=== PATIENT | female | born 1945 | race Caucasian/White ===

== ENCOUNTER → 2016-06-26 | Outpatient (CLI) | payer BC ==
[~2016-06-26] MED LIST: AMLO-114 PO; CLON0.1T12 PO; CYCL10TA6 PO; DIPH1TAB87 PO; FLVHFA110 NAE; FMR25 PO; GABA-113 PO; HYDR-5688 PO; LEVO50TA6 PO; LEVO75TA5 PO; LOVA40TA4 PO; PRLSR20 PO; QUIN20TA30 PO; QUIN40TA PO; SENNTAB23 PO; SERT50TA PO; TRAM-10 PO; TRIATAB3 PO
[2016-06-26 13:01] LABS: ALT/SGPT 19 U/L (12-78); BLOOD UREA NITROGEN 16 mg/dl (7-18); BUN/CREATININE RATIO 20.8 (10-20); CARBON DIOXIDE 31 mmol/L (21-32); CHLORIDE 101 mmol/L (98-107); CHOLESTEROL 194 mg/dl (0-200); CREATININE 0.76 mg/dl (0.60-1.20); GLUCOSE 97 mg/dl (70-99); POTASSIUM 4.1 mmol/L (3.5-5.1); SODIUM 140 mmol/L (136-145); TRIGLYCERIDES 215 mg/dl (0-150); VERY LOW DENSITY LIPOPROT CALC 43 mg/dl
[2016-06-26 13:04] LABS: CALCIUM 10.2 mg/dl (8.5-10.1)
[2016-06-26 13:05] LABS: ALB/GLOB RATIO 1.1 (0.9-2); ALKALINE PHOSPHATASE 75 U/L (45-117); AST/SGOT 13 U/L (15-37); CHOLESTEROL/HDL RATIO 3.1; HDL CHOLESTEROL 62 mg/dl; LDL CHOLESTEROL CALCULATED 89 mg/dl
[2016-06-26 13:07] LABS: ESTIMATED AVERAGE GLUCOSE 140 mg/dl; HA1C FLAG Normal (Normal)
[2016-06-26 13:20] LABS: BASO ABS # 0.07 K/uL (0-0.2); COMPLETE YES; EOS % 3.8 %; HEMATOCRIT 41.3 % (37-47); IG% 0.1 %; LYMPH % 29.6 %; LYMPH ABS # 2.12 K/uL (1.2-3.4); MEAN CELL VOLUME 87.9 fL (80-100); MEAN CORPUSCULAR HEMOGLOBIN 27.9 pg (25-34); MEAN CORPUSCULAR HGB CONC 31.7 g/dl (32-36); MEAN PLATELET VOLUME 11.1 fL (7.4-10.4); MONO % 6.8 %; NEUT % 58.7 %; PLATELET COUNT 377 K/uL (130-400); WHITE BLOOD COUNT 7.16 K/uL (4.8-10.8)
--- NOTE | 2016-07-02 12:23 | CODING QUERY MEDICAL NECESSITY ---
SUPPORTING DIAGNOSIS NEEDED A supporting diagnosis is required for the test/procedure performed on this patient in order for us to be reimbursed by the patient's insurance. Please provide a supporting diagnosis for the following test/procedure listed below next to the test name along with your signature. *If there is no additional diagnosis for this patient that would support the following test/procedure please document that below next to the test/procedure. Test(s)/Procedure(s) that require a supporting diagnosis: DOS 06/26 * Hba1c DIAGNOSIS: Provider Signature: Date: Thank you Linda Foley Health Information Management Once completed, please kindly fax back to [phone] For questions please call [phone]
== END | disposition home or self-care (01) ==
LOC: C.LAB 10:46
PROVIDERS: ATTEND Family Medicine
DX: I10 Essential (primary) hypertension (principal); E78.5 Hyperlipidemia, unspecified; R73.03 Prediabetes

== ENCOUNTER 2016-07-27 07:40 | Observation (INO) | payer BC ==
[2016-06-26 10:54] VITALS: BMI 48.0
--- NOTE | 2016-06-26 11:37 | PAT Medication Instructions ---
Service Date Jun 26, 2016. Current Home Medication List Amlodipine (Norvasc), 10 MG PO HS Clonidine Hcl (Catapres), 1 TAB PO BID Cyclobenzaprine Hcl (Flexeril), 10 MG PO HS Diphenhydramine Hcl (Benadryl Allergy), 1 TAB PO HS Fluticasone Propionate (Flovent Hfa), 2 PUFFS MOSES QAM Gabapentin (Neurontin), 300 MG PO TID Levothyroxine Sodium (Levothyroxine Sodium), 1 TAB PO QAM Lovastatin (Mevacor), 40 MG PO HS Omeprazole (Prilosec), 20 MG PO QAM Quinapril Hcl (Quinapril Hcl), Unknown Dose PO QAM Sennosides-Docusate Sodium (Stool Softener), 1 TAB PO PRN Sertraline (Zoloft), 50 MG PO HS Tramadol (Ultram), 2 TAB PO TID PRN for Pain Triamterene/Hctz (Triamterene/Hctz 37.5-25MG), 1 TAB PO QAM Medication Instructions For Your Scheduled Surgery - Hold the following medications the morning of surgery: Triamterene/Hctz (Triamterene/Hctz 37.5-25MG), 1 TAB PO QAM Sennosides-Docusate Sodium (Stool Softener), 1 TAB PO PRN Quinapril Hcl (Quinapril Hcl), Unknown Dose PO QAM - Take the following medications the morning of surgery with a sip of water: Omeprazole (Prilosec), 20 MG PO QAM Levothyroxine Sodium (Levothyroxine Sodium), 1 TAB PO QAM Gabapentin (Neurontin), 300 MG PO TID Fluticasone Propionate (Flovent Hfa), 2 PUFFS MOSES QAM Clonidine Hcl (Catapres), 1 TAB PO BID Tramadol (Ultram), 2 TAB PO TID PRN for Pain (okay to take up to 4 hours prior to surgery if needed) - Take the following medications as scheduled the night before surgery: Sertraline (Zoloft), 50 MG PO HS Sennosides-Docusate Sodium (Stool Softener), 1 TAB PO PRN Lovastatin (Mevacor), 40 MG PO HS Gabapentin (Neurontin), 300 MG PO TID Diphenhydramine Hcl (Benadryl Allergy), 1 TAB PO HS Cyclobenzaprine Hcl (Flexeril), 10 MG PO HS Clonidine Hcl (Catapres), 1 TAB PO BID Amlodipine (Norvasc), 10 MG PO HS Tramadol (Ultram), 2 TAB PO TID PRN for Pain If you have any questions please call us at [phone] (Kellee Smith PA-C) or [phone] or [phone]
[~2016-07-27] VITALS: Ht 160 cm; Wt 121.3 kg
[2016-07-27] VITALS (8 sets, daily range): BP systolic 121–167; BP diastolic 53–82; PULSE 59–74; TEMP 36.6–37.3; O2SAT 91–99; BMI 48.0; BMI 46.1
[~2016-07-27 07:40] MED LIST changes: -FMR25 PO; -HYDR-5688 PO; +LACTATED RINGER'S 1000ML 1,000 ML IV SCH; -LEVO75TA5 PO; -QUIN40TA PO
--- NOTE | 2016-07-27 10:17 | DIAGNOSTIC IMAGING REPORT ---
LYMPHOSCINTIGRAPHY CLINICAL HISTORY: Left breast cancer. PROCEDURE: Using standard sterile technique, 4 intradermal and one deep injection of 0.49 mCi of Lymphoseek was placed in the left breast. The patient tolerated the procedure well. There were no immediate complications. The patient was subsequently transported to the surgical suite. No imaging was obtained at the referring physician's request. IMPRESSION: Injection of 0.49 mCi of Lymphoseek in the left breast. Electronically signed by: Aryan Perera M.D. 07/27/2016 10:16 AM Dictated Date/Time: 07/27/2016 10:16 AM
[2016-07-27] MEDS ORDERED: MIDAZOLAM HCL 1 MG/ML 2ML VIAL ONE (12:26)
[2016-07-27] MEDS ORDERED: FENTANYL CITRATE INJ 50 MCG/1 ML 2 ML VIAL ONE ×2 (12:26→15:45)
[2016-07-27] MEDS ORDERED: PROPOFOL IV EMULSION 10 MG/ML 20 ML VIAL IV ONE (12:42)
[2016-07-27] MEDS ORDERED: LIDOCAINE HCL 2% 2 ML VIAL (20MG/ML) ONE (12:42)
[2016-07-27] MEDS ORDERED: BUPIVACAINE 0.5 % 5 MG/1 ML MPF 30ML VIAL ONE (13:35)
[2016-07-27] MEDS: CEFAZOLIN 2000 MG/60 ML D5W IV SCH ×2 (13:52→13:59)
[2016-07-27] MEDS ORDERED: GLYCOPYRROLATE INJ 0.2 MG/ML VIAL ONE (15:09)
--- NOTE | 2016-07-27 15:10 | [facility] Post Operative Brief Note ---
Immediate Operative Summary Operative Date July 27, 2016. 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 Post-Operative Diagnosis Ductal carcinamo in situ left breast Procedure(s) Performed Left Breast Partial Mastectomy with Needle Localization, and Left [place] Lymph Node Biopsy Surgeon Dr Javon Lloyd Mortician Supplies Sales Representative Surgeon(s) Abhishek Ceja PA-C Estimated Blood Loss 20ml Findings SLN negative 2 needles placed - Specimens Frozen #1: left sentinel lymph node A: Left breast tissue,skin and needles-anterior, long silk-lateral, short silk-superior, blue-deep B: Additional superior tissue, silk-lateral, blue-new margin C: Additional inferior tissue, Blue-new margin Anesthesia gen/ LMA Complication(s) None Disposition Recovery Room / PACU
[2016-07-27] MEDS ORDERED: LACTATED RINGER'S 1000ML 1,000 ML IV SCH (15:11)
[2016-07-27] MEDS ORDERED: HYDROCODONE/ACETAMOPHEN 5/325MG TAB PO PRN ×2 (15:15)
[2016-07-27] MEDS ORDERED: MoRPHine SULFATE 2 MG/ML CARP IV PRN (15:15)
[2016-07-27] MEDS ORDERED: ONDANSETRON INJ 2 MG/ML 2 ML VIAL IV PRN (15:15)
[2016-07-27] MEDS ORDERED: MoRPHine SULFATE 4 MG/ML 1 ML CARP\\VIAL IV PRN (15:15)
[2016-07-27] MEDS ORDERED: FENTANYL CITRATE INJ 50 MCG/1 ML 2 ML VIAL IV PRN (15:45)
[2016-07-27] MEDS ORDERED: EpHEDrine SULFATE INJ 50 MG/ML AMP IV PRN (15:45)
[2016-07-27] MEDS ORDERED: ATROPINE SULFATE 0.1 MG/ML 5ML SYR IV PRN (15:45)
--- NOTE | 2016-07-27 16:07 | Anesthesiology Progress Note ---
Anesthesia Post Op Note Date & Time July 27, 2016 at 16:01 Vital Signs Pain Intensity: 7 Vital Signs Past 12 Hours Date Time Temp Pulse Resp B/P Pulse Ox O2 Delivery O2 Flow Rate FiO2 07/27/16 15:50 57 16 169/94 97 Nasal Cannula 4 07/27/16 15:40 57 16 160/85 98 Nasal Cannula 4 07/27/16 15:30 63 16 173/91 98 Nasal Cannula 4 07/27/16 15:23 36.3 81 16 167/104 98 Mask 4 07/27/16 09:21 36.9 70 22 142/78 93 Room Air Notes Mental Status: alert / awake / arousable, participated in evaluation Pt Amnestic to Procedure: Yes Nausea / Vomiting: adequately controlled Pain: adequately controlled Airway Patency, RR, SpO2: stable & adequate BP & HR: stable & adequate Hydration State: stable & adequate Anesthetic Complications: no major complications apparent The patient had some atrial dysrhythmias during her anesthetic but not in the PACU. At one point intraoperatively she had what appeared to be a short run of SVT which spontaneously resolvedthen dropped as low as 40 then back up to the 60s to 80s. We did not have to treat her but I spoke to Dr Lisette Mercado who will be following her in the PCU tonight. The patient was otherwise stable.
[2016-07-27] MEDS ORDERED: IV FLUIDS COMPLETED PRN (16:15)
[2016-07-27] MEDS: CEFAZOLIN IV 1,000 MG in DEXTROSE 5% 50ML 50 ML IV SCH (19:59)
[2016-07-27] MEDS: CLONIDINE HCL 0.1 MG TAB PO SCH (20:00)
[2016-07-27] MEDS: GABAPENTIN 300 MG CAP PO SCH (20:00)
--- NOTE | 2016-07-27 20:09 | Medical Consult ---
Consultation Date of Consultation: July 27, 2016. Attending Physician: Javon Lloyd M.D. Reason for Consultation: Post-op bradycardia History of Present Illness 71 y/o F who underwent a breast lumpectomy earlier today with Dr. Lloyd. She had no issues during the procedure, however maya-op developed sinus bradycardia and junctional rhythms, which had not been seen in this pt prior. Pt was still sedated from her anesthesia and cannot tell me if she had any sx at that time, but she feels fine now. No hx of chest pain, SOB, palpitations, lightheadedness , dizziness now or prior to OR. She had dinner and tolerated without issue. Pt denies fever, SOB, chest pain, abd pain, n/v/c/d, LE pain or swelling. ROS as noted above, otherwise neg. Past Medical/Surgical History HTN Hypothyroid Anxiety/depression Asthma Social History Smoking Status: Never Smoker Alcohol Use: none Drug Use: none Allergies Coded Allergies: Fenoprofen (Verified Allergy, Unknown, MUSCLE WEAKNESS, PAIN, HIVES, ) Ibuprofen (Verified Allergy, Unknown, RELATED TO FENOPROFEN, 07/27/16) TOLD NOT TO TAKE IBUPROFEN WHEN HAD ALLERGY TO FENOPROFEN Current Inpatient Medications Current Inpatient Medications Medications (Trade) Dose Ordered Sig/Sharon Route Start Time Stop Time Status Last Admin Dose Admin Amlodipine Besylate (Norvasc Tab) 10 mg HS PO 07/27/16 21:00 08/26/16 20:59 Clonidine HCl (Catapres Tab) 0.1 mg BID PO 07/27/16 21:00 08/26/16 20:59 Fluticasone Propionate (Flovent Hfa 110MCG Inhaler) 2 puffs QAM INH 07/28/16 09:00 08/27/16 08:59 Gabapentin (Neurontin Cap) 300 mg TID PO 07/27/16 21:00 08/26/16 20:59 Levothyroxine Sodium (Synthroid Tab) 50 mcg DAILYBB PO 07/28/16 06:00 08/27/16 06:59 Sertraline HCl (Zoloft Tab) 50 mg HS PO 07/27/16 21:00 08/26/16 20:59 Triamterene/HCTZ 1 tab 1 tab QAM PO 07/28/16 09:00 08/27/16 08:59 Lactated Ringer's 1,000 ml @ 50 mls/hr Q20H IV 07/27/16 15:11 08/26/16 15:10 07/27/16 15:11 50 MLS/HR Cefazolin Sodium/ Dextrose (Ancef Iv/D5 50ml) 55 ml @ 100 mls/hr Q6H IV 07/27/16 20:00 08/06/16 19:59 Acetaminophen/ Hydrocodone Bitart ([place] 5/325 Tab) 1 tab Q4 PRN PO 07/27/16 15:15 08/10/16 15:14 Acetaminophen/ Hydrocodone Bitart ([place] 5/325 Tab) 2 tab Q4 PRN PO 07/27/16 15:15 08/10/16 15:14 07/27/16 17:11 2 TAB Morphine Sulfate (MoRPHine SULFATE INJ) 2 mg Q4H PRN IV 07/27/16 15:15 08/10/16 15:14 Morphine Sulfate (MoRPHine SULFATE INJ) 4 mg Q4H PRN IV 07/27/16 15:15 08/10/16 15:14 Ondansetron HCl (Zofran Inj) 4 mg Q6H PRN IV 07/27/16 15:15 08/26/16 15:14 Fentanyl Citrate (Fentanyl Inj) 25 mcg Q5M PRN IV 07/27/16 15:45 07/27/16 21:00 Ephedrine Sulfate (EpHEDrine SULFATE INJ) 5 mg Q5M PRN IV 07/27/16 15:45 07/27/16 21:00 Atropine Sulfate (Atropine Sulfate 0.1MG/Ml Inj) 0.5 mg Q1M PRN IV 07/27/16 15:45 07/27/16 21:00 Miscellaneous (Iv Fluids Completed) 1 ea PRN PRN N/A 07/27/16 16:15 07/27/17 16:14 Physical Exam Date Time Temp Pulse Resp B/P Pulse Ox O2 Delivery O2 Flow Rate FiO2 07/27/16 17:31 37.1 65 20 167/53 96 Nasal Cannula 2.0 07/27/16 17:30 37.3 67 18 121/81 97 Nasal Cannula 07/27/16 17:15 36.7 64 16 121/81 96 Nasal Cannula 2.0 07/27/16 17:00 36.7 60 16 134/82 99 Nasal Cannula 4.0 07/27/16 16:45 36.6 59 20 158/76 98 Nasal Cannula 2.0 07/27/16 16:10 36.6 61 16 130/97 94 Nasal Cannula 4 07/27/16 16:00 59 16 159/89 95 Nasal Cannula 4 07/27/16 15:50 57 16 169/94 97 Nasal Cannula 4 07/27/16 15:40 57 16 160/85 98 Nasal Cannula 4 07/27/16 15:30 63 16 173/91 98 Nasal Cannula 4 07/27/16 15:23 36.3 81 16 167/104 98 Mask 4 07/27/16 09:21 36.9 70 22 142/78 93 Room Air General Appearance: WD/WN, no apparent distress Head: normocephalic, atraumatic Respiratory/Chest: normal breath sounds, no respiratory distress Cardiovascular: regular rate, rhythm, no edema Abdomen/GI: non tender, soft Extremities/Musculoskelatal: no calf tenderness, no pedal edema Neurologic/Psych: alert, oriented x 3 Skin: normal color, warm/dry Laboratory Results Last 24 Hours Test 07/27/16 09:17 07/27/16 18:16 Bedside Glucose 116 mg/dl Assessment & Plan 71 y/o F who was admitted by Dr. Lloyd after having post-op bradycardia. Bradycardia: resolved now and pt asx, seems likely related to anesthesia Monitor on tele overnight Hold BP meds if HR <50 EKG in AM Hypothyroid: continue home meds HTN: meds as above
--- NOTE | 2016-07-27 20:36 | OPERATIVE REPORT ---
DATE OF OPERATION: 07/27/2016 NAME OF OPERATION: Needle localization x2, left partial mastectomy with sentinel lymph node biopsy. PREOPERATIVE DIAGNOSIS: Ductal carcinoma in situ of the left breast. POSTOPERATIVE DIAGNOSIS: Same. STAFF SURGEON: Javon Lloyd MD DRAFTING DETAILER: Abhishek Ceja PA-C PROCEDURE: The patient was brought in the operating room and placed on the operating table in supine position. After appropriate anesthetic, her left chest and axilla were prepped and draped in usual fashion. She had had 2 needles placed in the 4-5 o'clock position of left breast. Using the Neoprobe, incision was made in the left axilla carrying dissection very deeply down into the axilla almost to the chest wall, identifying the lymph node with significant activity on the Neoprobe. This was sent for frozen section, it was negative. During the frozen section, left partial mastectomy was performed making an elliptical incision around the needles, carrying dissection down deeply around the needles, the needles in skin were anterior, long silk suture lateral, short silk suture superior, and methylene blue deep. This was placed into the Faxitron. Dr. Morocho examined the tissue, the clip was within the tissue. I took extra tissue, additional superior tissue which was marked with silk suture lateral and methylene blue on the new margin. This was also deep tissue. I took additional inferior and deep tissue which was marked with methylene blue on the new margin. Clips were placed within the breast tissue. The deep tissue on both wounds was reapproximated using 2-0 plain catgut suture, then the skin reapproximated in the axilla using 4-0 nylon suture, then the breast using subcuticular 4-0 Monocryl with Steri-Strips. The patient was transferred to recovery room in stable condition. I attest to the content of the Intraoperative Record and any orders documented therein. Any exceptio ns are noted below.
[2016-07-27] MEDS ORDERED: SERTRALINE HCL 50 MG TAB PO SCH (21:00)
[2016-07-27] MEDS ORDERED: AMLODIPINE BESYLATE 5 MG TAB PO SCH (21:00)
[2016-07-28] VITALS: BP 157/64; PULSE 61; TEMP 36.7; O2SAT 93
[2016-07-28] MEDS: CEFAZOLIN IV 1,000 MG in DEXTROSE 5% 50ML 50 ML IV SCH ×2 (02:30→05:34)
[2016-07-28 04:00] VITALS: BP 157/64; PULSE 55; TEMP 36.4; O2SAT 94
[2016-07-28] MEDS ORDERED: HYDR-5688 PO (05:32)
--- NOTE | 2016-07-28 05:35 | Discharge Instructions ---
Discharge Instructions Date of Service July 28, 2016. Admission Reason for Admission: Left Breast Dcis W/Hosp Loc & Lympho Discharge Discharge Diagnosis / Problem: Ductal carcinoma insitu Discharge Goals Goal(s): Decrease discomfort, Improve function, Improve disease control Activity Recommendations Activity Limitations: as noted below Lifting Limitations: no more than 10 pounds Exercise/Sports Limitations: until after follow-up appointment May Resume Sexual Activity: when tolerated Shower/Bathe: tomorrow Driving or Machine Use: resume 3 days after discharge SPECIAL CARE INSTRUCTIONS: * Cover incisions and change daily for comfort/drainage. * Leave steri strips in place * May use ibuprofen for pain as tolerated. * Expect some swelling and bruising. Call your doctor if: * Temperature above 101 degrees * Pain not relieved by pain medicine ordered * There is increased drainage or redness from any incision * You have any unanswered questions or concerns [phone]. FOLLOW UP VISIT: If not already scheduled, please call the office for a follow-up visit. for next week- some suture removal OFFICE PHONE NUMBER: Dr. Lloyd Office . Current Hospital Diet Patient's current hospital diet: Regular Diet Discharge Diet Recommended Diet: Diabetes Type 2 Diet Procedures Procedures Performed: Left Breast Partial Mastectomy with Needle Localization, and Left [place] Lymph Node Biopsy Pending Studies Studies pending at discharge: no Laboratory Results Hemoglobin A1c Test 06/26/16 11:41 Range/Units Estimated Average Glucose 140 mg/dl Hemoglobin A1c 6.5 H 4.5-5.6 % Lipid Panel Test 06/26/16 11:41 Range/Units Triglycerides Level 215 H 0-150 mg/dl Cholesterol Level 194 0-200 mg/dl HDL Cholesterol 62 mg/dl Cholesterol/HDL Ratio 3.1 LDL Cholesterol, Calculated 89 mg/dl Medical Emergencies . Who to Call and When: Medical Emergencies: If at any time you feel your situation is an emergency, please call 911 immediately. . Non-Emergent Contact Non-Emergency issues call your: Primary Care Provider, Surgeon . "Provider Documentation" section prepared by Javon Lloyd. . VTE Core Measure Inpt VTE Proph given/why not?: SCD's
[2016-07-28 05:49] LABS: HEMATOCRIT 39.8 % (37-47); MEAN CELL VOLUME 86.3 fL (80-100); MEAN CORPUSCULAR HEMOGLOBIN 27.3 pg (25-34); MEAN CORPUSCULAR HGB CONC 31.7 g/dl (32-36); MEAN PLATELET VOLUME 10.5 fL (7.4-10.4); PLATELET COUNT 361 K/uL (130-400); RED BLOOD COUNT 4.61 M/uL (4.2-5.4); WHITE BLOOD COUNT 9.04 K/uL (4.8-10.8)
[2016-07-28] MEDS ORDERED: LEVOTHYROXINE 50 MCG TAB PO SCH (06:00)
[2016-07-28 06:16] LABS: BUN/CREATININE RATIO 18.8 (10-20); CALCIUM 8.9 mg/dl (8.5-10.1); CREATININE 0.84 mg/dl (0.60-1.20); MAGNESIUM 2.4 mg/dl (1.8-2.4); PHOSPHORUS 3.2 mg/dl (2.5-4.9); POTASSIUM 3.6 mmol/L (3.5-5.1)
--- NOTE | 2016-07-28 07:15 | DISCHARGE SUMMARY ---
PRINCIPAL DIAGNOSIS: Ductal carcinoma in situ of the left breast. PROCEDURES: The patient underwent needle localization, left partial mastectomy with sentinel lymph node biopsy. HISTORY OF PRESENT ILLNESS: The patient is a 71-year-old female with a history of abnormal mammogram, undergoing core biopsy of the left breast showing high grade ductal carcinoma in situ. HOSPITAL COURSE: The patient was brought into the hospital after going to the breast center. She had 2 needles placed in the left breast and then she had the injection of the radioactive tracer, and then she was brought to operating room where she underwent a sentinel lymph node biopsy which was negative and during the frozen section she underwent left partial mastectomy around the two needles. She tolerated the procedure very well, but did have some changes in her heart rate with no ventricular ectopy. It was felt that she would be observed on telemetry overnight. The patient has done quite well and is ready for discharge home to be followed in the surgical clinic next week.
[2016-07-28] MEDS: GABAPENTIN 300 MG CAP PO SCH (07:34)
[2016-07-28] MEDS: CLONIDINE HCL 0.1 MG TAB PO SCH (07:34)
--- NOTE | 2016-07-28 07:54 | MAMMOGRAPHY REPORT ---
NEEDLE LOCALIZATION LEFT BREAST: 07/27/2016 CLINICAL HISTORY: 71 year-old woman with biopsy-proven left breast cancer. Patient presents for pre operative needle and wire localization. After reviewing diagnostic mammograms dated 05/25/2016, nikole reotactic biopsy images and postprocedure mammograms dated 06/09/2016, the metallic biopsy marker in the 3:00 anterior left breast denoting the biopsy proven cancer, and an additional smaller cluster of punctate microcalcifications in the lateral left breast, 2-3 cm posterior to the biopsy marker wi ll be localized. COMPARISON: Comparison is made to exams dated: 06/09/2016 mammogram, 05/25/2016 mammogram, 05/11/2016 ma mmogram, 05/10/2015 mammogram, 12/12/2013 mammogram, and 07/22/2011 mammogram - [facility]. PATIENT CONSENT: The risks of the procedure were explained to the patient and informed consent was o btained. The patient denied allergy to lidocaine. A time out was performed in the left breast was agreed as the site for preoperative localization. PROCEDURE DESCRIPTION: Outside mammograms were reviewed. Direct angular metallic biopsy marker in t he 3:00 anterior left breast is the first target for localization. There is a second cluster of pun ctate microcalcifications in the upper outer middle one third of the left breast measuring 2.7 mm wh ich will also be targeted for needle localization. A product distribution specialist image in the lateral medial projection w as obtained prior to the procedure. With the patient in the seated position, the left breast was placed in lateralmedial compression. First the metallic biopsy marker clip was localized using an alphanumeric grid. The skin was cleans ed with alcohol. 1% buffered lidocaine without epinephrine was administered as local anesthesia. A 5cm Zavala II needle and wire combination was inserted into the breast. Then the small faint clus ter of punctate microcalcifications approximately 2 cm posterior to the biopsy marker clip was ident ified and localized using the alphanumeric grid. A second 5 cm Zavala II needle and wire combinati on was inserted to the breast after administration of additional local anesthesia. After both needl es were placed in the breast, positioning was changed to CC projection and depth of the needles was assessed. Findings just and remain and the wires were locked in place, leaving both the needles and wires in the breast. The procedure including approach and needle lengths were discussed with the o perating surgeon prior to surgery. The patient tolerated the procedure well and there was no immedi ate complication. She was sent to the hospital in satisfactory condition. The specimen radiograph demonstrates 2 localizing needles with wires, the rectangular metallic biops y marker, a few additional microcalcifications near the biopsy marker, and the second small cluster of punctate microcalcifications adjacent to the second localizing needle, compatible with successful preoperative localization and subsequent surgical excision. Final pathology is pending. IMPRESSION: NEEDLE LOCALIZATION Status post successful preoperative needle and wire localization for biopsy-proven cancer in the lef t lateral breast, and localization of a second smaller indeterminate cluster of punctate microcalcif ications located 2 cm posterior to the biopsy marker clip. The patient will receive notification of final pathology results from her referring physician. Joslyn Morocho M.D. ay/:07/27/2016 15:33:55 Casting Operator: Jany Solano, [facility]
--- NOTE | 2016-07-28 07:54 | MAMMOGRAPHY REPORT ---
SPECIMEN LEFT BREAST: 07/27/2016 CLINICAL HISTORY: Left lumpectomy specimen. Please refer to the report from left breast image guided needle localization performed at the same t alec for full detail. IMPRESSION: SPECIMEN Please refer to the report from left breast image guided needle localization performed at the same t alec for full detail. Joslyn Morocho M.D. ay/:07/27/2016 15:26:07 Application Development Team Lead: Jany Solano, [facility]
[2016-07-28 07:57] VITALS: BP 156/86; PULSE 64; TEMP 36.8; O2SAT 93
--- NOTE | 2016-07-28 08:01 | Anesthesiology Progress Note ---
Anesthesia Post Op Note Date & Time July 28, 2016 at 08:02 Vital Signs Pain Intensity: 2.0 Vital Signs Past 12 Hours Date Time Temp Pulse Resp B/P Pulse Ox O2 Delivery O2 Flow Rate FiO2 07/28/16 07:57 36.8 64 20 156/86 93 Room Air 07/28/16 04:00 Room Air Nasal Cannula 07/28/16 04:00 36.4 55 18 157/64 94 Room Air 07/28/16 00:26 Room Air Nasal Cannula 07/28/16 00:00 36.7 61 16 157/64 93 Room Air 07/27/16 20:38 37.0 74 24 137/67 91 Room Air 07/27/16 20:06 94 Room Air Nasal Cannula Notes Mental Status: alert / awake / arousable, participated in evaluation Pt Amnestic to Procedure: Yes Nausea / Vomiting: adequately controlled Pain: adequately controlled Airway Patency, RR, SpO2: stable & adequate BP & HR: stable & adequate Hydration State: stable & adequate Anesthetic Complications: no major complications apparent
[2016-07-28] MEDS ORDERED: TRIAMTERENE/HCTZ 37.5/25MG TAB PO SCH (09:00)
[2016-07-28] MEDS ORDERED: FLUTICASONE HFA 110MCG INHALER INH SCH (09:00)
[2016-07-28 09:48] VITALS: BP 156/86; PULSE 64; TEMP 36.8; O2SAT 93
[2016-07-28 09:52] VITALS: BP 156/86; PULSE 64; TEMP 36.8; O2SAT 93
[2016-07-29 10:59] VITALS: Ht 160 cm; Wt 121.3 kg
[2016-08-18] MEDS ORDERED: LEVO75TA5 PO (10:00)
[2016-08-18] MEDS ORDERED: QUIN20TA30 PO (10:04)
[2016-11-19] MEDS ORDERED: FMR25 PO (08:31)
[2016-11-19] MEDS ORDERED: QUIN40TA PO (08:31)
== END 2016-07-28 10:45 | disposition home or self-care (01) ==
LOC: ENRESERVTM → ENRESERVDT → C.ACU 07:40 → C.2E 15:19
PROVIDERS: ADMIT Surgery; ATTEND Surgery
DX: D05.12 Intraductal carcinoma in situ of left breast (principal); M19.90 Unspecified osteoarthritis, unspecified site; I10 Essential (primary) hypertension; K21.9 Gastro-esophageal reflux disease without esophagitis; E78.5 Hyperlipidemia, unspecified; E03.9 Hypothyroidism, unspecified; E66.01 Morbid (severe) obesity due to excess calories; M54.5 Low back pain; R73.03 Prediabetes; G25.0 Essential tremor; Z80.41 Family history of malignant neoplasm of ovary; Z80.0 Family history of malignant neoplasm of digestive organs; Z80.3 Family history of malignant neoplasm of breast; Z96.659 Presence of unspecified artificial knee joint; Z86.718 Personal history of other venous thrombosis and embolism; Z96.649 Presence of unspecified artificial hip joint; Z83.3 Family history of diabetes mellitus; Z82.49 Family history of ischemic heart disease and other diseases of the circulatory system; Z80.1 Family history of malignant neoplasm of trachea, bronchus and lung

== ENCOUNTER → 2016-09-03 | Outpatient (CLI) | payer BC ==
[~2016-09-03] MED LIST changes: +DIPH1TAB PO; -DIPH1TAB87 PO; +FMR25 PO; +HYDR-5688 PO; -LACTATED RINGER'S 1000ML 1,000 ML IV SCH; -LEVO50TA6 PO; +LEVO75TA5 PO; +QUIN40TA PO
== END | disposition home or self-care (01) ==
LOC: C.LABMFLN 11:54
PROVIDERS: ATTEND Family Medicine
DX: E03.9 Hypothyroidism, unspecified (principal); R39.15 Urgency of urination

== ENCOUNTER → 2016-10-15 | Outpatient (CLI) | payer BC ==
--- NOTE | 2016-10-30 10:03 | CODING QUERY MEDICAL NECESSITY ---
SUPPORTING DIAGNOSIS NEEDED Dr. Parker, A supporting diagnosis is required for the test/procedure performed on this patient in order for us to be reimbursed by the patient's insurance. Please provide a supporting diagnosis for the following test/procedure listed below next to the test name along with your signature. *If there is no additional diagnosis for this patient that would support the following test/procedure please document that below next to the test/procedure. Test(s)/Procedure(s) that require a supporting diagnosis: * ([id number]) DXA BONE DENSITY, AXIAL DIAGNOSIS: DATE OF SERVICE: 10/15/16 Provider Signature: Date: Thank you Abhishek Edwards [facility] Information Management Once completed, please kindly fax back to [phone] For questions please call [phone]
== END | disposition home or self-care (01) ==
LOC: C.MAMM 13:35
PROVIDERS: ATTEND Internal Medicine Hematology & Oncology
DX: D05.10 Intraductal carcinoma in situ of unspecified breast (principal)

== ENCOUNTER → 2016-11-06 | Outpatient (CLI) | payer BC | END | disposition home or self-care (01) | LOC: C.PAPS 08:00 | PROVIDERS: ATTEND Family Medicine | DX: Z01.419 Encounter for gynecological examination (general) (routine) without abnormal findings (principal); Z85.3 Personal history of malignant neoplasm of breast ==

== ENCOUNTER → 2016-11-18 | Outpatient (CLI) | payer BC ==
[2016-11-18 17:49] LABS: BASO % 0.9 %; BASO ABS # 0.07 K/uL (0-0.2); COMPLETE YES; EOS % 4.1 %; HEMATOCRIT 43.7 % (37-47); IG% 0.4 %; LYMPH % 27.6 %; LYMPH ABS # 2.22 K/uL (1.2-3.4); MEAN CELL VOLUME 86.5 fL (80-100); MEAN CORPUSCULAR HEMOGLOBIN 26.3 pg (25-34); MEAN CORPUSCULAR HGB CONC 30.4 g/dl (32-36); MEAN PLATELET VOLUME 10.9 fL (7.4-10.4); MONO % 6.2 %; NEUT % 60.8 %; PLATELET COUNT 380 K/uL (130-400); RED BLOOD COUNT 5.05 M/uL (4.2-5.4); WHITE BLOOD COUNT 8.03 K/uL (4.8-10.8)
[2016-11-18 18:03] LABS: ALT/SGPT 18 U/L (12-78); BLOOD UREA NITROGEN 18 mg/dl (7-18); BUN/CREATININE RATIO 22.4 (10-20); CALCIUM 9.9 mg/dl (8.5-10.1); CARBON DIOXIDE 32 mmol/L (21-32); CHLORIDE 102 mmol/L (98-107); GLUCOSE 134 mg/dl (70-99); POTASSIUM 3.3 mmol/L (3.5-5.1); SODIUM 140 mmol/L (136-145)
[2016-11-18 18:07] LABS: ALKALINE PHOSPHATASE 73 U/L (45-117); AST/SGOT 16 U/L (15-37)
== END | disposition home or self-care (01) ==
LOC: C.LABMFLN 16:20
PROVIDERS: ATTEND Internal Medicine Hematology & Oncology
DX: D05.12 Intraductal carcinoma in situ of left breast (principal)

== ENCOUNTER → 2016-11-25 | Outpatient (CLI) | payer BC ==
[~2016-11-25] MED LIST changes: -HYDR-5688 PO; +LIDOCAINE HCL 2% 2 ML VIAL (20MG/ML) ONE; +MIDAZOLAM HCL 1 MG/ML 2ML VIAL ONE; +PROPOFOL IV EMULSION 10 MG/ML 20 ML VIAL IV ONE; -QUIN20TA30 PO
[2016-11-25 12:36] VITALS: BP 113/71; PULSE 72; TEMP 37; O2SAT 94
--- NOTE | 2016-11-25 14:44 | Radiation Oncology Follow-Up ---
Radiation Oncology Follow-Up Date of Visit Nov 25, 2016. Reason For Visit One-month follow-up cancer survivorship care plan Radiation Completion Date 10/13/16 Diagnosis (1) Ductal carcinoma in situ (DCIS) of breast Status: Resolved Onset Date: 06/09/2016 Stage: 0 Permanent Comment: Abnormal left breast mammogram Status post stereotactic biopsy 06/09/2016 revealing DCIS grade 3 Estrogen receptor positive and progesterone receptor positive Status post needle localization left partial mastectomy with sentinel lymph node biopsy 07/27/2016 DCIS and LCIS Stage pTis pN0 Status post completion of radiation therapy 10/13/2016. Received 5130 cGy utilizing hypo-fractionation. Last Edited By: Willow Calero on Oct 22, 2016 09:41 History of Present Illness Ms. Munoz is a 71-year-old female who recently presented with an abnormal mammogram on 05/11/2016 which revealed clustered punctate calcifications in the left breast at 3:00. The patient did undergo a unilateral diagnostic mammogram of the left breast on 05/25/2016 which revealed an asymmetry in the middle depth of the outer central left breast. 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 The patient was seen in consultation by Dr. Javon Lloyd from surgery who discussed treatment options including mastectomy and lumpectomy/sentinel lymph node biopsy. The patient elected to undergo a lumpectomy and sentinel lymph node biopsy which was completed on 05/27/2016. 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 The largest specimen involving tumor measured 0.2 cm. The margins were negative and the closest margin was 2 mm. A sentinel lymph node was biopsied and was negative for metastatic carcinoma. We are now seeing the patient in consultation discuss the role of adjuvant radiation therapy. The patient will be seeing Dr. Nito Parker from medical oncology shortly. Overall, the patient is doing relatively well. She states she would prefer to have radiation therapy here as opposed to in [facility]. Due to her income, she would prefer to minimize the number treatments overall. She has healed up well from surgery has no other complaints. She had a CT simulation and was found to be a candidate for hypo-fractionation. Radiation was completed 10/13/2016. She received 5130 cGy. Interim History She has been doing well over this past month. She is noted no masses or tenderness and no change in the axilla. She is had no swelling of her arm. She does have some dryness of the skin. She was started on antiestrogen therapy and has been taking Femara. She is tolerating this well. She does have some hot flashes. She was seen in follow-up today in medical oncology. Allergies Coded Allergies: Fenoprofen (Verified Allergy, Unknown, MUSCLE WEAKNESS, PAIN, HIVES, ) Ibuprofen (Verified Allergy, Unknown, RELATED TO FENOPROFEN, 11/19/16) TOLD NOT TO TAKE IBUPROFEN WHEN HAD ALLERGY TO FENOPROFEN Uncoded Allergies: surgical tape (Allergy, Intermediate, skin reaction , 08/18/16) Home Medications Scheduled Amlodipine (Norvasc), 10 MG PO HS Clonidine Hcl (Catapres), 1 TAB PO BID Cyclobenzaprine Hcl (Flexeril), 10 MG PO HS Fluticasone Propionate (Flovent Hfa), 2 PUFFS MOSES QAM Gabapentin (Neurontin), 300 MG PO TID Letrozole (Femara), 2.5 MG PO QAM Levothyroxine Sodium (Levothyroxine Sodium), 1 TAB PO QAM Lovastatin (Mevacor), 40 MG PO HS Omeprazole (Prilosec), 20 MG PO every other day Quinapril Hcl (Accupril), 1 TAB PO QAM Sennosides-Docusate Sodium (Stool Softener), 1 TAB PO DAILY Sertraline (Zoloft), 50 MG PO HS Triamterene/Hctz (Triamterene/Hctz 37.5-25MG), 1 TAB PO QAM Scheduled PRN Tramadol (Ultram), 2 TAB PO BID PRN for Pain Review of Systems Gastrointestinal: Symptoms: WNL Oral: Symptoms: No Problems Respiratory: Symptoms: WNL Urinary: Symptoms: Incontinence Comments: urge incont. Skin: Symptoms: Dry Desquamation Breast: Right Upper Arm Measurement: 35.0 Right Mid Arm Measurement: 28.5 Right Wrist Measurement: 17.7 Left Upper Arm Measurement: 34.5 Left Mid Arm Measurement: 28.3 Left Wrist Measurement: 18.3 Arm Dominence: Right Patient Cosmetic Evaluation: Good Staff Cosmetic Evalaluation: Good Physical Exam Vital Signs Date Time Temp Pulse Resp B/P (MAP) Pulse Ox O2 Delivery O2 Flow Rate FiO2 11/25/16 12:36 37.0 72 20 113/71 94 Pain: Pain Onset: years Pain Duration: intermet Patient Pain Scale: 0 - 10 Initial Pain Intensity: 5.0 Pain Description: Sharp Fatigue: None General Appearance: no apparent distress Eyes: normal inspection, EOMI ENT: normal ENT inspection, hearing grossly normal Neck: no adenopathy, thyroid normal Respiratory/Chest: lungs clear, no respiratory distress, no accessory muscle use Breast: Breast examination reveals well-healed incisions of the left breast. She does have resolving hyperpigmentation and dry desquamation. There are no masses or tenderness and no axillary adenopathy. She has no skin retractions or nipple changes. Using the [place] score cosmesis she has a fair outcome due to the hyperpigmentation and desquamation. The right breast showed no masses or tenderness and no axillary adenopathy. The right breast showed no masses or tenderness and no axillary adenopathy. Cardiovascular: regular rate, rhythm, no gallop, no murmur Extremities: no pedal edema Neurologic/Psychiatric: no motor/sensory deficits, alert, normal mood/affect Skin: warm/dry Laboratory Studies Test 09/03/16 12:02 11/18/16 16:26 Thyroid Stimulating Hormone (TSH) 1.290 uIu/ml (0.300-4.500) White Blood Count 8.03 K/uL (4.8-10.8) Red Blood Count 5.05 M/uL (4.2-5.4) Hemoglobin 13.3 g/dL (12.0-16.0) Hematocrit 43.7 % (37-47) Mean Corpuscular Volume 86.5 fL (80-100) Mean Corpuscular Hemoglobin 26.3 pg (25-34) Mean Corpuscular Hemoglobin Concent 30.4 g/dl (32-36) Platelet Count 380 K/uL (130-400) Mean Platelet Volume 10.9 fL (7.4-10.4) Neutrophils (%) (Auto) 60.8 % Lymphocytes (%) (Auto) 27.6 % Monocytes (%) (Auto) 6.2 % Eosinophils (%) (Auto) 4.1 % Basophils (%) (Auto) 0.9 % Neutrophils # (Auto) 4.88 K/uL (1.4-6.5) Lymphocytes # (Auto) 2.22 K/uL (1.2-3.4) Monocytes # (Auto) 0.50 K/uL (0.11-0.59) Eosinophils # (Auto) 0.33 K/uL (0-0.5) Basophils # (Auto) 0.07 K/uL (0-0.2) RDW Standard Deviation 45.8 fL (36.4-46.3) RDW Coefficient of Variation 14.6 % (11.5-14.5) Immature Granulocyte % (Auto) 0.4 % Immature Granulocyte # (Auto) 0.03 K/uL (0.00-0.02) Sodium Level 140 mmol/L (136-145) Potassium Level 3.3 mmol/L (3.5-5.1) Chloride Level 102 mmol/L (98-107) Carbon Dioxide Level 32 mmol/L (21-32) Anion Gap 6.0 mmol/L (3-11) Blood Urea Nitrogen 18 mg/dl (7-18) Creatinine 0.80 mg/dl (0.60-1.20) Estimated GFR () 86.6 Estimated GFR (Non- 74.7 BUN/Creatinine Ratio 22.4 (10-20) Random Glucose 134 mg/dl (70-99) Calcium Level 9.9 mg/dl (8.5-10.1) Total Bilirubin 0.2 mg/dl (0.2-1) Aspartate Amino Transferase (AST) 16 U/L (15-37) Alanine Aminotransferase (ALT) 18 U/L (12-78) Alkaline Phosphatase 73 U/L (45-117) Lactate Dehydrogenase 171 U/L (84-246) Total Protein 7.4 gm/dl (6.4-8.2) Albumin 3.6 gm/dl (3.4-5.0) Globulin 3.8 gm/dl (2.5-4.0) Albumin/Globulin Ratio 1.0 (0.9-2) Assessment & Plan Plan: Patient is also seen and examined by Dr. Son. Today we completed a cancer survivorship care plan. A copy of the document was given to the patient. She was scheduled for digital diagnostic mammograms. She'll have the left breast imaged in 2 months and then bilateral mammography and 8. We reviewed that she'll have imaging of the left breast every 6 months for 2 years. She did wish to continue to have mammography at the breast Center. We discussed using vitamin E for hot flashes. She'll continue follow-up with her family physician. We asked her to return to our office in 6 months. She may call if she has any questions or concerns in the interim. Assessment & Plan (Attending) ADDENDUM: I agree with note created by Willow Calero PA-C. I reviewed the patient's chart and information with her. I have examined and evaluated the patient. I reviewed relevant clinical information and answered the patient's and /or family's questions. ORTHOPAEDIC PHYSICIAN ASSISTANT Total Time In Follow-Up I spent 20 minutes speaking to the patient performing examination. I spent 20 minutes reviewing information, preparing the survivorship document, and completing this note AK. Total Time (Attending) In Follow-Up I spent 15 minutes examining and counseling the patient. ORTHOPAEDIC PHYSICIAN ASSISTANT Copy To Javon Lloyd M.D.; Angeline Martinez M.D.; Nito Parker MD Problem Qualifiers (1) Ductal carcinoma in situ (DCIS) of breast: Laterality: left Qualified Codes: D05.12 - Intraductal carcinoma in situ of left breast
== END | disposition home or self-care (01) ==
LOC: C.ONC 12:10
PROVIDERS: ATTEND Physician Assistant Medical
DX: Z08 Encounter for follow-up examination after completed treatment for malignant neoplasm (principal); Z92.3 Personal history of irradiation; Z86.000 Personal history of in-situ neoplasm of breast

== ENCOUNTER → 2016-11-27 | Day surgery (SDC) | payer BC ==
[2016-11-19 08:38] VITALS: Ht 156.8 cm; Wt 115.5 kg
[~2016-11-27] VITALS: Ht 156.8 cm; Wt 115.5 kg
[~2016-11-27] MED LIST changes: -DIPH1TAB PO; -LIDOCAINE HCL 2% 2 ML VIAL (20MG/ML) ONE; -MIDAZOLAM HCL 1 MG/ML 2ML VIAL ONE; -PROPOFOL IV EMULSION 10 MG/ML 20 ML VIAL IV ONE; +SODIUM CHLORIDE 0.9% 500ML 500 ML IV ONE
--- NOTE | 2016-11-27 15:23 | Endo History and Physical ---
History & Physical Date of Service: Nov 27, 2016. Chief Complaint: SCREENING Referring Physician: DR. MCBRIDE History of Present Illness + FH malignant polyp Past Surgical History Hx Cardiac Surgery: No Hx Internal Defibrillator: No Hx Pacemaker: No Hx Abdominal Surgery: Yes (BLT INGUINAL HERNIA REPAIR) Hx of Implantable Prosthesis: No Hx Post-Op Nausea and Vomiting: No Hx Cancer Surgery: Yes (LT BREAST LUMPECTOMY WITH SENTINAL NODE DISSECTION) Hx Thoracic Surgery: No Hx Orthopedic: Yes (LT KNEE SCOPE, LT TKA, RT PADMINI, LT PADMINI ) Hx Urinary Tract Surgery: No Family History Polyp Social History Smoking Status: Never Smoker Hx Substance Use: No Hx Alcohol Use: No Allergies Coded Allergies: Fenoprofen (Verified Allergy, Unknown, MUSCLE WEAKNESS, PAIN, HIVES, ) Ibuprofen (Verified Allergy, Unknown, RELATED TO FENOPROFEN, 11/19/16) TOLD NOT TO TAKE IBUPROFEN WHEN HAD ALLERGY TO FENOPROFEN Uncoded Allergies: surgical tape (Allergy, Intermediate, skin reaction , 08/18/16) Current Medications Reported Home Medications Medications Dose Route/Sig Max Daily Dose Days Date Category Femara (Letrozole) 2.5 Mg Tab 2.5 Mg PO QAM 11/19/16 Reported Accupril (Quinapril Hcl) 40 Mg Tab 1 Tab PO QAM 11/19/16 Reported Levothyroxine Sodium 75 Mcg Tab 1 Tab PO QAM 08/18/16 Reported Stool Softener (Sennosides-Docusate Sodium) 1 Tab Tab 1 Tab PO DAILY 06/26/16 Reported Triamterene/Hctz 37.5-25MG (Triamterene/HCTZ) 1 Tab Tab 1 Tab PO QAM 06/26/16 Reported Ultram (Tramadol HCl) 50 Mg Tab 2 Tab PO BID PRN 06/26/16 Reported Zoloft (Sertraline HCl) 50 Mg Tab 50 Mg PO HS 06/26/16 Reported Prilosec (Omeprazole) 20 Mg Capcr 20 Mg PO EVERY OTHER DAY 06/26/16 Reported Mevacor (Lovastatin) 40 Mg Tab 40 Mg PO HS 06/26/16 Reported Neurontin (Gabapentin) 300 Mg Cap 300 Mg PO TID 06/26/16 Reported Flovent Hfa (Fluticasone Propionate) 120 Puffs/97237 Mcg Aero 2 Puffs MOSES QAM 06/26/16 Reported Flexeril (Cyclobenzaprine Hcl) 10 Mg Tab 10 Mg PO HS 06/26/16 Reported Catapres (Clonidine Hcl) 0.1 Mg Tab 1 Tab PO BID 06/26/16 Reported Norvasc (Amlodipine Besylate) 10 Mg Tab 10 Mg PO HS 06/26/16 Reported Vital Signs Weight (Kilograms): 115.45 Height (Feet): 5 Height (Inches): 1.75 Date Time Temp Pulse Resp B/P (MAP) Pulse Ox O2 Delivery O2 Flow Rate FiO2 11/27/16 13:48 37.1 85 20 154/96 (115) 94 Room Air Physical Exam AAO x3 Nl s1s2 Lungs CTA Abd soft NT/ND + BS - CCE Assessment and Plan 1)colonoscopy today
--- NOTE | 2016-11-27 16:07 | GI REPORT ---
Procedure Date: 11/27/2016 3:26 PM Procedure: Colonoscopy Indications: Family history of advanced adenoma of the colon in a first-degree relative Medicines: Propofol per Anesthesia Complications: No immediate complications. Estimated blood loss: Minimal. Estimated Blood Loss: Estimated blood loss was minimal. Procedure: Pre-Anesthesia Assessment: - Prior to the procedure, a History and Physical was performed, and patient medications and allergies were reviewed. The patient's tolerance of previous anesthesia was also reviewed. The risks and benefits of the procedure and the sedation options and risks were discussed with the patient. All questions were answered, and informed consent was obtained. Prior Anticoagulants: The patient has taken no previous anticoagulant or antiplatelet agents. ASA Grade Assessment: III - A patient with severe systemic disease. After reviewing the risks and benefits, the patient was deemed in satisfactory condition to undergo the procedure. After I obtained informed consent, the scope was passed under direct vision. Throughout the procedure, the patient's blood pressure, pulse, and oxygen saturations were monitored continuously. The scope was introduced through the anus and advanced to the cecum, identified by appendiceal orifice and ileocecal valve. The colonoscopy was unusually difficult due to multiple diverticula in the colon, restricted mobility of the colon, significant looping, a tortuous colon and the patient's body habitus. Successful completion of the procedure was aided by using manual pressure. The patient tolerated the procedure well. The quality of the bowel preparation was fair. Findings: The perianal and digital rectal examinations were normal. Pertinent negatives include normal sphincter tone, no palpable rectal lesions and no anal lesion or abnormality was detected. Two sessile polyps were found in the mid ascending colon. The polyps were 3 to 5 mm in size. These polyps were removed with a cold biopsy forceps. Resection and retrieval were complete. These polyps were removed with a cold snare. Resection and retrieval were complete. Verification of patient identification for the specimen was done by the physician and pharmacy technician per diem using the patient's name and medical record number. Multiple small and large-mouthed diverticula were found in the sigmoid colon and in the descending colon. The exam was otherwise without abnormality. The retroflexed view of the distal rectum and anal verge was normal and showed no anal or rectal abnormalities. Non-bleeding internal hemorrhoids were found during retroflexion. The hemorrhoids were mild. Impression: - Two 3 to 5 mm polyps in the mid ascending colon, removed with a cold biopsy forceps and removed with a cold snare. Resected and retrieved. - Diverticulosis in the sigmoid colon and in the descending colon. - The examination was otherwise normal. - The distal rectum and anal verge are normal on retroflexion view. - Non-bleeding internal hemorrhoids. Recommendation: - Discharge patient to home (ambulatory). - Resume regular diet. - Continue present medications. - Await pathology results. - Repeat colonoscopy for surveillance based on pathology results. - Return to referring physician as previously scheduled. MD Clifton Riggins MD 11/27/2016 4:07:16 PM This report has been signed electronically. Note Initiated On: 11/27/2016 3:26 PM I attest to the content of the Intraoperative Record and orders documented therein, exceptions below
--- NOTE | 2016-11-27 16:14 | Anesthesiology Progress Note ---
Anesthesia Post Op Note Date & Time Nov 27, 2016 at 16:14 Vital Signs Pain Intensity: 0 Vital Signs Past 12 Hours Date Time Temp Pulse Resp B/P (MAP) Pulse Ox O2 Delivery O2 Flow Rate FiO2 11/27/16 13:48 37.1 85 20 154/96 (115) 94 Room Air Notes Mental Status: alert / awake / arousable, participated in evaluation Pt Amnestic to Procedure: Yes Nausea / Vomiting: adequately controlled Pain: adequately controlled Airway Patency, RR, SpO2: stable & adequate BP & HR: stable & adequate Hydration State: stable & adequate Anesthetic Complications: no major complications apparent
--- NOTE | 2016-11-27 16:14 | Discharge Instructions ---
Endoscopy Patient Instructions Date / Procedure(s) Performed Nov 27, 2016. Colonoscopy Allergy Information Coded Allergies: Fenoprofen (Verified Allergy, Unknown, MUSCLE WEAKNESS, PAIN, HIVES, ) Ibuprofen (Verified Allergy, Unknown, RELATED TO FENOPROFEN, 11/19/16) TOLD NOT TO TAKE IBUPROFEN WHEN HAD ALLERGY TO FENOPROFEN Uncoded Allergies: surgical tape (Allergy, Intermediate, skin reaction , 08/18/16) Discharge Date / Findings Nov 27, 2016. polyps/diverticulosis/hemorrhoids Medication Instructions Restart Stopped Medication(s): Reported Home Medications Medications Dose Route/Sig Max Daily Dose Days Date Category Femara (Letrozole) 2.5 Mg Tab 2.5 Mg PO QAM 11/19/16 Reported Accupril (Quinapril Hcl) 40 Mg Tab 1 Tab PO QAM 11/19/16 Reported Levothyroxine Sodium 75 Mcg Tab 1 Tab PO QAM 08/18/16 Reported Stool Softener (Sennosides-Docusate Sodium) 1 Tab Tab 1 Tab PO DAILY 06/26/16 Reported Triamterene/Hctz 37.5-25MG (Triamterene/HCTZ) 1 Tab Tab 1 Tab PO QAM 06/26/16 Reported Ultram (Tramadol HCl) 50 Mg Tab 2 Tab PO BID PRN 06/26/16 Reported Zoloft (Sertraline HCl) 50 Mg Tab 50 Mg PO HS 06/26/16 Reported Prilosec (Omeprazole) 20 Mg Capcr 20 Mg PO EVERY OTHER DAY 06/26/16 Reported Mevacor (Lovastatin) 40 Mg Tab 40 Mg PO HS 06/26/16 Reported Neurontin (Gabapentin) 300 Mg Cap 300 Mg PO TID 06/26/16 Reported Flovent Hfa (Fluticasone Propionate) 120 Puffs/30927 Mcg Aero 2 Puffs MOSES QAM 06/26/16 Reported Flexeril (Cyclobenzaprine Hcl) 10 Mg Tab 10 Mg PO HS 06/26/16 Reported Catapres (Clonidine Hcl) 0.1 Mg Tab 1 Tab PO BID 06/26/16 Reported Norvasc (Amlodipine Besylate) 10 Mg Tab 10 Mg PO HS 06/26/16 Reported Reported Home Medications Medications Dose Route/Sig Max Daily Dose Days Date Category Femara (Letrozole) 2.5 Mg Tab 2.5 Mg PO QAM 11/19/16 Reported Accupril (Quinapril Hcl) 40 Mg Tab 1 Tab PO QAM 11/19/16 Reported Levothyroxine Sodium 75 Mcg Tab 1 Tab PO QAM 08/18/16 Reported Stool Softener (Sennosides-Docusate Sodium) 1 Tab Tab 1 Tab PO DAILY 06/26/16 Reported Triamterene/Hctz 37.5-25MG (Triamterene/HCTZ) 1 Tab Tab 1 Tab PO QAM 06/26/16 Reported Ultram (Tramadol HCl) 50 Mg Tab 2 Tab PO BID PRN 06/26/16 Reported Zoloft (Sertraline HCl) 50 Mg Tab 50 Mg PO HS 06/26/16 Reported Prilosec (Omeprazole) 20 Mg Capcr 20 Mg PO EVERY OTHER DAY 06/26/16 Reported Mevacor (Lovastatin) 40 Mg Tab 40 Mg PO HS 06/26/16 Reported Neurontin (Gabapentin) 300 Mg Cap 300 Mg PO TID 06/26/16 Reported Flovent Hfa (Fluticasone Propionate) 120 Puffs/17674 Mcg Aero 2 Puffs MOSES QAM 06/26/16 Reported Flexeril (Cyclobenzaprine Hcl) 10 Mg Tab 10 Mg PO HS 06/26/16 Reported Catapres (Clonidine Hcl) 0.1 Mg Tab 1 Tab PO BID 06/26/16 Reported Norvasc (Amlodipine Besylate) 10 Mg Tab 10 Mg PO HS 06/26/16 Reported Provider Instructions Activity Restrictions - No exercising or heavy lifting for 24 hours. - Do not drink alcohol the day of the procedure. - Do not drive a car or operate machinery until the day after the procedure. - Do not make any important decisions or sign important papers in 24 hours after the procedure. Following Day: - Return to full activity which may include returning to work/school. Diet Start your diet with liquids and light foods (jello, soup, juice, toast). Then eat your usual diet if not nauseated. Treatment For Common After Affects For mild abdominal pain, bloating, or excessive gas: - Rest - Eat lightly - Lie on right side Follow-Up Information Follow-up with DR. MCBRIDE as scheduled Anesthesia Information What You Should Know You have had a procedure that required some medicine to reduce anxiety and discomfort. This treatment is called moderate sedation. After receiving the treatment, you may be sleepy, but you will be able to breathe on your own. The effects of the treatment may last for several hours. Follow these instructions along with Activity/Diet recommendations noted above: * Do NOT do anything where dizziness or clumsiness would be dangerous. * Rest quietly at home today, then you can be up and about tomorrow. * Have a responsible person stay with you the rest of today. * You may have had an I.V. today. If so, you may take the dressing off later today. Recommendations Call your doctor if: * Trouble breathing * Continuous vomiting for more than 24 hours * Temperature above 101 degrees * Severe abdominal pain or bloating * Pain not relieved by pain medicine ordered * There is increased drainage or redness from any incision * A large amount of rectal bleeding greater than 2-3 tablespoons. (If you had a polyp/s removed or have hemorrhoids, a small amount of blood - from the rectum is to be expected.) * You have any unanswered questions or concerns. IN THE EVENT OF A SERIOUS EMERGENCY, GO TO THE NEAREST EMERGENCY ROOM Your discharge instructions were prepared by provider Clifton Gamble. Patient Instructions Signature Page Edie Munoz Patient (or Guardian) Signature/Date: I have read and understand the instructions given to me by my caregivers. Caregiver/RN/Doctor Signature/Date: The above-named patient and/or guardian has received patient instructions on this date. + Original Patient Signature Page (only) stays with chart. Please make copy for patient.
[2016-11-27 16:37] VITALS: BP 150/80; PULSE 70; O2SAT 97
== END | disposition home or self-care (01) ==
LOC: C.GI 13:03
PROVIDERS: ATTEND Internal Medicine Gastroenterology
DX: Z12.11 Encounter for screening for malignant neoplasm of colon (principal); D12.2 Benign neoplasm of ascending colon; K57.30 Diverticulosis of large intestine without perforation or abscess without bleeding; K64.8 Other hemorrhoids; I10 Essential (primary) hypertension; M79.7 Fibromyalgia; Z86.718 Personal history of other venous thrombosis and embolism; Z96.652 Presence of left artificial knee joint; Z96.641 Presence of right artificial hip joint; Z83.71 Family history of colonic polyps

== ENCOUNTER → 2017-02-03 | Outpatient (CLI) | payer BC ==
[~2017-02-03] MED LIST changes: -SODIUM CHLORIDE 0.9% 500ML 500 ML IV ONE
--- NOTE | 2017-02-04 07:55 | MAMMOGRAPHY REPORT ---
UNILATERAL LEFT DIGITAL DIAGNOSTIC MAMMOGRAM TOMOSYNTHESIS WITH CAD: 02/03/2017 CLINICAL HISTORY: 71-year-old woman with a personal history of left breast DCIS status post lumpectom y and radiation therapy. She presents for first follow-up after treatment to establish new baseline. TECHNIQUE: Left breast tomosynthesis in addition to standard 2D mammography was performed. Spot magn ification left CC and ML views were also obtained. Current study was also evaluated with a Computer Aided Detection (CAD) system. COMPARISON: Comparison is made to exams dated: 07/27/2016 specimen, 07/27/2016 localization - [facility], 06/09/2016 mammogram, 05/25/2016 mammogram, 05/10/2015 mammogram, and 12/12/2013 mamm ogram - [facility]. BREAST COMPOSITION: There are scattered areas of fibroglandular density in the left breast. FINDINGS: There is expected architectural distortion and surgical clips in the upper outer middle one third of the left breast, at the site of prior lumpectomy. There are 2 surgical clips and tram trac geovany vascular calcification near the surgical site. There are scattered benign rim calcifications el sewhere in the left breast which are stable compared to prior mammograms. Stable groupings of puncta te microcalcifications in the medial left breast are unchanged dating back to at least 2008, therefor e likely benign. No residual or new suspicious macrocalcifications are seen near the surgical site o r elsewhere throughout the visualized left breast. No obvious new mass, asymmetry or unexpected arch itectural distortion. IMPRESSION: ACR-BI-RADS CATEGORY 3: PROBABLY BENIGN Expected post treatment changes in the left breast, without definite mammographic evidence of maligna ncy. Close follow-up left diagnostic tomosynthesis mammograms and possible ultrasound are recommende d to ensure stability aftertreatment in 6 more months. Annual right mammography will also be due at that time. These results and recommendations were discussed with the patient at the time of the exam. Approximately 10% of breast cancers are not detected with mammography. A negative mammographic report should not delay biopsy if a clinically suggestive mass is present. Joslyn Morocho M.D. ay/:02/03/2017 13:38:10 Sanding Supervisor: Jany Solano, [facility] letter sent: Follow Up Recommended 3 BI-RADS Code: ACR-BI-RADS Category 3: Probably Benign
== END | disposition home or self-care (01) ==
LOC: C.MAMM 13:08
PROVIDERS: ATTEND Physician Assistant Medical
DX: Z08 Encounter for follow-up examination after completed treatment for malignant neoplasm (principal); Z85.3 Personal history of malignant neoplasm of breast

== ENCOUNTER → 2017-05-05 | Outpatient (CLI) | payer BC | END | disposition home or self-care (01) | LOC: C.LABMFLN 15:23 | PROVIDERS: ATTEND Family Medicine | DX: R39.15 Urgency of urination (principal); R35.0 Frequency of micturition ==

== ENCOUNTER → 2017-06-09 | Outpatient (CLI) | payer BC ==
[2016-11-25 12:36] VITALS: BP 113/71; PULSE 72
[~2017-06-09] MED LIST changes: +CLON0.2T PO
[2017-06-09 14:28] VITALS: BP 172/72; PULSE 91; TEMP 37; O2SAT 94
--- NOTE | 2017-06-09 15:32 | Radiation Oncology Follow-Up ---
Radiation Oncology Follow-Up Date of Visit Jun 09, 2017. Reason For Visit Six-month follow-up Radiation Completion Date 10/13/16 Diagnosis (1) Ductal carcinoma in situ (DCIS) of breast Status: Resolved Onset Date: 06/09/2016 Stage: 0 Permanent Comment: Abnormal left breast mammogram Status post stereotactic biopsy 06/09/2016 revealing DCIS grade 3 Estrogen receptor positive and progesterone receptor positive Status post needle localization left partial mastectomy with sentinel lymph node biopsy 07/27/2016 DCIS and LCIS Stage pTis pN0 Status post completion of radiation therapy 10/13/2016. Received 5130 cGy utilizing hypo-fractionation. Last Edited By: Willow Calero on Oct 22, 2016 09:41 History of Present Illness Ms. Munoz presented with an abnormal mammogram on 05/11/2016 which revealed clustered punctate calcifications in the left breast at 3:00. The patient did undergo a unilateral diagnostic mammogram of the left breast on 05/25/2016 which revealed an asymmetry in the middle depth of the outer central left breast. 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 The patient was seen in consultation by Dr. Javon Lloyd from surgery who discussed treatment options including mastectomy and lumpectomy/sentinel lymph node biopsy. The patient elected to undergo a lumpectomy and sentinel lymph node biopsy which was completed on 05/27/2016. 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 The largest specimen involving tumor measured 0.2 cm. The margins were negative and the closest margin was 2 mm. A sentinel lymph node was biopsied and was negative for metastatic carcinoma. We are now seeing the patient in consultation discuss the role of adjuvant radiation therapy. The patient will be seeing Dr. Nito Parker from medical oncology shortly. Overall, the patient is doing relatively well. She states she would prefer to have radiation therapy here as opposed to in [place]. Due to her income, she would prefer to minimize the number treatments overall. She has healed up well from surgery has no other complaints. She had a CT simulation and was found to be a candidate for hypo-fractionation. Radiation was completed 10/13/2016. She received 5130 cGy. Interim History She has been doing well over the past 6 months. She denies any changes to her breast. She is noted no masses or tenderness and no change of the axilla. She has had no swelling of her arm. She is up-to-date on mammography. She had a recheck mammogram of the left breast February 03, 2017. She is scheduled for recheck mammogram July 28, 2017. Allergies Coded Allergies: Fenoprofen (Verified Allergy, Unknown, MUSCLE WEAKNESS, PAIN, HIVES, ) Ibuprofen (Verified Allergy, Unknown, RELATED TO FENOPROFEN, 11/19/16) TOLD NOT TO TAKE IBUPROFEN WHEN HAD ALLERGY TO FENOPROFEN Uncoded Allergies: surgical tape (Allergy, Intermediate, skin reaction , 08/18/16) Home Medications Scheduled Amlodipine (Norvasc), 10 MG PO HS Clonidine Hcl (Catapres), 1 TAB PO BID Cyclobenzaprine Hcl (Flexeril), 10 MG PO HS Fluticasone Propionate (Flovent Hfa), 2 PUFFS MOSES QAM Gabapentin (Neurontin), 300 MG PO TID Letrozole (Femara), 2.5 MG PO QAM Levothyroxine Sodium (Levothyroxine Sodium), 1 TAB PO QAM Lovastatin (Mevacor), 40 MG PO HS Omeprazole (Prilosec), 20 MG PO every other day Quinapril Hcl (Accupril), 1 TAB PO QAM Sennosides-Docusate Sodium (Stool Softener), 1 TAB PO DAILY Sertraline (Zoloft), 50 MG PO HS Triamterene/Hctz (Triamterene/Hctz 37.5-25MG), 1 TAB PO QAM Scheduled PRN Tramadol (Ultram), 2 TAB PO BID PRN for Pain Review of Systems Gastrointestinal: Symptoms: WNL Oral: Symptoms: No Problems, Scant Saliva/Dry Mouth Respiratory: Symptoms: WNL Urinary: Symptoms: WNL Comments: Thinks may have beginning of UTI Skin: Symptoms: No Problems Breast: Right Upper Arm Measurement: 35.0 Right Mid Arm Measurement: 29.0 Right Wrist Measurement: 18.1 Left Upper Arm Measurement: 37.5 Left Mid Arm Measurement: 28.4 Left Wrist Measurement: 18.5 Arm Dominence: Right Patient Cosmetic Evaluation: Good Staff Cosmetic Evalaluation: Good Physical Exam Vital Signs Date Time Temp Pulse Resp B/P (MAP) Pulse Ox O2 Delivery O2 Flow Rate FiO2 06/09/17 14:28 37.0 91 20 172/72 94 Fatigue: None General Appearance: no apparent distress Eyes: normal inspection, EOMI ENT: normal ENT inspection, hearing grossly normal Neck: no adenopathy, thyroid normal Respiratory/Chest: lungs clear, no respiratory distress, no accessory muscle use Breast: Breast examination reveals well-healed incision of the left breast. There are no masses or tenderness and no axillary adenopathy. She has no skin retractions or nipple changes. There is noted asymmetry with the left side being smaller. There is mild hyperpigmentation. Using the Longs score cosmesis she has a good outcome. Right breast showed no masses or tenderness and no axillary adenopathy. Cardiovascular: regular rate, rhythm, no gallop, no murmur Abdomen: non tender, soft Extremities: no pedal edema Neurologic/Psychiatric: no motor/sensory deficits, alert, normal mood/affect Skin: warm/dry Pain Management Patient Reports Pain: No Pain Location: sciatic pain left leg Patient Preferred Pain Scale: 0 - 10 Initial Pain Intensity: 5.0 Pain Management Plan She denies pain therefore requires no pain management. Laboratory Laboratory Results: not applicable Pathology Pathology Results: were reviewed, and pertinent findings noted in HPI Imaging Imaging Studies: were reviewed, and pertinent findings noted below Imaging Comments Patient: JENNIFER MUNOZ [facility] Rec: [id number] Address1: [address] [place] [address] Address2: [facility] ID: [id number] Date: 1945 Sex: F Ref Phy: Willow Calero PA-C Att Phy: Willow Calero PA-C Amaris Phy: Angeline Martinez M.D. Inter Phy: Joslyn Morocho MD [facility] Zip: [id number] [id number] SC: [id number] Report #: [id number] [employer] Distributor: JORGE Diagnosis: LEFT BREAST CA Service Date: 02/03/17 MNE: [id number] Ordering Dr: Willow Calero PA-C CC: Willow Calero PA-C CONF: DICTATED BY: Joslyn Morocho MD MAMMOGRAPHY REPORT UNILATERAL LEFT DIGITAL DIAGNOSTIC MAMMOGRAM TOMOSYNTHESIS WITH CAD: 02/03/2017 CLINICAL HISTORY: 71-year-old woman with a personal history of left breast DCIS status post lumpectomy and radiation therapy. She presents for first follow-up after treatment to establish new baseline. TECHNIQUE: Left breast tomosynthesis in addition to standard 2D mammography was performed. Spot magnification left CC and ML views were also obtained. Current study was also evaluated with a Computer Aided Detection (CAD) system. COMPARISON: Comparison is made to exams dated: 07/27/2016 specimen, 07/27/2016 localization - [facility], 06/09/2016 mammogram, 05/25/2016 mammogram, 05/10/2015 mammogram, and 12/12/2013 mammogram - [facility]. BREAST COMPOSITION: There are scattered areas of fibroglandular density in the left breast. FINDINGS: There is expected architectural distortion and surgical clips in the upper outer middle one third of the left breast, at the site of prior lumpectomy. There are 2 surgical clips and tram tracking vascular calcification near the surgical site. There are scattered benign rim calcifications elsewhere in the left breast which are stable compared to prior mammograms. Stable groupings of punctate microcalcifications in the medial left breast are unchanged dating back to at least 2008, therefore likely benign. No residual or new suspicious macrocalcifications are seen near the surgical site or elsewhere throughout the visualized left breast. No obvious new mass, asymmetry or unexpected architectural distortion. IMPRESSION: ACR-BI-RADS CATEGORY 3: PROBABLY BENIGN Expected post treatment changes in the left breast, without definite mammographic evidence of malignancy. Close follow-up left diagnostic tomosynthesis mammograms and possible ultrasound are recommended to ensure stability aftertreatment in 6 more months. Annual right mammography will also be due at that time. These results and recommendations were discussed with the patient at the time of the exam. Approximately 10% of breast cancers are not detected with mammography. A negative mammographic report should not delay biopsy if a clinically suggestive mass is present. Joslyn Morocho M.D. ay/:02/03/2017 13:38:10 Hazardous Waste Remover: Jany Solano, [facility] letter sent: Follow Up Recommended 3 BI-RADS Code: ACR-BI-RADS Category 3: Probably Benign Dictated by: Joslyn Morocho MD Signed by: Joslyn Morocho MD Assessment & Plan Plan: Continue with scheduled mammography. She will have a mammogram July 28, 2017. We discussed the breast asymmetry. She does not have any issues with bra fitting. Continue regular follow-up with Dr. Parker and her primary care physician. She continues on Femara. She was seen and examined by Dr. Son. We asked her to return to our office in 1 year. She may call if she has any questions or concerns in the interim. Assessment & Plan (Attending) I agree with note created by Willow Calero PA-C. I reviewed the patient's chart and information with her. I have examined and evaluated the patient. I reviewed relevant clinical information and answered the patient's and/or family' s questions. CDL INSTRUCTOR Total Time In Follow-Up I spent 25 minutes speaking to the patient in performing examination. I spent 15 minutes reviewing information and completing this note. AK Total Time (Attending) In Follow-Up I spent 15 minutes examining and counseling the patient. CDL INSTRUCTOR Copy To Javon Lloyd M.D.; Angeline Martinez M.D.; Nito Parker MD Problem Qualifiers (1) Ductal carcinoma in situ (DCIS) of breast: Laterality: left Qualified Codes: D05.12 - Intraductal carcinoma in situ of left breast
== END | disposition home or self-care (01) ==
LOC: C.ONC 14:25
PROVIDERS: ATTEND Physician Assistant Medical
DX: Z08 Encounter for follow-up examination after completed treatment for malignant neoplasm (principal); Z92.3 Personal history of irradiation; Z86.000 Personal history of in-situ neoplasm of breast

== ENCOUNTER → 2017-07-07 | Outpatient (CLI) | payer BC ==
[~2017-07-07] MED LIST changes: -CLON0.1T12 PO
[2017-07-07 13:11] LABS: BASO % 0.7 %; BASO ABS # 0.05 K/uL (0-0.2); EOS % 5.4 %; EOS ABS # 0.41 K/uL (0-0.5); HEMATOCRIT 40.9 % (37-47); HEMOGLOBIN 13.4 g/dL (12.0-16.0); IG# 0.02 K/uL (0.00-0.02); LYMPH % 31.1 %; LYMPH ABS # 2.35 K/uL (1.2-3.4); MEAN CELL VOLUME 85.2 fL (80-100); MEAN CORPUSCULAR HEMOGLOBIN 27.9 pg (25-34); MEAN CORPUSCULAR HGB CONC 32.8 g/dl (32-36); MEAN PLATELET VOLUME 11.6 fL (7.4-10.4); MONO % 7.9 %; NEUT % 54.6 %; NEUT ABS # 4.12 K/uL (1.4-6.5); PLATELET COUNT 346 K/uL (130-400); RED CELL DISTRIBUTION WIDTH CV 14.8 % (11.5-14.5); RED CELL DISTRIBUTION WIDTH SD 46.4 fL (36.4-46.3); WHITE BLOOD COUNT 7.55 K/uL (4.8-10.8)
[2017-07-07 13:34] LABS: ALBUMIN 3.7 gm/dl (3.4-5.0); ALT/SGPT 19 U/L (12-78); AST/SGOT 16 U/L (15-37); BLOOD UREA NITROGEN 13 mg/dl (7-18); CALCIUM 9.3 mg/dl (8.5-10.1); CARBON DIOXIDE 28 mmol/L (21-32); CHOLESTEROL 171 mg/dl (0-200); CREATININE 0.86 mg/dl (0.60-1.20); GLUCOSE 100 mg/dl (70-99); POTASSIUM 3.8 mmol/L (3.5-5.1); SODIUM 140 mmol/L (136-145)
[2017-07-07 13:43] LABS: ALKALINE PHOSPHATASE 84 U/L (45-117); LDL CHOLESTEROL CALCULATED 73 mg/dl; TOTAL PROTEIN 7.4 gm/dl (6.4-8.2)
[2017-07-07 13:50] LABS: HEMOGLOBIN A1C 6.5 % (4.5-5.6)
== END | disposition home or self-care (01) ==
LOC: C.LABMFLN 10:36
PROVIDERS: ATTEND Family Medicine
DX: I10 Essential (primary) hypertension (principal); R73.03 Prediabetes; E78.5 Hyperlipidemia, unspecified; E03.9 Hypothyroidism, unspecified

== ENCOUNTER → 2017-07-28 | Outpatient (CLI) | payer BC ==
[~2017-07-28] MED LIST changes: +PRIM50TA29 PO
--- NOTE | 2017-07-28 14:23 | MAMMOGRAPHY REPORT ---
BILATERAL DIGITAL DIAGNOSTIC MAMMOGRAM TOMOSYNTHESIS WITH CAD: 07/28/2017 CLINICAL HISTORY: 72-year-old woman with a personal history of left breast DCIS status post lumpectom y and radiation therapy presents at time of annual bilateral screening mammography and also continued close follow-up after treatment in the left breast. TECHNIQUE: Bilateral breast tomosynthesis in addition to standard 2D mammography was performed. Spo t magnification CC and ML views of each breast were obtained. Current study was also evaluated with a Computer Aided Detection (CAD) system. COMPARISON: Comparison is made to exams dated: 02/03/2017 mammogram, 07/27/2016 specimen, 07/27/2016 [facility], 06/09/2016 mammogram, 05/25/2016 mammogram, and 05/11/2016 [facility]. BREAST COMPOSITION: There are scattered areas of fibroglandular density in both breasts. FINDINGS: There is expected architectural distortion, surgical clips and a linear scar marker in the upper outer middle one third of the left breast, at the site of prior lumpectomy. There are benign l ucent center dystrophic calcifications and sutural calcifications near the surgical site. There is c urrently no evidence of a suspicious grouping or cluster of microcalcifications, particularly on the spot magnification views of the left breast. There are mild vascular calcifications as well. No obv ious new masses, asymmetries, unexpected architectural distortion or other calcifications are seen in the left breast. There are possible faint grouped microcalcifications in the upper outer middle to posterior right karoline ast, for which additional spot magnification views were obtained. The spot magnification views demon strate a nodular asymmetry with associated very faint microcalcifications measuring 5 mm in the upper outer middle to posterior breast. However, when evaluating prior mammograms and assessing for diffe rences in positioning, this nodular asymmetry with associated calcification has been present dating b ack to at least 05/31/2009, therefore this finding is considered benign. There are other scattered an d grouped benign calcifications in the right breast. A stable metallic biopsy marker clip in the rig ht upper outer quadrant posteriorly. Overall, no mammographic evidence of malignancy in the right br east. IMPRESSION: ACR-BI-RADS CATEGORY 3: PROBABLY BENIGN 1. Stable mammographic appearance of the right breast including a faint 5 mm nodular asymmetry with associated faint microcalcifications in the upper outer middle to posterior breast. Recommend annual right mammography in 1 year. 2. Stable postsurgical/posttreatment changes in the left breast, without definite mammographic evide nce of malignancy. Recommend another 6 month close follow-up left diagnostic mammogram and possible ultrasound to ensure longer stability after treatment. These results and recommendations were discussed with the patient at the time of the exam. She tenta tively scheduled the follow-up appointment prior to leaving our department. Approximately 10% of breast cancers are not detected with mammography. A negative mammographic report should not delay biopsy if a clinically suggestive mass is present. Joslyn Morocho M.D. ay/:07/28/2017 12:25:58 Automatic Splicing Machine Operator: Jany Solano, [facility] letter sent: Follow Up Recommended 3 BI-RADS Code: ACR-BI-RADS Category 3: Probably Benign
== END | disposition home or self-care (01) ==
LOC: C.MAMM 11:02
PROVIDERS: ATTEND Physician Assistant Medical
DX: N64.89 Other specified disorders of breast (principal); R92.0 Mammographic microcalcification found on diagnostic imaging of breast

== ENCOUNTER 2020-09-18 10:48 | Inpatient (IN) ==
[2020-09-18 11:39] LABS: Basophils # (auto) 0.04 K/uL (0-0.2); Basophils % (auto) 0.4 %; Eosinophils # (auto) 0.12 K/uL (0-0.5); Eosinophils % (auto) 1.2 %; Hematocrit (blood only) 43.2 % (37-47); Hemoglobin 13.9 g/dL (12.0-16.0); Immature Granulocytes # (auto) 0.03 K/uL (0.00-0.02); Immature Granulocytes % (auto) 0.3 %; Lymphocytes % (auto) 18.5 %; Mean Corpuscular Hemoglobin 29.9 pg (25-34); Mean Corpuscular Hgb Conc 32.2 g/dL (32-36); Mean Corpuscular Volume 92.9 fL (80-100); Mean Platelet Volume 11.1 fL (7.4-10.4); Monocytes # (auto) 0.89 K/uL (0.11-0.59); Monocytes % (auto) 8.7 %; Neutrophils # (auto) 7.29 K/uL (1.4-6.5); Neutrophils % (auto) 70.9 %; Platelet Count 317 K/uL (130-400); RDW Coefficient of Variation 14.2 % (11.5-14.5); RDW Standard Deviation 47.9 fL (36.4-46.3); Red Blood Count 4.65 M/uL (4.2-5.4); White Blood Count 10.27 K/uL (4.8-10.8)
[2020-09-18] MEDS ORDERED: OPTIRAY 320 125ml IV ONE (11:55)
[2020-09-18 11:56] LABS: Partial Thromboplastin Ratio 0.9; Partial Thromboplastin Time 23.5 Seconds (21.0-31.0); Prothrombin Time 10.1 Seconds (9.0-12.0)
[2020-09-18 11:57] LABS: iSTAT Creatinine 0.6 mg/dl (0.6-1.3); iSTAT Hemoglobin 13.6 g/dl (12.0-16.0); iSTAT Ionized Calcium 1.1 mmol/l (1.12-1.32); iSTAT Potassium 3.1 mmol/L (3.3-5.0)
[2020-09-18 12:06] LABS: BUN Creatinine Ratio 20.2 (10-20); Calcium 9.9 mg/dl (8.5-10.1); Creatinine Clr Calc Pharmacy 81.6 ml/min; Est GFR (Non-African American) 78.5 ml/min; Magnesium 1.9 mg/dl (1.8-2.4); Potassium 3.4 mmol/L (3.5-5.1)
[2020-09-18 12:10] LABS: Appearance Urine Clear (Clear); Bacteria Urine Automated Negative (Negative); Blood Urine Negative (Negative); Color Urine Dark Yellow; Epithelial Cell Urine Auto >30 /lpf (0-5); Glucose Urine UA Negative (Negative); Ketones Urine Trace (Negative); Leukocyte Esterase Urine Trace (Negative); Nitrite Urine Negative (Negative); Protein Urine Trace (Negative); Specific Gravity Urine 1.029 (1.000-1.030); Urobilinogen Urine Negative (Negative); pH Urine 6.5 (4.5-7.5)
[2020-09-18 12:11] LABS: Troponin I 0.018 ng/ml (0-0.045)
[2020-09-18 12:19] LABS: Bilirubin Urine 1+ (Negative)
--- NOTE | 2020-09-18 12:19 | CT Scan Report ---
CT OF THE ABDOMEN AND PELVIS WITHOUT CONTRAST CLINICAL HISTORY: L CVA tenderness COMPARISON STUDY: CT of the abdomen and pelvis August 14, 2020. TECHNIQUE: Axial images of the abdomen and pelvis were obtained without IV contrast. Images were revi ewed in the axial, sagittal, and coronal planes. Automated exposure control was utilized for the derrek dy. A dose lowering technique was utilized adhering to the principles of ALARA. FINDINGS: Please note that the chest CT will be reported separately. A separate findings within the l eft breast appear unchanged. No pneumatosis, free air or portal venous gas is present. Evaluation of the abdomen and pelvis is suboptimal on this unenhanced exam. No renal or ureteral calculi are identi fied although evaluation of the distal ureters is suboptimal given streak artifact from bilateral hip arthroplasties. There is no biliary or pancreatic ductal dilatation. Liver surface is mildly lobulat ed. Colonic diverticulosis is noted. There is no evidence for acute diverticulitis. Pericolonic infil tration shown on CT of August 14, 2020 has resolved. The appendix is normal. There is no lymphadenopathy . IMPRESSION: 1. No urinary calculi or hydronephrosis although evaluation of the distal ureters is suboptimal given streak artifact from bilateral hip arthroplasties. 2. Extensive colonic diverticulosis without evidence for acute diverticulitis. 3. No bowel obstruction. ACT 112: Negative or not required by law. Electronically signed by: Az Boudreaux M.D. 09/18/2020 12:18 PM
[2020-09-18 12:25] LABS: Mucus Urine Present (None Prsent)
[2020-09-18 12:26] LABS: RBC Urine Automated 0-4 /hpf (0-4)
--- NOTE | 2020-09-18 12:43 | CT Scan Report ---
CHEST CTA for PULMONARY ARTERIES CT DOSE: 3433.56 mGy.cm HISTORY: Left-sided Chest Pain, eval for PE TECHNIQUE: Multiaxial CT images of the chest were performed following the intravenous administration of contrast to evaluate the pulmonary arteries. Maximal intensity projection images were also obtaine d. A dose lowering technique was utilized adhering to the principles of ALARA. COMPARISON STUDY: None. FINDINGS: Normal caliber thoracic aorta with no evidence for dissection. No pleural or pericardial ef fusions. The heart is mildly enlarged. No filling defects within the pulmonary arteries to suggest a pulmonary embolus. Please refer the same day abdomen and pelvis CT for further evaluation of the abdo kee structures. Partially visualized postoperative changes seen within the left breast. Normal esop hagus. No mediastinal or hilar lymphadenopathy. No suspicious lytic or blastic osseous lesions. The c entral airways are patent. No pneumothorax. There is mild respiratory motion artifact. There is a poornima ear scarlike density within the lingula. A 4 mm subpleural nodule along the left major fissure on miranda ge 169. This is likely benign. Mild dependent changes seen at the lung bases. Groundglass density wit hin the right lower lobe medially is also likely chronic. Otherwise, no focal lung consolidations to suggest pneumonia. There is mild elevation of the right hemidiaphragm. IMPRESSION: 1. No evidence for pulmonary embolus. 2. Cardiomegaly. 3. Dependent change/atelectasis seen within the lung bases. Otherwise, no focal lung consolidations t o suggest pneumonia. 4. Mild elevation of the right hemidiaphragm. ACT 112: Negative or not required by law. Electronically signed by: Aryan Perera M.D. 09/18/2020 12:41 PM
[2020-09-18] MEDS ORDERED: POTASSIUM CHLORIDE CRTAB 20 MEQ TABCR PO ONE (13:31)
[2020-09-18] MEDS ORDERED: FUROSEMIDE 40 MG/4 ML VIAL IV STA (14:13)
[2020-09-18] MEDS ORDERED: Heparin IV Adult Wt-Based Low-Dose WITH Bolus Protocol IV SCH (14:15)
[2020-09-18] MEDS ORDERED: HEPARIN SOD (PORCINE) 1000 UNIT/ML IV ONE ×2 (14:22→23:50)
[2020-09-18] MEDS ORDERED: HEPARIN 25000 UNIT/500 ML D5W IV ONE (14:24)
[2020-09-18] MEDS ORDERED: HEPARIN SOD (PORCINE) 1000 UNIT/ML ONE (14:25)
--- NOTE | 2020-09-18 14:30 | History & Physical Report ---
Date of Service September 18, 2020 Assessment & Plan (1) Afib: Plan: New onset afib with unknown onset - rate controlled - Multiple etiologies for cause- chronic HTN, obesity, likely component of obesity hyperventilation syndrome with chronic elevation of HCO3 - Troponin I- 0.018 trend - CHADSVASC with known data- 2 - HASBLED- 2-3 (predisposed risk with falls) - Consult cardiology for rate vs. rhythm discussion - Heparin drip for therapeutic anticoagulation to better risk stratify her needs- We did discuss options but with her falls and weight this will need to be considered. - Start on low dose metoprolol at 12.5mg PO daily and increase based on need - Mag 1.9- 2GM magnesium for replacement - K- 3.4- 40 mEq potassium oral - BNP pending - ECHO evaluate heart function as she does not carry a diagnosis of HF (2) Hypertension: Plan: As above - Metoprolol added low dose - Continue clonidine - Continue quinapril - Continue triamterene/HCTZ- hold for tonight- - Lasix 20 mg IV x1 repeat if needed later (3) Hyperlipidemia: Plan: Continue rosuvastatin 10mg daily (4) Morbid obesity: Plan: Patient unable to lose weight secondary to back pain and inability to perform in exercise; can't get back surgery because of weight - As above, consider ABG for diagnosis of hypoventilation syndrome (5) Hypothyroidism: Plan: Continue Synthroid- TSH 2.0 (6) Controlled diabetes mellitus type II without complication: Plan: HGB A1c in morning - Patient controlled with diet at home (7) Lumbar stenosis with neurogenic claudication: Plan: As above - PT/OT consult - Continue home pain medications (8) Increased frequency of urination: Plan: No acute needs, can use purewick while in house if needed (9) Benign essential tremor: Plan: Continue Zonisamide and primidone (10) Left lumbar radiculopathy: Plan: As above (11) Falls: Plan: Patient with no neurology deficit and feels as she loses her balance and lists to the left - PT/OT evaluation for ambulation aids and support History of Present Illness Primary Care Provider: Angeline Martinez MD 75 YOF with past medical history of: Morbid obesity, HTN, HLD, chronic bladder leakage, chronic UTI, scoliosis, chronic back pain, lumbar stenosis, spondylitises, spondylosis, frequent falls, diverticulosis, DMII controlled on diet, benign essential tremor. Patient comes in today for 2 day history of pain on her left flank, with increase in lower extremity swelling and dyspnea. Patient says the flank pain is sharp in nature and radiates down her left back and side and moving wrong exacerbates it. She has tried Tylenol at home to relieve this without effect. Her dyspnea she has noticed getting worse over the past month and going up and down steps she has to take a break. She denies any cough or chest pain or palpitations with this. Her legs have been increasing in swelling for about the same time. She has chronic right ankle swelling that has gotten worse on the medial side. She denies any change in medications or diet. In the EMD she was noted to be hypoxic and dyspneic requiring oxygen to keep SPo2>88 and noticed that she was in afib on telemetry. She has no history of this. She had a CTA of the chest performed that was negative for PE or intrapulmonary process. CT of abdomen and pelvis completed that did not show acute changes and chronic diverticulosis. Patient will be admitted to monitor her rhythm and rate, unknown onset of afib, anticoagulation with heparin for now, ECHO and evaluation by cardiology. Patient has long history of poor ambulation ability with chronic back pain, she normally walks around with rolling walkers and rolling stools, she does endorse frequent falling at home. She denies any other acute changes in her health. Patient has received her COVID vaccine and COVID negative on admission Allergies Allergy/AdvReac Type Severity Reaction Status Date / Time adhesive Allergy Severe BLISTERING Verified 09/18/20 13:24 fenoprofen Allergy Unknown MUSCLE Verified 09/18/20 13:24 WEAKNESS, PAIN, HIVES ibuprofen Allergy Unknown RELATED TO Verified 09/18/20 13:24 FENOPROFEN Home Medications Medication Instructions Recorded Confirmed Type letrozole 2.5 mg tablet 2.5 mg PO DAILY tab 08/15/18 09/18/20 History quinapril 40 mg tablet 40 mg PO DAILY #90 tab 09/13/19 09/18/20 Rx omeprazole 20 mg capsule,delayed 20 mg PO Q OTHER DAY PRN #45 cap 10/24/19 09/18/20 Rx release cyclobenzaprine 10 mg tablet 10 mg PO HS #90 tab 11/10/19 09/18/20 Rx amlodipine 10 mg tablet 10 mg PO DAILY #90 tab 12/04/19 09/18/20 Rx clonidine HCl 0.2 mg tablet 0.2 mg PO BID #180 tab 02/20/20 09/18/20 Rx triamterene 37.5 1 cap PO DAILY #90 cap 05/29/20 09/18/20 Rx mg-hydrochlorothiazide 25 mg capsule fluticasone propionate 50 2 spray INTNAS DAILY #3 inhaler 06/10/20 09/18/20 Rx mcg/actuation nasal spray,suspension (Allergy Relief (fluticasone)) cholecalciferol (vitamin D3) 25 25 mcg PO DAILY #90 cap 06/12/20 09/18/20 Rx mcg (1,000 unit) capsule gabapentin 300 mg capsule 300 mg PO TID #90 cap 06/21/20 09/18/20 Rx levothyroxine 75 mcg tablet 75 mcg PO DAILY #90 tab 08/06/20 09/18/20 Rx zonisamide 25 mg capsule 50 mg PO DAILY 30 Days #60 cap 08/27/20 09/18/20 Rx primidone 50 mg tablet 100 mg PO TID 90 Days #540 tab 08/28/20 09/18/20 Rx acetaminophen 500 mg tablet 500 mg PO Q6H 09/18/20 09/18/20 History (Tylenol Extra Strength) calcium citrate 315 mg 2 tab PO DAILY 09/18/20 09/18/20 History calcium-vitamin D3 6.25 mcg (250 unit) tablet (Citracal + Vitamin D Maximum) rosuvastatin 10 mg tablet 10 mg PO DAILY 09/18/20 09/18/20 History Past Med/Surg History Medical History (Updated 09/19/20 @ 15:56 by Garret Sales DO) Acid reflux disease Afib Anemia Benign essential tremor Carpal tunnel syndrome Controlled diabetes mellitus type II without complication Diverticulitis Diverticulosis of colon 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 Received 5130 cGy utilizing hypo-fractionation." On 08/18/16 11:16 Willow Calero wrote "Abnormal left breast mammogram Status post stereotactic biopsy 06/09/2016 revealing DCIS grade 3 Estrogen receptor positive and progesterone receptor positive Status post needle localization left partial mastectomy with sentinel lymph node biopsy 07/27/2016 DCIS and LCIS Stage pTis pN0" Generalized osteoarthritis of multiple sites Herniated disc right HPV (human papilloma virus) infection Hyperlipidemia Hypertension Hypothyroidism Left lumbar radiculopathy Lumbar stenosis with neurogenic claudication Morbid obesity Retinal detachment Urge and stress incontinence Surgical History History of cataract surgery right History of colonoscopy History of conization of cervix History of cryosurgery cervical cancer- History of hip replacement bilateral History of inguinal hernia repair History of knee replacement left History of partial mastectomy of left breast Hx of arthroscopic knee surgery Retinal detachment of right eye due to tear of retina Family History Mother Colorectal cancer Diabetes Hypertension Peripheral vascular disease Heart disease Stroke Father Congestive heart failure (CHF) Diabetes Hypertension Myocardial infarction Stroke Aunt Breast cancer Sister Lung cancer 2 sisters Other Nephrolithiasis Pure hypercholesterolemia Social History Smoking Status: Never smoker Second Hand Exposure: Yes; Hx Alcohol Use: No Hx Substance Use: No Preferred Language: [place] Communication Ability: Effective Visual Impairment: Partially Limited Hearing Ability: Normal Director Of Sales Support Required: No Beliefs That Will Affect Care: None marital status: Current Living Situation: Family current occupational status: retired Other Information That Helps Us Care for You: No Feels Safe at Home: Yes Safety Concerns: Feels Safe At This Time Childhood Exposure to Second-Hand Smoke: Yes Diet Comment: avoids seeds/nuts caffeine: Yes (coffee) Dental Care, Regularly: Yes Physical Activity Frequency: Does not Exercise Seatbelt Use: always Sunscreen Use: Yes Do you think of yourself as: straight/heterosexual Assistive Devices: Walker Review of Systems Review of Systems: REVIEW OF SYSTEMS: Constitutional: No fever, sweats or chills Eyes: No diplopia, no worsening or blurred vision ENT: normal hearing, no trouble swallowing Respiratory: (+) dyspnea on exertion, No cough, sputum, dyspnea at rest Cardiovascular: (+) increase in lower extremity edema No chest pain, tightness or palpitations Abdomen: No pain, nausea, vomiting, diarrhea or constipation Musculoskeletal: (+) chronic lower back, sicatic pain, ankle pain and swelling, Neurologic: No weakness, numbness/tingling, or balance problems Psychiatric: No anxiety or depression Skin: No rash or itch Physical Exam Physical Exam: PHYSICAL EXAM: General: awake, alert, no apparent distress Head: Normocephalic, atraumatic ENT: PERRL, EOMI, no pharyngeal exudate, mucous membranes moist Neuro: AAO x 3, speech clear and appropriate, strength intact bilaterally 5/5, sensation intact and equal all extremities and dermatomes, no pronator drift Chest: equal rise and fall of the chest, no accessory muscle use, no heaves or thrills, Clear to auscultation, on room air, Cardiac: irregular rate and rhythm, telemetry reviewed- irregular rate controlled, skin warm dry, cap refill <3 seconds, peripheral pulses +2 no JVD, no murmur,+2 edema lower legs and ankles GI: NABS x 4 quadrants, soft, nontender to palpation, no rebound, guarding or tenderness : Spontaneously voiding, no pain, no CVA tenderness, Extremities: Normal inspection, no erythema, calfs nontender to palpation MSK: Reproducible left flank pain tender with palpation around intercostals to paraspinus muscles Psych: Normal mood and affect Skin: no rash or erythema Results & Data Results & Data ([facility]) Vital Signs (Past 12 Hours) Vital Signs Temp Pulse Pulse Resp BP BP Pulse Ox 09/18/20 12:31 99 H 16 171/111 H 95 09/18/20 12:20 93 H 22 137/95 94 09/18/20 12:15 94 H 30 H 94 09/18/20 12:10 99 H 20 96 09/18/20 11:53 110 H 20 181/108 H 93 09/18/20 11:46 94 H 23 182/157 H 96 09/18/20 11:30 103 H 21 181/108 H 94 09/18/20 11:29 99 H 28 H 172/102 H 92 09/18/20 11:27 111 H 16 172/102 H 92 09/18/20 11:13 90 09/18/20 11:05 98 H 175/137 H 90 09/18/20 10:51 36.5 C 92 H 20 156/81 H 94 Laboratory Results Abnormal lab results 09/18/20 09/18/20 09/18/20 Range/Units 11:31 11:31 11:39 RDW Std Deviation 47.9 H (36.4-46.3) fL MPV 11.1 H (7.4-10.4) fL Neut # (Auto) 7.29 H (1.4-6.5) K/uL [place] # (Auto) 0.89 H (0.11-0.59) K/uL Immature Gran # (Auto) 0.03 H (0.00-0.02) K/uL POC Potassium 3.1 L (3.3-5.0) mmol/L Potassium 3.4 L (3.5-5.1) mmol/L BUN/Creatinine Ratio 20.2 H (10-20) Glucose 113 H (70-99) mg/dl POC Glucose (other) 112 H (70-99) mg/dl POC Ioniz Calcium Amy 1.10 L (1.12-1.32) mmol/l Urine Protein (Negative) Urine Ketones (Negative) Urine Bilirubin (Negative) Ur Leukocyte Esterase (Negative) Urine WBC (Auto) (0-5) /hpf U Hyaline Cast (Auto) (0-5) /lpf U Epithel Cells (Auto) (0-5) /lpf Urine Mucus (None Prsent) 09/18/20 Range/Units 11:44 RDW Std Deviation (36.4-46.3) fL MPV (7.4-10.4) fL Neut # (Auto) (1.4-6.5) K/uL [place] # (Auto) (0.11-0.59) K/uL Immature Gran # (Auto) (0.00-0.02) K/uL POC Potassium (3.3-5.0) mmol/L Potassium (3.5-5.1) mmol/L BUN/Creatinine Ratio (10-20) Glucose (70-99) mg/dl POC Glucose (other) (70-99) mg/dl POC Ioniz Calcium Amy (1.12-1.32) mmol/l Urine Protein Trace H (Negative) Urine Ketones Trace H (Negative) Urine Bilirubin 1+ H (Negative) Ur Leukocyte Esterase Trace H (Negative) Urine WBC (Auto) 5-10 H (0-5) /hpf U Hyaline Cast (Auto) 5-10 H (0-5) /lpf U Epithel Cells (Auto) >30 H (0-5) /lpf Urine Mucus Present A (None Prsent) Diagnostic Findings Abdomen/Pelvis CT 09/18/20 11:13 CT OF THE ABDOMEN AND PELVIS WITHOUT CONTRAST CLINICAL HISTORY: L CVA tenderness COMPARISON STUDY: CT of the abdomen and pelvis August 14, 2020. TECHNIQUE: Axial images of the abdomen and pelvis were obtained without IV contrast. Images were reviewed in the axial, sagittal, and coronal planes. Automated exposure control was utilized for the study. A dose lowering technique was utilized adhering to the principles of ALARA. FINDINGS: Please note that the chest CT will be reported separately. A separate findings within the left breast appear unchanged. No pneumatosis, free air or portal venous gas is present. Evaluation of the abdomen and pelvis is suboptimal on this unenhanced exam. No renal or ureteral calculi are identified although evaluation of the distal ureters is suboptimal given streak artifact from bilateral hip arthroplasties. There is no biliary or pancreatic ductal dilatation. Liver surface is mildly lobulated. Colonic diverticulosis is noted. There is no evidence for acute diverticulitis. Pericolonic infiltration shown on CT of August 14, 2020 has resolved. The appendix is normal. There is no lymphadenopathy. IMPRESSION: 1. No urinary calculi or hydronephrosis although evaluation of the distal ureters is suboptimal given streak artifact from bilateral hip arthroplasties. 2. Extensive colonic diverticulosis without evidence for acute diverticulitis. 3. No bowel obstruction. ACT 112: Negative or not required by law. Electronically signed by: Az Boudreaux M.D. 09/18/2020 12:18 PM Chest CTA 09/18/20 11:13 CHEST CTA for PULMONARY ARTERIES CT DOSE: 3433.56 mGy.cm HISTORY: Left-sided Chest Pain, eval for PE TECHNIQUE: Multiaxial CT images of the chest were performed following the intravenous administration of contrast to evaluate the pulmonary arteries. Maximal intensity projection images were also obtained. A dose lowering technique was utilized adhering to the principles of ALARA. COMPARISON STUDY: None. FINDINGS: Normal caliber thoracic aorta with no evidence for dissection. No pleural or pericardial effusions. The heart is mildly enlarged. No filling defects within the pulmonary arteries to suggest a pulmonary embolus. Please refer the same day abdomen and pelvis CT for further evaluation of the abdominal structures. Partially visualized postoperative changes seen within the left breast. Normal esophagus. No mediastinal or hilar lymphadenopathy. No suspicious lytic or blastic osseous lesions. The central airways are patent. No pneumothorax. There is mild respiratory motion artifact. There is a linear scarlike density within the lingula. A 4 mm subpleural nodule along the left major fissure on image 169. This is likely benign. Mild dependent changes seen at the lung bases. Groundglass density within the right lower lobe medially is also likely chronic. Otherwise, no focal lung consolidations to suggest pneumonia. There is mild elevation of the right hemidiaphragm. IMPRESSION: 1. No evidence for pulmonary embolus. 2. Cardiomegaly. 3. Dependent change/atelectasis seen within the lung bases. Otherwise, no focal lung consolidations to suggest pneumonia. 4. Mild elevation of the right hemidiaphragm. ACT 112: Negative or not required by law. Electronically signed by: Aryan Perera M.D. 09/18/2020 12:41 PM Medications Administered Magnesium Sulfate/Dextrose (Magnesium Sulfate / D5w) 1 gm in 100 mls @ 50 mls/hr IV Q2H SAL Stop: 09/18/20 17:29 Last Admin: 09/18/20 14:33 Dose: 50 mls/hr Documented by: [id number] Heparin Sodium/Dextrose (Heparin Sodium/Dextrose) 25,000 units in 500 mls @ 19 mls/hr IV .Q24H SAL; Protocol Stop: 10/18/20 14:29 Last Admin: 09/18/20 14:33 Dose: 950 units/hr, 19 mls/hr Documented by: [id number] Cosigned by: [id number] Discontinued Medications Furosemide (Furosemide 40 Mg/4 Ml Vial) 20 mg IV NOW STA Stop: 09/18/20 14:14 Last Admin: 09/18/20 14:32 Dose: 20 mg Documented by: [id number] Heparin Sodium (Porcine) (Heparin Sod (Porcine) 1000 Unit/Ml) 4,000 units IV NOW ONE Stop: 09/18/20 14:23 Last Admin: 09/18/20 14:32 Dose: 4,000 units Documented by: [id number] Cosigned by: [id number] Heparin Sodium (Porcine) (Heparin Sod (Porcine) 1000 Unit/Ml) Confirm Administered Dose 1,000 units .ROUTE .STK-MED ONE Stop: 09/18/20 14:26 Last Admin: 09/18/20 14:44 Dose: Not Given Documented by: [id number] Heparin Sodium/Dextrose (Heparin 06433 Unit/500 Ml D5w) Confirm Administered Dose 25,000 units IV .STK-MED ONE Stop: 09/18/20 14:25 Last Admin: 09/18/20 14:44 Dose: Not Given Documented by: [id number] Ioversol (Optiray 320 125ml) 120 ml IV ONCE ONE Stop: 09/18/20 11:56 Last Admin: 09/18/20 11:56 Dose: 120 ml Documented by: [id number] Potassium Chloride (Potassium Chloride Crtab 20 Meq Tabcr) 40 meq PO NOW ONE Stop: 09/18/20 13:32 Last Admin: 09/18/20 14:32 Dose: 40 meq Documented by: [id number] ECG Additional Comments: Atrial fibrillation Moderate voltage criteria for LVH, may be normal variant Possible Lateral infarct (cited on or before 26-JUN-2016) Abnormal ECG Code Status & VTE Plan Code Status CODE: FULL VTE: SCD's, Heparin infusion VTE Prophylaxis Plan VTE Prophylaxis will be ordered: Yes Supervising Physician Co-Signing Physician Notes Attending Attestation - Pt seen/examined, chart reviewed, care plan d/w MYA Myrick. I agree w/ the maldonado components of his documentation. 75yo female with HTN, DM, hyperlipidemia, morbid obesity, chronic lumbar back pain - presented with left flank discomfort. Also with progressive PAYAN in the last several weeks. Worsened by leaning forward. Not worsened by eating. No pleuritic component. Upon ER presentation found to be in a.fib. No prior h/o same. CTA chest and CT a/p without etiology for flank pain. PMH, PSH, allergies, meds, sochx, famhx - reviewed VSS, HRs about 100 gen - NAD, obese, gets easily dyspneic neck - ?JVD heart - borderline tachy, s1, s2, irregular, no obvious murmur lungs - soft rales bases abd - soft NT no CVA tenderness on r or l musculo - very tender to palpation paraspinal areas on left ext - 1+ edema b/l imaging reviewed labs reviewed EKG - a.fib A/P: 1. left paraspinal lumbar back pain - likely muscle strain. Voltaren gel qid, heating pad, etc 2. new onset a.fib - start metoprolol 25mg BID, heparin drip tonight, then check cost of DOAC in am; check echo; repeat labs am; cards consult 3. acute CHF - 2nd to #2? diurese 4. HTN - since we are adding metoprolol will lower clonidine dose to 0.1mg BID and will gradually wean off 5. morbid obesity - BMI>50 Calvin Weinstein MD PG Care Time/CCT Total # of Minutes Spent Total Time Spent with Patient: Total time spent is greater than 50% in coordination of care (as documented) at patient's floor/unit and/or counseling patient: Coding Level of Care Code 71539 Initial Inpt Care Lvl 3 Diagnoses Afib I48.91 Hypertension I10 Hyperlipidemia E78.5 Morbid obesity E66.01 Hypothyroidism E03.9 Lumbar stenosis with neurogenic claudication M48.062 Increased frequency of urination R35.0 Benign essential tremor G25.0 Controlled diabetes mellitus type II without complication E11.9 Left lumbar radiculopathy M54.16 Falls W19.XXXA
[2020-09-18] MEDS: MAGNESIUM SULFATE / D5W 1 GM/100 ML BAG IV SCH ×2 (14:33→15:50)
[2020-09-18] MEDS: HEPARIN SODIUM/DEXTROSE 25,000 UNITS/500 ML BAG IV SCH (14:33)
--- NOTE | 2020-09-18 14:38 | Emergency Department Note ---
History of Present Illness General Chief complaint: Back Injury/Pain Stated complaint: BACK PAIN Time Seen by Provider: 09/18/20 10:59 History of Present Illness Provider complaint: Back pain abdominal pain Onset (ago): day(s) 2 Location: abdomen Radiation: back Severity: moderate Pain Consistency: + constant Maximum Pain Intensity: 9 Current Pain Intensity: 8 Quality: + sharp Relieved By: + none Exacerbated By: + none Associated symptoms: no chest pain, no cough, no fever/chills, no headaches, no nausea/vomiting, no shortness of breath or no weakness 75-year-old female presents emergency department with abdominal pain. Patient states her symptoms began yesterday. Patient reports her pain is in the left upper quadrant and radiates to her left back/flank area. She reports some dysuria and nausea. Patient states she has a history of splenic diverticulitis and the pain feels similar. Patient also states she has history of UTIs and kidney infection. Patient denies any chest pain difficulty breathing. She does report increasing fatigue. No palpitations. Home Medications Medication Instructions Recorded Confirmed Type letrozole 2.5 mg tablet 2.5 mg PO DAILY tab 08/15/18 09/18/20 History quinapril 40 mg tablet 40 mg PO DAILY #90 tab 09/13/19 09/18/20 Rx omeprazole 20 mg capsule,delayed 20 mg PO Q OTHER DAY PRN #45 cap 10/24/19 09/18/20 Rx release cyclobenzaprine 10 mg tablet 10 mg PO HS #90 tab 11/10/19 09/18/20 Rx amlodipine 10 mg tablet 10 mg PO DAILY #90 tab 12/04/19 09/18/20 Rx clonidine HCl 0.2 mg tablet 0.2 mg PO BID #180 tab 02/20/20 09/18/20 Rx triamterene 37.5 1 cap PO DAILY #90 cap 05/29/20 09/18/20 Rx mg-hydrochlorothiazide 25 mg capsule fluticasone propionate 50 2 spray INTNAS DAILY #3 inhaler 06/10/20 09/18/20 Rx mcg/actuation nasal spray,suspension (Allergy Relief (fluticasone)) cholecalciferol (vitamin D3) 25 25 mcg PO DAILY #90 cap 06/12/20 09/18/20 Rx mcg (1,000 unit) capsule gabapentin 300 mg capsule 300 mg PO TID #90 cap 06/21/20 09/18/20 Rx levothyroxine 75 mcg tablet 75 mcg PO DAILY #90 tab 08/06/20 09/18/20 Rx zonisamide 25 mg capsule 50 mg PO DAILY 30 Days #60 cap 08/27/20 09/18/20 Rx primidone 50 mg tablet 100 mg PO TID 90 Days #540 tab 08/28/20 09/18/20 Rx acetaminophen 500 mg tablet 500 mg PO Q6H 09/18/20 09/18/20 History (Tylenol Extra Strength) calcium citrate 315 mg 2 tab PO DAILY 09/18/20 09/18/20 History calcium-vitamin D3 6.25 mcg (250 unit) tablet (Citracal + Vitamin D Maximum) rosuvastatin 10 mg tablet 10 mg PO DAILY 09/18/20 09/18/20 History Allergies Allergy/AdvReac Type Severity Reaction Status Date / Time adhesive Allergy Severe BLISTERING Verified 09/18/20 13:24 fenoprofen Allergy Unknown MUSCLE Verified 09/18/20 13:24 WEAKNESS, PAIN, HIVES ibuprofen Allergy Unknown RELATED TO Verified 09/18/20 13:24 FENOPROFEN Past Med/Surg History Medical History (Updated 09/18/20 @ 14:55 by MYA Zaragoza) Acid reflux disease Afib Anemia Benign essential tremor Carpal tunnel syndrome Controlled diabetes mellitus type II without complication Diverticulitis Diverticulosis of colon 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 Received 5130 cGy utilizing hypo-fractionation." On 08/18/16 11:16 Willow Calero wrote "Abnormal left breast mammogram Status post stereotactic biopsy 06/09/2016 revealing DCIS grade 3 Estrogen receptor positive and progesterone receptor positive Status post needle localization left partial mastectomy with sentinel lymph n ode biopsy 07/27/2016 DCIS and LCIS Stage pTis pN0" Generalized osteoarthritis of multiple sites Herniated disc right HPV (human papilloma virus) infection Hyperlipidemia Hypertension Hypothyroidism Left lumbar radiculopathy Lumbar stenosis with neurogenic claudication Morbid obesity Retinal detachment Urge and stress incontinence Surgical History History of cataract surgery right History of colonoscopy History of conization of cervix History of cryosurgery cervical cancer- History of hip replacement bilateral History of inguinal hernia repair History of knee replacement left History of partial mastectomy of left breast Hx of arthroscopic knee surgery Retinal detachment of right eye due to tear of retina Family History Mother Colorectal cancer Diabetes Hypertension Peripheral vascular disease Heart disease Stroke Father Congestive heart failure (CHF) Diabetes Hypertension Myocardial infarction Stroke Aunt Breast cancer Sister Lung cancer 2 sisters Other Nephrolithiasis Pure hypercholesterolemia Social History Smoking Status: Never smoker Second Hand Exposure: Yes; Hx Alcohol Use: No Hx Substance Use: No Preferred Language: [place] Verdean Communication Ability: Effective Visual Impairment: Partially Limited Hearing Ability: Normal Correctional Substance Abuse Counselor Required: No Beliefs That Will Affect Care: None marital status: Current Living Situation: Family current occupational status: retired Feels Safe at Home: Yes Childhood Exposure to Second-Hand Smoke: Yes Diet Comment: avoids seeds/nuts caffeine: Yes (coffee) Dental Care, Regularly: Yes Physical Activity Frequency: Does not Exercise Seatbelt Use: always Sunscreen Use: Yes Do you think of yourself as: straight/heterosexual Review of Systems A total of 10 systems reviewed and were otherwise negative Physical Exam Vital Signs Vital Signs - 24 hr 09/18/20 10:51 09/18/20 11:05 09/18/20 11:13 Temperature 36.5 C Temperature Source Temporal Artery Scan Pulse Rate 92 H 98 H Pulse Rate [Right] Pulse Rate from SpO2 Sensor 97 H Pulse Rhythm [Right] Pulse Strength [Right] Respiratory Rate 20 Respiratory Effort / Characteristics Non-Labored Respiratory Depth Normal Respiratory Pattern Blood Pressure 156/81 H 175/137 H Blood Pressure [Right Arm] Blood Pressure Mean 106 149 Blood Pressure Mean [Right Arm] Blood Pressure Position Sitting Blood Pressure Position [Right Arm] Pulse Oximetry 94 90 90 Oxygen Delivery Method Room Air Room Air Oxygen Flow Rate Sepsis Recent Fever Within 48 Hours No Sepsis New/Unexplained Change in Mental Status No Sepsis Action Taken by Nursing No Action Required 09/18/20 11:27 09/18/20 11:29 09/18/20 11:30 Temperature Temperature Source Pulse Rate 111 H 103 H Pulse Rate [Right] 99 H Pulse Rate from SpO2 Sensor 77 105 H Pulse Rhythm [Right] Irregular Pulse Strength [Right] Normal Respiratory Rate 16 28 H 21 Respiratory Effort / Characteristics Respiratory Depth Normal Respiratory Pattern Regular Blood Pressure 172/102 H 181/108 H Blood Pressure [Right Arm] 172/102 H Blood Pressure Mean 125 132 Blood Pressure Mean [Right Arm] 125 Blood Pressure Position Blood Pressure Position [Right Arm] Sitting Pulse Oximetry 92 92 94 Oxygen Delivery Method Room Air Oxygen Flow Rate Sepsis Recent Fever Within 48 Hours Sepsis New/Unexplained Change in Mental Status Sepsis Action Taken by Nursing 09/18/20 11:46 09/18/20 11:53 09/18/20 12:10 Temperature Temperature Source Pulse Rate 94 H 99 H Pulse Rate [Right] 110 H Pulse Rate from SpO2 Sensor 89 79 Pulse Rhythm [Right] Irregular Pulse Strength [Right] Normal Respiratory Rate 23 20 20 Respiratory Effort / Characteristics Non-Labored Respiratory Depth Normal Respiratory Pattern Blood Pressure 182/157 H Blood Pressure [Right Arm] 181/108 H Blood Pressure Mean 165 Blood Pressure Mean [Right Arm] 132 Blood Pressure Position Blood Pressure Position [Right Arm] Sitting Pulse Oximetry 96 93 96 Oxygen Delivery Method Nasal Cannula Oxygen Flow Rate 3 Sepsis Recent Fever Within 48 Hours Sepsis New/Unexplained Change in Mental Status Sepsis Action Taken by Nursing 09/18/20 12:15 09/18/20 12:20 09/18/20 12:31 Temperature Temperature Source Pulse Rate 94 H 99 H Pulse Rate [Right] 93 H Pulse Rate from SpO2 Sensor 86 97 H Pulse Rhythm [Right] Irregular Pulse Strength [Right] Respiratory Rate 30 H 22 16 Respiratory Effort / Characteristics Non-Labored Respiratory Depth Normal Respiratory Pattern Blood Pressure 171/111 H Blood Pressure [Right Arm] 137/95 Blood Pressure Mean 131 Blood Pressure Mean [Right Arm] 109 Blood Pressure Position Blood Pressure Position [Right Arm] Sitting Pulse Oximetry 94 94 95 Oxygen Delivery Method Nasal Cannula Oxygen Flow Rate 3 Sepsis Recent Fever Within 48 Hours Sepsis New/Unexplained Change in Mental Status Sepsis Action Taken by Nursing 09/18/20 14:36 Temperature Temperature Source Pulse Rate Pulse Rate [Right] 94 H Pulse Rate from SpO2 Sensor Pulse Rhythm [Right] Regular Pulse Strength [Right] Normal Respiratory Rate 26 H Respiratory Effort / Characteristics Respiratory Depth Normal Respiratory Pattern Blood Pressure Blood Pressure [Right Arm] Blood Pressure Mean Blood Pressure Mean [Right Arm] Blood Pressure Position Blood Pressure Position [Right Arm] Pulse Oximetry 90 Oxygen Delivery Method Room Air Oxygen Flow Rate Sepsis Recent Fever Within 48 Hours Sepsis New/Unexplained Change in Mental Status Sepsis Action Taken by Nursing Physical Exam GENERAL: She is oriented to person, place, and time. She appears well-developed and well-nourished. She does not appear distressed. HENT: Exam performed. -Head: Normocephalic and atraumatic. -Right Ear: External ear normal. No mastoid tenderness. -Left Ear: External ear normal. No mastoid tenderness. -Mouth/Throat: The oropharynx is clear and moist. No trismus in the jaw. No dental abscesses or uvula swelling. No oropharyngeal exudate or tonsillar abscesses. EYES: Conjunctivae and EOM are normal. Pupils are equal, round, and reactive to light. Right eye exhibits no discharge. Left eye exhibits no discharge. No scleral icterus. NECK: Normal range of motion. Neck supple. No JVD present. No spinous process tenderness present. No carotid bruit present. No rigidity. No tracheal deviation and normal range of motion present. No Brudzinski's sign and no Kernig's sign noted. CV: Normal rate, irregular rhythm, normal heart sounds and intact distal pulses. There is no peripheral edema. Palpable radial pulses bue. PULM/CHEST: Effort normal and breath sounds normal. No respiratory distress. No stridor. She has no wheezes. She has no rales. -Chest Wall: She exhibits no tenderness. ABD: The abdomen is soft. Bowel sounds are normal. She has no distension. No mass is present. There is no tenderness. There is no rebound, no guarding, no Lamb's sign and no tenderness at McBurney's point. Rovsig negative. Left- sided CVA tenderness. MUSC/SKEL: Normal range of motion. There is no peripheral edema, tenderness or deformity. LYMPH: No cervical adenopathy. NEURO: She is alert and oriented to person, place, and time. She has normal strength. No cranial nerve deficit or sensory deficit. Coordination and gait normal. GCS eye subscore is 4. GCS verbal subscore is 5. GCS motor subscore is 6. Cerebellar tests wnl. SKIN: Skin is warm and dry. She is not diaphoretic. PSYCH: She has a normal mood and affect. Behavior is normal. Judgment and thought content normal. Course Course 1059: The patient was evaluated in room B2. A complete history and physical exam was performed Cardiac monitoring: An order was placed for continuous cardiac monitoring. The monitor shows a rate of 90-110 with atrial fibrilation rhythm Patient was found to be in atrial fibrillation on the ekg monitor tech. Patient reports no history of atrial fibrillation. Will conduct lab work as well as CT of the chest and CT of the abdomen. 1300: Labs and imaging within normal limits. White blood cell count within norm al limits. Troponin within normal limits. Urinalysis within normal limits. CT of the chest negative for PE. CT of the abdomen negative for kidney stone. On reassessment, the patient was becoming hypoxic with slight exertion. When walking to the bathroom the patient's oxygen saturation dips below 88% on room air. Patient's oxygen saturation improved with oxygen via nasal cannula 2 L. Given the patient's hypoxia with exertion and new onset atrial fibrillation [facility]. Discussed the case with the GYRO MECHANIC who stated to admit to Dr. Villa. Administered Medications Magnesium Sulfate/Dextrose (Magnesium Sulfate / D5w) 1 gm in 100 mls @ 50 mls/hr IV Q2H SAL Stop: 09/18/20 17:29 Last Admin: 09/18/20 14:33 Dose: 50 mls/hr Documented by: [id number] Heparin Sodium/Dextrose (Heparin Sodium/Dextrose) 25,000 units in 500 mls @ 19 mls/hr IV .Q24H SAL; Protocol Stop: 10/18/20 14:29 Last Admin: 09/18/20 14:33 Dose: 950 units/hr, 19 mls/hr Documented by: [id number] Cosigned by: [id number] Discontinued Medications Furosemide (Furosemide 40 Mg/4 Ml Vial) 20 mg IV NOW STA Stop: 09/18/20 14:14 Last Admin: 09/18/20 14:32 Dose: 20 mg Documented by: [id number] Heparin Sodium (Porcine) (Heparin Sod (Porcine) 1000 Unit/Ml) 4,000 units IV NOW ONE Stop: 09/18/20 14:23 Last Admin: 09/18/20 14:32 Dose: 4,000 units Documented by: [id number] Cosigned by: [id number] Heparin Sodium (Porcine) (Heparin Sod (Porcine) 1000 Unit/Ml) Confirm Administered Dose 1,000 units .ROUTE .STK-MED ONE Stop: 09/18/20 14:26 Last Admin: 09/18/20 14:44 Dose: Not Given Documented by: Heparin Sodium/Dextrose (Heparin 42087 Unit/500 Ml D5w) Confirm Administered Dose 25,000 units IV .STK-MED ONE Stop: 09/18/20 14:25 Last Admin: 09/18/20 14:44 Dose: Not Given Documented by: Ioversol (Optiray 320 125ml) 120 ml IV ONCE ONE Stop: 09/18/20 11:56 Last Admin: 09/18/20 11:56 Dose: 120 ml Documented by: [id number] Potassium Chloride (Potassium Chloride Crtab 20 Meq Tabcr) 40 meq PO NOW ONE Stop: 09/18/20 13:32 Last Admin: 09/18/20 14:32 Dose: 40 meq Documented by: [id number] Critical Care Time Critical Care Time: Yes Total Critical Care Time: 52 I have personally spent greater than 52 minutes of critical care time in the direct management of this patient. This includes bedside care, interpretation of diagnostic studies, and testing, discussion with consultants, patient, and family members, and other required patient management activities. This 52 minutes is in excess of all separately billable procedures. Medical Decision Making Laboratory Data Result diagrams: 09/18/20 11:31 09/18/20 11:31 Lab Results 09/18/20 09/18/20 09/18/20 Range/Units 11:31 11:31 11:31 WBC 10.27 (4.8-10.8) K/uL RBC 4.65 (4.2-5.4) M/uL Hgb 13.9 (12.0-16.0) g/dL POC Hgb (12.0-16.0) g/dl Hct 43.2 (37-47) % POC Hct (37-47) % MCV 92.9 (80-100) fL MCH 29.9 (25-34) pg MCHC 32.2 (32-36) g/dL RDW Std Deviation 47.9 H (36.4-46.3) fL RDW Coeff of Jesse 14.2 (11.5-14.5) % Plt Count 317 (130-400) K/uL MPV 11.1 H (7.4-10.4) fL Immature Gran % (Auto) 0.3 % Neut % (Auto) 70.9 % Lymph % (Auto) 18.5 % [place] % (Auto) 8.7 % Eos % (Auto) 1.2 % Baso % (Auto) 0.4 % Neut # (Auto) 7.29 H (1.4-6.5) K/uL Lymph # (Auto) 1.90 (1.2-3.4) K/uL [place] # (Auto) 0.89 H (0.11-0.59) K/uL Eos # (Auto) 0.12 (0-0.5) K/uL Baso # (Auto) 0.04 (0-0.2) K/uL Immature Gran # (Auto) 0.03 H (0.00-0.02) K/uL PT 10.1 (9.0-12.0) Seconds INR 1.0 (0.9-1.1) APTT 23.5 (21.0-31.0) Seconds PTT Ratio 0.9 POC Sodium (135-144) mmol/L Sodium (136-145) mmol/L POC Potassium (3.3-5.0) mmol/L Potassium (3.5-5.1) mmol/L POC Chloride (101-112) mmol/L Chloride (98-107) mmol/L Carbon Dioxide (21-32) mmol/L POC Total CO2 (24-31) mmol/L Anion Gap (3-11) POC Anion Gap (16-25) mmol/L POC BUN (7-18) mg/dl BUN (7-18) mg/dl Creatinine (0.6-1.2) mg/dl POC Creatinine (0.6-1.3) mg/dl Est Cr Clr Drug Dosing ml/min Est GFR ( Amer) ml/min Est GFR (Non-Af Amer) ml/min BUN/Creatinine Ratio (10-20) Glucose (70-99) mg/dl POC Glucose (other) (70-99) mg/dl Calcium (8.5-10.1) mg/dl POC Ioniz Calcium Amy (1.12-1.32) mmol/l Magnesium Cancelled Troponin I (0-0.045) ng/ml Lipase (73-393) U/L TSH (0.300-4.500) uIu/ml Urine Color Urine Appearance (Clear) Urine pH (4.5-7.5) Ur Specific Hudson (1.000-1.030) Urine Protein (Negative) Urine Glucose (UA) (Negative) Urine Ketones (Negative) Urine Blood (Negative) Urine Nitrite (Negative) Urine Bilirubin (Negative) Urine Urobilinogen (Negative) Ur Leukocyte Esterase (Negative) Urine WBC (Auto) (0-5) /hpf Urine RBC (Auto) (0-4) /hpf U Hyaline Cast (Auto) (0-5) /lpf U Epithel Cells (Auto) (0-5) /lpf Urine Bacteria (Auto) (Negative) Urine Mucus (None Prsent) COVID-19 Eval Order SARS-CoV-2 (PCR) (Negative) 09/18/20 09/18/20 09/18/20 Range/Units 11:31 11:31 11:39 WBC (4.8-10.8) K/uL RBC (4.2-5.4) M/uL Hgb (12.0-16.0) g/dL POC Hgb 13.6 (12.0-16.0) g/dl Hct (37-47) % POC Hct 40 (37-47) % MCV (80-100) fL MCH (25-34) pg MCHC (32-36) g/dL RDW Std Deviation (36.4-46.3) fL RDW Coeff of Jesse (11.5-14.5) % Plt Count (130-400) K/uL MPV (7.4-10.4) fL Immature Gran % (Auto) % Neut % (Auto) % Lymph % (Auto) % [place] % (Auto) % Eos % (Auto) % Baso % (Auto) % Neut # (Auto) (1.4-6.5) K/uL Lymph # (Auto) (1.2-3.4) K/uL [place] # (Auto) (0.11-0.59) K/uL Eos # (Auto) (0-0.5) K/uL Baso # (Auto) (0-0.2) K/uL Immature Gran # (Auto) (0.00-0.02) K/uL PT (9.0-12.0) Seconds INR (0.9-1.1) APTT (21.0-31.0) Seconds PTT Ratio POC Sodium 140 (135-144) mmol/L Sodium 139 (136-145) mmol/L POC Potassium 3.1 L (3.3-5.0) mmol/L Potassium 3.4 L (3.5-5.1) mmol/L POC Chloride 101 (101-112) mmol/L Chloride 105 (98-107) mmol/L Carbon Dioxide 30 (21-32) mmol/L POC Total CO2 26 (24-31) mmol/L Anion Gap 4.0 (3-11) POC Anion Gap 18.0 (16-25) mmol/L POC BUN 15 (7-18) mg/dl BUN 15 (7-18) mg/dl Creatinine 0.75 (0.6-1.2) mg/dl POC Creatinine 0.6 (0.6-1.3) mg/dl Est Cr Clr Drug Dosing 81.6 ml/min Est GFR ( Amer) 91.0 ml/min Est GFR (Non-Af Amer) 78.5 ml/min BUN/Creatinine Ratio 20.2 H (10-20) Glucose 113 H (70-99) mg/dl POC Glucose (other) 112 H (70-99) mg/dl Calcium 9.9 (8.5-10.1) mg/dl POC Ioniz Calcium Amy 1.10 L (1.12-1.32) mmol/l Magnesium 1.9 Troponin I 0.018 (0-0.045) ng/ml Lipase 183 (73-393) U/L TSH 2.000 (0.300-4.500) uIu/ml Urine Color Urine Appearance (Clear) Urine pH (4.5-7.5) Ur Specific Hudson (1.000-1.030) Urine Protein (Negative) Urine Glucose (UA) (Negative) Urine Ketones (Negative) Urine Blood (Negative) Urine Nitrite (Negative) Urine Bilirubin (Negative) Urine Urobilinogen (Negative) Ur Leukocyte Esterase (Negative) Urine WBC (Auto) (0-5) /hpf Urine RBC (Auto) (0-4) /hpf U Hyaline Cast (Auto) (0-5) /lpf U Epithel Cells (Auto) (0-5) /lpf Urine Bacteria (Auto) (Negative) Urine Mucus (None Prsent) COVID-19 Eval Order SARS-CoV-2 (PCR) (Negative) 09/18/20 09/18/20 09/18/20 Range/Units 11:42 11:42 11:44 WBC (4.8-10.8) K/uL RBC (4.2-5.4) M/uL Hgb (12.0-16.0) g/dL POC Hgb (12.0-16.0) g/dl Hct (37-47) % POC Hct (37-47) % MCV (80-100) fL MCH (25-34) pg MCHC (32-36) g/dL RDW Std Deviation (36.4-46.3) fL RDW Coeff of Jesse (11.5-14.5) % Plt Count (130-400) K/uL MPV (7.4-10.4) fL Immature Gran % (Auto) % Neut % (Auto) % Lymph % (Auto) % [place] % (Auto) % Eos % (Auto) % Baso % (Auto) % Neut # (Auto) (1.4-6.5) K/uL Lymph # (Auto) (1.2-3.4) K/uL [place] # (Auto) (0.11-0.59) K/uL Eos # (Auto) (0-0.5) K/uL Baso # (Auto) (0-0.2) K/uL Immature Gran # (Auto) (0.00-0.02) K/uL PT (9.0-12.0) Seconds INR (0.9-1.1) APTT (21.0-31.0) Seconds PTT Ratio POC Sodium (135-144) mmol/L Sodium (136-145) mmol/L POC Potassium (3.3-5.0) mmol/L Potassium (3.5-5.1) mmol/L POC Chloride (101-112) mmol/L Chloride (98-107) mmol/L Carbon Dioxide (21-32) mmol/L POC Total CO2 (24-31) mmol/L Anion Gap (3-11) POC Anion Gap (16-25) mmol/L POC BUN (7-18) mg/dl BUN (7-18) mg/dl Creatinine (0.6-1.2) mg/dl POC Creatinine (0.6-1.3) mg/dl Est Cr Clr Drug Dosing ml/min Est GFR ( Amer) ml/min Est GFR (Non-Af Amer) ml/min BUN/Creatinine Ratio (10-20) Glucose (70-99) mg/dl POC Glucose (other) (70-99) mg/dl Calcium (8.5-10.1) mg/dl POC Ioniz Calcium Amy (1.12-1.32) mmol/l Magnesium Troponin I (0-0.045) ng/ml Lipase (73-393) U/L TSH (0.300-4.500) uIu/ml Urine Color Dark Yellow Urine Appearance Clear (Clear) Urine pH 6.5 (4.5-7.5) Ur Specific [place] 1.029 (1.000-1.030) Urine Protein Trace H (Negative) Urine Glucose (UA) Negative (Negative) Urine Ketones Trace H (Negative) Urine Blood Negative (Negative) Urine Nitrite Negative (Negative) Urine Bilirubin 1+ H (Negative) Urine Urobilinogen Negative (Negative) Ur Leukocyte Esterase Trace H (Negative) Urine WBC (Auto) 5-10 H (0-5) /hpf Urine RBC (Auto) 0-4 (0-4) /hpf U Hyaline Cast (Auto) 5-10 H (0-5) /lpf U Epithel Cells (Auto) >30 H (0-5) /lpf Urine Bacteria (Auto) Negative (Negative) Urine Mucus Present A (None Prsent) COVID-19 Eval Order Covid19 at [facility] SARS-CoV-2 (PCR) NEGATIVE (Negative) Imaging Data Radiologist's Impression: Abdomen/Pelvis CT 09/18/20 11:13 CT OF THE ABDOMEN AND PELVIS WITHOUT CONTRAST CLINICAL HISTORY: L CVA tenderness COMPARISON STUDY: CT of the abdomen and pelvis August 14, 2020. TECHNIQUE: Axial images of the abdomen and pelvis were obtained without IV contrast. Images were reviewed in the axial, sagittal, and coronal planes. Automated exposure control was utilized for the study. A dose lowering technique was utilized adhering to the principles of ALARA. FINDINGS: Please note that the chest CT will be reported separately. A separate findings within the left breast appear unchanged. No pneumatosis, free air or portal venous gas is present. Evaluation of the abdomen and pelvis is suboptimal on this unenhanced exam. No renal or ureteral calculi are identified although evaluation of the distal ureters is suboptimal given streak artifact from bilateral hip arthroplasties. There is no biliary or pancreatic ductal dilatation. Liver surface is mildly lobulated. Colonic diverticulosis is noted. There is no evidence for acute diverticulitis. Pericolonic infiltration shown on CT of August 14, 2020 has resolved. The appendix is normal. There is no lymphadenopathy. IMPRESSION: 1. No urinary calculi or hydronephrosis although evaluation of the distal u reters is suboptimal given streak artifact from bilateral hip arthroplasties. 2. Extensive colonic diverticulosis without evidence for acute diverticulitis. 3. No bowel obstruction. ACT 112: Negative or not required by law. Electronically signed by: Az Boudreaux M.D. 09/18/2020 12:18 PM Chest CTA 09/18/20 11:13 CHEST CTA for PULMONARY ARTERIES CT DOSE: 3433.56 mGy.cm HISTORY: Left-sided Chest Pain, eval for PE TECHNIQUE: Multiaxial CT images of the chest were performed following the int ravenous administration of contrast to evaluate the pulmonary arteries. Maximal intensity projection images were also obtained. A dose lowering technique was utilized adhering to the principles of ALARA. COMPARISON STUDY: None. FINDINGS: Normal caliber thoracic aorta with no evidence for dissection. No pleural or pericardial effusions. The heart is mildly enlarged. No filling defects within the pulmonary arteries to suggest a pulmonary embolus. Please refer the same day abdomen and pelvis CT for further evaluation of the abdominal structures. Partially visualized postoperative changes seen within the left breast. Normal esophagus. No mediastinal or hilar lymphadenopathy. No suspicious lytic or blastic osseous lesions. The central airways are patent. No pneumothorax. There is mild respiratory motion artifact. There is a linear scarlike density within the lingula. A 4 mm subpleural nodule along the left major fissure on image 169. This is likely benign. Mild dependent changes seen at the lung bases. Groundglass density within the right lower lobe medially is also likely chronic. Otherwise, no focal lung consolidations to suggest pn eumonia. There is mild elevation of the right hemidiaphragm. IMPRESSION: 1. No evidence for pulmonary embolus. 2. Cardiomegaly. 3. Dependent change/atelectasis seen within the lung bases. Otherwise, no focal lung consolidations to suggest pneumonia. 4. Mild elevation of the right hemidiaphragm. ACT 112: Negative or not required by law. Electronically signed by: Aryan Perera M.D. 09/18/2020 12:41 PM ECG Data Additional Comments: Atrial fibrillation with rate of 98. QRS and QTc intervals within normal limits. No ST elevation or ST depression. [facility] Narrative 1059: The patient was evaluated in room B2. A complete history and physical exam was performed Cardiac monitoring: An order was placed for continuous cardiac monitoring. The monitor shows a rate of 90-110 with atrial fibrilation rhythm Patient was found to be in atrial fibrillation on the ekg monitor tech. Patient reports no history of atrial fibrillation. Will conduct lab work as well as CT of the chest and CT of the abdomen. 1300: Labs and imaging within normal limits. White blood cell count within normal limits. Troponin within normal limits. Urinalysis within normal limits. CT of the chest negative for PE. CT of the abdomen negative for kidney stone. On reassessment, the patient was becoming hypoxic with slight exertion. When walking to the bathroom the patient's oxygen saturation dips below 88% on room air. Patient's oxygen saturation improved with oxygen via nasal cannula 2 L. Given the patient's hypoxia with exertion and new onset atrial fibrillation the patient will be admitted to the [facility] hospitalist team. Discussed the case with the GYRO MECHANIC who stated to admit to Dr. Villa. Impression & Plan Hypoxia, Atrial fibrillation Discharge Plan Visit Data Chief Complaint: Back Injury/Pain Stated Complaint: BACK PAIN ED Provider: Aneesh Andrade Discharge Problem: Hypoxia, Atrial fibrillation Patient Disposition: Admitted As Inpatient Forms Stand Alone Forms: My [facility] Prescriptions Prescriptions: No Action quinapril 40 mg tablet 40 mg PO DAILY Qty: 90 RF: 3 omeprazole 20 mg capsule,delayed release(DR/EC) 20 mg PO Q OTHER DAY PRN (Reason: acid reflux) Qty: 45 RF: 3 cyclobenzaprine 10 mg tablet 10 mg PO HS Qty: 90 RF: 3 amlodipine 10 mg tablet 10 mg PO DAILY Qty: 90 RF: 3 clonidine HCl 0.2 mg tablet 0.2 mg PO BID Qty: 180 RF: 3 triamterene-hydrochlorothiazid 37.5-25 mg capsule 1 cap PO DAILY Qty: 90 RF: 3 cholecalciferol (vitamin D3) 25 mcg (1,000 unit) capsule 25 mcg PO DAILY Qty: 90 RF: 3 gabapentin 300 mg capsule 300 mg PO TID Qty: 90 RF: 5 levothyroxine 75 mcg tablet 75 mcg PO DAILY Qty: 90 RF: 3 zonisamide 25 mg capsule 50 mg PO DAILY 30 Days Qty: 60 RF: 5 primidone 50 mg tablet 100 mg PO TID 90 Days Qty: 540 RF: 1 fluticasone propionate [Allergy Relief (fluticasone)] 50 mcg/actuation spray,suspension 2 spray INTNAS DAILY Qty: 3 RF: 3 letrozole 2.5 mg tablet 2.5 mg PO DAILY RF: 0 acetaminophen [Tylenol Extra Strength] 500 mg Tablet 500 mg PO Q6H RF: 0 rosuvastatin 10 mg tablet 10 mg PO DAILY RF: 0 calcium citrate-vitamin D3 [Citracal + D Maximum] 315 mg-6.25 mcg (250 unit) Tablet 2 tab PO DAILY RF: 0 Referrals Referrals: Angeline Martinez MD [Primary Care Provider] -
--- NOTE | 2020-09-18 17:13 | Electrocardiogram Report ---
Test Reason : Blood Pressure : / mmHG Vent. Rate : 098 BPM Atrial Rate : 174 BPM P-R Int : 000 ms QRS Dur : 092 ms QT Int : 154 ms P-R-T Axes : 000 -20 000 degrees QTc Int : 196 ms Poor data quality, interpretation may be adversely affected Atrial fibrillation Moderate voltage criteria for LVH, may be normal variant Possible Lateral infarct (cited on or before 26-JUN-2016) Abnormal ECG Confirmed by Edward Sneed ([id number]) on 09/18/2020 5:12:47 PM Referred By: REFERRED SELF Confirmed By:Anirudh Sneed
[2020-09-18] MEDS ORDERED: METOPROLOL TARTRATE 25 MG TAB PO SCH (18:09)
[2020-09-18] MEDS ORDERED: ONDANSETRON INJ 2 MG/ML 2 ML VIAL IV PRN (18:09)
[2020-09-18] MEDS ORDERED: PANTOprazole 40 MG TAB PO PRN (18:38)
[2020-09-18] MEDS ORDERED: ACETAMINOPHEN 500 MG TAB PO SCH (18:45)
[2020-09-18] MEDS: METOPROLOL TARTRATE 25 MG TAB PO SCH (20:30)
[2020-09-18] MEDS: PRIMIDONE 50 MG TAB PO SCH (20:31)
[2020-09-18] MEDS: GABAPENTIN 300 MG CAP PO SCH (20:31)
[2020-09-18] MEDS: cloNIDine HCL 0.1 MG TAB PO SCH (20:31)
[2020-09-18] MEDS: CYCLOBENZAPRINE HCL 10 MG TAB PO SCH (20:32)
[2020-09-18] MEDS: LIDOCAINE 5% 1 PATCH TD SCH (20:44)
[2020-09-18] MEDS ORDERED: cloNIDine HCL 0.1 MG TAB PO SCH (21:00)
[2020-09-18] MEDS: ACETAMINOPHEN 500 MG TAB PO SCH (21:11)
[2020-09-18] MEDS: DICLOFENAC SOD 1% GEL 100 GM TUBE EXT SCH (21:11)
[2020-09-18 23:02] LABS: Partial Thromboplastin Ratio 1.1; Partial Thromboplastin Time 30.1 Seconds (21.0-31.0)
[2020-09-19] MEDS: oxyCODONE HCL IR 5 MG TAB (IMMEDIATE RELEASE) PO PRN ×2 (01:06→20:46)
[2020-09-19] MEDS: LEVOTHYROXINE SODIUM 75 MCG TABLET PO SCH (05:44)
[2020-09-19 06:34] LABS: Basophils # (auto) 0.04 K/uL (0-0.2); Basophils % (auto) 0.5 %; Eosinophils # (auto) 0.22 K/uL (0-0.5); Eosinophils % (auto) 2.9 %; Hematocrit (blood only) 41.3 % (37-47); Hemoglobin 13.5 g/dL (12.0-16.0); Immature Granulocytes # (auto) 0.02 K/uL (0.00-0.02); Immature Granulocytes % (auto) 0.3 %; Lymphocytes % (auto) 27.5 %; Mean Corpuscular Hemoglobin 29.6 pg (25-34); Mean Corpuscular Hgb Conc 32.7 g/dL (32-36); Mean Corpuscular Volume 90.6 fL (80-100); Mean Platelet Volume 11.6 fL (7.4-10.4); Monocytes % (auto) 7.9 %; Neutrophils # (auto) 4.65 K/uL (1.4-6.5); Neutrophils % (auto) 60.9 %; Platelet Count 247 K/uL (130-400); RDW Coefficient of Variation 14.2 % (11.5-14.5); RDW Standard Deviation 46.7 fL (36.4-46.3); Red Blood Count 4.56 M/uL (4.2-5.4); White Blood Count 7.63 K/uL (4.8-10.8)
[2020-09-19 06:49] LABS: Partial Thromboplastin Ratio 1.6; Partial Thromboplastin Time 41.9 Seconds (21.0-31.0)
[2020-09-19 07:09] LABS: BUN Creatinine Ratio 23.7 (10-20); Calcium 9.6 mg/dl (8.5-10.1); Creatinine Clr Calc Pharmacy 85.1 ml/min; Est GFR (Non-African American) 81.1 ml/min; Potassium 3.3 mmol/L (3.5-5.1)
[2020-09-19 07:44] LABS: Estimated Average Glucose 146 mg/dl; Hemoglobin A1C 6.7 % (4.5-5.6)
[2020-09-19] MEDS ORDERED: FUROSEMIDE 40 MG in SYRINGE 0 ML IV ONE (08:00)
[2020-09-19] MEDS ORDERED: QUINAPRIL HCL 10 MG TAB PO SCH (09:00)
[2020-09-19] MEDS: DICLOFENAC SOD 1% GEL 100 GM TUBE EXT SCH ×4 (09:09→20:32)
[2020-09-19] MEDS: LIDOCAINE 5% 1 PATCH TD SCH (09:09)
[2020-09-19] MEDS: FLUTICASONE PROPIONATE NA SPR 16 GM BTL SCH (09:10)
[2020-09-19] MEDS: LETROZOLE 2.5 MG TAB PO SCH (09:13)
[2020-09-19] MEDS: PRIMIDONE 50 MG TAB PO SCH ×3 (09:13→20:30)
[2020-09-19] MEDS: ROSUVASTATIN CALCIUM 10 MG TAB PO SCH (09:13)
[2020-09-19] MEDS: METOPROLOL TARTRATE 25 MG TAB PO SCH (09:14)
[2020-09-19] MEDS: cloNIDine HCL 0.1 MG TAB PO SCH (09:15)
[2020-09-19] MEDS: GABAPENTIN 300 MG CAP PO SCH ×3 (09:15→20:29)
[2020-09-19] MEDS: CHOLECALCIFEROL 1,000 UNITS 25 MCG TAB PO SCH (09:15)
[2020-09-19] MEDS: ACETAMINOPHEN 500 MG TAB PO SCH ×3 (09:16→20:33)
[2020-09-19] MEDS: amLODIPine BESYLATE 5 MG TAB PO SCH (09:16)
[2020-09-19] MEDS: CALCIUM CITRATE 950 MG TAB PO SCH (09:16)
[2020-09-19] MEDS: POTASSIUM CHLORIDE CRTAB 20 MEQ TABCR PO SCH ×3 (10:14→20:29)
[2020-09-19] MEDS: HEPARIN SODIUM/DEXTROSE 25,000 UNITS/500 ML BAG IV SCH (12:34)
--- NOTE | 2020-09-19 12:49 | XCELERA ---
[id number]
--- NOTE | 2020-09-19 15:43 | Cardiology Consultation ---
Date of Consultation September 19, 2020 Assessment & Plan (1) Afib: Afib appears to be a new onset incidental finding. Patient remains asymptomatic with no chest pain or palpitations. Due to her family history, risk factors, and JOSE G score, we will prescribe patient Eliquis going forward to minimize stroke risk. Heparin will be discontinued. We will also continue the patient on metoprolol to control her heart rate. Discussed risk of bleeding on Eliquis especially since she ambulates with a walker and has a fall risk. Present on Admission?: Yes (2) Dyspnea: Mild dyspnea lately and hypoxia on admission. Possibly some pulmonary vascular congestion due to mild LV dysfunction. Improved with lasix. Metoprolol succinate would be preferred BB. Low dose daily diuretic may be helpful. Supervising Physician Co-Signing Physician Notes Edward Sneed I saw and examined the patient at the bedside with Dr. Sales and agree with the documentation above. Briefly, the patient presented for a non cardiac complaint and was discovered to have atrial fibrillation. She does not appear to be overtly symptomatic from the arrhythmia and rate control was adequate if not optimal. The etiology of her atrial fibrillation is likely longstanding hypertension and age. She has an elevated stroke risk and was placed on apixaban for stroke prophylaxis. There are several options for rate control. I would agree with the addition of beta-blockade, specifically metoprolol succinate given what may be some mildly reduced LV systolic function. Do not believe there is a role for cardioversion currently. Additionally, the patient may have some mildly reduced LV systolic function. Admittedly the echocardiographic images were very limited given her body habitus interpretation with difficult given her atrial fibrillation. However she did present with hypoxia and some mild dyspnea. I would agree with some element of diuresis and she may benefit from going home on 20 mg of Lasix daily. Does have some chronic edema as well. We can continue her management in the outpatient setting. History of Present Illness Reason for Consultation: Atrial Fibrillation Requesting Physician: Calvin Weinstein Attending Physician: Calvin Weinstein History of Present Illness Patient is a 75 yo female who presented to the ED yesterday for left flank pain. Patient was concerned she was developing diverticulitis due to PMHx of diverticula near her splenic flexure of her colon. Upon admission, she had associated lower extremity edema as her only other complaint. In the ED, the patient presented with a low O2 sat. Subsequent EKG showed atrial fibrillation. Today she states she in no longer in pain and her lower extremity edema has improved. She denies shortness of breath, chest pain, palpitations, and headache. Over the last 6 months, she has noticed getting short of breath when going up her stairs. However, she is able to sleep comfortably at night on a flat bed. Allergies Allergy/AdvReac Type Severity Reaction Status Date / Time adhesive Allergy Severe BLISTERING Verified 09/18/20 13:24 fenoprofen Allergy Unknown MUSCLE Verified 09/18/20 13:24 WEAKNESS, PAIN, HIVES ibuprofen Allergy Unknown RELATED TO Verified 09/18/20 13:24 FENOPROFEN Home Medications Medication Instructions Recorded Confirmed Type letrozole 2.5 mg tablet 2.5 mg PO DAILY tab 08/15/18 09/18/20 History quinapril 40 mg tablet 40 mg PO DAILY #90 tab 09/13/19 09/18/20 Rx omeprazole 20 mg capsule,delayed 20 mg PO Q OTHER DAY PRN #45 cap 10/24/19 09/18/20 Rx release cyclobenzaprine 10 mg tablet 10 mg PO HS #90 tab 11/10/19 09/18/20 Rx amlodipine 10 mg tablet 10 mg PO DAILY #90 tab 12/04/19 09/18/20 Rx clonidine HCl 0.2 mg tablet 0.2 mg PO BID #180 tab 02/20/20 09/18/20 Rx triamterene 37.5 1 cap PO DAILY #90 cap 05/29/20 09/18/20 Rx mg-hydrochlorothiazide 25 mg capsule fluticasone propionate 50 2 spray INTNAS DAILY #3 inhaler 06/10/20 09/18/20 Rx mcg/actuation nasal spray,suspension (Allergy Relief (fluticasone)) cholecalciferol (vitamin D3) 25 25 mcg PO DAILY #90 cap 06/12/20 09/18/20 Rx mcg (1,000 unit) capsule gabapentin 300 mg capsule 300 mg PO TID #90 cap 06/21/20 09/18/20 Rx levothyroxine 75 mcg tablet 75 mcg PO DAILY #90 tab 08/06/20 09/18/20 Rx zonisamide 25 mg capsule 50 mg PO DAILY 30 Days #60 cap 08/27/20 09/18/20 Rx primidone 50 mg tablet 100 mg PO TID 90 Days #540 tab 08/28/20 09/18/20 Rx acetaminophen 500 mg tablet 500 mg PO Q6H 09/18/20 09/18/20 History (Tylenol Extra Strength) calcium citrate 315 mg 2 tab PO DAILY 09/18/20 09/18/20 History calcium-vitamin D3 6.25 mcg (250 unit) tablet (Citracal + Vitamin D Maximum) rosuvastatin 10 mg tablet 10 mg PO DAILY 09/18/20 09/18/20 History Patient History Medical History (Updated 09/19/20 @ 15:56 by Garret Sales DO) Acid reflux disease Afib Anemia Benign essential tremor Carpal tunnel syndrome Controlled diabetes mellitus type II without complication Diverticulitis Diverticulosis of colon 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 Received 5130 cGy utilizing hypo-fractionation." On 08/18/16 11:16 Willow Calero wrote "Abnormal left breast mammogram Status post stereotactic biopsy 06/09/2016 revealing DCIS grade 3 Estrogen receptor positive and progesterone receptor positive Status post needle localization left partial mastectomy with sentinel lymph node biopsy 07/27/2016 DCIS and LCIS Stage pTis pN0" Generalized osteoarthritis of multiple sites Herniated disc right HPV (human papilloma virus) infection Hyperlipidemia Hypertension Hypothyroidism Left lumbar radiculopathy Lumbar stenosis with neurogenic claudication Morbid obesity Retinal detachment Urge and stress incontinence Surgical History History of cataract surgery right History of colonoscopy History of conization of cervix History of cryosurgery cervical cancer-1980s History of hip replacement bilateral History of inguinal hernia repair History of knee replacement left History of partial mastectomy of left breast Hx of arthroscopic knee surgery Retinal detachment of right eye due to tear of retina Family History Mother Colorectal cancer Diabetes Hypertension Peripheral vascular disease Heart disease Stroke Father Congestive heart failure (CHF) Diabetes Hypertension Myocardial infarction Stroke Aunt Breast cancer Sister Lung cancer 2 sisters Other Nephrolithiasis Pure hypercholesterolemia Social History Smoking Status: Never smoker Second Hand Exposure: Yes; Hx Alcohol Use: No Hx Substance Use: No Preferred Language: Tajik Communication Ability: Effective Visual Impairment: Partially Limited Hearing Ability: Normal Cut Out Operator Required: No Beliefs That Will Affect Care: None marital status: Current Living Situation: Family current occupational status: retired Other Information That Helps Us Care for You: No Feels Safe at Home: Yes Safety Concerns: Feels Safe At This Time Childhood Exposure to Second-Hand Smoke: Yes Diet Comment: avoids seeds/nuts caffeine: Yes (coffee) Dental Care, Regularly: Yes Physical Activity Frequency: Does not Exercise Seatbelt Use: always Sunscreen Use: Yes Do you think of yourself as: straight/heterosexual Assistive Devices: Walker Review of Systems Constitutional: as per Subjective / HPI Respiratory: as per Subjective / HPI Cardiovascular: as per Subjective / HPI Physical Exam Constitutional: WD/WN, vitals as above Respiratory: normal respiratory effort, lungs clear to auscultation Cardiovascular: regular rate, irregular rhythm, no murmurs Lymphatic: Moderate LE edema bilaterally, R>L secondary to previous ankle surgery Results & Data ([facility]) Vital Signs (Past 12 Hours) Vital Signs Temp Pulse Resp BP Pulse Ox 09/19/20 14:42 36.6 C 92 H 18 147/77 H 95 09/19/20 11:13 36.9 C 93 H 20 118/78 91 09/19/20 07:00 36.6 C 68 20 136/84 96 09/19/20 04:19 36.4 C L 80 20 123/85 92 Laboratory Results Cardiac Enzymes 09/18/20 09/18/20 Range/Units 18:31 22:38 Troponin I 0.021 0.023 (0-0.045) ng/ml Coagulation 09/18/20 09/19/20 Range/Units 22:38 05:49 APTT 30.1 41.9 H (21.0-31.0) Seconds CBC 09/19/20 Range/Units 05:49 WBC 7.63 (4.8-10.8) K/uL RBC 4.56 (4.2-5.4) M/uL Hgb 13.5 (12.0-16.0) g/dL Hct 41.3 (37-47) % Plt Count 247 (130-400) K/uL Neut # (Auto) 4.65 (1.4-6.5) K/uL Lymph # (Auto) 2.10 (1.2-3.4) K/uL [place] # (Auto) 0.60 H (0.11-0.59) K/uL Eos # (Auto) 0.22 (0-0.5) K/uL Baso # (Auto) 0.04 (0-0.2) K/uL Comprehensive Metabolic Panel 09/19/20 Range/Units 05:49 Sodium 136 (136-145) mmol/L Potassium 3.3 L (3.5-5.1) mmol/L Chloride 101 (98-107) mmol/L Carbon Dioxide 30 (21-32) mmol/L BUN 17 (7-18) mg/dl Creatinine 0.73 (0.6-1.2) mg/dl Glucose 108 H (70-99) mg/dl Calcium 9.6 (8.5-10.1) mg/dl Intake and Output 09/19/20 09/19/20 09/19/20 06:59 14:59 22:59 Intake Total 232.083 / 982.421 5184.867 / 2133.867 Output Total 300 / 300 Balance -67.917 / 542.988 5293.867 / 2133.867 Intake: IV 182.083 / 346.250 308.867 / 308.867 Heparin Sodium/Dextrose 25,000 182.083 / 182.083 308.867 / 308.867 units In 500 ml @ 1,300 UNITS/ HR 26 mls/hr IV .[id number] [facility] Rx #:[id number] Oral 50 / 150 1825 / 1825 Output: Urine 300 / 300 Other: # Unmeasured Voids 200 Weight 127.7 kg Weight Measurement Method Built in [facility] Diagnostic Findings Laboratory Results WBC 7.63 K/uL (4.8-10.8) 09/19/20 05:49 RBC 4.56 M/uL (4.2-5.4) 09/19/20 05:49 Hgb 13.5 g/dL (12.0-16.0) 09/19/20 05:49 POC Hgb 13.6 g/dl (12.0-16.0) 09/18/20 11:39 Hct 41.3 % (37-47) 09/19/20 05:49 POC Hct 40 % (37-47) 09/18/20 11:39 MCV 90.6 fL (80-100) 09/19/20 05:49 MCH 29.6 pg (25-34) 09/19/20 05:49 MCHC 32.7 g/dL (32-36) 09/19/20 05:49 RDW Std Deviation 46.7 fL (36.4-46.3) H 09/19/20 05:49 RDW Coeff of Jesse 14.2 % (11.5-14.5) 09/19/20 05:49 Plt Count 247 K/uL (130-400) 09/19/20 05:49 MPV 11.6 fL (7.4-10.4) H 09/19/20 05:49 Immature Gran % (Auto) 0.3 % 09/19/20 05:49 Neut % (Auto) 60.9 % 09/19/20 05:49 Lymph % (Auto) 27.5 % 09/19/20 05:49 [place] % (Auto) 7.9 % 09/19/20 05:49 Eos % (Auto) 2.9 % 09/19/20 05:49 Baso % (Auto) 0.5 % 09/19/20 05:49 Neut # (Auto) 4.65 K/uL (1.4-6.5) 09/19/20 05:49 Lymph # (Auto) 2.10 K/uL (1.2-3.4) 09/19/20 05:49 [place] # (Auto) 0.60 K/uL (0.11-0.59) H 09/19/20 05:49 Eos # (Auto) 0.22 K/uL (0-0.5) 09/19/20 05:49 Baso # (Auto) 0.04 K/uL (0-0.2) 09/19/20 05:49 Immature Gran # (Auto) 0.02 K/uL (0.00-0.02) 09/19/20 05:49 PT 10.1 Seconds (9.0-12.0) 09/18/20 11:31 INR 1.0 (0.9-1.1) 09/18/20 11:31 APTT 41.9 Seconds (21.0-31.0) H 09/19/20 05:49 PTT Ratio 1.6 09/19/20 05:49 POC Sodium 140 mmol/L (135-144) 09/18/20 11:39 Sodium 136 mmol/L (136-145) 09/19/20 05:49 POC Potassium 3.1 mmol/L (3.3-5.0) L 09/18/20 11:39 Potassium 3.3 mmol/L (3.5-5.1) L 09/19/20 05:49 POC Chloride 101 mmol/L (101-112) 09/18/20 11:39 Chloride 101 mmol/L (98-107) 09/19/20 05:49 Carbon Dioxide 30 mmol/L (21-32) 09/19/20 05:49 POC Total CO2 26 mmol/L (24-31) 09/18/20 11:39 Anion Gap 5.0 (3-11) 09/19/20 05:49 POC Anion Gap 18.0 mmol/L (16-25) 09/18/20 11:39 POC BUN 15 mg/dl (7-18) 09/18/20 11:39 BUN 17 mg/dl (7-18) 09/19/20 05:49 Creatinine 0.73 mg/dl (0.6-1.2) 09/19/20 05:49 POC Creatinine 0.6 mg/dl (0.6-1.3) 09/18/20 11:39 Est Cr Clr Drug Dosing 85.1 ml/min 09/19/20 05:49 Est GFR ( Amer) 94.0 ml/min 09/19/20 05:49 Est GFR (Non-Af Amer) 81.1 ml/min 09/19/20 05:49 BUN/Creatinine Ratio 23.7 (10-20) H 09/19/20 05:49 Glucose 108 mg/dl (70-99) H 09/19/20 05:49 POC Glucose (other) 112 mg/dl (70-99) H 09/18/20 11:39 Estimat Average Glucose 146 mg/dl 09/19/20 05:49 Hemoglobin A1c 6.7 % (4.5-5.6) H 09/19/20 05:49 Calcium 9.6 mg/dl (8.5-10.1) 09/19/20 05:49 POC Ioniz Calcium Amy 1.10 mmol/l (1.12-1.32) L 09/18/20 11:39 Magnesium 1.9 mg/dl (1.8-2.4) 09/18/20 11:31 Magnesium Cancelled 09/18/20 11:31 Troponin I 0.023 ng/ml (0-0.045) 09/18/20 22:38 NT-Pro-B Natriuret Pep 2149 pg/ml (0-900) H 09/18/20 11:31 Lipase 183 U/L (73-393) 09/18/20 11:31 TSH 2.000 uIu/ml (0.300-4.500) 09/18/20 11:31 Urine Color Dark Yellow 09/18/20 11:44 Urine Appearance Clear (Clear) 09/18/20 11:44 Urine pH 6.5 (4.5-7.5) 09/18/20 11:44 Ur Specific [place] 1.029 (1.000-1.030) 09/18/20 11:44 Urine Protein Trace (Negative) H 09/18/20 11:44 Urine Glucose (UA) Negative (Negative) 09/18/20 11:44 Urine Ketones Trace (Negative) H 09/18/20 11:44 Urine Blood Negative (Negative) 09/18/20 11:44 Urine Nitrite Negative (Negative) 09/18/20 11:44 Urine Bilirubin 1+ (Negative) H 09/18/20 11:44 Urine Urobilinogen Negative (Negative) 09/18/20 11:44 Ur Leukocyte Esterase Trace (Negative) H 09/18/20 11:44 Urine WBC (Auto) 5-10 /hpf (0-5) H 09/18/20 11:44 Urine RBC (Auto) 0-4 /hpf (0-4) 09/18/20 11:44 U Hyaline Cast (Auto) 5-10 /lpf (0-5) H 09/18/20 11:44 U Epithel Cells (Auto) >30 /lpf (0-5) H 09/18/20 11:44 Urine Bacteria (Auto) Negative (Negative) 09/18/20 11:44 Urine Mucus Present (None Prsent) A 09/18/20 11:44 COVID-19 Eval Order Covid19 at [facility] 09/18/20 11:42 SARS-CoV-2 (PCR) NEGATIVE (Negative) 09/18/20 11:42 Impressions Abdomen/Pelvis CT 09/18/20 11:13 CT OF THE ABDOMEN AND PELVIS WITHOUT CONTRAST CLINICAL HISTORY: L CVA tenderness COMPARISON STUDY: CT of the abdomen and pelvis August 14, 2020. TECHNIQUE: Axial images of the abdomen and pelvis were obtained without IV contrast. Images were reviewed in the axial, sagittal, and coronal planes. Automated exposure control was utilized for the study. A dose lowering technique was utilized adhering to the principles of ALARA. FINDINGS: Please note that the chest CT will be reported separately. A separate findings within the left breast appear unchanged. No pneumatosis, free air or portal venous gas is present. Evaluation of the abdomen and pelvis is suboptimal on this unenhanced exam. No renal or ureteral calculi are identified although evaluation of the distal ureters is suboptimal given streak artifact from bilateral hip arthroplasties. There is no biliary or pancreatic ductal dilatation. Liver surface is mildly lobulated. Colonic diverticulosis is noted. There is no evidence for acute diverticulitis. Pericolonic infiltration shown on CT of August 14, 2020 has resolved. The appendix is normal. There is no lymphadenopathy. IMPRESSION: 1. No urinary calculi or hydronephrosis although evaluation of the distal ureters is suboptimal given streak artifact from bilateral hip arthroplasties. 2. Extensive colonic diverticulosis without evidence for acute diverticulitis. 3. No bowel obstruction. ACT 112: Negative or not required by law. Electronically signed by: Az Boudreaux M.D. 09/18/2020 12:18 PM Chest CTA 09/18/20 11:13 CHEST CTA for PULMONARY ARTERIES CT DOSE: 3433.56 mGy.cm HISTORY: Left-sided Chest Pain, eval for PE TECHNIQUE: Multiaxial CT images of the chest were performed following the intravenous administration of contrast to evaluate the pulmonary arteries. Maximal intensity projection images were also obtained. A dose lowering technique was utilized adhering to the principles of ALARA. COMPARISON STUDY: None. FINDINGS: Normal caliber thoracic aorta with no evidence for dissection. No pleural or pericardial effusions. The heart is mildly enlarged. No filling defects within the pulmonary arteries to suggest a pulmonary embolus. Please refer the same day abdomen and pelvis CT for further evaluation of the abdominal structures. Partially visualized postoperative changes seen within the left breast. Normal esophagus. No mediastinal or hilar lymphadenopathy. No suspicious lytic or blastic osseous lesions. The central airways are patent. No pneumotho rax. There is mild respiratory motion artifact. There is a linear scarlike density within the lingula. A 4 mm subpleural nodule along the left major fissure on image 169. This is likely benign. Mild dependent changes seen at the lung bases. Groundglass density within the right lower lobe medially is also likely chronic. Otherwise, no focal lung consolidations to suggest pneumonia. There is mild elevation of the right hemidiaphragm. IMPRESSION: 1. No evidence for pulmonary embolus. 2. Cardiomegaly. 3. Dependent change/atelectasis seen within the lung bases. Otherwise, no focal lung consolidations to suggest pneumonia. 4. Mild elevation of the right hemidiaphragm. ACT 112: Negative or not required by law. Electronically signed by: Aryan Perera M.D. 09/18/2020 12:41 PM ECG Rhythm: atrial fibrillation PG Care Time/CCT Total # of Minutes Spent Total Time Spent with Patient: Total time spent is greater than 50% in coordination of care (as documented) at patient's floor/unit and/or counseling patient: Coding Level of Care Code New Pt INT OBSERVATION CARE 70M LVL 3 Patient Type New Medical Decision Making Moderate Complexity Diagnoses Afib I48.91 Dyspnea R06.00 Time Spent (min) 45
[2020-09-19] MEDS: APIXABAN 2.5 MG TAB PO SCH ×2 (15:46→20:28)
[2020-09-19] MEDS ORDERED: FUROSEMIDE 20 MG in SYRINGE 0 ML IV ONE (18:00)
[2020-09-19] MEDS: CYCLOBENZAPRINE HCL 10 MG TAB PO SCH (20:32)
--- NOTE | 2020-09-19 20:59 | Hospitalist Progress Note ---
Date of Service September 19, 2020 Assessment & Plan (1) Atrial fibrillation with RVR: Plan: improving rates (2) Acute systolic CHF (congestive heart failure): Plan: improving volume status EF 45-50% on echo tachyarrhythmia induced from a.fib? other? (3) Controlled diabetes mellitus type II without complication: Plan: adequate control a1c <7% (4) Hypertension: Plan: labile but most BPs acceptable (5) Hypothyroidism: Plan: TSH wnl this admission (6) Morbid obesity: Plan: BMI 50-55 (7) Left paraspinal back pain: Plan: improved I believe this is a muscle strain prodrome to shingles possible doubt GI no renal stones Plan: 1. give lasix 40mg IV x 1 this am, then additional 20mg IV x 1 at 1700 2. increase metoprolol to 50mg BID 3. wean clonidine to 0.05mg BID then ultimately off 4. d/c heparin IV 5. start eliquis 5mg BID 6. labs in am 7. cont scheduled tylenol for left paraspinal back pain 8. replace low K Admission and Anticipated Discharge Date Admission Date: September 18, 2020 Subjective patient's left flank/left paraspinal pain is improved this am. dyspnea improved although some still remains. voiding copiously w/ lasix. we had lengthy discussion about her echo (EF 45-50%), a.fib, and cost of eliquis (40/month - states she can afford this). tele overnight - rates 90s to low 100s. Review of Systems Constitutional: no fatigue and no anorexia Respiratory: + dyspnea (None at rest) and + dyspnea on exertion; no cough Cardiovascular: + orthopnea and + edema; no chest pain Gastrointestinal: no abdominal pain, no nausea and no vomiting Physical Exam Constitutional: well developed, well nourished and + morbidly obese; no acute distress and no altered mental status ENMT: external ear and nose normal, oropharynx normal Respiratory: Auscultation: + diminished lung sounds (Bases) and + rales; no wheezes Cardiovascular: Rate/Rhythm: regular rate and + irregularly irregular Heart Sounds: normal S1 and normal S2; no murmur Vessels: posterior tibial pulses present and dorsalis pedis pulses present; no JVD Extremities: + edema (<1+ b/l) Gastrointestinal (Abdomen): normal bowel sounds, soft, nontender, no hepatosplenomegaly Musculoskeletal: tenderness left paraspinal region improved w/ palpation today Results & Data Results & Data ([facility]) Vital Signs (Past 12 Hours) Vital Signs Temp Pulse Resp BP Pulse Ox 09/19/20 19:37 36.5 C 112 H 19 168/82 H 91 09/19/20 14:42 36.6 C 92 H 18 147/77 H 95 09/19/20 11:13 36.9 C 93 H 20 118/78 91 Laboratory Results Laboratory Results - last 24 hr 09/19/20 09/19/20 09/19/20 05:49 05:49 05:49 WBC 7.63 RBC 4.56 Hgb 13.5 Hct 41.3 MCV 90.6 MCH 29.6 MCHC 32.7 RDW Std Deviation 46.7 H RDW Coeff of Jesse 14.2 Plt Count 247 MPV 11.6 H Immature Gran % (Auto) 0.3 Neut % (Auto) 60.9 Lymph % (Auto) 27.5 Edwards % (Auto) 7.9 Eos % (Auto) 2.9 Baso % (Auto) 0.5 Neut # (Auto) 4.65 Lymph # (Auto) 2.10 Edwards # (Auto) 0.60 H Eos # (Auto) 0.22 Baso # (Auto) 0.04 Immature Gran # (Auto) 0.02 APTT PTT Ratio Sodium 136 Potassium 3.3 L Chloride 101 Carbon Dioxide 30 Anion Gap 5.0 BUN 17 Creatinine 0.73 Est Cr Clr Drug Dosing 85.1 Est GFR ( Amer) 94.0 Est GFR (Non-Af Amer) 81.1 BUN/Creatinine Ratio 23.7 H Glucose 108 H Estimat Average Glucose 146 Hemoglobin A1c 6.7 H Calcium 9.6 09/19/20 05:49 WBC RBC Hgb Hct MCV MCH MCHC RDW Std Deviation RDW Coeff of Jesse Plt Count MPV Immature Gran % (Auto) Neut % (Auto) Lymph % (Auto) Edwards % (Auto) Eos % (Auto) Baso % (Auto) Neut # (Auto) Lymph # (Auto) Edwards # (Auto) Eos # (Auto) Baso # (Auto) Immature Gran # (Auto) APTT 41.9 H PTT Ratio 1.6 Sodium Potassium Chloride Carbon Dioxide Anion Gap BUN Creatinine Est Cr Clr Drug Dosing Est GFR ( Amer) Est GFR (Non-Af Amer) BUN/Creatinine Ratio Glucose Estimat Average Glucose Hemoglobin A1c Calcium Diagnostic Findings echo - limited study, probable EF 45-50% PG Care Time/CCT Total # of Minutes Spent Total Time Spent with Patient: Total time spent is greater than 50% in coordination of care (as documented) at patient's floor/unit and/or counseling patient: Coding Level of Care Code 70592 Subseq Hosp Care Lvl 3 Diagnoses Atrial fibrillation with RVR I48.91 Acute systolic CHF (congestive heart failure) I50.21 Controlled diabetes mellitus type II without complication E11.9 Hypertension I10 Hypothyroidism E03.9 Morbid obesity E66.01 Left paraspinal back pain M54.89
[2020-09-19] MEDS ORDERED: cloNIDine HCL 0.1 MG TAB PO SCH (21:00)
[2020-09-19] MEDS ORDERED: METOPROLOL TARTRATE 50 MG TAB PO SCH (21:00)
[2020-09-19] MEDS ORDERED: NYSTATIN POWDER 15GM BTL EXT PRN (21:47)
[2020-09-20] MEDS ORDERED: DICLOFENAC SOD 1% GEL 100 GM TUBE EXT ONE (03:53)
[2020-09-20] MEDS: LEVOTHYROXINE SODIUM 75 MCG TABLET PO SCH (06:16)
[2020-09-20 07:51] LABS: BUN Creatinine Ratio 32.3 (10-20); Calcium 9.3 mg/dl (8.5-10.1); Creatinine Clr Calc Pharmacy 80.1 ml/min; Est GFR (African American) 88.2 ml/min; Est GFR (Non-African American) 76.1 ml/min; Magnesium 2.1 mg/dl (1.8-2.4); Potassium 4.5 mmol/L (3.5-5.1)
[2020-09-20] MEDS ORDERED: METOPROLOL TARTRATE 25 MG TAB PO SCH (09:00)
[2020-09-20] MEDS: ACETAMINOPHEN 500 MG TAB PO SCH ×2 (10:02→14:26)
[2020-09-20] MEDS: amLODIPine BESYLATE 5 MG TAB PO SCH (10:03)
[2020-09-20] MEDS: FLUTICASONE PROPIONATE NA SPR 16 GM BTL SCH (10:03)
[2020-09-20] MEDS: DICLOFENAC SOD 1% GEL 100 GM TUBE EXT SCH ×2 (10:03→14:24)
[2020-09-20] MEDS: CHOLECALCIFEROL 1,000 UNITS 25 MCG TAB PO SCH (10:03)
[2020-09-20] MEDS: CALCIUM CITRATE 950 MG TAB PO SCH (10:03)
[2020-09-20] MEDS: GABAPENTIN 300 MG CAP PO SCH ×2 (10:03→14:26)
[2020-09-20] MEDS: APIXABAN 2.5 MG TAB PO SCH (10:03)
[2020-09-20] MEDS: LIDOCAINE 5% 1 PATCH TD SCH (10:04)
[2020-09-20] MEDS: LETROZOLE 2.5 MG TAB PO SCH (10:04)
[2020-09-20] MEDS: PRIMIDONE 50 MG TAB PO SCH (10:04)
[2020-09-20] MEDS: ROSUVASTATIN CALCIUM 10 MG TAB PO SCH (10:04)
[2020-09-20 10:12] VITALS: O2SAT 95
[2020-09-20 11:23] VITALS: BP 146/74; PULSE 70; TEMP 97.7
[2020-09-20] MEDS: oxyCODONE HCL IR 5 MG TAB (IMMEDIATE RELEASE) PO PRN (11:59)
[2020-09-20] MEDS ORDERED: AMOXICILLIN/CLAVULANATE 875 MG TAB PO ONE (12:11)
--- NOTE | 2020-09-20 12:39 | Discharge Summary ---
Date of Service date of admission - September 18, 2020 date of discharge - September 20, 2020 Admission HPI Per Admitting Provider 75 YOF with past medical history of: Morbid obesity, HTN, HLD, chronic bladder leakage, chronic UTI, scoliosis, chronic back pain, lumbar stenosis, spondylitises, spondylosis, frequent falls, diverticulosis, DMII controlled on diet, benign essential tremor. Patient comes in today for 2 day history of pain on her left flank, with increase in lower extremity swelling and dyspnea. Patient says the flank pain is sharp in nature and radiates down her left back and side and moving wrong exacerbates it. She has tried Tylenol at home to relieve this without effect. Her dyspnea she has noticed getting worse over the past month and going up and down steps she has to take a break. She denies any cough or chest pain or palpitations with this. Her legs have been increasing in swelling for about the same time. She has chronic right ankle swelling that has gotten worse on the medial side. She denies any change in medications or diet. In the EMD she was noted to be hypoxic and dyspneic requiring oxygen to keep SPo2>88 and noticed that she was in afib on telemetry. She has no history of this. She had a CTA of the chest performed that was negative for PE or intrapulmonary process. CT of abdomen and pelvis completed that did not show acute changes and chronic diverticulosis. Patient will be admitted to monitor her rhythm and rate, unknown onset of afib, anticoagulation with heparin for now, ECHO and evaluation by cardiology. Patient has long history of poor ambulation ability with chronic back pain, she normally walks around with rolling walkers and rolling stools, she does endorse frequent falling at home. She denies any other acute changes in her health. Patient has received her COVID vaccine and COVID negative on admission Principal Diagnosis 1. a.fib with RVR 2. acute systolic CHF Discharge Exam Constitutional well developed, well nourished and + morbidly obese; no acute distress and no altered mental status ENMT external ear and nose normal, oropharynx normal Respiratory Auscultation: + diminished lung sounds (Bases); no rales and no wheezes Cardiovascular Rate/Rhythm: regular rate and + irregularly irregular Heart Sounds: normal S1 and normal S2; no murmur Vessels: posterior tibial pulses present and dorsalis pedis pulses present; no JVD Extremities: + edema (<1+ b/l) Gastrointestinal (Abdomen) normal bowel sounds, soft, nontender, no hepatosplenomegaly Musculoskeletal improved left paraspinal lumbar back pain/flank pain to palpation Psychiatric A+Ox3, euthymic affect Discharge Data Allergies Allergy/AdvReac Type Severity Reaction Status Date / Time adhesive Allergy Severe BLISTERING Verified 09/18/20 13:24 fenoprofen Allergy Unknown MUSCLE Verified 09/18/20 13:24 WEAKNESS, PAIN, HIVES ibuprofen Allergy Unknown RELATED TO Verified 09/18/20 13:24 FENOPROFEN Consultations [facility] Procedures Performed Echocardiogram: * overall poor study due to poor windows * EF 45-50% * grossly normal RV function * grossly normal valvular function * mild pulmonary HTN Ordered Studies Abdomen/Pelvis CT 09/18/20 11:13 CT OF THE ABDOMEN AND PELVIS WITHOUT CONTRAST CLINICAL HISTORY: L CVA tenderness COMPARISON STUDY: CT of the abdomen and pelvis August 14, 2020. TECHNIQUE: Axial images of the abdomen and pelvis were obtained without IV contrast. Images were reviewed in the axial, sagittal, and coronal planes. Automated exposure control was utilized for the study. A dose lowering technique was utilized adhering to the principles of ALARA. FINDINGS: Please note that the chest CT will be reported separately. A separate findings within the left breast appear unchanged. No pneumatosis, free air or portal venous gas is present. Evaluation of the abdomen and pelvis is suboptimal on this unenhanced exam. No renal or ureteral calculi are identified although evaluation of the distal ureters is suboptimal given streak artifact from bilateral hip arthroplasties. There is no biliary or pancreatic ductal dilatation. Liver surface is mildly lobulated. Colonic diverticulosis is noted. There is no evidence for acute diverticulitis. Pericolonic infiltration shown on CT of August 14, 2020 has resolved. The appendix is normal. There is no lymphadenopathy. IMPRESSION: 1. No urinary calculi or hydronephrosis although evaluation of the distal ureters is suboptimal given streak artifact from bilateral hip arthroplasties. 2. Extensive colonic diverticulosis without evidence for acute diverticulitis. 3. No bowel obstruction. ACT 112: Negative or not required by law. Electronically signed by: Az Boudreaux M.D. 09/18/2020 12:18 PM Chest CTA 09/18/20 11:13 CHEST CTA for PULMONARY ARTERIES CT DOSE: 3433.56 mGy.cm HISTORY: Left-sided Chest Pain, eval for PE TECHNIQUE: Multiaxial CT images of the chest were performed following the intravenous administration of contrast to evaluate the pulmonary arteries. Maximal intensity projection images were also obtained. A dose lowering technique was utilized adhering to the principles of ALARA. COMPARISON STUDY: None. FINDINGS: Normal caliber thoracic aorta with no evidence for dissection. No pleural or pericardial effusions. The heart is mildly enlarged. No filling defects within the pulmonary arteries to suggest a pulmonary embolus. Please refer the same day abdomen and pelvis CT for further evaluation of the abdominal structures. Partially visualized postoperative changes seen within the left breast. Normal esophagus. No mediastinal or hilar lymphadenopathy. No suspicious lytic or blastic osseous lesions. The central airways are patent. No pneumothorax. There is mild respiratory motion artifact. There is a linear scarlike density within the lingula. A 4 mm subpleural nodule along the left major fissure on image 169. This is likely benign. Mild dependent changes seen at the lung bases. Groundglass density within the right lower lobe medially is also likely chronic. Otherwise, no focal lung consolidations to suggest pneumonia. There is mild elevation of the right hemidiaphragm. IMPRESSION: 1. No evidence for pulmonary embolus. 2. Cardiomegaly. 3. Dependent change/atelectasis seen within the lung bases. Otherwise, no focal lung consolidations to suggest pneumonia. 4. Mild elevation of the right hemidiaphragm. ACT 112: Negative or not required by law. Electronically signed by: Aryan Perera M.D. 09/18/2020 12:41 PM Hospital Course (1) Atrial fibrillation with RVR: At time of admission the patient was in a.fib with RVR. Metoprolol was added, and ultimately the dose was increased to 50mg BID, then finally 100mg BID at time of discharge for optimal rate control. Due to elevated CHADS-VASc anticoagulation was recommended. At discharge she will take Eliquis 5mg BID. Of note - the patient's a.fib was persistent during the entire 48+ hour stay. (2) Acute systolic CHF (congestive heart failure): EF 45-50% on echo. Systolic CHF -- due to tachyarrhythmia induced from a.fib? other etiology? The patient had evidence of decompensated CHF while hospitalized and received IV diuresis. She will continue beta tayla and lasix 20mg po daily at home. She will continue quinapril. CHF instructions were given. Salt & fluid restriction were discussed. Daily weights were advised. She was asked to follow-up with [facility], Dr Edward Sneed, as he had consulted on her during this stay. (3) Controlled diabetes mellitus type II without complication: adequate control a1c <7% (4) Hypertension: Patient had labile BPs during her stay. To make room for escalating doses of beta tayla for #1 and #2 above her clonidine was weaned off over 2 days. In addition, her triamterene/HCT was discontinued. She will continue on amlodipine as previous. (5) Hypothyroidism: TSH wnl this admission Continue levothyroxine 75mcg daily (6) Morbid obesity: BMI 50-55 during the stay (7) Left paraspinal back pain: Improved during the stay with supportive care. I believe this was a muscle strain. Her pain was worsened by twisting and movements. In addition, her CT abd/pelvis did not show acute pathology. Alternatively the pain could have been from UTI and/or mild pyelonephritis but this was felt much less likely. Either way her pain improved during the visit. (8) UTI (urinary tract infection): The patient's urine culture was not fully resulted by time of discharge. However, upon release from [facility], we initially advised a course of augmentin. The day after discharge the final urine culture showed citrobacter and enterococcus. The patient was called on 09/21, and the following were advised - * stop augmentin * start amoxicillin for the enterococcus * start omnicef for the citrobacter She will need follow-up with her PCP to ensure resolution of the UTI. Total Time Total Time Spent Total Time Spent (In Minutes): 50 Discharge Plan Discharge Items Patient Disposition: Home - Self-Care Reason For Visit: NEW ONSET ATRIAL FIBRILLATION Discharge Diagnosis: 1. newly-diagnosed atrial fibrillation (irregular heart rhythm) 2. mild congestive heart failure likely due to #1 3. shortness of breath likely due to #1 and #2 4. left sided back/flank pain - probably combination of musculoskeletal pain +/- urinary tract infection 5. high blood pressure Activity: Resume your previous activity Non-emergency contact: Primary Care Provider and Baster Hand Call non-emergency contact if: you have any medication questions, your symptoms worsen, your pain is not controlled and your pain is worsening Follow-up/Referrals: Angeline Martinez MD [Primary Care Provider] - 09/23/20 1:30 pm () Leonard Sneed MD [Physician] - 10/11/20 9:30 am (DR SNEED'S OFFICE WILL BE CONTACTING YOU TO SCHEDULE A SOONER APPOINTMENT WHEN AVAILABLE. ) Diet: Carb Consistent or DM2 and Heart Healthy Fluids: 1800ml (7 cups) Addtl Attending Provider Instructions: Mrs Munoz, You were treated for the problems listed above in "discharge diagnoses." During your stay you received medications for the newly found atrial fibrillation and mild congestive heart failure (CHF). The CHF led to fluid retention in your lungs and your legs. Because atrial fibrillation is a risk factor for stroke you were started on anticoagulation (blood thinner) medication. Your blood thinner is called "Eliquis." This will prevent development of tiny blood clots in your heart. Your left back/flank pain may be a combination of musculoskeletal pain and possibly a urinary tract infection. Recommendations - 1. atrial fibrillation - * metoprolol 100mg twice daily, first dose tonight 09/20 * Eliquis 5mg twice daily, first dose tonight 09/20 2. fluid retention / congestive heart failure - * STOP your triamterene/HCT * START furosemide (lasix) 20mg once daily; take every morning; start 09/21; THIS IS YOUR FLUID PILL * WEIGH YOURSELF EVERY MORNING NOTED IN THE CHF INSTRUCTIONS 3. urinary tract infection - * take amoxicillin-clavulanate antibiotic 1 tablet twice daily for 7 days, first dose tonight 09/20 * take an [id number] probiotic supplement for 1 week; ask your pharmacy to show you where it is at the pharmacy 4. high blood pressure - * STOP your clonidine * STOP your triamterene/HCT 5. back pain - * continue your tylenol; can take up to 3000mg in 24 hours * may use the voltaren gel - apply 4 grams to the left back up to 4 times a day * may use [id number] "salonpas" patches per the package instructions 6. Blood thinner instructions - Call your Primary Care doctor or senior cyber intelligence analyst if you experience any of the following: * Cough with blood or bloody sputum * Severe Bruises * Heavy or uncontrolled bleeding * Blood in your urine, stool or vomit * Black or tarry stools * Heavy nose bleeding Follow-up - see separate section Please stay well and it was a pleasure caring for you! -Dr Js Calderon [employer] Director Provider Instructions: Congestive Heart Failure Instructions - Call 911 and go to the Emergency Room if: * You have tightness or pain in your chest that does not go away with rest * You are very short of breath even with rest Call your doctor if any of the following symptoms or problems start or get worse: * Shortness of breath or difficulty breathing * Wake up at night short of breath * Chest pain * Cough * Swelling of your hands, fee, or legs * More fatigued or tired with your normal activity * Palpitations - sudden fast heart beats WEIGHT * Weigh yourself every morning after using the bathroom. * Use the same scale. * Wear the same amount of clothing. * Write your weight down on your chart. * Call your doctor if you gain more than 2-3 pounds in 1-2 days. This is usually the first sign of water retention / fluid retention from heart problems.* MEDICATIONS * Use this discharge instruction sheet for instructions. * Take your medications at the time your doctor ordered. * Do not skip a dose of your medicines. * If you miss a dose of medicine, take as soon as possible, but DO NOT DOUBLE A DOSE. * Read your medicine information when you get home. * Know all of the side effects of your medicine. * Call your doctor's office if you have any side effects. * Be sure all of your doctors know what medicine and herbs you take (including cold, flu, and herbal medicine). * Pain Medicine: If you do not get relief from your pain, please call your doctor for help. Take the following with you to your follow-up doctor appointments: * Weight Chart * Medication List * List of questions Do not drink excessive alcohol, beer or wine. Pending Studies at Discharge: Yes Studies:: final urine culture results Stand-Alone Forms: My [employer], Smoking Cessation Medications and DC Order Prescriptions: New Eliquis 5 mg Tablet 5 mg PO BID Qty: 60 RF: 5 diclofenac sodium [Voltaren Arthritis Pain] 1 % Gel 4 g EXT QID PRN (Reason: joint or back pain) Qty: 1 RF: 0 metoprolol tartrate 100 mg tablet 100 mg PO BID Qty: 60 RF: 2 furosemide [Lasix] 20 mg tablet 20 mg PO QAM Qty: 30 RF: 2 Continued quinapril 40 mg tablet 40 mg PO DAILY Qty: 90 RF: 3 omeprazole 20 mg capsule,delayed release(DR/EC) 20 mg PO Q OTHER DAY PRN (Reason: acid reflux) Qty: 45 RF: 3 cyclobenzaprine 10 mg tablet 10 mg PO HS Qty: 90 RF: 3 amlodipine 10 mg tablet 10 mg PO DAILY Qty: 90 RF: 3 cholecalciferol (vitamin D3) 25 mcg (1,000 unit) capsule 25 mcg PO DAILY Qty: 90 RF: 3 gabapentin 300 mg capsule 300 mg PO TID Qty: 90 RF: 5 levothyroxine 75 mcg tablet 75 mcg PO DAILY Qty: 90 RF: 3 zonisamide 25 mg capsule 50 mg PO DAILY 30 Days Qty: 60 RF: 5 primidone 50 mg tablet 100 mg PO TID 90 Days Qty: 540 RF: 1 fluticasone propionate [Allergy Relief (fluticasone)] 50 mcg/actuation spray,suspension 2 spray INTNAS DAILY Qty: 3 RF: 3 letrozole 2.5 mg tablet 2.5 mg PO DAILY RF: 0 acetaminophen [Tylenol Extra Strength] 500 mg Tablet 500 mg PO Q6H RF: 0 rosuvastatin 10 mg tablet 10 mg PO DAILY RF: 0 calcium citrate-vitamin D3 [Citracal + D Maximum] 315 mg-6.25 mcg (250 unit) Tablet 2 tab PO DAILY RF: 0 Discontinued clonidine HCl 0.2 mg tablet 0.2 mg PO BID Qty: 180 RF: 3 triamterene-hydrochlorothiazid 37.5-25 mg capsule 1 cap PO DAILY Qty: 90 RF: 3 Discharge Orders: Discharge Order (Routine); Ordered 09/20/20 Ordered By: Calvin England/Other Patient Handouts: A1C, What Is Heart Failure, High Blood Sugar (Hyperglycemia), Managing Type 2 Diabetes, 5 Steps for Eating Healthier, Diabetes: Meal Planning, Understanding Atrial Fibrillation Admission Data Admit Date/Time: 09/18/20 14:19 Attending Provider: Calvin Weinstein Admit Provider: Everardo Myrick Primary Care Provider: Angeline Martinez Other Providers: Calvin Weinstein ; Leonard Sneed Other Interventions: Discharge Summary Assessment (RN) Last Done: 09/20/20 13:59 Coding Level of Care Code D/C DAY MANAGEMENT >30 MINS Diagnoses Atrial fibrillation with RVR I48.91 Acute systolic CHF (congestive heart failure) I50.21 Controlled diabetes mellitus type II without complication E11.9 Hypertension I10 Hypothyroidism E03.9 Morbid obesity E66.01 Left paraspinal back pain M54.89 UTI (urinary tract infection) N39.0
[2020-09-20] MEDS ORDERED: ENALAPRIL MALEATE 10 MG TAB PO ONE (13:30)
[2020-09-21] MEDS ORDERED: ENALAPRIL MALEATE 10 MG TAB PO SCH (09:00)
[2020-09-21] MEDS ORDERED: APIXABAN 5 MG TABLET PO SCH (21:00)
== END 2020-09-20 15:11 | disposition home or self-care (01) | DRG 308 ==
LOC: ED 10:48 → 2N 14:19
DX: E03.9 Hypothyroidism, unspecified; E66.01 Morbid (severe) obesity due to excess calories; Z68.43 Body mass index [BMI] 50.0-59.9, adult; X58.XXXA Exposure to other specified factors, initial encounter; E11.9 Type 2 diabetes mellitus without complications; Z83.3 Family history of diabetes mellitus; I48.91 Unspecified atrial fibrillation; R09.02 Hypoxemia; Z88.6 Allergy status to analgesic agent; K21.9 Gastro-esophageal reflux disease without esophagitis; M48.062 Spinal stenosis, lumbar region with neurogenic claudication; G25.0 Essential tremor; Z85.3 Personal history of malignant neoplasm of breast; I50.21 Acute systolic (congestive) heart failure; I11.0 Hypertensive heart disease with heart failure; M41.9 Scoliosis, unspecified; N39.0 Urinary tract infection, site not specified; S39.012A Strain of muscle, fascia and tendon of lower back, initial encounter; E78.5 Hyperlipidemia, unspecified; Y92.9 Unspecified place or not applicable; Z96.643 Presence of artificial hip joint, bilateral

== ENCOUNTER 2021-05-17 23:14 | Observation (INO) ==
--- NOTE | 2021-05-17 23:40 | Emergency Department Note ---
History of Present Illness General Chief complaint: Chest Pain Stated complaint: CHEST PRESSURE, HAS TO STAY SITTING UP, WEAK, CHF Time Seen by Provider: 05/17/21 23:25 History of Present Illness Maximum Pain Intensity: 4 76-year-old female presents emergency department with a 2 to 3-week history of increasing dyspnea on exertion and chest pressure. Patient is currently on Eliquis for atrial fibrillation and 80 mg daily of Lasix for which she has been taking. Patient presents this evening because of dyspnea on exertion, chest pressure that is increased that is nonradiating over the past 2 to 3 days. There are no other complaints such as cough nausea vomiting abdominal pain or i ncreased weight gain. There are no other mitigating or alleviating factors Home Medications Medication Instructions Recorded Confirmed Type letrozole 2.5 mg tablet 2.5 mg PO QAM tab 08/15/18 05/18/21 History acetaminophen 500 mg tablet 1,000 mg PO TID 09/18/20 05/18/21 History (Tylenol Extra Strength) calcium citrate 315 mg 2 tab PO QAM 09/18/20 05/18/21 History calcium-vitamin D3 6.25 mcg (250 unit) tablet (Citracal + Vitamin D Maximum) apixaban 5 mg tablet (Eliquis) 5 mg PO BID #60 tab 09/20/20 05/18/21 Rx cyclobenzaprine 10 mg tablet 10 mg PO HS #90 tab 10/06/20 05/18/21 Rx calcium carb-mag hydrox-simeth 280 1 tab PO DAILY PRN 10/31/20 05/18/21 History mg-128 mg-20 mg chewable tablet docusate sodium 100 mg tablet 200 mg PO BID 10/31/20 05/18/21 History (Stool Softener) fluticasone propionate 50 2 spray INTNAS QAM 10/31/20 05/18/21 History mcg/actuation nasal spray,suspension (Allergy Relief (fluticasone)) levothyroxine 75 mcg tablet 75 mcg PO QAM 10/31/20 05/18/21 History quinapril 40 mg tablet 40 mg PO QAM #90 tab 12/01/20 05/18/21 Rx amlodipine 10 mg tablet 10 mg PO HS #90 tab 12/23/20 05/18/21 Rx metformin 500 mg tablet,extended 500 mg PO BID #60 tab 12/30/20 05/18/21 Rx release 24hr gabapentin 300 mg capsule 300 mg PO TID #90 cap 01/15/21 05/18/21 Rx tramadol 50 mg tablet 50 mg PO TID PRN #90 tab 02/07/21 05/18/21 Rx cholecalciferol (vitamin D3) 25 25 mcg PO QAM #90 cap 02/17/21 05/18/21 Rx mcg (1,000 unit) capsule furosemide 40 mg tablet 40 mg PO BID #180 tab 03/14/21 05/18/21 Rx potassium chloride 10 mEq 20 meq PO QID #240 cap 03/14/21 05/18/21 Rx capsule,extended release metoprolol succinate 200 mg 200 mg PO DAILY #30 tab 03/28/21 05/18/21 Rx tablet,extended release 24 hr primidone 50 mg tablet 100 mg PO TID 90 Days #540 tab 04/04/21 05/18/21 Rx zonisamide 50 mg capsule 50 mg PO QAM #90 cap 04/14/21 05/18/21 Rx rosuvastatin 10 mg tablet 10 mg PO QAM #90 tab 05/13/21 05/18/21 Rx Allergies Allergy/AdvReac Type Severity Reaction Status Date / Time adhesive Allergy Intermediate BLISTERING Verified 05/18/21 00:27 cephalexin Allergy Intermediate diarrhea,vomiting, Verified 05/18/21 00:27 nausea fenoprofen Allergy Intermediate MUSCLE Verified 05/18/21 00:27 WEAKNESS, PAIN, HIVES ibuprofen Allergy Intermediate RELATED TO Verified 05/18/21 00:27 FENOPROFEN Past Med/Surg History Medical History Acid reflux disease Atrial fibrillation newly diagnosed 09/2020--on eliquis Benign essential tremor Carpal tunnel syndrome Chronic low back pain Congestive heart failure Controlled diabetes mellitus type II without complication Diverticulitis Diverticulosis of colon 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 Received 5130 cGy utilizing hypo-fractionation." On 08/18/16 11:16 Willow Calero wrote "Abnormal left breast mammogram Status post stereotactic biopsy 06/09/2016 revealing DCIS grade 3 Estrogen receptor positive and progesterone receptor positive Status post needle localization left partial mastectomy with sentinel lymph node biopsy 07/27/2016 DCIS and LCIS Stage pTis pN0" Epistaxis Fall on stairs Generalized osteoarthritis of multiple sites Hyperlipidemia Hypertension Hypokalemia Hypothyroidism Irritable bowel syndrome with constipation Morbid obesity with BMI of 50.0-59.9, adult VICKIE (obstructive sleep apnea) Retinal detachment Spondylisthesis Urge and stress incontinence Surgical History History of cataract surgery right History of colonoscopy History of conization of cervix History of cryosurgery cervical cancer- History of inguinal hernia repair bilt History of knee replacement left History of left breast biopsy malignant History of left hip replacement History of partial mastectomy of left breast left partial mastectomy with sentinel lymph node biopsy History of right breast biopsy benign History of right cataract surgery History of right hip replacement History of tooth extraction History of wisdom tooth extraction Hx of arthroscopic knee surgery left Retinal detachment of right eye due to tear of retina Status post correction of deviated nasal septum Family History Mother Diabetes Heart disease Peripheral vascular disease Colorectal cancer Hypertension Stroke Cancer Father Diabetes Congestive heart failure (CHF) Myocardial infarction Hypertension Stroke Heart disease Aunt Breast cancer Sister Lung cancer 2 sisters Other Nephrolithiasis No family history of adverse response to anesthesia Pure hypercholesterolemia Denies family history of Asthma Social History Smoking Status: Never smoker Second Hand Exposure: Yes (ex smoked for 30+yrs); Hx Alcohol Use: No Hx Substance Use: No Preferred Language: Bermudian Communication Ability: Effective Visual Impairment: Partially Limited Hearing Ability: Normal Director Human Services Required: No Beliefs That Will Affect Care: None marital status: / Current Living Situation: Family Current Living Situation Comment: Lives with son current occupational status: retired How many Children do You have: 2 Feels Safe at Home: Yes Childhood Exposure to Second-Hand Smoke: Yes Diet Comment: avoids seeds/nuts caffeine: Yes (coffee) Dental Care, Regularly: Yes Physical Activity Frequency: Does not Exercise Seatbelt Use: always Sunscreen Use: Yes Do you think of yourself as: straight/heterosexual Assistive Devices: Glasses Review of Systems A total of 10 systems reviewed and were otherwise negative Respiratory: + dyspnea on exertion Cardiovascular: + chest pain and + dyspnea at rest Neurologic: no localized weakness Physical Exam Vital Signs Vital Signs - 24 hr 05/17/21 23:19 05/17/21 23:45 05/18/21 00:49 Temperature 36.8 C Temperature Source Temporal Artery Scan Pulse Rate 74 55 L Pulse Rate [Left Radial] 80 Respiratory Rate 20 20 24 Respiratory Effort / Characteristics Non-Labored Respiratory Depth Blood Pressure 163/85 H Blood Pressure Mean 111 Blood Pressure Position Sitting Pulse Oximetry 96 96 97 Oxygen Delivery Method Room Air Room Air Room Air Sepsis Recent Fever Within 48 Hours No Sepsis New/Unexplained Change in Mental Status N/A Sepsis Action Taken by Nursing No Action Required 05/18/21 01:27 Temperature Temperature Source Pulse Rate Pulse Rate [Left Radial] 70 Respiratory Rate 22 Respiratory Effort / Characteristics Non-Labored Respiratory Depth Normal Blood Pressure Blood Pressure Mean Blood Pressure Position Pulse Oximetry 94 Oxygen Delivery Method Room Air Sepsis Recent Fever Within 48 Hours Sepsis New/Unexplained Change in Mental Status Sepsis Action Taken by Nursing VITAL SIGNS - Vital signs and nursing notes were reviewed. GENERAL -76-year-old female appearing her stated age who is in no acute distress. Communicates well with provider and answers questions appropriately. SKIN - Without rashes. HEAD - NC/AT. EYES - PERRL with EOMI bilaterally. Sclera anicteric. Palpebral conjunctiva pink and moist with no injection noted. EARS - No deformities of external structures noted on gross examination bilaterally. NOSE - Midline and without cyanosis. No epistaxis or purulent drainage noted. S eptum midline without deviation or septal hematoma noted. MOUTH/OROPHARYNX - Without perioral cyanosis. Buccal mucosa pink and moist NECK - Neck with FROM. Supple to palpation. LUNGS - Chest wall symmetric without accessory muscle use, intercostals retractions, or central cyanosis. Normal vesicular breath sounds CTA B/L. No wheezes, rales, or rhonchi appreciated. CARDIAC - RRR with S1/S2. No murmur, rubs, or gallops appreciated. ABDOMEN - Abdominal contour soft without pulsations or visible masses. BS normoactive all four quadrants. No tenderness, palpable masses, hepatosplenomegaly, or ascites noted.Morbidly obese EXTREMITIES - No clubbing or peripheral cyanosis. Nonpitting edema present. +5/5 strength noted in UE/LE bilaterally. NEUROLOGIC - Cranial nerves II through XII grossly intact. PSYCH - A&Ox3 and cooperates fully with examiner. Pt is very pleasant and interacts well with examiner. Course Reevaluation(s) Reevaluation #1: 101am Resting in no distress no current chest pain, has taken Eliquis prior to arrival, has also taken daily Lasix. Patient's case will be discussed with the hospitalist for admission for chest pain, A. fib and dyspnea on exertion Medical Decision Making Medical Records Attestation: I reviewed the patient's medical records. Laboratory Data Attestation: I reviewed the patient's lab results. Result diagrams: 05/18/21 00:17 05/18/21 00:17 Lab Results 05/18/21 05/18/21 05/18/21 Range/Units 00:06 00:17 00:17 WBC 7.40 (4.8-10.8) K/uL RBC 4.41 (4.2-5.4) M/uL Hgb 12.6 (12.0-16.0) g/dL Hct 40.3 (37-47) % MCV 91.4 (80-100) fL MCH 28.6 (25-34) pg MCHC 31.3 L (32-36) g/dL RDW Std Deviation 51.0 H (36.4-46.3) fL RDW Coeff of Jesse 15.3 H (11.5-14.5) % Plt Count 263 (130-400) K/uL MPV 11.2 H (7.4-10.4) fL Immature Gran % (Auto) 0.3 % Neut % (Auto) 55.9 % Lymph % (Auto) 31.8 % [place] % (Auto) 7.2 % Eos % (Auto) 4.1 % Baso % (Auto) 0.7 % Neut # (Auto) 4.15 (1.4-6.5) K/uL Lymph # (Auto) 2.35 (1.2-3.4) K/uL [place] # (Auto) 0.53 (0.11-0.59) K/uL Eos # (Auto) 0.30 (0-0.5) K/uL Baso # (Auto) 0.05 (0-0.2) K/uL Immature Gran # (Auto) 0.02 (0.00-0.02) K/uL Sodium 138 (136-145) mmol/L Potassium 4.6 (3.5-5.1) mmol/L Chloride 104 (98-107) mmol/L Carbon Dioxide 26 (21-32) mmol/L Anion Gap 8 (3-11) BUN 39 H (6-23) mg/dl Creatinine 0.77 (0.6-1.2) mg/dl Est Cr Clr Drug Dosing Not Reportable Est GFR ( Amer) 87.5 ml/min Est GFR (Non-Af Amer) 75.5 ml/min BUN/Creatinine Ratio 50.6 H (10-20) Glucose 121 H (70-99(Fasting)) mg/dl Calcium 9.0 (8.5-10.1) mg/dl Total Bilirubin 0.3 (0.2-1.0) mg/dl AST 22 (13-39) U/L ALT 19 (7-52) U/L Alkaline Phosphatase 136 H (34-104) U/L Troponin I 0.03 (0-0.04) ng/ml B-Natriuretic Peptide (0-100) pg/ml Total Protein 6.9 (6.0-8.3) gm/dl Albumin 4.0 (3.4-5.0) gm/dl Globulin 2.9 (2.5-4.0) gm/dl Albumin/Globulin Ratio 1.4 (0.9-2) Urine Color Yellow Urine Appearance Cloudy A (Clear) Urine pH 6.5 (4.5-7.5) Ur Specific [place] 1.016 (1.000-1.030) Urine Protein Negative (Negative) Urine Glucose (UA) Negative (Negative) Urine Ketones Negative (Negative) Urine Blood 1+ H (Negative) Urine Nitrite Negative (Negative) Urine Bilirubin Negative (Negative) Urine Urobilinogen Negative (Negative) Ur Leukocyte Esterase 1+ H (Negative) Urine WBC (Auto) >30 H (0-5) /hpf Urine RBC (Auto) 0-4 (0-4) /hpf U Hyaline Cast (Auto) 1-5 (0-5) /lpf U Epithel Cells (Auto) 10-20 H (0-5) /lpf Urine Bacteria (Auto) 1+ H (Negative) Urine Yeast Not Reportable 05/18/21 Range/Units 00:55 WBC (4.8-10.8) K/uL RBC (4.2-5.4) M/uL Hgb (12.0-16.0) g/dL Hct (37-47) % MCV (80-100) fL MCH (25-34) pg MCHC (32-36) g/dL RDW Std Deviation (36.4-46.3) fL RDW Coeff of Jesse (11.5-14.5) % Plt Count (130-400) K/uL MPV (7.4-10.4) fL Immature Gran % (Auto) % Neut % (Auto) % Lymph % (Auto) % [place] % (Auto) % Eos % (Auto) % Baso % (Auto) % Neut # (Auto) (1.4-6.5) K/uL Lymph # (Auto) (1.2-3.4) K/uL [place] # (Auto) (0.11-0.59) K/uL Eos # (Auto) (0-0.5) K/uL Baso # (Auto) (0-0.2) K/uL Immature Gran # (Auto) (0.00-0.02) K/uL Sodium (136-145) mmol/L Potassium (3.5-5.1) mmol/L Chloride (98-107) mmol/L Carbon Dioxide (21-32) mmol/L Anion Gap (3-11) BUN (6-23) mg/dl Creatinine (0.6-1.2) mg/dl Est Cr Clr Drug Dosing Est GFR ( Amer) ml/min Est GFR (Non-Af Amer) ml/min BUN/Creatinine Ratio (10-20) Glucose (70-99(Fasting)) mg/dl Calcium (8.5-10.1) mg/dl Total Bilirubin (0.2-1.0) mg/dl AST (13-39) U/L ALT (7-52) U/L Alkaline Phosphatase (34-104) U/L Troponin I (0-0.04) ng/ml B-Natriuretic Peptide 346 H (0-100) pg/ml Total Protein (6.0-8.3) gm/dl Albumin (3.4-5.0) gm/dl Globulin (2.5-4.0) gm/dl Albumin/Globulin Ratio (0.9-2) Urine Color Urine Appearance (Clear) Urine pH (4.5-7.5) Ur Specific [place] (1.000-1.030) Urine Protein (Negative) Urine Glucose (UA) (Negative) Urine Ketones (Negative) Urine Blood (Negative) Urine Nitrite (Negative) Urine Bilirubin (Negative) Urine Urobilinogen (Negative) Ur Leukocyte Esterase (Negative) Urine WBC (Auto) (0-5) /hpf Urine RBC (Auto) (0-4) /hpf U Hyaline Cast (Auto) (0-5) /lpf U Epithel Cells (Auto) (0-5) /lpf Urine Bacteria (Auto) (Negative) Urine Yeast Imaging Data Attestation: I personally reviewed and interpreted this imaging study as follows: My Impression: Chest x-ray interpreted by me slight increased markings in the left lower lobe poor inspiratory effort no obvious pleural effusions or pneumothorax ECG Data Attestation: I personally reviewed and interpreted this ECG as follows: Additional Comments: EKG interpreted by me atrial fibrillation rate of [address] segment elevation or depression normal axis MDM Narrative Medical decision making differential diagnosis angina unstable angina acute coronary syndrome acute CHF cardiac dysrhythmia metabolic derangement. Plan is to check a cardiac evaluation, observe Impression & Plan Chest pain, Atrial fibrillation, PAYAN (dyspnea on exertion), UTI (urinary tract infection) Discharge Plan Visit Data Chief Complaint: Chest Pain Stated Complaint: CHEST PRESSURE, HAS TO STAY SITTING UP, WEAK, CHF ED Provider: Abdirizak Pastor Discharge Problem: Chest pain, Atrial fibrillation, PAYAN (dyspnea on exertion), UTI (urinary tract infection) Patient Disposition: Being Evaluated by Hospitalist Forms Stand Alone Forms: My [facility] [place] Prescriptions Prescriptions: No Action cyclobenzaprine 10 mg tablet 10 mg PO HS Qty: 90 RF: 3 levothyroxine 75 mcg tablet 75 mcg PO QAM RF: 0 fluticasone propionate [Allergy Relief (fluticasone)] 50 mcg/actuation spray,suspension 2 spray INTNAS QAM RF: 0 Di-Gel 280-128-20 mg Tablet,Chewable 1 tab PO DAILY PRN (Reason: Indigestion) RF: 0 docusate sodium [Stool Softener] 100 mg Tablet 200 mg PO BID RF: 0 quinapril 40 mg tablet 40 mg PO QAM Qty: 90 RF: 3 amlodipine 10 mg tablet 10 mg PO HS Qty: 90 RF: 3 metformin 500 mg tablet extended release 24hr 500 mg PO BID Qty: 60 RF: 3 gabapentin 300 mg capsule 300 mg PO TID Qty: 90 RF: 5 cholecalciferol (vitamin D3) 25 mcg (1,000 unit) capsule 25 mcg PO QAM Qty: 90 RF: 3 furosemide 40 mg tablet 40 mg PO BID Qty: 180 RF: 1 potassium chloride 10 mEq capsule, extended release 20 meq PO QID Qty: 240 RF: 1 primidone 50 mg tablet 100 mg PO TID 90 Days Qty: 540 RF: 0 zonisamide 50 mg capsule 50 mg PO QAM Qty: 90 RF: 1 rosuvastatin 10 mg tablet 10 mg PO QAM Qty: 90 RF: 1 metoprolol succinate 200 mg tablet extended release 24 hr 200 mg PO DAILY Qty: 30 RF: 3 tramadol 50 mg tablet 50 mg PO TID PRN (Reason: pain) Qty: 90 RF: 0 letrozole 2.5 mg tablet 2.5 mg PO QAM RF: 0 acetaminophen [Tylenol Extra Strength] 500 mg Tablet 1,000 mg PO TID RF: 0 calcium citrate-vitamin D3 [Citracal + D Maximum] 315 mg-6.25 mcg (250 unit) Tablet 2 tab PO QAM RF: 0 Eliquis 5 mg Tablet 5 mg PO BID Qty: 60 RF: 5 Referrals Referrals: Angeline aMrtinez MD [Primary Care Provider] -
[2021-05-18 00:25] LABS: Basophils # (auto) 0.05 K/uL (0-0.2); Basophils % (auto) 0.7 %; Eosinophils % (auto) 4.1 %; Hematocrit (blood only) 40.3 % (37-47); Hemoglobin 12.6 g/dL (12.0-16.0); Immature Granulocytes # (auto) 0.02 K/uL (0.00-0.02); Immature Granulocytes % (auto) 0.3 %; Lymphocytes # (auto) 2.35 K/uL (1.2-3.4); Lymphocytes % (auto) 31.8 %; Mean Corpuscular Hemoglobin 28.6 pg (25-34); Mean Corpuscular Hgb Conc 31.3 g/dL (32-36); Mean Corpuscular Volume 91.4 fL (80-100); Mean Platelet Volume 11.2 fL (7.4-10.4); Monocytes # (auto) 0.53 K/uL (0.11-0.59); Monocytes % (auto) 7.2 %; Neutrophils # (auto) 4.15 K/uL (1.4-6.5); Neutrophils % (auto) 55.9 %; Platelet Count 263 K/uL (130-400); RDW Coefficient of Variation 15.3 % (11.5-14.5); Red Blood Count 4.41 M/uL (4.2-5.4)
[2021-05-18 00:49] LABS: Troponin I 0.03 ng/ml (0-0.04)
[2021-05-18 00:54] LABS: Alanine Aminotransferase 19 U/L (7-52); Albumin Globulin Ratio 1.4 (0.9-2); Alkaline Phosphatase 136 U/L (34-104); Anion Gap 8 (3-11); BUN Creatinine Ratio 50.6 (10-20); Bilirubin,Total 0.3 mg/dl (0.2-1.0); Blood Urea Nitrogen 39 mg/dl (6-23); Carbon Dioxide 26 mmol/L (21-32); Chloride 104 mmol/L (98-107); Est GFR (African American) 87.5 ml/min; Est GFR (Non-African American) 75.5 ml/min; Globulin 2.9 gm/dl (2.5-4.0); Glucose 121 mg/dl (70-99(Fasting)); Sodium 138 mmol/L (136-145); Total Protein 6.9 gm/dl (6.0-8.3)
[2021-05-18 00:57] LABS: Appearance Urine Cloudy (Clear); Bilirubin Urine Negative (Negative); Blood Urine 1+ (Negative); Color Urine Yellow; Glucose Urine UA Negative (Negative); Ketones Urine Negative (Negative); Leukocyte Esterase Urine 1+ (Negative); Nitrite Urine Negative (Negative); Protein Urine Negative (Negative); Specific Gravity Urine 1.016 (1.000-1.030); Urobilinogen Urine Negative (Negative); WBC Urine Automated >30 /hpf (0-5); pH Urine 6.5 (4.5-7.5)
[2021-05-18 01:19] LABS: Aspartate Aminotransferase 22 U/L (13-39); Potassium 4.6 mmol/L (3.5-5.1)
[2021-05-18 01:23] LABS: Bacteria Urine Automated 1+ (Negative); RBC Urine Automated 0-4 /hpf (0-4)
--- NOTE | 2021-05-18 03:46 | History & Physical Report ---
Date of Service May 18, 2021 Assessment & Plan (1) Acute exacerbation of CHF (congestive heart failure): Plan: Acute on chronic systolic heart failure. EF not entirely clear on echo in 09/2020 or perfusion scan in 03/2021; however, both indicate mildly reduced EF. Symptoms worsening over the last few weeks. BNP is only 345, but lower cutpoints are needed in obesity to preserve sensitivity. - Lasix 40 mg IV daily - Monitor weights and I&Os, renal function - Continue home beta-tayla - Hold ACEi for now as prior cardiology note indicates possible switch to Entresto - Limited echo to see if we can ascertain EF - Cardiology consulted (2) Chest pain: Plan: "Heaviness" present during exertion. Accompanied by shortness of breath. Ongoing for days/weeks. Troponin was negative in the ED. No acute EKG changes noted. - Likely from CHF - Defer to cardiology, but given recent stress test, I see no need for further work-up (3) Atrial fibrillation: Plan: Permanent afib. - Rate-controlled on her home beta-tayla - Continue anticoagulation (4) Controlled diabetes mellitus type II without complication: Plan: A1c was 6.9% in 03/2021. - Hold home metformin - Sliding scale insulin - Continue gabapentin for diabetic neuropathy (5) Hypertension: Plan: BP in the ER was 120/90. - Continue home amlodipine & beta-tayla - Hold ACEi as above (6) Hyperlipidemia: Plan: - Continue statin (7) Hypothyroidism: Plan: TSH was 2.0 in 09/2020. No signs/symptoms of hypo-/hyperthyroidism. - Continue home Synthroid 75 mcg - Recheck TSH (8) Ductal carcinoma in situ (DCIS) of breast: Plan: - Continue letrozole (9) DVT prophylaxis: Plan: On apixaban for afib History of Present Illness Primary Care Provider: Angeline Martinez MD 76yo F w/ hx of HFrEF of uncertain origin who presents with increasing signs/symptoms of CHF exacerbation. Per report, has been ongoing for several weeks. For her heart failure, she had initially been prescribed Lasix 80 mg PO daily; however, she got bladder cramps with this dosage (with so much urine being produced), that she broke the dosage up into four 20 mg PO dosages which she finds more manageable and less painful. However, over the last few weeks, she has noted increased LE swelling, more dyspnea on exertion, and has also need to sleep in a recliner. She notes increased chest pressure or "heaviness" in the left, substernal area with exertion or lying flat. She denies any radiation of the pain. Rest improves the pain. She does note some nausea with pills. She has been having constipation, but then also notes that she sometimes has diarrhea when using her stool softeners. Allergies Allergy/AdvReac Type Severity Reaction Status Date / Time adhesive Allergy Intermediate BLISTERING Verified 05/18/21 00:27 cephalexin Allergy Intermediate diarrhea,vomiting, Verified 05/18/21 00:27 nausea fenoprofen Allergy Intermediate MUSCLE Verified 05/18/21 00:27 WEAKNESS, PAIN, HIVES ibuprofen Allergy Intermediate RELATED TO Verified 05/18/21 00:27 FENOPROFEN Home Medications Medication Instructions Recorded Confirmed Type letrozole 2.5 mg tablet 2.5 mg PO QAM tab 08/15/18 05/18/21 History acetaminophen 500 mg tablet 1,000 mg PO TID 09/18/20 05/18/21 History (Tylenol Extra Strength) calcium citrate 315 mg 2 tab PO QAM 09/18/20 05/18/21 History calcium-vitamin D3 6.25 mcg (250 unit) tablet (Citracal + Vitamin D Maximum) apixaban 5 mg tablet (Eliquis) 5 mg PO BID #60 tab 09/20/20 05/18/21 Rx cyclobenzaprine 10 mg tablet 10 mg PO HS #90 tab 10/06/20 05/18/21 Rx calcium carb-mag hydrox-simeth 280 1 tab PO DAILY PRN 10/31/20 05/18/21 History mg-128 mg-20 mg chewable tablet docusate sodium 100 mg tablet 200 mg PO BID 10/31/20 05/18/21 History (Stool Softener) fluticasone propionate 50 2 spray INTNAS QAM 10/31/20 05/18/21 History mcg/actuation nasal spray,suspension (Allergy Relief (fluticasone)) levothyroxine 75 mcg tablet 75 mcg PO QAM 10/31/20 05/18/21 History quinapril 40 mg tablet 40 mg PO QAM #90 tab 12/01/20 05/18/21 Rx amlodipine 10 mg tablet 10 mg PO HS #90 tab 12/23/20 05/18/21 Rx metformin 500 mg tablet,extended 500 mg PO BID #60 tab 12/30/20 05/18/21 Rx release 24hr gabapentin 300 mg capsule 300 mg PO TID #90 cap 01/15/21 05/18/21 Rx tramadol 50 mg tablet 50 mg PO TID PRN #90 tab 02/07/21 05/18/21 Rx cholecalciferol (vitamin D3) 25 25 mcg PO QAM #90 cap 02/17/21 05/18/21 Rx mcg (1,000 unit) capsule furosemide 40 mg tablet 40 mg PO BID #180 tab 03/14/21 05/18/21 Rx potassium chloride 10 mEq 20 meq PO QID #240 cap 03/14/21 05/18/21 Rx capsule,extended release metoprolol succinate 200 mg 200 mg PO DAILY #30 tab 03/28/21 05/18/21 Rx tablet,extended release 24 hr primidone 50 mg tablet 100 mg PO TID 90 Days #540 tab 04/04/21 05/18/21 Rx zonisamide 50 mg capsule 50 mg PO QAM #90 cap 04/14/21 05/18/21 Rx rosuvastatin 10 mg tablet 10 mg PO QAM #90 tab 05/13/21 05/18/21 Rx Past Med/Surg History Medical History Acid reflux disease Atrial fibrillation newly diagnosed 09/2020--on eliquis Benign essential tremor Carpal tunnel syndrome Chronic low back pain Congestive heart failure Controlled diabetes mellitus type II without complication Diverticulitis Diverticulosis of colon 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 Received 5130 cGy utilizing hypo-fractionation." On 08/18/16 11:16 Willow Calero wrote "Abnormal left breast mammogram Status post stereotactic biopsy 06/09/2016 revealing DCIS grade 3 Estrogen receptor positive and progesterone receptor positive Status post needle localization left partial mastectomy with sentinel lymph node biopsy 07/27/2016 DCIS and LCIS Stage pTis pN0" Epistaxis Fall on stairs Generalized osteoarthritis of multiple sites Hyperlipidemia Hypertension Hypokalemia Hypothyroidism Irritable bowel syndrome with constipation Morbid obesity with BMI of 50.0-59.9, adult VICKIE (obstructive sleep apnea) Retinal detachment Spondylisthesis Urge and stress incontinence Surgical History History of cataract surgery right History of colonoscopy History of conization of cervix History of cryosurgery cervical cancer- History of inguinal hernia repair bilt History of knee replacement left History of left breast biopsy malignant History of left hip replacement History of partial mastectomy of left breast left partial mastectomy with sentinel lymph node biopsy History of right breast biopsy benign History of right cataract surgery History of right hip replacement History of tooth extraction History of wisdom tooth extraction Hx of arthroscopic knee surgery left Retinal detachment of right eye due to tear of retina Status post correction of deviated nasal septum Family History Mother Diabetes Heart disease Peripheral vascular disease Colorectal cancer Hypertension Stroke Cancer Father Diabetes Congestive heart failure (CHF) Myocardial infarction Hypertension Stroke Heart disease Aunt Breast cancer Sister Lung cancer 2 sisters Other Nephrolithiasis No family history of adverse response to anesthesia Pure hypercholesterolemia Denies family history of Asthma Social History Smoking Status: Never smoker Second Hand Exposure: Yes (ex smoked for 30+yrs); Hx Alcohol Use: No Hx Substance Use: No Preferred Language: Polish Communication Ability: Effective Visual Impairment: Partially Limited Hearing Ability: Normal Corporate Travel Agent Required: No Beliefs That Will Affect Care: None marital status: / Current Living Situation: Family Current Living Situation Comment: Lives with son current occupational status: retired How many Children do You have: 2 Feels Safe at Home: Yes Childhood Exposure to Second-Hand Smoke: Yes Diet Comment: avoids seeds/nuts caffeine: Yes (coffee) Dental Care, Regularly: Yes Physical Activity Frequency: Does not Exercise Seatbelt Use: always Sunscreen Use: Yes Do you think of yourself as: straight/heterosexual Assistive Devices: Glasses Review of Systems Review of Systems: All systems reviewed & are unremarkable except as noted in HPI & below Physical Exam Constitutional: WD/WN, vitals as above Eyes: EOM intact bilaterally; no conjunctival abnormality ENMT: external ear and nose normal, oropharynx normal Neck: trachea midline, no thyromegaly normal visual inspection Respiratory: normal respiratory effort, lungs clear to auscultation no respiratory distress Cardiovascular: Rate/Rhythm: regular rate and + irregularly irregular Extremities: + edema Gastrointestinal (Abdomen): Inspection/Auscultation: abdomen normal to inspection; abdomen not distended Musculoskeletal: no cyanosis or clubbing, extremities motor strength 5/5 Skin: no rashes, warm and dry Neurologic: moves all extremities and awake Psychiatric: Orientation: alert, oriented to person and cooperative Results & Data Results & Data ([facility]) Vital Signs (Past 12 Hours) Vital Signs Temp Pulse Pulse Resp BP BP Pulse Ox 05/18/21 03:30 76 18 123/91 94 05/18/21 01:27 70 22 94 05/18/21 00:49 80 24 97 05/17/21 23:45 55 L 20 96 05/17/21 23:19 36.8 C 74 20 163/85 H 96 PG Care Time/CCT Total # of Minutes Spent Total Time Spent with Patient: Total time spent is greater than 50% in coordination of care (as documented) at patient's floor/unit and/or counseling patient: Coding Level of Care Code INT OBSERVATION CARE 71M LVL 3 Diagnoses Acute exacerbation of CHF (congestive heart failure) I50.9 Controlled diabetes mellitus type II without complication E11.9 Hypertension I10 Hyperlipidemia E78.5 Hypothyroidism E03.9 Atrial fibrillation I48.91 Atrial fibrillation type: unspecified DVT prophylaxis Z29.9 Chest pain R07.9 Chest pain type: unspecified Ductal carcinoma in situ (DCIS) of breast D05.12 Laterality: left (1) Atrial fibrillation Atrial fibrillation type: unspecified Qualified Code(s): I48.91 - Unspecified atrial fibrillation (2) Ductal carcinoma in situ (DCIS) of breast Laterality: left Qualified Code(s): D05.12 - Intraductal carcinoma in situ of left breast (3) Chest pain Chest pain type: unspecified Qualified Code(s): R07.9 - Chest pain, unspecified
[2021-05-18] MEDS ORDERED: DEXTROSE 50% 50 ML SYRINGE IV PRN (05:35)
[2021-05-18] MEDS ORDERED: GLUCAGON FOR INJ 1 MG VIAL SQ PRN (05:35)
[2021-05-18] MEDS ORDERED: GLUCOSE 40% GEL 15 GM TUBE PO PRN (05:35)
[2021-05-18] MEDS ORDERED: ACETAMINOPHEN 325 MG TAB PO PRN (05:35)
[2021-05-18] MEDS ORDERED: GLUCOSE 10 TABS/TUBE PO PRN (05:35)
[2021-05-18] MEDS ORDERED: CARBOHYDRATES FOR HYPOGLYCEMIA PO PRN (05:35)
[2021-05-18] MEDS ORDERED: ONDANSETRON INJ 2 MG/ML 2 ML VIAL IV PRN (05:35)
[2021-05-18] MEDS ORDERED: FUROSEMIDE 40 MG/4 ML VIAL IV ONE ×2 (06:00→08:37)
[2021-05-18] MEDS: LEVOTHYROXINE SODIUM 75 MCG TABLET PO SCH (06:57)
--- NOTE | 2021-05-18 07:01 | Hospitalist Progress Note ---
Date of Service May 18, 2021 Assessment & Plan (1) Acute on chronic HFrEF (heart failure with reduced ejection fraction): Plan: Patient is a 76F with PMHx HFrEF, Permanent Afib, Cardiomyopathy, DM2, who presented on 05/18/21 for progressively worsening PAYAN, leg swelling, orthopnea, chest heaviness, and chest pain. Acute on Chronic HFrEF -With history of reduced EF 45-50%, repeat echo on 05/18/21 showing EF 35-40% -BNP mildly elevated at 345 and significant LE edema on exam -Lasix 40mg IV QD ordered -Monitor I/O's -Home Quinapril 40mg QD held in anticipation of need for Entresto -Cardiology Consulted -Low suspicion for ischemia as cause of pain -Suspect subacute CHF based on home diuretic dosing -May benefit from sliding scale dosing of diuretic outpatient -Would benefit from follow up with CHF Clinic -Discussed starting Entresto -- Will start Entresto 49/51 BID tonight (last dose of Quinapril will be >36 hours ago at initiation) -Reduce Metoprolol Succinate to 100mg qAM and 50mg qHS for total 150mg QD Chest pain -Negative troponin and without EKG changes -Recent Lexiscan Stress test on 03/21/21 -Suspect pain more secondary to CHF than ACS -Continue to monitor Permanent Atrial Fibrillation -Patient with ~10 seconds of bradycardia this AM in the 30's -Reduce Metoprolol Succinate to 150mg QD, 100mg qAM and 50mg qHS -Continue Eliquis Hypertension -Metoprolol Succinate 150mg QD -Continue Amlodipine -Add Entresto -DC Quinapril Hyperlipidemia -Continue Rosuvastatin DM2 -SSI -Hold home metformin -Continue gabapentin for diabetic neuropathy Intention Tremor -Continue Primidone and Zonisamide Hypothyroidism -Continue home Synthroid 75mcg QD Hx Ductal Carcinoma in Situ of Breast -Continue Letrozole Dispo: Med/Surg Telemetry FEN: HH and DM2 diet DVT: Eliquis Code: Full (2) Chest pain: Admission and Anticipated Discharge Date Admission Date: May 18, 2021 Supervising Physician Co-Signing Physician Notes Resident Physician Supervision Note: I independently interviewed and examined the patient and verified the maldonado history and physical, reviewed labs and image studies and agree with resident Dr. Burton findings and care plan. Subjective Patient evaluated at the bedside this morning. Notes several weeks of chest discomfort, worse when she is SOB or exerting herself. States that seems to have been more of an issue since 1 year ago since her heart failure diagnosis. She notes that she is to take 80mg of Lasix daily, however, splits it into 20mg doses throughout the day as she experienced bladder discomfort and cramping with the filling of her bladder. She notes a recent stress test in March. Otherwise at this time feeling somewhat better. She did not receive any diuretics while in the ED. She denies any fever, chills current SOB, chest pressure, abdominal pain. She does note some LE swelling which she feels is more than usual. She does not follow with a heart failure clinic. She is unsure of her dry weight, but states that she was 268lbs prior to coming into the hospital that morning. Review of Systems Review of Systems: All systems reviewed & are unremarkable except as noted in Subjective Physical Exam Constitutional: well developed and well nourished; no acute distress Eyes: normal visual charles by confrontation ENMT: external ear and nose normal, oropharynx normal Neck: trachea midline, no thyromegaly Respiratory: normal respiratory effort, lungs clear to auscultation Cardiovascular: Rate/Rhythm: + irregularly irregular Extremities: + edema (2+ to the mid mike ) Gastrointestinal (Abdomen): normal bowel sounds, soft, nontender, no hepatosplenomegaly Results & Data Results & Data ([facility]) Vital Signs (Past 12 Hours) Vital Signs Temp Pulse Pulse Resp BP BP Pulse Ox 05/18/21 06:32 36.9 C 63 20 123/83 96 05/18/21 06:12 36.9 C 63 18 123/83 96 05/18/21 03:30 76 18 123/91 94 05/18/21 01:27 70 22 94 05/18/21 00:49 80 24 97 05/17/21 23:45 55 L 20 96 05/17/21 23:19 36.8 C 74 20 163/85 H 96 Resident Activity Tracking Resident Involvement: Resident Care Provided Care Provided: Adult Hospital Medicine (1) Chest pain Chest pain type: unspecified Qualified Code(s): R07.9 - Chest pain, unspecified
[2021-05-18] MEDS: LETROZOLE 2.5 MG TAB PO SCH (08:31)
[2021-05-18] MEDS: DOCUSATE SODIUM 100 MG CAP PO SCH ×2 (08:32→21:12)
[2021-05-18] MEDS: ROSUVASTATIN CALCIUM 10 MG TAB PO SCH (08:32)
[2021-05-18] MEDS: FLUTICASONE PROPIONATE NA SPR 16 GM BTL NAE SCH (08:32)
[2021-05-18] MEDS: PRIMIDONE 50 MG TAB PO SCH ×3 (08:32→21:14)
[2021-05-18] MEDS: GABAPENTIN 300 MG CAP PO SCH ×3 (08:32→21:11)
[2021-05-18] MEDS: POTASSIUM CHLORIDE CRTAB 20 MEQ TABCR PO SCH ×4 (08:32→21:10)
[2021-05-18] MEDS: APIXABAN 5 MG TABLET PO SCH ×2 (08:32→21:11)
[2021-05-18] MEDS: INSULIN ASPART PER UNIT SC SCH ×4 (08:38→21:13)
[2021-05-18] MEDS ORDERED: METOPROLOL SUCC 50MG EXT REL TAB PO SCH (09:00)
--- NOTE | 2021-05-18 09:13 | Cardiology Consultation ---
Date of Consultation May 18, 2021 Assessment & Plan (1) Acute on chronic HFrEF (heart failure with reduced ejection fraction): (2) Cardiomyopathy: (3) Permanent atrial fibrillation: (4) Hypertension: (5) Controlled diabetes mellitus type II without complication: 76-year-old woman with cardiomyopathy of uncertain etiology who presented with mildly decompensated congestive heart failure but who is now markedly improved with a brisk diuresis after a dose of IV furosemide. No evidence of significant ongoing myocardial ischemia by ECG or enzymes. Very likely, alteration of her diuretic dose from a dose producing intense diuresis to a dose below her diuretic threshold resulted in subacute CHF. Discussed with the patient in detail the importance of a strict low-salt/sodium diet as well as the concept of sliding scale dosing for her diuretic as an outpatient, this could be arranged by placing a heart failure consult to Michelle Hernandez PA-C tomorrow. The patient does have a scale at home and would be amenable to sliding scale diuretic dose (perhaps starting at 60 mg daily with increase to 80 mg for weight gain and reduction to 40 mg for weight loss). Since she has not been tachycardic but did have a period of mild bradycardia overnight, therefore would also recommend reducing her metoprolol succinate dose modestly (could take 100 mg in the morning/50 mg in the evening for a total dose of 150 mg daily). She is appropriately anticoagulated on apixaban, she has been having nosebleeds but is seen Dr. Beckett to address this through local measures. Patient should follow-up with Michelle Hernandez PA-C tomorrow and with Dr. Emmett Sneed as an outpatient. History of Present Illness Reason for Consultation: CHF with reduced EF Requesting Physician: Nayeli Vail MD Attending Physician: Nayeli Vail MD History of Present Illness 76-year-old woman with cardiomyopathy (EF mildly reduced but poorly quantified), permanent atrial fibrillation (metoprolol/apixaban), and chronic HFrEF was admitted 05/18/2021 with progressive dyspnea on exertion, leg swelling, orthopnea, and chest heaviness. She notes that she had been on 80 mg furosemide daily, but felt that she was "going to the bathroom too much", so she reduce the dose to 20 mg fractions taken 4 times a day. Subsequently, she developed the above symptoms. Her chest heaviness was mild and only occurred in the context of dyspnea, initial ECG and troponin do not suggest ischemia. She does not add salt but is not strict about sodium intake. She feels remarkably better after brisk diuresis throughout the day. She denies any dyspnea, chest discomfort, palpitations, or lightheadedness. She was comfortable with no somatic complaints at the time of my evaluation. Telemetry showed atrial fibrillation with controlled ventricular response, heart rate generally in the 70-80 bpm range, but she did have a brief period in the 30-40 bpm range overnight. Allergies Allergy/AdvReac Type Severity Reaction Status Date / Time adhesive Allergy Intermediate BLISTERING Verified 05/18/21 00:27 cephalexin Allergy Intermediate diarrhea,vomiting, Verified 05/18/21 00:27 nausea fenoprofen Allergy Intermediate MUSCLE Verified 05/18/21 00:27 WEAKNESS, PAIN, HIVES ibuprofen Allergy Intermediate RELATED TO Verified 05/18/21 00:27 FENOPROFEN Home Medications Medication Instructions Recorded Confirmed Type letrozole 2.5 mg tablet 2.5 mg PO QAM tab 08/15/18 05/18/21 History acetaminophen 500 mg tablet 1,000 mg PO TID 09/18/20 05/18/21 History (Tylenol Extra Strength) calcium citrate 315 mg 2 tab PO QAM 09/18/20 05/18/21 History calcium-vitamin D3 6.25 mcg (250 unit) tablet (Citracal + Vitamin D Maximum) apixaban 5 mg tablet (Eliquis) 5 mg PO BID #60 tab 09/20/20 05/18/21 Rx cyclobenzaprine 10 mg tablet 10 mg PO HS #90 tab 10/06/20 05/18/21 Rx calcium carb-mag hydrox-simeth 280 1 tab PO DAILY PRN 10/31/20 05/18/21 History mg-128 mg-20 mg chewable tablet docusate sodium 100 mg tablet 200 mg PO BID 10/31/20 05/18/21 History (Stool Softener) fluticasone propionate 50 2 spray INTNAS QAM 10/31/20 05/18/21 History mcg/actuation nasal spray,suspension (Allergy Relief (fluticasone)) levothyroxine 75 mcg tablet 75 mcg PO QAM 10/31/20 05/18/21 History quinapril 40 mg tablet 40 mg PO QAM #90 tab 12/01/20 05/18/21 Rx amlodipine 10 mg tablet 10 mg PO HS #90 tab 12/23/20 05/18/21 Rx metformin 500 mg tablet,extended 500 mg PO BID #60 tab 12/30/20 05/18/21 Rx release 24hr gabapentin 300 mg capsule 300 mg PO TID #90 cap 01/15/21 05/18/21 Rx tramadol 50 mg tablet 50 mg PO TID PRN #90 tab 02/07/21 05/18/21 Rx cholecalciferol (vitamin D3) 25 25 mcg PO QAM #90 cap 02/17/21 05/18/21 Rx mcg (1,000 unit) capsule furosemide 40 mg tablet 40 mg PO BID #180 tab 03/14/21 05/18/21 Rx potassium chloride 10 mEq 20 meq PO QID #240 cap 03/14/21 05/18/21 Rx capsule,extended release metoprolol succinate 200 mg 200 mg PO DAILY #30 tab 03/28/21 05/18/21 Rx tablet,extended release 24 hr primidone 50 mg tablet 100 mg PO TID 90 Days #540 tab 04/04/21 05/18/21 Rx zonisamide 50 mg capsule 50 mg PO QAM #90 cap 04/14/21 05/18/21 Rx rosuvastatin 10 mg tablet 10 mg PO QAM #90 tab 05/13/21 05/18/21 Rx Patient History Medical History (Updated 05/18/21 @ 10:57 by Guerrero Garay MD) Acid reflux disease Benign essential tremor Carpal tunnel syndrome Chronic low back pain Controlled diabetes mellitus type II without complication Diverticulitis Diverticulosis of colon 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 Received 5130 cGy utilizing hypo-fractionation." On 08/18/16 11:16 Willow Calero wrote "Abnormal left breast mammogram Status post stereotactic biopsy 06/09/2016 revealing DCIS grade 3 Estrogen receptor positive and progesterone receptor positive Status post needle localization left partial mastectomy with sentinel lymph node biopsy 07/27/2016 DCIS and LCIS Stage pTis pN0" Epistaxis Fall on stairs Generalized osteoarthritis of multiple sites Hyperlipidemia Hypertension Hypokalemia Hypokalemia Hypothyroidism Irritable bowel syndrome with constipation Morbid obesity with BMI of 50.0-59.9, adult VICKIE (obstructive sleep apnea) Retinal detachment Spondylisthesis Urge and stress incontinence Surgical History History of cataract surgery right History of colonoscopy History of conization of cervix History of cryosurgery cervical cancer- History of inguinal hernia repair bilt History of knee replacement left History of left breast biopsy malignant History of left hip replacement History of partial mastectomy of left breast left partial mastectomy with sentinel lymph node biopsy History of right breast biopsy benign History of right cataract surgery History of right hip replacement History of tooth extraction History of wisdom tooth extraction Hx of arthroscopic knee surgery left Retinal detachment of right eye due to tear of retina Status post correction of deviated nasal septum Family History Mother Diabetes Heart disease Peripheral vascular disease Colorectal cancer Hypertension Stroke Cancer Father Diabetes Congestive heart failure (CHF) Myocardial infarction Hypertension Stroke Heart disease Aunt Breast cancer Sister Lung cancer 2 sisters Other Nephrolithiasis No family history of adverse response to anesthesia Pure hypercholesterolemia Denies family history of Asthma Social History Smoking Status: Never smoker Second Hand Exposure: Yes (Exposure for 30 years); Do You Dip or Chew Tobacco: No; Tobacco Cessation Education Requested by Patient: No Hx Alcohol Use: No Hx Substance Use: No Preferred Language: Lithuanian Communication Ability: Effective Visual Impairment: Partially Limited Hearing Ability: Normal Career Developer Required: No Beliefs That Will Affect Care: None marital status: / Current Living Situation: Family Current Living Situation Comment: Lives with her son Edward current occupational status: retired How many Children do You have: 2 Other Information That Helps Us Care for You: No Feels Safe at Home: Yes Safety Concerns: Feels Safe At This Time Childhood Exposure to Second-Hand Smoke: Yes Diet Comment: avoids seeds/nuts caffeine: Yes (coffee) Dental Care, Regularly: Yes Physical Activity Frequency: Does not Exercise Seatbelt Use: always Sunscreen Use: Yes Do you think of yourself as: straight/heterosexual Assistive Devices: Glasses and Walker Assistive Devices Comment: Glasses here Physical Exam Physical Exam: Morbidly obese (BMI 50) elderly white female who appears comfortable currently. Afebrile. BP mildly hypertensive. Pulse 75 bpm and irregular. Skin: no ecchymoses or generalized lesions. HEENT: unremarkable. Neck: Jugular venous pulse nursing home to the angle of the jaw at 90 degrees, no carotid bruits. Lungs: Few basilar crackles but generally clear. No wheezing or accessory muscle use. Cardiac: irregular rhythm, normal S1 and S2, no obvious no murmur or gallop. Abdomen: benign. Extremities: 1+ pretibial edema, pulses intact. Neurologic: normal affect and conversation, nonfocal. Results & Data ([facility]) Laboratory Results Initial troponin 0.03. Normal electrolytes, BUN 39, creatinine 0.77. BNP 346 (no prior comparison values) Hemoglobin 12.6. Diagnostic Findings ECG on admission showed atrial fibrillation with controlled ventricular spots of 74 bpm, poor R wave progression. Compared with ECG from September 2020, no significant change. Chest x-ray showed mildly increased interstitial markings but no overt pulmonary edema or effusions. Myocardial perfusion study from March 2021 showed a large anteroapical defect was felt most likely breast attenuation, however component of nontransmural anteroapical infarct could not be excluded. Ejection fraction was calculated at 34%. Echocardiogram from September 2020 was technically limited but suggests at least mildly reduced LV systolic function with mild pulmonary hypertension. PG Care Time/CCT Total # of Minutes Spent Total Time Spent with Patient: Total time spent is greater than 50% in coordination of care (as documented) at patient's floor/unit and/or counseling patient: Coding Level of Care Code 58296 Initial Inpt Care Lvl 3 Diagnoses Acute on chronic HFrEF (heart failure with reduced ejection fraction) I50.23 Cardiomyopathy I42.9 Permanent atrial fibrillation I48.21 Hypertension I10 Controlled diabetes mellitus type II without complication E11.9
--- NOTE | 2021-05-18 09:30 | XRay Report ---
XR chest 1V portable HISTORY: Atypical Chest Pain COMPARISON: Chest 09/26/2020. FINDINGS: No pneumothorax. No pleural effusions. There are low lung volumes with bibasilar linear den sities. This favors subsegmental atelectasis. The upper lung zones remain clear. The heart remains en larged. No evidence for pulmonary edema. Degenerative changes within the shoulders. IMPRESSION: 1. Low lung volumes with bibasilar linear densities suggesting subsegmental atelectasis. 2. Stable cardiomegaly. ACT 112: Negative or not required by law. Electronically signed by: Aryan Perera M.D. 05/18/2021 9:29 AM
--- NOTE | 2021-05-18 09:34 | Electrocardiogram Report ---
Test Reason : Blood Pressure : / mmHG Vent. Rate : 074 BPM Atrial Rate : 091 BPM P-R Int : 000 ms QRS Dur : 104 ms QT Int : 412 ms P-R-T Axes : 000 -16 011 degrees QTc Int : 457 ms Atrial fibrillation Minimal voltage criteria for LVH, may be normal variant Old Anterolateral infarct (cited on or before 26-JUN-2016) Nonspecific T wave abnormality Abnormal ECG When compared with ECG of 26-SEP-2020 10:37, No significant change Confirmed by Guerrero Garay ([id number]) on 05/18/2021 9:33:43 AM Referred By: REFERRED SELF Confirmed By:Guerrero Garay
--- NOTE | 2021-05-18 11:25 | XCELERA ---
[id number]
[2021-05-18] MEDS: traMADol HCL 50 MG TABLET PO PRN (14:29)
[2021-05-18] MEDS ORDERED: CYCLOBENZAPRINE HCL 10 MG TAB PO SCH (21:00)
[2021-05-18] MEDS ORDERED: amLODIPine BESYLATE 5 MG TAB PO SCH (21:00)
[2021-05-18] MEDS: VALSARTAN/SACUBITRIL 51/49 MG TAB PO SCH (21:15)
[2021-05-19] MEDS: traMADol HCL 50 MG TABLET PO PRN (02:30)
--- NOTE | 2021-05-19 05:19 | Hospitalist Progress Note ---
Date of Service May 19, 2021 Assessment & Plan (1) Acute on chronic HFrEF (heart failure with reduced ejection fraction): Plan: Patient is a 76F with PMHx HFrEF, Permanent Afib, Cardiomyopathy, DM2, who presented on 05/18/21 for progressively worsening PAYAN, leg swelling, orthopnea, chest heaviness, and chest pain. Acute on Chronic HFrEF -Prior TTE in 09/2020 w/ LVEF 45-50% --> repeat echo on 05/18/21 showing EF 35- 40% -Presented with significant LE edema, SOB, and BNP 345 that improved following diuresis -- c/w exacerbation of HFrEF -Cardiology Consulted -Low suspicion for ischemia as cause of pain -Suspect subacute CHF based on home diuretic dosing, dietary indiscretion -Recommend sliding scale: 60mg base dose, can consider going up to 80mg/40mg based on weight gain/loss -Establish with CHF clinic -- contacted/consulted while here -Initiated Entresto 49/51 BID -Reduced metoprolol succinate to 100mg qAM and 50mg qHS for total 150mg daily -Transition to Lasix 60mg PO daily -Education on salt, fluid intake while here -Discontinue quinapril Asymptomatic Bacteruria -Urine sample growing GNBs from 05/18 -- asymptomatic otherwise -Opted not to treat in absence of symptoms -Recommend close PCP f/u: if symptomatic, should treat Intermittent Chest Pain -- over last year -Since arrival: negative troponin, no EKG changes -Recent Lexiscan Stress test on 03/21/21 -- negative for ischemia -Suspect pain more secondary to CHF than ACS given improvement w/ diuresis Permanent Atrial Fibrillation -During admission, did have a 10-second period of bradycardia into the 30s (early AM) -Reduce home metoprolol succinate to 150mg QD -- split between 100mg qAM and 50mg qHS -Continue Eliquis Hypertension -Metoprolol Succinate 150mg QD -Continue Amlodipine -Initiated on Entresto, as above -DC Quinapril given initiation of Entresto Hyperlipidemia -Continue Rosuvastatin DM2 -- A1c 6.9% detected on 05/19/21 -SSI used while here, home metformin held -Resumed at discharge -Continue gabapentin for diabetic neuropathy Intention Tremor -Continue Primidone and Zonisamide Hypothyroidism -Continue home Synthroid 75mcg QD Hx Ductal Carcinoma in Situ of Breast -Continue Letrozole Code: Full (2) Chest pain: Admission and Anticipated Discharge Date Admission Date: May 18, 2021 Subjective Overall feeling great this morning. Denies any chest pain or shortness of breath; says this is her first time without chest discomfort in a while, attributes it to Lasix dosing. She says that her legs continue to be swollen, but better compared to before. She denies any lightheadedness or dizziness. Endorses a really strong appetite, which is improved for her. No other complaints Review of Systems Review of Systems: as per HPI Physical Exam Physical Exam: General: Well-appearing 76-year-old female no acute distress HEENT: NCAT. Cannot reliably assess for JVD in the sitting position. Cardiac: Normal rate and irregular rhythm; S1 and S2 present with no murmurs, rubs, or gallops. Pulmonary: Good respiratory effort with symmetric expansion of the chest. No use of accessory muscles. Lungs were clear to auscultation bilaterally with no crackles or wheezes. Abdominal: Normoactive bowel sounds. Abdomen was soft, nondistended, and non- tender to palpation. Extremities: Upper and lower extremities are warm and well perfused. Plus pitting edema in the lower extremities bilaterally. Psych: Well-developed, well-nourished, appropriately dressed for occasion. Behavior is cooperative and appropriate. Affect is WNL. Insight is appropriate. Results & Data Results & Data ([facility]) Vital Signs (Past 12 Hours) Vital Signs Temp Pulse Pulse Resp BP Pulse Ox 05/19/21 03:53 36.5 C 81 20 134/91 97 05/19/21 00:46 89 05/19/21 00:02 36.4 C L 67 131/88 96 05/18/21 21:03 36.7 C 76 20 106/68 96 Resident Activity Tracking Resident Involvement: Resident Care Provided Care Provided: Adult Hospital Medicine (1) Chest pain Chest pain type: unspecified Qualified Code(s): R07.9 - Chest pain, unspecified
[2021-05-19] MEDS: LEVOTHYROXINE SODIUM 75 MCG TABLET PO SCH (06:37)
[2021-05-19 06:44] LABS: Hematocrit (blood only) 40.7 % (37-47); Hemoglobin 12.9 g/dL (12.0-16.0); Mean Corpuscular Hemoglobin 28.7 pg (25-34); Mean Corpuscular Hgb Conc 31.7 g/dL (32-36); Mean Corpuscular Volume 90.6 fL (80-100); Mean Platelet Volume 10.9 fL (7.4-10.4); Platelet Count 270 K/uL (130-400); RDW Coefficient of Variation 15.2 % (11.5-14.5); RDW Standard Deviation 51.1 fL (36.4-46.3); Red Blood Count 4.49 M/uL (4.2-5.4); White Blood Count 8.61 K/uL (4.8-10.8)
[2021-05-19 07:13] LABS: Calcium 9.9 mg/dl (8.5-10.1); Creatinine Clr Calc Pharmacy 102.6 ml/min; Est GFR (African American) 103.3 ml/min; Est GFR (Non-African American) 89.2 ml/min; Magnesium 2.1 mg/dl (1.7-2.4); Potassium 4.2 mmol/L (3.5-5.1)
[2021-05-19 07:24] LABS: Thyroid Stimulating Hormone 4.987 uIu/ml (0.300-4.500)
[2021-05-19 08:05] LABS: T4 Free Thyroxine 0.62 ng/dl (0.61-1.60)
[2021-05-19] MEDS: INSULIN ASPART PER UNIT SC SCH ×3 (08:47→12:02)
[2021-05-19] MEDS ORDERED: FUROSEMIDE 40 MG/4 ML VIAL IV SCH (09:00)
[2021-05-19] MEDS ORDERED: METOPROLOL SUCC 50MG EXT REL TAB PO SCH ×2 (09:00→21:00)
[2021-05-19] MEDS: ROSUVASTATIN CALCIUM 10 MG TAB PO SCH (09:04)
[2021-05-19] MEDS: LETROZOLE 2.5 MG TAB PO SCH (09:05)
[2021-05-19] MEDS: PRIMIDONE 50 MG TAB PO SCH (09:05)
[2021-05-19] MEDS: GABAPENTIN 300 MG CAP PO SCH (09:06)
[2021-05-19] MEDS: POTASSIUM CHLORIDE CRTAB 20 MEQ TABCR PO SCH ×2 (09:06→12:03)
[2021-05-19] MEDS: APIXABAN 5 MG TABLET PO SCH (09:07)
[2021-05-19] MEDS: DOCUSATE SODIUM 100 MG CAP PO SCH (09:07)
[2021-05-19] MEDS: VALSARTAN/SACUBITRIL 51/49 MG TAB PO SCH (09:08)
[2021-05-19] MEDS: FLUTICASONE PROPIONATE NA SPR 16 GM BTL NAE SCH (09:08)
--- NOTE | 2021-05-19 09:08 | Cardiology Progress Note ---
Date of Service May 19, 2021 Assessment & Plan (1) Acute on chronic HFrEF (heart failure with reduced ejection fraction): (2) Cardiomyopathy: (3) Permanent atrial fibrillation: (4) Hypertension: (5) Controlled diabetes mellitus type II without complication: Plan: 1. Congestive heart failure: Improved. Likely related to some dietary indiscretion and medication noncompliance. However, her lung examination is clear today and her symptoms have improved. I think she certainly could be discharged. As noted in the original consult perhaps 60 milligrams of Lasix once daily would be a good starting point. The patient adjusted her diuretic regimen due to "bladder cramps". She also appears to have an element of urge incontinence at times. this may need to be addressed again in order to facilitate adequate therapy for her cardiomyopathy. 2. Cardiomyopathy: She does appear to have an element of reduced LV systolic function. Not quite in the range for discussion of a prophylactic ICD. Her lisinopril has been switched to Entresto which she appears to be tolerating well ( One dose last night). she will continue the diuretic as noted above and her metoprolol succinate. No evidence of ischemia on recent perfusion imaging. 3. Right ventricular dysfunction: Likely related to a combination of her LV failure and primary pulmonary process, possibly Pickwickian, obstructive sleep apnea or chronic hypoventilation. 4. Atrial fibrillation: Permanent. No symptoms. Adequate rate control. On apixaban for systemic anticoagulation ( At the maximum recommended wait for apixaban). I think she can be safely discharged today given her clinical improvement. She artery has scheduled follow-up in [place]. She will be introduced to the CHF Clinic. Admission and Anticipated Discharge Date Admission Date: May 18, 2021 Subjective This morning the patient claims to be feeling better. She has had some ambulati on around her room with improvement in her breathing. She had difficulty sleeping last evening as the bed was uncomfortable. She did not report orthopnea. Review of Systems Review of Systems: Per HPI. Physical Exam Physical Exam: She is alert and oriented x3. Mood affect appear normal. She answered all questions appropriately. HEENT: Sclerae are anicteric. Pupils are equal and reactive to light and accom modation. Extraocular movements were intact. Neuro: Cranial nerves intact Lungs: Lungs are clear to auscultation bilaterally. There are no rales wheezes or rhonchi. She has normal respiratory effort without use of accessory muscles. There is normal pulmonary excursion. Cardiac: The rhythm was irregular. The rate was normal. S1 and S2 were normal. There are no murmurs on examination. The PMI was not markedly displaced on palpation. Abdomen: Obese Extremities: Patient has bilateral radial pulses that are equal in intensity. There is no evidence cyanosis or clubbing. Skin: There are no rashes noted on examination today. Results & Data ([facility]) Vital Signs (Past 12 Hours) Vital Signs Temp Pulse Pulse Resp BP Pulse Ox 05/19/21 07:33 36.5 C 73 18 127/83 95 05/19/21 03:53 36.5 C 81 20 134/91 97 05/19/21 00:46 89 05/19/21 00:02 36.4 C L 67 131/88 96 05/18/21 21:03 36.7 C 76 20 106/68 96 Laboratory Results Abnormal Lab Results 05/18/21 05/18/21 05/18/21 11:11 16:08 21:01 WBC RBC Hgb Hct MCV MCH MCHC RDW Std Deviation RDW Coeff of Jesse Plt Count MPV Sodium Potassium Chloride Carbon Dioxide Anion Gap BUN Creatinine Est Cr Clr Drug Dosing Est GFR ( Amer) Est GFR (Non-Af Amer) BUN/Creatinine Ratio Glucose POC Glucose 93 111 H 80 Calcium Magnesium TSH Free T4 05/19/21 05/19/21 05/19/21 06:26 06:26 06:26 WBC 8.61 RBC 4.49 Hgb 12.9 Hct 40.7 MCV 90.6 MCH 28.7 MCHC 31.7 L RDW Std Deviation 51.1 H RDW Coeff of Jesse 15.2 H Plt Count 270 MPV 10.9 H Sodium 140 Potassium 4.2 Chloride 106 Carbon Dioxide 27 Anion Gap 7 BUN 33 H Creatinine 0.60 Est Cr Clr Drug Dosing 102.6 Est GFR ( Amer) 103.3 Est GFR (Non-Af Amer) 89.2 BUN/Creatinine Ratio 55.0 H Glucose 104 H POC Glucose Calcium 9.9 Magnesium 2.1 TSH 4.987 H Free T4 0.62 05/19/21 07:13 WBC RBC Hgb Hct MCV MCH MCHC RDW Std Deviation RDW Coeff of Jesse Plt Count MPV Sodium Potassium Chloride Carbon Dioxide Anion Gap BUN Creatinine Est Cr Clr Drug Dosing Est GFR ( Amer) Est GFR (Non-Af Amer) BUN/Creatinine Ratio Glucose POC Glucose 96 Calcium Magnesium TSH Free T4 Diagnostic Findings echocardiogram performed yesterday suggested ejection fraction of 35-40 percent. Mild right ventricular dilation. Moderately reduced RV systolic function. Coding Level of Care Code 45267 Subseq Obs Care Lvl 2 Diagnoses Acute on chronic HFrEF (heart failure with reduced ejection fraction) I50.23 Cardiomyopathy I42.9 Permanent atrial fibrillation I48.21 Hypertension I10 Controlled diabetes mellitus type II without complication E11.9
[2021-05-19 09:16] LABS: Estimated Average Glucose 151 mg/dl; Hemoglobin A1C 6.9 % (4.5-5.6)
[2021-05-19 11:19] VITALS: BP 100/59; PULSE 70; TEMP 98.1; O2SAT 94
--- NOTE | 2021-05-19 11:27 | Discharge Summary ---
Date of Service May 19, 2021 Admission HPI Per Admitting Provider 76yo F w/ hx of HFrEF of uncertain origin who presents with increasing signs/symptoms of CHF exacerbation. Per report, has been ongoing for several weeks. For her heart failure, she had initially been prescribed Lasix 80 mg PO daily; however, she got bladder cramps with this dosage (with so much urine being produced), that she broke the dosage up into four 20 mg PO dosages which she finds more manageable and less painful. However, over the last few weeks, she has noted increased LE swelling, more dyspnea on exertion, and has also need to sleep in a recliner. She notes increased chest pressure or "heaviness" in the left, substernal area with exertion or lying flat. She denies any radiation of the pain. Rest improves the pain. She does note some nausea with pills. She has been having constipation, but then also notes that she sometimes has diarrhea when using her stool softeners. Admission Exam Per Admitting Provider Constitutional: WD/WN, vitals as above Eyes: EOM intact bilaterally; no conjunctival abnormality ENMT: external ear and nose normal, oropharynx normal Neck: trachea midline, no thyromegaly normal visual inspection Respiratory: normal respiratory effort, lungs clear to auscultation no respiratory distress Cardiovascular: Rate/Rhythm: regular rate and + irregularly irregular Extremities: + edema Gastrointestinal (Abdomen): Inspection/Auscultation: abdomen normal to inspection; abdomen not distended Musculoskeletal: no cyanosis or clubbing, extremities motor strength 5/5 Skin: no rashes, warm and dry Neurologic: moves all extremities and awake Psychiatric: Orientation: alert, oriented to person and cooperative Principal Diagnosis [id number] HFrEF Discharge Exam General: Well-appearing 76-year-old female no acute distress HEENT: NCAT. Cannot reliably assess for JVD in the sitting position. Cardiac: Normal rate and irregular rhythm; S1 and S2 present with no murmurs, rubs, or gallops. Pulmonary: Good respiratory effort with symmetric expansion of the chest. No use of accessory muscles. Lungs were clear to auscultation bilaterally with no crackles or wheezes. Abdominal: Normoactive bowel sounds. Abdomen was soft, nondistended, and non- tender to palpation. Extremities: Upper and lower extremities are warm and well perfused. Plus pitting edema in the lower extremities bilaterally. Psych: Well-developed, well-nourished, appropriately dressed for occasion. Behavior is cooperative and appropriate. Affect is WNL. Insight is appropriate. Discharge Data Allergies Allergy/AdvReac Type Severity Reaction Status Date / Time adhesive Allergy Intermediate BLISTERING Verified 05/18/21 00:27 cephalexin Allergy Intermediate diarrhea,vomiting, Verified 05/18/21 00:27 nausea fenoprofen Allergy Intermediate MUSCLE Verified 05/18/21 00:27 WEAKNESS, PAIN, HIVES ibuprofen Allergy Intermediate RELATED TO Verified 05/18/21 00:27 FENOPROFEN Consultations 05/18/21 01:10 ED Decision to Admit Stat 05/18/21 05:35 Consult Cardiology Routine 05/19/21 08:26 [facility] [facility] Referral Routine Hospital Course (1) Acute on chronic HFrEF (heart failure with reduced ejection fraction): Patient is a 76F with PMHx HFrEF, Permanent Afib, Cardiomyopathy, DM2, who presented on 05/18/21 for progressively worsening PAYAN, leg swelling, orthopnea, chest heaviness, and chest pain, consistent with [id number] HFrEF (with no signs of cardiac ischemia while here). Acute on Chronic HFrEF -Prior TTE in 09/2020 w/ LVEF 45-50% --> repeat echo on 05/18/21 showing EF 35- 40% -Presented with significant LE edema, SOB, and BNP 345 that improved following diuresis -- c/w exacerbation of HFrEF -Cardiology Consulted -Low suspicion for ischemia as cause of pain -Suspect subacute CHF based on home diuretic dosing, dietary indiscretion -Establish with CHF clinic -- contacted/consulted while here -Initiated Entresto 49/51 BID -Reduced metoprolol succinate to 100mg qAM and 50mg qHS for total 150mg daily -Transition to Lasix 60mg PO daily -- recommend sliding scale after discharge: 60mg base dose, can consider going up to 80mg/40mg based on weight gain/loss -Education on salt, fluid intake while here -Discontinue quinapril -Consider follow-up BMP within 1 week following d/c Asymptomatic Bacteruria -Urine sample growing GNBs from 05/18 -- asymptomatic otherwise -Opted not to treat in absence of symptoms -Recommend close PCP f/u: if symptomatic, should treat Intermittent Chest Pain -- over last year -Since arrival: negative troponin, no EKG changes -Recent Lexiscan Stress test on 03/21/21 -- negative for ischemia -Suspect pain more secondary to CHF than ACS given improvement w/ diuresis Permanent Atrial Fibrillation -During admission, did have a 10-second period of bradycardia into the 30s (early AM) -Reduce home metoprolol succinate to 150mg QD -- split between 100mg qAM and 50mg qHS -Continue Eliquis Hypertension -Metoprolol Succinate 150mg QD -Continue Amlodipine -Initiated on Entresto, as above -DC Quinapril given initiation of Entresto Hyperlipidemia -Continue Rosuvastatin DM2 -- A1c 6.9% detected on 05/19/21 -SSI used while here, home metformin held -Resumed at discharge -Continue gabapentin for diabetic neuropathy Intention Tremor -Continue Primidone and Zonisamide Hypothyroidism -Continue home Synthroid 75mcg QD Hx Ductal Carcinoma in Situ of Breast -Continue Letrozole Code: Full (2) Chest pain: Total Time Total Time Spent Total Time Spent (In Minutes): 30 Discharge Plan Discharge Items Patient Disposition: Home - Self-Care Reason For Visit: CHF EXACERBATION Discharge Diagnosis: heart failure Activity: Per Instructions section Non-emergency contact: Primary Care Provider Call non-emergency contact if: you have any medication questions, your symptoms worsen and your temperature is above 101 Follow-up/Referrals: Angeline Martinez MD [Primary Care Provider] - Sylwia Hernandez PA-C [Physician Track Broom Operator] - 05/30/21 1:00 pm (Congestive Heart Failure Program Appointment Information Early follow up is essential to managing your heart failure. An appointment has been scheduled for you with the [facility] Heart [facility] Program within 7 days of discharge. Anticipate this visit to be 30-60 minutes long. Please expect a auditor internal phone call from one of our nurses approximately 48 hours from discharge. They will also be placing an order for lab work to be completed 1-2 days prior to your heart failure follow up appointment. Please be sure to have this done so we can go over the results when you come in. Office Location The cardiology office building is located in front of the hospital at [address] Bring the following with you to your follow-up doctor appointments: Please bring your daily weight log any discharge paperwork all of your medication bottles with you to this visit. ) Diet: Carb Consistent or DM2, Heart Healthy and Low Sodium (2gm) Addtl Attending Provider Instructions: You were seen at [facility] for an exacerbation of heart failure. During your stay here, we worked with our cardiology team to optimize your medications and heart function. Thankfully, you responded very well to these changes and many of your symptoms resolved. It will be important to follow-up with the heart failure clinic after discharge to ensure continued success/minimization of symptoms. Please also remember to closely monitor your diet, and attempt to have less than 2 grams of sodium total a day. Upon discharge, please note the following medication changes: - STOP metoprolol 200mg daily --> BEGIN metoprolol succinate 100mg each morning and 50mg each night - STOP quinapril - Begin Entresto - Continue Lasix at 60mg a day (please work with your PCP and the heart failure clinic to develop a "sliding scale" based on weight gain/loss due to fluid) Please follow-up with your PCP within 1 week to review this visit. In the interim, if you experience any worsening shortness of breath, lightheadedness/dizziness, chest pain, palpitations, feelings like you're going to pass out, or other worrisome symptoms, please report to the ER immediately for evaluation. It was a pleasure caring for you while here, and we wish you all the best in your recovery. Addtl Greens Picker Provider Instructions: Call 911 and go to the Emergency Room if: * You have tightness or pain in your chest that does not go away with rest or Nitroglycerin * You are very short of breath even with rest Call your doctor if any of the following symptoms or problems start or get worse: * Shortness of breath or difficulty breathing * Wake up at night short of breath * Chest pain * Cough * Swelling of your hands, fee, or legs * More fatigued or tired with your normal activity * Palpitations - sudden fast heart beats WEIGHT * Weigh yourself every morning after using the bathroom. * Use the same scale. * Wear the same amount of clothing. * Write your weight down on your chart. * Call your doctor if you gain more than 2-3 pounds in 1-2 days. MEDICATIONS * Use this discharge instruction sheet for instructions. * Take your medications at the time your doctor ordered. * Do not skip a dose of your medicines. * If you miss a dose of medicine, take as soon as possible, but DO NOT DOUBLE A DOSE. * Read your medicine information when you get home. * Know all of the side effects of your medicine. * Call your doctor's office if you have any side effects. * Be sure all of your doctors know what medicine and herbs you take (including cold, flu, and herbal medicine). * Pain Medicine: If you do not get relief from your pain, please call your doctor for help. Take the following with you to your follow-up doctor appointments: * Weight Chart * Medication List * List of questions Do not drink excessive alcohol, beer or wine. Pending Studies at Discharge: No Stand-Alone Forms: My [facility], Smoking Cessation Medications and DC Order Prescriptions: New metoprolol succinate 50 mg Tablet Extended Release 24 Hr 100 mg PO QAM 30 Days Qty: 60 RF: 0 metoprolol succinate 50 mg Tablet Extended Release 24 Hr 50 mg PO HS Qty: 30 RF: 0 Entresto 49-51 mg Tablet 1 tab PO BID Qty: 30 RF: 0 Continued cyclobenzaprine 10 mg tablet 10 mg PO HS Qty: 90 RF: 3 levothyroxine 75 mcg tablet 75 mcg PO QAM RF: 0 fluticasone propionate [Allergy Relief (fluticasone)] 50 mcg/actuation spray,suspension 2 spray INTNAS QAM RF: 0 calcium carb-mag hydrox-simeth 280-128-20 mg Tablet,Chewable 1 tab PO DAILY PRN (Reason: Indigestion) RF: 0 docusate sodium [Stool Softener] 100 mg Tablet 200 mg PO BID RF: 0 amlodipine 10 mg tablet 10 mg PO HS Qty: 90 RF: 3 metformin 500 mg tablet extended release 24hr 500 mg PO BID Qty: 60 RF: 3 gabapentin 300 mg capsule 300 mg PO TID Qty: 90 RF: 5 cholecalciferol (vitamin D3) 25 mcg (1,000 unit) capsule 25 mcg PO QAM Qty: 90 RF: 3 furosemide 40 mg tablet 40 mg PO BID Qty: 180 RF: 1 potassium chloride 10 mEq capsule, extended release 20 meq PO QID Qty: 240 RF: 1 primidone 50 mg tablet 100 mg PO TID 90 Days Qty: 540 RF: 0 zonisamide 50 mg capsule 50 mg PO QAM Qty: 90 RF: 1 rosuvastatin 10 mg tablet 10 mg PO QAM Qty: 90 RF: 1 tramadol 50 mg tablet 50 mg PO TID PRN (Reason: pain) Qty: 90 RF: 0 letrozole 2.5 mg tablet 2.5 mg PO QAM RF: 0 acetaminophen [Tylenol Extra Strength] 500 mg Tablet 1,000 mg PO TID RF: 0 calcium citrate-vitamin D3 [Citracal + D Maximum] 315 mg-6.25 mcg (250 unit) Tablet 2 tab PO QAM RF: 0 Eliquis 5 mg Tablet 5 mg PO BID Qty: 60 RF: 5 Discontinued quinapril 40 mg tablet 40 mg PO QAM Qty: 90 RF: 3 metoprolol succinate 200 mg tablet extended release 24 hr 200 mg PO DAILY Qty: 30 RF: 3 Discharge Orders: Discharge Order (Routine); Ordered 05/19/21 Ordered By: Abelardo England/Other Patient Handouts: Heart Failure Meds, What Is Heart Failure, Heart Failure Flare Up Signs, Heart Failure: Tracking Your Weight, Coping with Heart Failure, Heart Failure Diet Changes Admission Data Admit Date/Time: 05/18/21 03:43 Attending Provider: Abelardo Lynch Admit Provider: Barrera Russ Primary Care Provider: Angeline Martinez Other Providers: Barrera Russ ; Guerrero Garay ; Sylwia Hernandez Other Interventions: Discharge Summary Assessment (RN) Last Done: 05/19/21 12:58 Supervising Physician Co-Signing Physician Notes I personally examined the patient and verified all maldonado points of history and exam, discussed case, and agree with decision making with Dr Aviles feeling better wants to go home. discussed med adjustments and diet - she notes that she probably has been taking in more sodium than she realizes - notes in particular a restaurant meal the day prior to admission vitals noted nad heent nc at mmm breathing unlabored no accessory muscles good effort skin no rashes no pallor or icterus neuro no focal deficits acute on chronic systolic chf exac (acute hfref) - doing better stable for home meds adjusted educated on sodium restriction otherwise as above Resident Activity Tracking Resident Involvement: Resident Care Provided Care Provided: Adult Hospital Medicine
--- NOTE | 2021-05-19 13:14 | Billing Data ---
Date of Service May 19, 2021 Coding Level of Care Code D/C DAY MANAGEMENT <30 MINS
--- NOTE | 2021-05-19 13:14 | Billing Data ---
Date of Service May 19, 2021 Coding Level of Care Code 83159 OBS Care - Discharge Comment disregard <30mins discharge - entered in error, is OBS dc. thanks
[2021-05-20] MEDS ORDERED: FUROSEMIDE 20 MG TAB PO SCH (09:00)
== END 2021-05-19 13:58 | disposition home or self-care (01) ==
LOC: ED 23:14 → 2S 23:14 → SUATTDRO 05-18 03:43 → 2S 05-18 04:53

== ENCOUNTER 2022-03-23 10:50 | Inpatient (IN) ==
--- NOTE | 2022-03-23 11:15 | Emergency Department Note ---
Impression & Plan Chest pain, Abnormal EKG, PAYAN (dyspnea on exertion) ED Provider Note NAME: JENNIFER ZHENGTINE AGE: 77 SEX: F : 1945 ARRIVES VIA: Walk-In INFORMANT: Patient, the patient's son ED PROVIDER(S): Nasir Zarco DO CHIEF COMPLAINT: Difficulty breathing HPI: The patient is a 77-year-old female who presented to the emergency department for an evaluation of difficulty breathing. The patient describes shortness of breath especially with any exertion or laying flat. She also notices swelling in her legs. She has a history of CHF. She states that she thought this could be from CHF so she took 2 extra doses of Lasix this morning. She states that the symptoms are not resolved. She also notices chest pain. The patient describes anterior chest pain that goes to her back. She states that sharp. She was seen recently in a different facility for right leg pain. She states that she did not have a Doppler at that time but the pain is resolved. She still notices swelling in the right leg. She also noticed dark stool. The patient was not seen by her family doctor for the symptoms. She states symptoms are mildly improved with rest. ROS: See above HPI for pertinent positives & negatives. A total of 10 systems reviewed and were otherwise negative. PAST MEDICAL HISTORY: See Below PAST SURGICAL HISTORY: See Below FAMILY HISTORY: See Below SOCIAL HISTORY: See Below HOME MEDICATIONS: See Below ALLERGIES: See Below VITALS: See Below PHYSICAL EXAMINATION: GENERAL: The patient is awake and alert. She is somewhat anxious appearing. EYES: The conjunctivae are clear. The pupils are round and reactive. EARS, NOSE, MOUTH AND THROAT: The nose is without any evidence of any deformity. Mucous membranes are moist. NECK: The neck is nontender and supple. RESPIRATORY: Normal breath sounds are noted throughout. There were no rales rhonchi or wheezing. There was tachypnea as well as conversational dyspnea noted. CARDIOVASCULAR: Tachycardic and irregular heart sounds were noted to auscultation. There is no definite murmur. GASTROINTESTINAL: The abdomen is soft. Abdomen is nontender. MUSCULOSKELETAL/EXTREMITIES: There is no evidence of gross deformity full range of motion is noted in the hips and shoulders. SKIN: Skin is warm and dry. Pedal edema was noted bilaterally right greater than left. NEUROLOGIC: Patient is awake alert and oriented x3 MEDICAL DECISION MAKING: The patient is a 77-year-old female who presented to the emergency department for an evaluation of chest pain. The patient does have a history of ischemic cardiomyopathy. She also has a history of CHF. When she developed shortness of breath she thought this was consistent with her volume overload. For this reason she took an extra 2 doses of Lasix. She was using the bathroom frequently. The patient was found to have abnormalities on her EKG that could be consistent with ischemia. I did review the patient's previous medical records including her stress test from March 2021. The patient did not have a cardiac catheterization after this. She also complained of leg swelling. Her dimer was negative and she does take Eliquis. I do feel the patient would be a better candidate for inpatient management given her age and comorbidities. For this reason I will consult the [facility] hospitalist. The patient was treated with aspirin in the emergency department. Triage Nursing notes reviewed. Prior medical records reviewed Vital Signs: reviewed and remarkable for hypertension Differential diagnosis: Reactive airway disease, pneumonia, pneumothorax, COPD, CHF, infections, cardiac ischemia, pulmonary embolism, musculoskeletal, gastrointestinal, as well as other pathologies. ER treatment provided: See below Diagnostics interpreted by me: ECG: EKG was obtained in the emergency department. My interpretation is atrial fibrillation at 90 bpm. Low voltage was noted throughout. High lateral ST depressions with T wave inversions were noted. Inferior Q waves are noted. There is also motion artifact noted in V3. This was compared to a tracing from May 17, 2021. The high lateral ischemic changes are new. Cardiac Monitoring: An order was placed for continuous cardiac monitoring. The monitor shows a rate of 82 bpm with atrial fibrillation. Laboratory studies: As stated above and show below. Imaging studies: See below. Radiographic imaging was reviewed by myself Consultation(s): I discussed this case with Dr. Headley who is on-call for the [facility] talist group. 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 Received 5130 cGy utilizing hypo-fractionation." On 08/18/16 11:16 Willow M Galilea wrote "Abnormal left breast mammogram Status post stereotactic biopsy 06/09/2016 revealing DCIS grade 3 Estrogen receptor positive and progesterone receptor positive Status post needle localization left partial mastectomy with sentinel lymph node biopsy 07/27/2016 DCIS and LCIS Stage pTis pN0" Generalized osteoarthritis of multiple sites Hyperlipidemia Hypertension Hypokalemia Hypothyroidism Irritable bowel syndrome with constipation Morbid obesity with BMI of 50.0-59.9, adult VICKIE (obstructive sleep apnea) Recurrent UTI Retinal detachment Spondylisthesis Urge and stress incontinence Surgical History History of cataract surgery right History of colonoscopy 11/27/2016 History of conization of cervix History of cryosurgery cervical cancer- History of inguinal hernia repair bilt History of knee replacement left History of left breast biopsy malignant History of left hip replacement History of partial mastectomy of left breast left partial mastectomy with sentinel lymph node biopsy History of right breast biopsy benign History of right cataract surgery History of right hip replacement History of tooth extraction History of wisdom tooth extraction Hx of arthroscopic knee surgery left Retinal detachment of right eye due to tear of retina Status post correction of deviated nasal septum Family History Mother Diabetes Heart disease Peripheral vascular disease Colorectal cancer Hypertension Stroke Cancer Father Diabetes Congestive heart failure (CHF) Myocardial infarction Hypertension Stroke Heart disease Aunt Breast cancer Sister Lung cancer 2 sisters Other Nephrolithiasis No family history of adverse response to anesthesia Pure hypercholesterolemia Denies family history of Asthma Social History Smoking Status: Never smoker Second Hand Exposure: Yes (Exposure for 30 years); Hx Alcohol Use: No Hx Substance Use: No Preferred Language: Sinhala Communication Ability: Effective Visual Impairment: Partially Limited Hearing Ability: Normal Wool Shearer Required: No Beliefs That Will Affect Care: None marital status: / Current Living Situation: Family Current Living Situation Comment: Lives with her son Edward current occupational status: retired How many Children do You have: 2 Feels Safe at Home: Yes Childhood Exposure to Second-Hand Smoke: Yes Diet Comment: avoids seeds/nuts caffeine: Yes (coffee) Dental Care, Regularly: Yes Physical Activity Frequency: Does not Exercise Seatbelt Use: always Sunscreen Use: Yes Do you think of yourself as: straight/heterosexual Assistive Devices: Walker Allergies Allergies Allergy/AdvReac Type Severity Reaction Status Date / Time adhesive Allergy Intermediate BLISTERING Verified 03/06/22 12:34 cephalexin Allergy Intermediate diarrhea,vomiting, Verified 03/06/22 12:34 nausea fenoprofen Allergy Intermediate MUSCLE Verified 03/06/22 12:34 WEAKNESS, PAIN, HIVES ibuprofen Allergy Intermediate RELATED TO Verified 03/06/22 12:34 FENOPROFEN metformin AdvReac Severe diarrhea Verified 03/06/22 12:34 Home Meds Home Medications Medication Instructions Recorded Confirmed letrozole 2.5 mg tablet 2.5 mg PO QAM 08/15/18 03/06/22 acetaminophen 500 mg tablet 1,000 mg PO TID 09/18/20 03/06/22 (Tylenol Extra Strength) calcium citrate 315 mg 2 tab PO QAM 09/18/20 03/06/22 calcium-vitamin D3 6.25 mcg (250 unit) tablet (Citracal + Vitamin D Maximum) calcium carb-mag hydrox-simeth 280 1 tab PO DAILY PRN Indigestion 10/31/20 12/19/21 mg-128 mg-20 mg chewable tablet fluticasone propionate 50 2 spray intranasal QAM 10/31/20 03/06/22 mcg/actuation nasal spray,suspension (Allergy Relief (fluticasone)) Previous Rx's Medication Instructions Recorded cholecalciferol (vitamin D3) 25 25 mcg PO QAM #90 caps 02/17/21 mcg (1,000 unit) capsule apixaban 5 mg tablet (Eliquis) 5 mg PO BID #180 tabs 06/02/21 metoprolol succinate 50 mg See Rx Instructions PO DAILY #270 06/16/21 tablet,extended release 24 hr tabs primidone 50 mg tablet 100 mg PO BID 90 days #360 tabs 07/14/21 rosuvastatin 20 mg tablet 20 mg PO DAILY #90 tabs 09/02/21 sacubitril 97 mg-valsartan 103 mg 1 tab PO BID #180 tabs 11/03/21 tablet (Entresto) zonisamide 50 mg capsule 50 mg PO QAM #90 caps 11/11/21 levothyroxine 75 mcg tablet 75 mcg PO QAM #90 tabs 11/16/21 tramadol 50 mg tablet 50 mg PO TID PRN pain #90 tabs 12/19/21 spironolactone 25 mg tablet 25 mg PO DAILY #90 tabs 12/27/21 Wheelchair (Manual) (Manual #1 ea 01/01/22 Wheelchair) furosemide 20 mg tablet 60 mg PO BID #540 tabs 02/08/22 omeprazole 20 mg capsule,delayed 20 mg PO DAILY PRN acid reflux #90 02/08/22 release caps potassium chloride 10 mEq 20 meq PO QID #240 caps 02/08/22 capsule,extended release amlodipine 10 mg tablet 10 mg PO HS #90 tabs 02/25/22 gabapentin 300 mg capsule 300 mg PO TID #90 caps 03/10/22 tizanidine 4 mg tablet 4 mg PO Q8H PRN muscle spasticity 03/12/22 #30 tabs fosfomycin tromethamine 3 gram 1 packet PO ONCE #1 ea 03/23/22 oral packet Results & Data (ED) Vital Signs Vital Signs - 24 hr 03/23/22 10:52 03/23/22 10:50 03/23/22 10:50 Temperature 36.4 C L Temperature Source Temporal Artery Scan Pulse Rate 82 Pulse Rhythm Regular Respiratory Rate 16 Respiratory Effort / Characteristics Non-Labored Spontaneous Labored SOB on Exertion Respiratory Depth Normal Normal Respiratory Pattern Rapid/Deep Blood Pressure 162/115 H Blood Pressure Mean 130 Pulse Oximetry 94 Oxygen Delivery Method Room Air Room Air Room Air Sepsis Recent Fever Within 48 Hours No Sepsis New/Unexplained Change in Mental Status No Sepsis Action Taken by Nursing No Action Required 03/23/22 10:58 Temperature Temperature Source Pulse Rate Pulse Rhythm Respiratory Rate Respiratory Effort / Characteristics Respiratory Depth Respiratory Pattern Blood Pressure Blood Pressure Mean Pulse Oximetry Oxygen Delivery Method Room Air Sepsis Recent Fever Within 48 Hours Sepsis New/Unexplained Change in Mental Status Sepsis Action Taken by Half-Way Medications Current Medication List: was personally reviewed by me Laboratory Data Attestation: I reviewed the patient's lab results. 03/23/22 11:14 03/23/22 11:14 Lab Results 03/23/22 03/23/22 03/23/22 Range/Units 11:14 11:14 11:14 WBC 7.81 (4.8-10.8) K/ul RBC 4.73 (3.93-5.22) M/uL Hgb 14.2 (12.0-16.0) g/dl Hct 44.0 (34.1-44.9) % MCV 93.0 (80.0-100.0) fL MCH 30.0 (25.0-34.0) pg MCHC 32.3 (32.0-36.0) g/dL RDW Std Deviation 46.0 (36.4-46.3) fL RDW Coeff of Jesse 13.4 (11.5-14.5) % Plt Count 311 (130-400) K/uL MPV 10.8 (9.4-12.3) fL Immature Gran % (Auto) 0.4 % Neut % (Auto) 57.3 % Lymph % (Auto) 27.8 % Cannon % (Auto) 9.3 % Eos % (Auto) 4.0 % Baso % (Auto) 1.2 % Neut # (Auto) 4.48 (1.4-6.5) K/uL Lymph # (Auto) 2.17 (1.2-3.4) K/uL Cannon # (Auto) 0.73 (0.24-0.82) K/uL Eos # (Auto) 0.31 (0-0.50) K/uL Baso # (Auto) 0.09 (0-0.2) K/uL Immature Gran # (Auto) 0.03 H (0.00-0.02) K/uL PT 10.5 (9.0-12.0) Seconds INR 1.0 (0.9-1.1) APTT 24.8 (21.0-31.0) Seconds PTT Ratio 0.9 D-Dimer 460 (0-500) ug/L FEU VBG pH (7.36-7.41) VBG pCO2 (38-50) mmHg VBG pO2 mmHg VBG HCO3 mmol/L VBG O2 Saturation % VBG Base Excess mEq/L Sodium 142 (136-145) mmol/L Potassium 3.6 (3.5-5.1) mmol/L Chloride 100 (98-107) mmol/L Carbon Dioxide 32 (21-32) mmol/L Anion Gap 10 (3-11) BUN 17 (6-23) mg/dl Creatinine 0.84 (0.6-1.2) mg/dl Est Cr Clr Drug Dosing 73.9 ml/min Est GFR ( Amer) 78.2 ml/min Est GFR (Non-Af Amer) 67.5 ml/min BUN/Creatinine Ratio 20.2 H (10-20) Glucose 119 H (70-99(Fasting)) mg/dl Calcium 10.0 (8.5-10.1) mg/dl Magnesium 2.0 (1.7-2.4) mg/dl Total Bilirubin 0.4 (0.2-1.0) mg/dl AST 13 (13-39) U/L ALT 9 (7-52) U/L Alkaline Phosphatase 90 (34-104) U/L Troponin I High Sens 10.1 (0-14) pg/ml B-Natriuretic Peptide (0-100) pg/ml Total Protein 7.4 (6.0-8.3) gm/dl Albumin 4.3 (3.4-5.0) gm/dl Globulin 3.1 (2.5-4.0) gm/dl Albumin/Globulin Ratio 1.4 (0.9-2) Urine Color Urine Appearance (Clear) Urine pH (4.5-7.5) Ur Specific [place] (1.000-1.030) Urine Protein (Negative) Urine Glucose (UA) (Negative) Urine Ketones (Negative) Urine Blood (Negative) Urine Nitrite (Negative) Urine Bilirubin (Negative) Urine Urobilinogen (Negative) Ur Leukocyte Esterase (Negative) Urine WBC (Auto) (0-5) /hpf Urine RBC (Auto) (0-4) /hpf U Hyaline Cast (Auto) (0-5) /lpf U Epithel Cells (Auto) (0-5) /lpf Urine Bacteria (Auto) (Negative) 03/23/22 03/23/22 03/23/22 Range/Units 11:14 11:14 11:21 WBC (4.8-10.8) K/ul RBC (3.93-5.22) M/uL Hgb (12.0-16.0) g/dl Hct (34.1-44.9) % MCV (80.0-100.0) fL MCH (25.0-34.0) pg MCHC (32.0-36.0) g/dL RDW Std Deviation (36.4-46.3) fL RDW Coeff of Jesse (11.5-14.5) % Plt Count (130-400) K/uL MPV (9.4-12.3) fL Immature Gran % (Auto) % Neut % (Auto) % Lymph % (Auto) % Cannon % (Auto) % Eos % (Auto) % Baso % (Auto) % Neut # (Auto) (1.4-6.5) K/uL Lymph # (Auto) (1.2-3.4) K/uL Cannon # (Auto) (0.24-0.82) K/uL Eos # (Auto) (0-0.50) K/uL Baso # (Auto) (0-0.2) K/uL Immature Gran # (Auto) (0.00-0.02) K/uL PT (9.0-12.0) Seconds INR (0.9-1.1) APTT (21.0-31.0) Seconds PTT Ratio D-Dimer (0-500) ug/L FEU VBG pH 7.40 (7.36-7.41) VBG pCO2 51 H (38-50) mmHg VBG pO2 33 mmHg VBG HCO3 32 mmol/L VBG O2 Saturation < 60.0 % VBG Base Excess 5.5 mEq/L Sodium (136-145) mmol/L Potassium (3.5-5.1) mmol/L Chloride (98-107) mmol/L Carbon Dioxide (21-32) mmol/L Anion Gap (3-11) BUN (6-23) mg/dl Creatinine (0.6-1.2) mg/dl Est Cr Clr Drug Dosing ml/min Est GFR ( Amer) ml/min Est GFR (Non-Af Amer) ml/min BUN/Creatinine Ratio (10-20) Glucose (70-99(Fasting)) mg/dl Calcium (8.5-10.1) mg/dl Magnesium (1.7-2.4) mg/dl Total Bilirubin (0.2-1.0) mg/dl AST (13-39) U/L ALT (7-52) U/L Alkaline Phosphatase (34-104) U/L Troponin I High Sens (0-14) pg/ml B-Natriuretic Peptide 123 H (0-100) pg/ml Total Protein (6.0-8.3) gm/dl Albumin (3.4-5.0) gm/dl Globulin (2.5-4.0) gm/dl Albumin/Globulin Ratio (0.9-2) Urine Color Dark Yellow Urine Appearance Clear (Clear) Urine pH 7.5 (4.5-7.5) Ur Specific [place] 1.010 (1.000-1.030) Urine Protein Negative (Negative) Urine Glucose (UA) Negative (Negative) Urine Ketones Negative (Negative) Urine Blood Negative (Negative) Urine Nitrite Positive A (Negative) Urine Bilirubin Negative (Negative) Urine Urobilinogen Negative (Negative) Ur Leukocyte Esterase Negative (Negative) Urine WBC (Auto) 1-5 (0-5) /hpf Urine RBC (Auto) 0-4 (0-4) /hpf U Hyaline Cast (Auto) 1-5 (0-5) /lpf U Epithel Cells (Auto) 20-30 H (0-5) /lpf Urine Bacteria (Auto) Negative (Negative) Administered Medications Discontinued Medications Aspirin (Aspirin Chew 324 Mg) 324 mg PO NOW STA Stop: 03/23/22 11:53 Last Admin: 03/23/22 12:02 Dose: 324 mg Documented By: OL Imaging Data Radiologist's Impression: Chest X-Ray 03/23/22 10:58 XR chest 1V portable HISTORY: 77 years-old Female Dyspnea acute shortness of breath COMPARISON: Chest radiograph 05/17/2021 TECHNIQUE: AP view of the chest FINDINGS: Cardiac silhouette is enlarged. Mild right hemidiaphragmatic elevation. No pneumothorax, large pleural effusion or overt pulmonary edema. Mild subsegmental bibasilar opacities redemonstrated. Unchanged likely benign sclerotic focus of the left proximal humerus. Degenerative changes of the shoulders and spine. IMPRESSION: Mild bibasilar opacities are similar to prior suggestive of atelectasis. ACT 112: Negative or not required by law. The above report was generated using voice recognition software. It may contain grammatical, syntax or spelling errors. Electronically signed by: Elieser Cleaning M.D. 03/23/2022 11:34 AM Discharge Plan Visit Data Chief Complaint: Shortness of Breath/Dyspnea Stated Complaint: SOB, CHEST PAIN ED Provider: Nasir Zarco Discharge Problem: Chest pain, Abnormal EKG, PAYAN (dyspnea on exertion) Patient Disposition: Being Evaluated by Hospitalist Forms Stand Alone Forms: My [facility] Prescriptions Prescriptions: No Action fluticasone propionate [Allergy Relief (fluticasone)] 50 mcg/actuation spray,suspension 2 spray INTNAS QAM calcium carb-mag hydrox-simeth 280-128-20 mg Tablet,Chewable 1 tab PO DAILY PRN (Reason: Indigestion) cholecalciferol (vitamin D3) 25 mcg (1,000 unit) capsule 25 mcg PO QAM Qty: 90 3RF Eliquis 5 mg tablet 5 mg PO BID Qty: 180 3RF rosuvastatin 20 mg tablet 20 mg PO DAILY Qty: 90 3RF Entresto 97-103 mg tablet 1 tab PO BID Qty: 180 3RF zonisamide 50 mg capsule 50 mg PO QAM Qty: 90 1RF levothyroxine 75 mcg tablet 75 mcg PO QAM Qty: 90 3RF spironolactone 25 mg tablet 25 mg PO DAILY Qty: 90 2RF (DME) Manual Wheelchair Device See Rx Instructions .Route Qty: 1 0RF Rx Instructions: standard WC with cushion and foot plates potassium chloride 10 mEq capsule, extended release 20 meq PO QID Qty: 240 1RF furosemide 20 mg tablet 60 mg PO BID Qty: 540 2RF omeprazole 20 mg capsule,delayed release(DR/EC) 20 mg PO DAILY PRN (Reason: acid reflux) Qty: 90 1RF amlodipine 10 mg tablet 10 mg PO HS Qty: 90 3RF gabapentin 300 mg capsule 300 mg PO TID Qty: 90 5RF tizanidine 4 mg tablet 4 mg PO Q8H PRN (Reason: muscle spasticity) Qty: 30 0RF fosfomycin tromethamine 3 gram packet 1 packet PO ONCE Qty: 1 0RF tramadol 50 mg tablet 50 mg PO TID PRN (Reason: pain) Qty: 90 0RF Rx Instructions: approved 07/11/20---10/09/21 letrozole 2.5 mg tablet 2.5 mg PO QAM primidone 50 mg tablet 100 mg PO BID 90 Days Qty: 360 1RF metoprolol succinate 50 mg tablet extended release 24 hr See Rx Instructions PO DAILY Qty: 270 3RF Rx Instructions: take 2 tablets in the morning and 1 tablet at bedtime PO daily; acetaminophen [Tylenol Extra Strength] 500 mg Tablet 1,000 mg PO TID calcium citrate-vitamin D3 [Citracal + D Maximum] 315 mg-6.25 mcg (250 unit) Tablet 2 tab PO QAM Referrals Referrals: Angeline Martinez MD [Primary Care Provider] - : Chest pain Qualifiers: Chest pain type: unspecified Qualified Code(s): R07.9 - Chest pain, unspecified
[2022-03-23 11:32] LABS: Basophils # (auto) 0.09 K/uL (0-0.2); Basophils % (auto) 1.2 %; Eosinophils # (auto) 0.31 K/uL (0-0.50); Hemoglobin 14.2 g/dl (12.0-16.0); Immature Granulocytes # (auto) 0.03 K/uL (0.00-0.02); Immature Granulocytes % (auto) 0.4 %; Lymphocytes # (auto) 2.17 K/uL (1.2-3.4); Lymphocytes % (auto) 27.8 %; Mean Corpuscular Hgb Conc 32.3 g/dL (32.0-36.0); Mean Platelet Volume 10.8 fL (9.4-12.3); Monocytes # (auto) 0.73 K/uL (0.24-0.82); Monocytes % (auto) 9.3 %; Neutrophils # (auto) 4.48 K/uL (1.4-6.5); Neutrophils % (auto) 57.3 %; Platelet Count 311 K/uL (130-400); RDW Coefficient of Variation 13.4 % (11.5-14.5); Red Blood Count 4.73 M/uL (3.93-5.22); White Blood Count 7.81 K/ul (4.8-10.8)
--- NOTE | 2022-03-23 11:35 | XRay Report ---
XR chest 1V portable HISTORY: 77 years-old Female Dyspnea acute shortness of breath COMPARISON: Chest radiograph 05/17/2021 TECHNIQUE: AP view of the chest FINDINGS: Cardiac silhouette is enlarged. Mild right hemidiaphragmatic elevation. No pneumothorax, large pleura l effusion or overt pulmonary edema. Mild subsegmental bibasilar opacities redemonstrated. Unchanged likely benign sclerotic focus of the left proximal humerus. Degenerative changes of the shoulders and spine. IMPRESSION: Mild bibasilar opacities are similar to prior suggestive of atelectasis. ACT 112: Negative or not required by law. The above report was generated using voice recognition software. It may contain grammatical, syntax o r spelling errors. Electronically signed by: Elieser Cleaning M.D. 03/23/2022 11:34 AM
[2022-03-23 11:45] LABS: D Dimer 460 ug/L FEU (0-500); Partial Thromboplastin Ratio 0.9; Partial Thromboplastin Time 24.8 Seconds (21.0-31.0); Prothrombin Time 10.5 Seconds (9.0-12.0)
[2022-03-23 11:49] LABS: Base Excess VBG 5.5 mEq/L; HCO3 VBG 32 mmol/L; Oxygen Saturation VBG < 60.0 %; PCO2 VBG 51 mmHg (38-50); PO2 VBG 33 mmHg
[2022-03-23] MEDS ORDERED: ASPIRIN CHEW 324 MG PO STA (11:52)
[2022-03-23 11:53] LABS: Appearance Urine Clear (Clear); Bacteria Urine Automated Negative (Negative); Bilirubin Urine Negative (Negative); Blood Urine Negative (Negative); Color Urine Dark Yellow; Epithelial Cell Urine Auto 20-30 /lpf (0-5); Glucose Urine UA Negative (Negative); Ketones Urine Negative (Negative); Leukocyte Esterase Urine Negative (Negative); Nitrite Urine Positive (Negative); Protein Urine Negative (Negative); RBC Urine Automated 0-4 /hpf (0-4); Urobilinogen Urine Negative (Negative); pH Urine 7.5 (4.5-7.5)
[2022-03-23 11:56] LABS: Albumin Globulin Ratio 1.4 (0.9-2); Albumin Level 4.3 gm/dl (3.4-5.0); BUN Creatinine Ratio 20.2 (10-20); Bilirubin,Total 0.4 mg/dl (0.2-1.0); Creatinine Clr Calc Pharmacy 73.9 ml/min; Est GFR (African American) 78.2 ml/min; Est GFR (Non-African American) 67.5 ml/min; Globulin 3.1 gm/dl (2.5-4.0); Potassium 3.6 mmol/L (3.5-5.1); Total Protein 7.4 gm/dl (6.0-8.3)
[2022-03-23 12:00] LABS: Troponin I High Sensitivity 10.1 pg/ml (0-14)
--- NOTE | 2022-03-23 12:38 | History & Physical Report ---
Date of Service March 23, 2022 Assessment & Plan (1) Chest pain: Plan: Most likely musculoskeletal given reproducibility on palpation however I also do not have a good explanation for her shortness of breath given she is relatively euvolemic Chest pain r/o KS Serial troponins TTE Consult cardiology (2) Left flank pain: Plan: Suspect this is a muscle strain She had a similar pain during her September 2020 admission with an unremarkable CT abdomen pelvis. 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 Increase her usual lasix to 80mg PO BID Continue metoprolol succinate and Entresto for nonischemic cardiomyopathy although most recently left ventricular function has improved to 50 to 55% in October 2021 Consult Michelle Hernandez from [facility] clinic (4) Permanent atrial fibrillation: Plan: Continue apixaban 5 mg p.o. twice daily given low likelihood of needing cardiac catheterization Continue rate control with metoprolol succinate (5) Hypertension: Plan: Continue usual home doses of amlodipine, metoprolol succinate, Entresto and spironolactone. Lasix dosing as above (6) Hypothyroidism: Plan: TSH within normal limits in February Continue levothyroxine 75 mcg p.o. daily (7) Controlled diabetes mellitus type II without complication: Plan: Previously diagnosed but no longer on metformin. Repeat HbA1c with a.m. labs. (8) Benign essential tremor: Plan: Continue primidone and zonisamide (9) Hyperlipidemia: Plan: Continue rosuvastatin Plan VTE prophylaxis - Eliquis Diet - regular Disposition - observation status to med/tele Admission and Anticipated Discharge Date Admission Date: March 23, 2022 History of Present Illness Chief Complaint: Shortness of breath Primary Care Provider: Angeline Martinez MD Edie Munoz is a 77-year-old female with permanent atrial fibrillation, nonischemic cardiomyopathy and chronic heart failure with reduced ejection fraction who presents to the emergency room with shortness of breath. Shortness of breath started yesterday night. Worse with lying down. Associated bilateral leg swelling right greater than left. She took an increased dose (extra 40mg) of her Lasix at 4 AM this morning in addition to her regular dose of 60 mg later in the morning. She feels she had an increased amount of salt in her diet yesterday which exacerbated her current shortness of breath. After the increased dose of Lasix she reports feeling progressively less short of breath as the day went on. No fever, chills, nasal congestion, sinus pain, cough. After she took the Lasix she reports getting left back and left anterior chest pain around 5 AM. She reports the chest pain is new and she has not had this before. She reports a constant heavy sensation on the left-hand side of the chest, worse on lying down, no worse on palpation or exertion, no radiation, severity 4-5 out of 10 currently, at worst 7 out of 10. Regarding the left flank/back pain. She does have a history of frequent UTIs for which she is undergoing cystoscopy in April. She takes Pyridium every day due to burning sensation all the time. She previously had a CT abdomen pelvis for left CVA tenderness in September 2020 which showed no intra- abdominal/pelvic cause of the pain at that time. She reports left back pain is a similar pain she has had previously and gets chronic back pain from spondylolisthesis. Allergies Allergy/AdvReac Type Severity Reaction Status Date / Time adhesive Allergy Intermediate BLISTERING Verified 03/06/22 12:34 cephalexin Allergy Intermediate diarrhea,vomiting, Verified 03/06/22 12:34 nausea fenoprofen Allergy Intermediate MUSCLE Verified 03/06/22 12:34 WEAKNESS, PAIN, HIVES ibuprofen Allergy Intermediate RELATED TO Verified 03/06/22 12:34 FENOPROFEN metformin AdvReac Severe diarrhea Verified 03/06/22 12:34 Home Medications Medication Instructions Recorded Confirmed Type letrozole 2.5 mg tablet 2.5 mg PO QAM 08/15/18 03/23/22 History acetaminophen 500 mg tablet 1,000 mg PO TID 09/18/20 03/23/22 History (Tylenol Extra Strength) calcium citrate 315 mg 2 tab PO QAM 09/18/20 03/23/22 History calcium-vitamin D3 6.25 mcg (250 unit) tablet (Citracal + Vitamin D Maximum) calcium carb-mag hydrox-simeth 280 1 tab PO DAILY PRN Indigestion 10/31/20 03/23/22 History mg-128 mg-20 mg chewable tablet fluticasone propionate 50 2 spray intranasal QAM 10/31/20 03/23/22 History mcg/actuation nasal spray,suspension (Allergy Relief (fluticasone)) cholecalciferol (vitamin D3) 25 25 mcg PO QAM #90 caps 02/17/21 03/23/22 Rx mcg (1,000 unit) capsule apixaban 5 mg tablet (Eliquis) 5 mg PO BID #180 tabs 06/02/21 03/23/22 Rx metoprolol succinate 50 mg See Rx Instructions PO DAILY #270 06/16/21 03/23/22 Rx tablet,extended release 24 hr tabs primidone 50 mg tablet 100 mg PO BID 90 days #360 tabs 07/14/21 03/23/22 Rx rosuvastatin 20 mg tablet 20 mg PO DAILY #90 tabs 09/02/21 03/23/22 Rx sacubitril 97 mg-valsartan 103 mg 1 tab PO BID #180 tabs 11/03/21 03/23/22 Rx tablet (Entresto) zonisamide 50 mg capsule 50 mg PO QAM #90 caps 11/11/21 03/23/22 Rx levothyroxine 75 mcg tablet 75 mcg PO QAM #90 tabs 11/16/21 03/23/22 Rx tramadol 50 mg tablet 50 mg PO TID PRN pain #90 tabs 12/19/21 03/23/22 Rx spironolactone 25 mg tablet 25 mg PO DAILY #90 tabs 12/27/21 03/23/22 Rx Wheelchair (Manual) (Manual #1 ea 01/01/22 Rx Wheelchair) furosemide 20 mg tablet 60 mg PO BID #540 tabs 02/08/22 03/23/22 Rx potassium chloride 10 mEq 20 meq PO QID #240 caps 02/08/22 03/23/22 Rx capsule,extended release amlodipine 10 mg tablet 10 mg PO HS #90 tabs 02/25/22 03/23/22 Rx gabapentin 300 mg capsule 300 mg PO TID #90 caps 03/10/22 03/23/22 Rx omeprazole 20 mg capsule,delayed 20 mg PO DAILY 03/23/22 03/23/22 History release Past Med/Surg History Medical History Acid reflux disease Adenomatous colon polyp Benign essential tremor Carpal tunnel syndrome Chronic low back pain Controlled diabetes mellitus type II without complication Diverticulitis Diverticulosis of colon 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 Received 5130 cGy utilizing hypo-fractionation." On 08/18/16 11:16 Willow Calero wrote "Abnormal left breast mammogram Status post stereotactic biopsy 06/09/2016 revealing DCIS grade 3 Estrogen receptor positive and progesterone receptor positive Status post needle localization left partial mastectomy with sentinel lymph node biopsy 07/27/2016 DCIS and LCIS Stage pTis pN0" Generalized osteoarthritis of multiple sites Hyperlipidemia Hypertension Hypokalemia Hypothyroidism Irritable bowel syndrome with constipation Morbid obesity with BMI of 50.0-59.9, adult VICKIE (obstructive sleep apnea) Recurrent UTI Retinal detachment Spondylisthesis Urge and stress incontinence Surgical History History of cataract surgery right History of colonoscopy 11/27/2016 History of conization of cervix History of cryosurgery cervical cancer-1980s History of inguinal hernia repair bilt History of knee replacement left History of left breast biopsy malignant History of left hip replacement History of partial mastectomy of left breast left partial mastectomy with sentinel lymph node biopsy History of right breast biopsy benign History of right cataract surgery History of right hip replacement History of tooth extraction History of wisdom tooth extraction Hx of arthroscopic knee surgery left Retinal detachment of right eye due to tear of retina Status post correction of deviated nasal septum Family History Mother Diabetes Heart disease Peripheral vascular disease Colorectal cancer Hypertension Stroke Cancer Father Diabetes Congestive heart failure (CHF) Myocardial infarction Hypertension Stroke Heart disease Aunt Breast cancer Sister Lung cancer 2 sisters Other Nephrolithiasis No family history of adverse response to anesthesia Pure hypercholesterolemia Denies family history of Asthma Social History Smoking Status: Never smoker Second Hand Exposure: Yes (Exposure for 30 years); Hx Alcohol Use: No Hx Substance Use: No Preferred Language: Romansh Communication Ability: Effective Visual Impairment: Partially Limited Hearing Ability: Normal [employer] Worker Required: No Beliefs That Will Affect Care: None marital status: / Current Living Situation: Family Current Living Situation Comment: Lives with her son Edward current occupational status: retired How many Children do You have: 2 Feels Safe at Home: Yes Childhood Exposure to Second-Hand Smoke: Yes Diet Comment: avoids seeds/nuts caffeine: Yes (coffee) Dental Care, Regularly: Yes Physical Activity Frequency: Does not Exercise Seatbelt Use: always Sunscreen Use: Yes Do you think of yourself as: straight/heterosexual Assistive Devices: Cane, Glasses and Walker Review of Systems Review of Systems: All systems reviewed & are unremarkable except as noted in HPI & below Physical Exam Constitutional: well developed; + not well nourished and no acute distress Eyes: + anicteric sclerae; normal pupil size Respiratory: normal respiratory effort and able to speak in complete sente nces; no respiratory distress, no labored breathing and does not use accessory muscles Auscultation: + diminished lung sounds (Bibasal); no crackles and no wheezes Cardiovascular: Rate/Rhythm: regular rate and regular rhythm Heart Sounds: no murmur Vessels: no JVD Extremities: normal capillary refill and + pedal edema (1+ pitting b/l equal); no calf tenderness Chest (Breasts): Additional Comments: Left chest pain worse on palpation Gastrointestinal (Abdomen): normal bowel sounds, soft, nontender, no hepatosplenomegaly Musculoskeletal: no cyanosis or clubbing, extremities motor strength 5/5 Skin: no rashes, warm and dry Neurologic: moves all extremities and awake; no focal motor deficits and not confused Psychiatric: A+Ox3, euthymic affect Genitourinary: + CVA tenderness (Left) Results & Data Results & Data ([facility]) Vital Signs (Past 12 Hours) Vital Signs Temp Pulse Resp BP Pulse Ox O2 Del Method 03/23/22 10:58 Room Air 03/23/22 10:50 Room Air 03/23/22 10:50 Room Air 03/23/22 10:52 36.4 C L 82 16 162/115 H 94 Room Air Laboratory Results Abnormal lab results 03/23/22 03/23/22 03/23/22 Range/Units 11:14 11:14 11:14 Immature Gran # (Auto) 0.03 H (0.00-0.02) K/uL VBG pCO2 (38-50) mmHg BUN/Creatinine Ratio 20.2 H (10-20) Glucose 119 H (70-99(Fasting)) mg/dl B-Natriuretic Peptide 123 H (0-100) pg/ml Urine Nitrite (Negative) U Epithel Cells (Auto) (0-5) /lpf 03/23/22 03/23/22 Range/Units 11:14 11:21 Immature Gran # (Auto) (0.00-0.02) K/uL VBG pCO2 51 H (38-50) mmHg BUN/Creatinine Ratio (10-20) Glucose (70-99(Fasting)) mg/dl B-Natriuretic Peptide (0-100) pg/ml Urine Nitrite Positive A (Negative) U Epithel Cells (Auto) 20-30 H (0-5) /lpf Diagnostic Findings XR chest 1V portable HISTORY: 77 years-old Female Dyspnea acute shortness of breath COMPARISON: Chest radiograph 05/17/2021 TECHNIQUE: AP view of the chest FINDINGS: Cardiac silhouette is enlarged. Mild right hemidiaphragmatic elevation. No pneumothorax, large pleural effusion or overt pulmonary edema. Mild subsegmental bibasilar opacities redemonstrated. Unchanged likely benign sclerotic focus of the left proximal humerus. Degenerative changes of the shoulders and spine. IMPRESSION: Mild bibasilar opacities are similar to prior suggestive of atelectasis. Medications Administered ER medications given: Aspirin 324 mg p.o. ECG Indication: chest pain and SOB/dyspnea Rate (beats per minute): 90 Rhythm: atrial fibrillation Findings: + T-wave inversion (Anterior lateral leads) Comparison ECG Date: from (May 17, 2021) Change: the following changes noted (T wave inversions have replaced nonspecific T wave abnormality in anterior lateral leads) Code Status & VTE Plan Code Status DNR, all other treatment outside of a cardiac arrest VTE Prophylaxis Plan VTE Prophylaxis will be ordered: Yes PG Care Time/CCT Total # of Minutes Spent Total Time Spent with Patient: Total time spent is greater than 50% in coordination of care (as documented) at patient's floor/unit and/or counseling patient: Coding Level of Care Code 72313 INT INP/OBS CARE MIN Diagnoses Chest pain R07.9 Chest pain type: unspecified Left flank pain R10.9 Acute on chronic heart failure with normal ejection fraction I50.33 Permanent atrial fibrillation I48.21 Hypertension I10 Hypothyroidism E03.9 Controlled diabetes mellitus type II without complication E11.9 Benign essential tremor G25.0 Hyperlipidemia E78.5 (1) Chest pain Chest pain type: unspecified Qualified Code(s): R07.9 - Chest pain, unspecified
[2022-03-23 14:15] LABS: Influenza A virus by PCR Negative (Neg); Influenza B virus by PCR Negative (Neg); RSV by PCR Negative (Neg); SARS CoV2 RNA(COVID-19) Ceph NEGATIVE (Negative)
[2022-03-23] MEDS ORDERED: CALCIUM CARBONATE 500 MG CHEWABLE TAB PO PRN (15:08)
[2022-03-23] MEDS: POTASSIUM CHLORIDE CRTAB 20 MEQ TABCR PO SCH ×2 (17:01→21:45)
[2022-03-23] MEDS: GABAPENTIN 300 MG CAP PO SCH ×2 (17:02→21:44)
[2022-03-23] MEDS: ACETAMINOPHEN 500 MG TAB PO SCH ×2 (17:03→21:45)
[2022-03-23] MEDS: traMADol HCL 50 MG TABLET PO PRN (21:42)
[2022-03-23] MEDS: FUROSEMIDE 80 MG TAB PO SCH (21:42)
[2022-03-23] MEDS: VALSARTAN/SACUBITRIL 103/97MG TAB PO SCH (21:43)
[2022-03-23] MEDS: amLODIPine BESYLATE 5 MG TAB PO SCH (21:43)
[2022-03-23] MEDS: APIXABAN 5 MG TABLET PO SCH (21:43)
[2022-03-23] MEDS: METOPROLOL SUCC 50MG EXT REL TAB PO SCH (21:44)
[2022-03-23] MEDS: PRIMIDONE 50 MG TAB PO SCH (21:45)
--- NOTE | 2022-03-24 06:05 | Electrocardiogram Report ---
Test Reason : Blood Pressure : / mmHG Vent. Rate : 090 BPM Atrial Rate : 326 BPM P-R Int : 000 ms QRS Dur : 096 ms QT Int : 366 ms P-R-T Axes : 000 -21 162 degrees QTc Int : 447 ms Poor data quality, interpretation may be adversely affected Atrial fibrillation Minimal voltage criteria for LVH, may be normal variant Possible Inferior infarct (cited on or before 27-JUL-2016) Anterolateral infarct (cited on or before 26-JUN-2016) Abnormal ECG When compared with ECG of 17-MAY-2021 23:36, Questionable change in initial forces of Lateral leads T wave inversion now evident in Lateral leads Confirmed by Janusz Faria ([id number]) on 03/24/2022 6:05:08 AM Referred By: Confirmed By:Janusz Faria
[2022-03-24 06:57] LABS: Basophils # (auto) 0.08 K/uL (0-0.2); Basophils % (auto) 1.4 %; Eosinophils # (auto) 0.32 K/uL (0-0.50); Eosinophils % (auto) 5.7 %; Hematocrit (blood only) 42.4 % (34.1-44.9); Hemoglobin 13.7 g/dl (12.0-16.0); Immature Granulocytes # (auto) 0.02 K/uL (0.00-0.02); Immature Granulocytes % (auto) 0.4 %; Lymphocytes # (auto) 1.91 K/uL (1.2-3.4); Lymphocytes % (auto) 33.7 %; Mean Corpuscular Hgb Conc 32.3 g/dL (32.0-36.0); Mean Corpuscular Volume 92.8 fL (80.0-100.0); Monocytes # (auto) 0.52 K/uL (0.24-0.82); Monocytes % (auto) 9.2 %; Neutrophils # (auto) 2.81 K/uL (1.4-6.5); Neutrophils % (auto) 49.6 %; Platelet Count 298 K/uL (130-400); RDW Coefficient of Variation 13.6 % (11.5-14.5); RDW Standard Deviation 46.6 fL (36.4-46.3); Red Blood Count 4.57 M/uL (3.93-5.22); White Blood Count 5.66 K/ul (4.8-10.8)
[2022-03-24 07:37] LABS: BUN Creatinine Ratio 24.7 (10-20); Calcium 9.5 mg/dl (8.5-10.1); Creatinine Clr Calc Pharmacy 75.4 ml/min; Est GFR (African American) 81.8 ml/min; Est GFR (Non-African American) 70.5 ml/min; Potassium 3.8 mmol/L (3.5-5.1)
[2022-03-24] MEDS: ACETAMINOPHEN 500 MG TAB PO SCH ×3 (07:57→21:47)
[2022-03-24] MEDS: PRIMIDONE 50 MG TAB PO SCH ×2 (07:59→21:50)
[2022-03-24] MEDS: POTASSIUM CHLORIDE CRTAB 20 MEQ TABCR PO SCH ×4 (07:59→21:52)
[2022-03-24] MEDS: LEVOTHYROXINE SODIUM 75 MCG TABLET PO SCH (08:00)
[2022-03-24] MEDS: FUROSEMIDE 80 MG TAB PO SCH ×2 (08:00→21:49)
[2022-03-24] MEDS: GABAPENTIN 300 MG CAP PO SCH ×3 (08:00→21:49)
[2022-03-24] MEDS: VALSARTAN/SACUBITRIL 103/97MG TAB PO SCH ×2 (08:00→21:51)
[2022-03-24] MEDS: APIXABAN 5 MG TABLET PO SCH ×2 (08:00→21:49)
[2022-03-24] MEDS: SPIRONOLACTONE 25 MG TAB PO SCH (08:01)
[2022-03-24] MEDS: CALCIUM CITRATE 950 MG TAB PO SCH (08:01)
[2022-03-24] MEDS: METOPROLOL SUCC 50MG EXT REL TAB PO SCH ×2 (08:01→21:50)
[2022-03-24] MEDS: CHOLECALCIFEROL 1,000 UNITS 25 MCG TAB PO SCH (08:01)
[2022-03-24] MEDS: FLUTICASONE PROPIONATE NA SPR 16 GM BTL NAE SCH (08:01)
[2022-03-24] MEDS: LETROZOLE 2.5 MG TAB PO SCH (08:01)
[2022-03-24] MEDS: ROSUVASTATIN CALCIUM 20 MG TAB PO SCH (08:01)
[2022-03-24] MEDS: PANTOprazole 40 MG TAB PO SCH (08:01)
[2022-03-24] MEDS ORDERED: METOPROLOL SUCC 50MG EXT REL TAB PO SCH (09:00)
[2022-03-24] MEDS: traMADol HCL 50 MG TABLET PO PRN ×2 (09:56→21:53)
--- NOTE | 2022-03-24 10:02 | Cardiology Consultation ---
Date of Consultation March 24, 2022 Assessment & Plan (1) NYHA class 2 heart failure with preserved ejection fraction, with improvement of ejection fraction from prior measurement: (2) Permanent atrial fibrillation: (3) Cardiomyopathy: (4) Hypertension: (5) Morbid obesity: Plan 1. Cardiomyopathy: Diagnosed 2020, EF 35-40%. Most recent echo 10/2021 with improved EF 50-55%. Nonischemic. Secondary workup negative. PRINCESS level mildly elevated. Iron studies normal. SPEP consistent with hypogammaglobulinemia. Immunofixation and light chains recommended. Light chain ratio only mildly elevated. UPEP insignificant. She was on target doses of Metoprolol succinate but was recently reduced to 150 mg daily during previous hospitalization due to bradycardia. Continue Entresto 97/103 mg BID. She is tolerating this well without adverse effects. She is having high out of pocket expenses. Likely not a candidate for SGLT2 given financial concerns but may consider if she can get her medication cost down. May reconsider if she gets approved for PACE. Otherwise she is now at max tolerated therapy. Does not meet criteria for ICD. 2. HFimpEF: Currently NYHA Class II-III. She appears near euvolemic on exam today, however has a difficult exam. Her lower extremity edema is somewhat chronic. Her pulmonary symptoms have improved. She considers herself at baseline. Weight is up 30-40 lb from her previous baseline. She admits to a more sedentary lifestyle over the past year. Likely combination of volume overload and body mass. She is responding well to Lasix 80 mg PO BID. She had several unmeasured voids therefore I&Os inaccurate. Educated patient on importance of documentation. Kidney function and electrolytes stable. Continue 80 mg BID on discharge. Suspect she will continue to diurese as outpatient given her current response. Continue Spironolactone. Continue triple GDMT as above.Repeat BMP/mag 7-10 days from discharge for monitoring. Patient familiar with a low sodium diet, however admits they get take out food regularly. She or or son do not cook very often. She admits to dietary indiscretion prior to admission. Strongly encourage her to resume daily standing weights at home. Previous dry weight 265 lb. Notify HF program if 2+ lb weight gain overnight or 5+ lb in 1 week. Discussed other red flag symptoms. We discussed the nature of heart failure and the goals of the program. She is agreeable to ongoing participation. 3. Atrial fibrillation: Permanent. Adequate rate control. No symptoms. She appears to be on the appropriate dose of apixaban. She is at the weight limit for use of this medication. Will monitor her response to more aggressive di uresis and consider alternatives if necessary. 4. Hypokalemia: Patient requires a lot of potassium supplementation. Values remain low-normal despite Entresto, Spironolactone, and supplements. Continue to monitor. 5. Back/ankle pain: Exacerbated by her recent fall. Going to be worked up by primary service. Disposition: Will continue to follow during hospitalization. Anticipate discharge tomorrow. Continue close follow up with the HF program- 4 weeks. Follow up with Dr. Sneed next week. Today's plan was discussed with Dr. Faria and Ramírez Castillo. *Patient needs Wednesday afternoon appointment due to transportation issues.. Supervising Physician Co-Signing Physician Notes Patient was seen and examined today. Please see Sylwia in legs note for full details. She admits that she had consumed food high in sodium content on 2 occasions prior to presentation. With additional Lasix, her breathing is back to bas obinna. She denies shortness of breath or chest pain. Her biggest issue is lumbar back pain. She has pain shooting down her right leg, which is being evaluated by hospitalist service. Exam was notable for: General: No acute distress Neck: No JVD Cardiac: Irregularly irregular with normal heart rate. No murmur. Lungs: Clear to auscultation bilaterally Extremities: 1+ bilateral lower extremity edema. ASSESSMENT/PLAN: 1. Heart failure with improved EF: Continue Lasix 80 mg p.o. b.i.d. with a goal of net negative fluid balance daily. Based on her description today, this afternoon, likely NYHA Class 2. Continue her usual heart failure medical regimen as outlined by Sylwia Hernandez. 2. Disposition: Continue follow-up with heart failure program and her primary telegraph printer mechanic, Dr. Sneed. History of Present Illness Attending Physician: Brandon Yen History of Present Illness 76-year-old woman with cardiomyopathy (35-40%---> 50-55%), permanent atrial fibrillation (metoprolol/apixaban), and chronic HFimpEF. Dr. Sneed is her primary telegraph printer mechanic. She is well known to the heart failure program as well. Recent cardiac studies: 1. 05/18/21 Echo: LV systolic function moderately reduced, 35-40%. Moderate global hypokinesis. Moderate to severe septal hypokinesis. RV mildly dilated. RV systolic function moderately reduced. RVSP elevated 30-40 mmHg. 2. 03/21/21 Lexiscan: Negative for ischemia. No chest pain. No ECG changes. 3. 10/31/21 Echo: No valvular abnormalities. LV systolic function low normal, 50- 55%. Mild concentric LVH. She was previously hospitalized from 05/18/21 through 05/19/21 for acute on chronic HFrEF. Patient presented mildly decompensated with dyspnea, edema, orthopnea, and chest heaviness. She responded very well to IV diuretics. Etiology likely medication nonadherence- she self decreased her diuretic due to "frequent urination". She had a mild episode of bradycardia therefore Metoprolol was reduced. Lisinopril was transitioned to Entresto. She was discharged on Lasix 60 mg daily. She was most recently evaluated on 11/07/21 with the heart failure program. She was near euvolemic on exam and well compensated. Weight was up slightly yo 275 lb. She continued Lasix 60 mg BID + Spironolactone. Dry weight 265 lb. On 03/23/22 she presented to the ED with increasing dyspnea, orthopnea, and edema. She admits to dietary indiscretion (potato chips, popcorn). She did increase her Lasix to 80 mg as directed without much improvement. She woke up at 4am yesterday with worsening orthopnea and chest tightness and woke her son to bring her to the ED. She also has chronic lower extremity edema which has been worse lately. Patient [place] [facility] a few days prior which has exacerbated her chronic ankle pain. She attributes the increased edema to this. She does not typically weigh herself at home. She has been having increased issues with ambulation over the past year. She admits to being much more sedentary and assumes she gained some body weight. Her previous outpatient dry weight was 265 lb. She was 275 lb at her last office visit. Patient was evaluated this morning in her room. She reports she's feeling significantly improved. Her breathing is at baseline. She is 95% on room air. She did not sleep well due to back pain but did not have any significant orthopnea overnight. She does have her head slightly elevated. She denies any further chest pain since admission. She denies cough, wheezing, palpitations. She is taking Lasix 80 mg PO BID with good output. She self reports frequent urination and notes several unmeasured voids. She was 302 lb on the standing scale this am. SocHx: Patient lives at home with her son. She does drive and do her own medications. She is retired medical and health services manager. Allergies Allergy/AdvReac Type Severity Reaction Status Date / Time adhesive Allergy Intermediate BLISTERING Verified 03/06/22 12:34 cephalexin Allergy Intermediate diarrhea,vomiting, Verified 03/06/22 12:34 nausea fenoprofen Allergy Intermediate MUSCLE Verified 03/06/22 12:34 WEAKNESS, PAIN, HIVES ibuprofen Allergy Intermediate RELATED TO Verified 03/06/22 12:34 FENOPROFEN metformin AdvReac Severe diarrhea Verified 03/06/22 12:34 Home Medications Medication Instructions Recorded Confirmed Type letrozole 2.5 mg tablet 2.5 mg PO QAM 08/15/18 03/23/22 History acetaminophen 500 mg tablet 1,000 mg PO TID 09/18/20 03/23/22 History (Tylenol Extra Strength) calcium citrate 315 mg 2 tab PO QAM 09/18/20 03/23/22 History calcium-vitamin D3 6.25 mcg (250 unit) tablet (Citracal + Vitamin D Maximum) calcium carb-mag hydrox-simeth 280 1 tab PO DAILY PRN Indigestion 10/31/20 03/23/22 History mg-128 mg-20 mg chewable tablet fluticasone propionate 50 2 spray intranasal QAM 10/31/20 03/23/22 History mcg/actuation nasal spray,suspension (Allergy Relief (fluticasone)) cholecalciferol (vitamin D3) 25 25 mcg PO QAM #90 caps 02/17/21 03/23/22 Rx mcg (1,000 unit) capsule apixaban 5 mg tablet (Eliquis) 5 mg PO BID #180 tabs 06/02/21 03/23/22 Rx metoprolol succinate 50 mg See Rx Instructions PO DAILY #270 06/16/21 03/23/22 Rx tablet,extended release 24 hr tabs primidone 50 mg tablet 100 mg PO BID 90 days #360 tabs 07/14/21 03/23/22 Rx rosuvastatin 20 mg tablet 20 mg PO DAILY #90 tabs 09/02/21 03/23/22 Rx sacubitril 97 mg-valsartan 103 mg 1 tab PO BID #180 tabs 11/03/21 03/23/22 Rx tablet (Entresto) zonisamide 50 mg capsule 50 mg PO QAM #90 caps 11/11/21 03/23/22 Rx levothyroxine 75 mcg tablet 75 mcg PO QAM #90 tabs 11/16/21 03/23/22 Rx tramadol 50 mg tablet 50 mg PO TID PRN pain #90 tabs 12/19/21 03/23/22 Rx spironolactone 25 mg tablet 25 mg PO DAILY #90 tabs 12/27/21 03/23/22 Rx Wheelchair (Manual) (Manual #1 ea 01/01/22 Rx Wheelchair) furosemide 20 mg tablet 60 mg PO BID #540 tabs 02/08/22 03/23/22 Rx potassium chloride 10 mEq 20 meq PO QID #240 caps 02/08/22 03/23/22 Rx capsule,extended release amlodipine 10 mg tablet 10 mg PO HS #90 tabs 02/25/22 03/23/22 Rx gabapentin 300 mg capsule 300 mg PO TID #90 caps 03/10/22 03/23/22 Rx omeprazole 20 mg capsule,delayed 20 mg PO DAILY 03/23/22 03/23/22 History release Patient History Medical History Acid reflux disease Adenomatous colon polyp Benign essential tremor Carpal tunnel syndrome Chronic low back pain Controlled diabetes mellitus type II without complication Diverticulitis Diverticulosis of colon 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 Received 5130 cGy utilizing hypo-fractionation." On 08/18/16 11:16 Willow Calero wrote "Abnormal left breast mammogram Status post stereotactic biopsy 06/09/2016 revealing DCIS grade 3 Estrogen receptor positive and progesterone receptor positive Status post needle localization left partial mastectomy with sentinel lymph node biopsy 07/27/2016 DCIS and LCIS Stage pTis pN0" Generalized osteoarthritis of multiple sites Hyperlipidemia Hypertension Hypokalemia Hypothyroidism Irritable bowel syndrome with constipation Morbid obesity with BMI of 50.0-59.9, adult VICKIE (obstructive sleep apnea) Recurrent UTI Retinal detachment Spondylisthesis Urge and stress incontinence Surgical History History of cataract surgery right History of colonoscopy 11/27/2016 History of conization of cervix History of cryosurgery cervical cancer- History of inguinal hernia repair bilt History of knee replacement left History of left breast biopsy malignant History of left hip replacement History of partial mastectomy of left breast left partial mastectomy with sentinel lymph node biopsy History of right breast biopsy benign History of right cataract surgery History of right hip replacement History of tooth extraction History of wisdom tooth extraction Hx of arthroscopic knee surgery left Retinal detachment of right eye due to tear of retina Status post correction of deviated nasal septum Family History Mother Diabetes Heart disease Peripheral vascular disease Colorectal cancer Hypertension Stroke Cancer Father Diabetes Congestive heart failure (CHF) Myocardial infarction Hypertension Stroke Heart disease Aunt Breast cancer Sister Lung cancer 2 sisters Other Nephrolithiasis No family history of adverse response to anesthesia Pure hypercholesterolemia Denies family history of Asthma Social History Smoking Status: Never smoker Second Hand Exposure: Yes (Exposure for 30 years); Hx Alcohol Use: No Hx Substance Use: No Preferred Language: Fijian Communication Ability: Effective Visual Impairment: Partially Limited Hearing Ability: Normal Packaging Tech Required: No Beliefs That Will Affect Care: None marital status: / Current Living Situation: Family Current Living Situation Comment: Lives with her son Edward current occupational status: retired How many Children do You have: 2 Feels Safe at Home: Yes Childhood Exposure to Second-Hand Smoke: Yes Diet Comment: avoids seeds/nuts caffeine: Yes (coffee) Dental Care, Regularly: Yes Physical Activity Frequency: Does not Exercise Seatbelt Use: always Sunscreen Use: Yes Do you think of yourself as: straight/heterosexual Assistive Devices: Bedside Commode, Walker and Wheelchair Physical Exam Physical Exam: She is alert and oriented x3. Mood affect appear normal. She answered all questions appropriately. HEENT: Sclerae are anicteric. Pupils are equal and reactive to light and accommodation. Extraocular movements were intact. No JVD but difficult exam. - HJR Neuro: Cranial nerves intact Lungs: Lungs are clear to auscultation bilaterally. There are no rales wheezes or rhonchi. She has normal respiratory effort without use of accessory muscles. Cardiac: The rhythm was irregular. The rate was well controlled. There are no murmurs on examination. The PMI was not markedly displaced on palpation. Abdomen: Obese Extremities: Patient has bilateral radial pulses that are equal in intensity. There is no evidence cyanosis or clubbing. Chronic 1-2 + edema at the ankles. Skin: There are no rashes noted on examination today. Results & Data ([facility]) Vital Signs (Past 12 Hours) Vital Signs Temp Pulse Pulse Resp BP Pulse Ox O2 Del Method 03/24/22 07:30 97.3 F L 74 20 119/79 95 Room Air 03/24/22 07:06 90 03/24/22 04:00 97.5 F L 78 18 138/99 95 Room Air 03/23/22 22:01 83 PG Care Time/CCT Total # of Minutes Spent Total Time Spent with Patient: Total time spent is greater than 50% in coordination of care (as documented) at patient's floor/unit and/or counseling patient: Coding Level of Care Code 19110 INT INP/OBS CARE 3/75MIN Diagnoses NYHA class 2 heart failure with preserved ejection fraction, with improvement of ejection fraction from prior measurement I50.30 Permanent atrial fibrillation I48.21 Cardiomyopathy I42.9 Hypertension I10 Morbid obesity E66.01
--- NOTE | 2022-03-24 10:16 | Progress Note ---
Date of Service March 24, 2022 Assessment & Plan (1) Chest pain: Plan: * Reports resolve of symptoms of chest pain. * She does have reproducibility on exam which she equates to a prior history of surgical intervention. * Troponin not elevated. Chest pain type: unspecified Qualified Code(s): R07.9 - Chest pain, unspecified (2) Acute on chronic heart failure with normal ejection fraction: Plan: * Patient is up approximately 40 pounds from her dry weight. * She has been diuresing well, but I&O's have not been tracked very closely. * Will continue w/ 80 mg po BID. * Her SOB has improved. * She will f/u w/ the CHF clinic with a previously scheduled appointment. * Continue metoprolol succinate and Entresto for nonischemic cardiomyopathy although most recently left ventricular function has improved to 50 to 55% in October 2021 (3) Lumbar pain: Plan: * Recent fall without follow-up imaging studies. * Reproducible tenderness palpation over the lumbar spinous processes and paraspinal muscle distribution. * Will obtain CT of the lumbar spine to evaluate for possible sources of discomfort. * Patient admits that she uses a stool to scoot around her house and her mobility has been limited which she reports contributes to her weight gain and shortness of breath. * Will also consult PT OT for any advice with mobility to help her achieve some greater independence at home. (4) Left flank pain: Plan: Suspect this is a muscle strain She had a similar pain during her September 2020 admission with an unremarkable CT abdomen pelvis. Urinalysis is negative for red blood cells making kidney stone much less likely and this is less consistent with her history Urine will be sent for culture however low likelihood of UTI/pyelonephritis given no white blood count/neutrophilia, fever or WBC/bacteria in urine (5) Permanent atrial fibrillation: Plan: Continue apixaban 5 mg p.o. twice daily given low likelihood of needing cardiac catheterization Continue rate control with metoprolol succinate (6) Hypertension: Plan: Continue usual home doses of amlodipine, metoprolol succinate, Entresto and spironolactone. Lasix dosing as above (7) Hypothyroidism: Plan: TSH within normal limits in February Continue levothyroxine 75 mcg p.o. daily (8) Controlled diabetes mellitus type II without complication: Plan: Previously diagnosed but no longer on metformin. Repeat HbA1c with a.m. labs. (9) Benign essential tremor: Plan: Continue primidone and zonisamide (10) Hyperlipidemia: Plan: Continue rosuvastatin Plan VTE prophylaxis - Eliquis Diet - regular Disposition - observation status to med/tele Admission and Anticipated Discharge Date Admission Date: March 23, 2022 Subjective Patient was seen and evaluated at bedside today. She reports that her shortness of breath has near completely resolved. Patient is sitting upright in a chair and attempting to take a nap. We had a lengthy discussion and she informed her that this is how she tends to sleep secondary to her ongoing chronic back pain. Additionally, she reports that she had sustained a fall shortly after the new year and has had increasing low back pain since that time. She has had extensive evaluation in the past including pain management, but has had no imaging studies of her spine since the fall. Patient is diuresing well today and hoping to be discharged to home soon. She is agreeable to stay for nightly dose of Lasix and evaluation of low back pain with a CT imaging studies. Otherwise, she reports feeling much better with her breathing and denies any complaints of chest discomfort Review of Systems Review of Systems: A complete 10 point review of systems was reviewed with the patient with pertinent positives and negatives as per history of present illness. All else were negative. Physical Exam Physical Exam: VITAL SIGNS - Vital signs and nursing notes were reviewed. GENERAL - 77-year-old female appearing her stated age and in noticeable discomfort throughout the exam. NECK - FROM of the cervical spine. ABDOMEN - Abdominal contour obese without pulsations or visible masses. BS normoactive all four quadrants. No tenderness, palpable masses, hepatosplenomegaly, or ascites noted. MUSCULOSKELETAL - ROM of the lumbar spine region was limited with forward flexion at the waist. Pt was seated on the chair in the upright position. Pt made guarded movements when asked to change position. No step-off deformities were palpated down the thoracolumbar spines. Moderate Tenderness to Palpation experienced at the level of the lumbar spine and paraspinal muscle distribution. Moderate reproducible tenderness to palpation across the RIGHT sided iliac spine. NEUROLOGIC - REFLEXES: Limited assessment secondary to seated position and compliance. SENSORY: Spinothalamic tract was found to be intact with ability to discriminate sharp versus dull sensation at the level of hip joint down do the great toe. No sensory defects of the dorsal column were appreciated utilizing light touch for evaluation. CEREBELLAR: Pt able to perform rapid alternating movements of the feet. EXTREMITIES - Range of Motion - FROM of the lower extremities. No clonus noted with PROM of the lower extremities bilaterally. Pt had +5/5 strength appreciated bilaterally in the lower extremities against examiner's resistance. Moderate bilateral peripheral edema noted on exam. VASCULAR - Capillary refill of the great toe was brisk. No mottling or blanching of the extremities present. +3/5 dorsalis pedis pulses palpated bilaterally. Results & Data ([facility]) Vital Signs (Past 12 Hours) Vital Signs Temp Pulse Pulse Resp BP Pulse Ox O2 Del Method 03/24/22 07:30 36.3 C L 74 20 119/79 95 Room Air 03/24/22 07:06 90 03/24/22 04:00 36.4 C L 78 18 138/99 95 Room Air PG Care Time/CCT Total # of Minutes Spent Total Time Spent with Patient: Total time spent is greater than 50% in coordination of care (as documented) at patient's floor/unit and/or counseling patient: Coding Level of Care Code 24486 SUB INP/OBS CARE 3/50MIN Diagnoses Chest pain R07.9 Chest pain type: unspecified Acute on chronic heart failure with normal ejection fraction I50.33 Lumbar pain M54.50 Left flank pain R10.9 Permanent atrial fibrillation I48.21 Hypertension I10 Hypothyroidism E03.9 Controlled diabetes mellitus type II without complication E11.9 Benign essential tremor G25.0 Hyperlipidemia E78.5 Time Spent (min) 55
[2022-03-24] MEDS ORDERED: PHENAZOPYRIDINE HCL 200 MG TAB PO PRN (13:01)
[2022-03-24] MEDS ORDERED: traMADol HCL 50 MG TABLET PO STA (15:36)
--- NOTE | 2022-03-24 15:54 | CT Scan Report ---
LUMBAR SPINE CT CT DOSE: 1022.28 mGy.cm HISTORY: Low back pain/injury s/p fall TECHNIQUE: Multiaxial CT images of the lumbar spine were performed and reformatted in the sagittal an d coronal plane without the use of contrast. A dose lowering technique was utilized adhering to the principles of ALARA. COMPARISON: None. FINDINGS: Mild levoscoliosis of the lumbar spine. There is 7 mm of anterolisthesis of L4 and L5. This results in moderate to severe central canal narrowing at this level. There is also moderate central canal narrowing at L3-L4 and mild central canal narrowing at L2-L3 due to the broad-based posterior d isc bulges and ligamentum flavum and facet hypertrophy. No acute fractures within the lumbar spine. S evere disc space narrowing at L4-L5. Mild disc space narrowing at L5-S1. The visualized sacrum is int act. Severe facet degenerative changes within the mid to lower lumbar spine. IMPRESSION: 1. No fractures within the lumbar spine. 2. Degenerative changes as described above. ACT 112: Negative or not required by law. Electronically signed by: Aryan Perera M.D. 03/24/2022 3:52 PM
[2022-03-24] MEDS: LIDOCAINE 5% 1 PATCH TD SCH (17:11)
[2022-03-24] MEDS: amLODIPine BESYLATE 5 MG TAB PO SCH (21:48)
--- NOTE | 2022-03-24 23:03 | XCELERA ---
[id number] \\[id number]{1}___[id number]
[2022-03-25] MEDS ORDERED: DICLOFENAC SOD 1% GEL 100 GM TUBE EXT PRN (02:34)
[2022-03-25 03:00] VITALS: O2SAT 93
[2022-03-25] MEDS: ACETAMINOPHEN 500 MG TAB PO SCH ×2 (08:01→13:58)
[2022-03-25] MEDS: CALCIUM CITRATE 950 MG TAB PO SCH (08:02)
[2022-03-25] MEDS: APIXABAN 5 MG TABLET PO SCH (08:02)
[2022-03-25] MEDS: FUROSEMIDE 80 MG TAB PO SCH (08:03)
[2022-03-25] MEDS: CHOLECALCIFEROL 1,000 UNITS 25 MCG TAB PO SCH (08:03)
[2022-03-25] MEDS: GABAPENTIN 300 MG CAP PO SCH ×2 (08:03→13:59)
[2022-03-25] MEDS: FLUTICASONE PROPIONATE NA SPR 16 GM BTL NAE SCH (08:03)
[2022-03-25] MEDS: LETROZOLE 2.5 MG TAB PO SCH (08:03)
[2022-03-25] MEDS: LIDOCAINE 5% 1 PATCH TD SCH (08:04)
[2022-03-25] MEDS: LEVOTHYROXINE SODIUM 75 MCG TABLET PO SCH (08:04)
[2022-03-25] MEDS: PANTOprazole 40 MG TAB PO SCH (08:05)
[2022-03-25] MEDS: POTASSIUM CHLORIDE CRTAB 20 MEQ TABCR PO SCH ×3 (08:05→17:07)
[2022-03-25] MEDS: SPIRONOLACTONE 25 MG TAB PO SCH (08:05)
[2022-03-25] MEDS: ROSUVASTATIN CALCIUM 20 MG TAB PO SCH (08:05)
[2022-03-25] MEDS: METOPROLOL SUCC 50MG EXT REL TAB PO SCH (08:05)
[2022-03-25] MEDS: PRIMIDONE 50 MG TAB PO SCH (08:05)
[2022-03-25] MEDS: VALSARTAN/SACUBITRIL 103/97MG TAB PO SCH (08:06)
[2022-03-25] MEDS: traMADol HCL 50 MG TABLET PO PRN (08:10)
--- NOTE | 2022-03-25 08:11 | Progress Note ---
Date of Service March 25, 2022 Assessment & Plan (1) Chest pain: Plan: * Reports resolve of symptoms of chest pain. * She does have reproducibility on exam which she equates to a prior history of surgical intervention. * Troponin not elevated. Chest pain type: unspecified Qualified Code(s): R07.9 - Chest pain, unspecified (2) Acute on chronic heart failure with normal ejection fraction: Plan: * Patient is up approximately 40 pounds from her dry weight. * She has been diuresing well, but I&O's have not been tracked very closely. * Will continue w/ 80 mg po BID. Will discharge on this dose. * Her SOB has improved. Offers no further complaints of SOB. * She will f/u w/ the CHF clinic with a previously scheduled appointment. * Continue metoprolol succinate and Entresto for nonischemic cardiomyopathy although most recently left ventricular function has improved to 50 to 55% in October 2021 (3) Lumbar pain: Plan: * Recent fall without follow-up imaging studies. * CT L spine images and results reviewed. * Discussed case informally w/ Pain bret PA. * Case management will work on getting prior records sent over to [facility] pain mgmt for a f/u. Patient agreeable. * Patient admits that she uses a stool to scoot around her house and her mobility has been limited which she reports contributes to her weight gain and shortness of breath. * PT/OT evals happening today. Appreciate their input. * CM to work on outpatient services if available. * Navigator to establish f/u w/ PCP s/p d/c for continued mgmt of chronic pain. (4) Left flank pain: Plan: Suspect this is a muscle strain She had a similar pain during her September 2020 admission with an un[address]able CT abdomen pelvis. Urinalysis is negative for red blood cells making kidney stone much less likely and this is less consistent with her history Urine will be sent for culture however low likelihood of UTI/pyelonephritis given no white blood count/neutrophilia, fever or WBC/bacteria in urine (5) Permanent atrial fibrillation: Plan: Continue apixaban 5 mg p.o. twice daily given low likelihood of needing cardiac catheterization Continue rate control with metoprolol succinate (6) Hypertension: Plan: Continue usual home doses of amlodipine, metoprolol succinate, Entresto and spironolactone. Lasix dosing as above (7) Hypothyroidism: Plan: TSH within normal limits in February Continue levothyroxine 75 mcg p.o. daily (8) Controlled diabetes mellitus type II without complication: Plan: Previously diagnosed but no longer on metformin. Repeat HbA1c with a.m. labs. (9) Benign essential tremor: Plan: Continue primidone and zonisamide (10) Hyperlipidemia: Plan: Continue rosuvastatin Plan VTE prophylaxis - Eliquis Diet - regular Disposition - plan for d/c this afternoon Admission and Anticipated Discharge Date Admission Date: March 24, 2022 Subjective Patient was seen and evaluated bedside today. She reports ongoing low back pain which is slightly worse than her chronic home pain that she deals with on a daily basis. She did not sleep well last night secondary to her discomfort. The patient is hopeful to be discharged today. She is agreeable to PT OT evaluation as well as recommendation for outpatient follow-up with pain management. She is anxious to be discharged soon. Thankfully, she is without complaints of chest pain, palpitations, shortness of breath, hemoptysis, nausea, vomiting, or abdominal discomfort. Review of Systems Review of Systems: A complete 6 point review of systems was reviewed with the patient with pertinent positives and negatives as per history of present illness. All else were negative. Physical Exam Physical Exam: VITAL SIGNS - Vital signs and nursing notes were reviewed. GENERAL - 77-year-old female appearing her stated age and in noticeable discomfort throughout the exam. LUNGS - CTA bilaterally. HEART - RRR. No murmurs, rubs, or gallops appreciated. ABDOMEN - Abdominal contour obese without pulsations or visible masses. BS normoactive all four quadrants. No tenderness, palpable masses, hep atosplenomegaly, or ascites noted. MUSCULOSKELETAL - ROM remains limited. She is seated in a chair. Strength equal in the bilateral lower extremities. VASCULAR - Moderate bilateral pretibial edema noted. No mottling or blanching of the extremities present. +3/5 dorsalis pedis pulses palpated bilaterally. Results & Data ([facility]) Vital Signs (Past 12 Hours) Vital Signs Temp Pulse Pulse Resp BP Pulse Ox O2 Del Method 03/25/22 07:38 82 03/25/22 02:59 36.9 C 80 103/71 93 Room Air 03/24/22 23:11 36.8 C 65 20 123/64 92 Room Air PG Care Time/CCT Total # of Minutes Spent Total Time Spent with Patient: Total time spent is greater than 50% in coordination of care (as documented) at patient's floor/unit and/or counseling patient: Coding Level of Care Code 82322 SUB INP/OBS CARE 3/50MIN Diagnoses Chest pain R07.9 Chest pain type: unspecified Acute on chronic heart failure with normal ejection fraction I50.33 Lumbar pain M54.50 Left flank pain R10.9 Permanent atrial fibrillation I48.21 Hypertension I10 Hypothyroidism E03.9 Controlled diabetes mellitus type II without complication E11.9 Benign essential tremor G25.0 Hyperlipidemia E78.5 Time Spent (min) 45
[2022-03-25 08:18] VITALS: TEMP 97.9
[2022-03-25 08:19] LABS: Basophils # (auto) 0.06 K/uL (0-0.2); Eosinophils # (auto) 0.24 K/uL (0-0.50); Eosinophils % (auto) 3.9 %; Hematocrit (blood only) 41.7 % (34.1-44.9); Hemoglobin 13.5 g/dl (12.0-16.0); Immature Granulocytes # (auto) 0.02 K/uL (0.00-0.02); Immature Granulocytes % (auto) 0.3 %; Lymphocytes # (auto) 1.98 K/uL (1.2-3.4); Lymphocytes % (auto) 32.1 %; Mean Corpuscular Hemoglobin 29.8 pg (25.0-34.0); Mean Corpuscular Hgb Conc 32.4 g/dL (32.0-36.0); Mean Corpuscular Volume 92.1 fL (80.0-100.0); Mean Platelet Volume 10.5 fL (9.4-12.3); Monocytes % (auto) 8.1 %; Neutrophils # (auto) 3.36 K/uL (1.4-6.5); Neutrophils % (auto) 54.6 %; Platelet Count 315 K/uL (130-400); RDW Coefficient of Variation 13.4 % (11.5-14.5); RDW Standard Deviation 45.4 fL (36.4-46.3); Red Blood Count 4.53 M/uL (3.93-5.22); White Blood Count 6.16 K/ul (4.8-10.8)
[2022-03-25 11:06] LABS: BUN Creatinine Ratio 32.2 (10-20); Calcium 9.6 mg/dl (8.5-10.1); Creatinine Clr Calc Pharmacy 70.5 ml/min; Est GFR (Non-African American) 64.7 ml/min; Magnesium 2.1 mg/dl (1.7-2.4); Potassium 4.3 mmol/L (3.5-5.1)
--- NOTE | 2022-03-25 13:44 | Discharge Summary ---
Date of Service March 25, 2022 Admission HPI Per Admitting Provider Edie Munoz is a 77-year-old female with permanent atrial fibrillation, nonischemic cardiomyopathy and chronic heart failure with reduced ejection fraction who presents to the emergency room with shortness of breath. Shortness of breath started yesterday night. Worse with lying down. Associated bilateral leg swelling right greater than left. She took an increased dose (extra 40mg) of her Lasix at 4 AM this morning in addition to her regular dose of 60 mg later in the morning. She feels she had an increased amount of salt in her diet yesterday which exacerbated her current shortness of breath. After the increased dose of Lasix she reports feeling progressively less short of breath as the day went on. No fever, chills, nasal congestion, sinus pain, cough. After she took the Lasix she reports getting left back and left anterior chest pain around 5 AM. She reports the chest pain is new and she has not had this before. She reports a constant heavy sensation on the left-hand side of the chest, worse on lying down, no worse on palpation or exertion, no radiation, severity 4-5 out of 10 currently, at worst 7 out of 10. Regarding the left flank/back pain. She does have a history of frequent UTIs for which she is undergoing cystoscopy in April. She takes Pyridium every day due to burning sensation all the time. She previously had a CT abdomen pelvis for left CVA tenderness in September 2020 which showed no intra- abdominal/pelvic cause of the pain at that time. She reports left back pain is a similar pain she has had previously and gets chronic back pain from spondylolisthesis. Admission Exam (Per Admitting) Constitutional well developed; + not well nourished and no acute distress Eyes + anicteric sclerae; normal pupil size Respiratory normal respiratory effort and able to speak in complete sentences; no respiratory distress, no labored breathing and does not use accessory muscles Auscultation: + diminished lung sounds (Bibasal); no crackles and no wheezes Cardiovascular Rate/Rhythm: regular rate and regular rhythm Heart Sounds: no murmur Vessels: no JVD Extremities: normal capillary refill and + pedal edema (1+ pitting b/l equal); no calf tenderness Gastrointestinal (Abdomen) normal bowel sounds, soft, nontender, no hepatosplenomegaly Musculoskeletal no cyanosis or clubbing, extremities motor strength 5/5 Skin no rashes, warm and dry Neurologic moves all extremities and awake; no focal motor deficits and not confused Psychiatric A+Ox3, euthymic affect Genitourinary + CVA tenderness (Left) Discharge Data Consultations 03/23/22 12:32 ED Decision to Admit Stat 03/24/22 00:46 [facility] CHF Program Referral Routine 03/24/22 01:04 Consult Cardiology Routine Hospital Course (1) Chest pain: * Reports resolve of symptoms of chest pain. * She does have reproducibility on exam which she equates to a prior history of surgical intervention. * Troponin not elevated. (2) Acute on chronic heart failure with normal ejection fraction: * Patient is up approximately 40 pounds from her dry weight. * She has been diuresing well, but I&O's have not been tracked very closely. * Will continue w/ 80 mg po BID. Will discharge on this dose. * Her SOB has improved. Offers no further complaints of SOB. * She will f/u w/ the CHF clinic with a previously scheduled appointment. * Continue metoprolol succinate and Entresto for nonischemic cardiomyopathy although most recently left ventricular function has improved to 50 to 55% in October 2021 (3) Lumbar pain: * Recent fall without follow-up imaging studies. * CT L spine images and results reviewed. * Discussed case informally w/ Pain bret PA. * Case management will work on getting prior records sent over to [facility] pain mgmt for a f/u. Patient agreeable. * Patient admits that she uses a stool to scoot around her house and her mobility has been limited which she reports contributes to her weight gain and shortness of breath. * PT/OT evals happening today. Appreciate their input. * CM to work on outpatient services if available. * Navigator to establish f/u w/ PCP s/p d/c for continued mgmt of chronic pain. (4) Left flank pain: Suspect this is a muscle strain She had a similar pain during her September 2020 admission with an unremarkable CT abdomen pelvis. Urinalysis is negative for red blood cells making kidney stone much less likely and this is less consistent with her history Urine will be sent for culture however low likelihood of UTI/pyelonephritis given no white blood count/neutrophilia, fever or WBC/bacteria in urine (5) Permanent atrial fibrillation: Continue apixaban 5 mg p.o. twice daily given low likelihood of needing cardiac catheterization Continue rate control with metoprolol succinate (6) Hypertension: Continue usual home doses of amlodipine, metoprolol succinate, Entresto and spironolactone. Lasix dosing as above (7) Hypothyroidism: TSH within normal limits in February Continue levothyroxine 75 mcg p.o. daily (8) Controlled diabetes mellitus type II without complication: Previously diagnosed but no longer on metformin. Repeat HbA1c with a.m. labs. (9) Benign essential tremor: Continue primidone and zonisamide (10) Hyperlipidemia: Continue rosuvastatin Plan VTE prophylaxis - Eliquis Diet - regular Disposition - plan for d/c this afternoon Supervising Physician Co-Signing Physician Notes Patient seen and examined at bedside. I obtained a history of hospital stay and physical examination with the patient during my face to face encounter. I reviewed above note and agree with it. I discussed plan of care with Anna SILVESTRE and patient. Patient discharged after being treated with fluid overload. This likley contributed to her SOB. She improved with diuresis. Coding Level of Care Code HOSP INP/OBS DISCH >30 MIN Diagnoses Chest pain R07.9 Chest pain type: unspecified Acute on chronic heart failure with normal ejection fraction I50.33 Lumbar pain M54.50 Left flank pain R10.9 Permanent atrial fibrillation I48.21 Hypertension I10 Hypothyroidism E03.9 Controlled diabetes mellitus type II without complication E11.9 Benign essential tremor G25.0 Hyperlipidemia E78.5 Time Spent (min) 45
[2022-03-25 17:28] VITALS: BP 133/84; PULSE 82
--- NOTE | 2022-04-02 10:09 | Coding Query ---
CONGESTIVE HEART FAILURE To Promote full compliance with coding requirements relating to patient care, physician participation is requested in all cases of forest pathology associate professor uncertainty. Please assist us with the following questions. A diagnosis of Congestive Heart Failure is documented in the patient's medical record. To accurately code this diagnosis and to compare patient severity, we ask that you specify the type of heart failure by placing an X within the parenthesis (x). SYSTOLIC HEART FAILURE ( ) Acute ( ) Chronic ( ) Acute on Chronic ( ) Rheumatic ( ) Unknown DIASTOLIC HEART FAILURE ( ) Acute ( ) Chronic ( x) Acute on Chronic ( ) Rheumatic ( ) Unknown COMBINED SYSTOLIC AND DIASTOLIC HEART FAILURE ( ) Acute ( ) Chronic ( ) Acute on Chronic ( ) Rheumatic ( ) Unknown Was the CHF Present On Admission? Please check the appropriate box: (x ) Present on Admission ( ) Not Present On Admission ( ) Clinically undetermined Thank you N[facility]STOR Dasilva [facility]
== END 2022-03-25 17:48 | disposition home health service (06) | DRG 291 ==
LOC: EDINP 10:50 → ED 10:50 → SUATTDRO 12:34 → 2W 14:34

== ENCOUNTER 2022-03-30 13:15 | Observation (INO) ==
[2022-03-30] MEDS ORDERED: ONDANSETRON INJ 2 MG/ML 2 ML VIAL IV STA (15:59)
[2022-03-30] MEDS ORDERED: MoRPHine SULFATE 4 MG/ML 1 ML CARP\\VIAL IV PRN ×2 (15:59→23:35)
--- NOTE | 2022-03-30 15:59 | Emergency Department Note ---
Impression & Plan Acute lower GI bleeding, Left sided abdominal pain ED Provider Note NAME: JENNIFER ZHENGTINE AGE: 77 SEX: F : 1945 ARRIVES VIA: Walk-In INFORMANT: Patient, ED PROVIDER(S): Nasir Zarco DO CHIEF COMPLAINT: GI bleeding HPI: The patient is a 77-year-old female who presented to the emergency department for an evaluation of left-sided abdominal pain. The patient describes left-sided abdominal pain and rectal bleeding. She initially started with dark stool. She then noticed bright red blood per rectum. She notices no vomiting or fever. She denies having any dysuria or frequency. The patient was seen in our facility recently and admitted for CHF. She states that she was discharged. She was feeling much better. She did not see her family doctor for the symptoms today. ROS: See above HPI for pertinent positives & negatives. A total of 10 systems reviewed and were otherwise negative. PAST MEDICAL HISTORY: See Below PAST SURGICAL HISTORY: See Below FAMILY HISTORY: See Below SOCIAL HISTORY: See Below HOME MEDICATIONS: See Below ALLERGIES: See Below VITALS: See Below PHYSICAL EXAMINATION: GENERAL: Patient is awake alert in no acute distress patient is resting comfortably and showing no signs of anxiety EYES: The conjunctivae are clear. The pupils are round and reactive. EARS, NOSE, MOUTH AND THROAT: The nose is without any evidence of any deformity. Mucous membranes are moist. Tongue is midline. NECK: The neck is nontender and supple. RESPIRATORY: Normal respiratory effort is noted there is no evidence of wheezing rhonchi or rales CARDIOVASCULAR: Regular rate and rhythm noted there no murmurs rubs or gallops normal S1 normal S2. GASTROINTESTINAL: The abdomen is soft and nondistended. There is left upper quadrant tenderness to palpation which is moderate. Rectal exam revealed brown stool which was strongly heme positive. MUSCULOSKELETAL/EXTREMITIES: There is no evidence of gross deformity full range of motion is noted in the hips and shoulders. SKIN: Skin is warm and dry. Trace pedal edema was noted bilaterally. NEUROLOGIC: Patient is awake alert and oriented x3. MEDICAL DECISION MAKING: The patient is a 77-year-old female who presented to the emergency department for an evaluation of abdominal pain. She noticed lower GI bleeding. She is on blood thinners. Patient was found to have heme positive stool on evaluation. She also had significant left-sided abdominal pain. I discussed the patient's laboratory and radiographic studies with her. She was very difficult to obtain an IV access and. It took a long time to get blood work as well as a CT. Given her findings she could be somebody who might be a candidate for outpatient management especially given her normal vital signs. She was not tachycardic or hypotensive. I discussed her condition with the on-call [facility] hospitalist. Given the difficulty in obtaining laboratory and radiographic studies with this patient I do feel she may be a better candidate for inpatient management at this time. She may require inpatient colonoscopy. Triage Nursing notes reviewed. Prior medical records reviewed Vital Signs: reviewed and remarkable for elevated blood pressure. Differential diagnosis: Etiologies such as appendicitis, diverticulitis, obstruction, inflammatory bowel disease, renal colic, PUD, biliary pathology, pancreatitis, mesenteric ischemia, aortic pathology, infections, genitourinary, UTI, perforated viscus, as well as others were entertained. ER treatment provided: See below Diagnostics interpreted by me: ECG: Atrial fibrillation at 80 bpm. There was no PVCs noted. Nonspecific ST segment abnormalities with inferior Q waves are noted. This was compared to a tracing from March 23, 2022. No changes were noted. Cardiac Monitoring: An order was placed for continuous cardiac monitoring. The monitor shows a rate of 67 bpm with atrial fibrillation. Laboratory studies: As stated above and show below. Imaging studies: See below. Radiographic imaging was reviewed by myself Consultation(s): I discussed this case with Dr. Gong who is on-call for the [facility] hospitalist group. 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 Received 5130 cGy utilizing hypo-fractionation." On 08/18/16 11:16 Willow Calero wrote "Abnormal left breast mammogram Status post stereotactic biopsy 06/09/2016 revealing DCIS grade 3 Estrogen receptor positive and progesterone receptor positive Status post needle localization left partial mastectomy with sentinel lymph node biopsy 07/27/2016 DCIS and LCIS Stage pTis pN0" Gait disturbance Generalized osteoarthritis of multiple sites Glaucoma Hyperlipidemia Hypertension Hypokalemia Hypothyroidism Irritable bowel syndrome with constipation Morbid obesity Morbid obesity with BMI of 50.0-59.9, adult NYHA class 2 heart failure with preserved ejection fraction, with improvement of ejection fraction from prior measurement VICKIE (obstructive sleep apnea) Permanent atrial fibrillation (09/2020) Recurrent UTI Retinal detachment Spondylisthesis Urge and stress incontinence Surgical History History of cataract surgery right History of colonoscopy 11/27/2016 History of conization of cervix History of cryosurgery cervical cancer- History of inguinal hernia repair bilt History of knee replacement left History of left breast biopsy malignant History of left hip replacement History of partial mastectomy of left breast left partial mastectomy with sentinel lymph node biopsy History of right breast biopsy benign History of right cataract surgery History of right hip replacement History of tooth extraction History of wisdom tooth extraction Hx of arthroscopic knee surgery left Retinal detachment of right eye due to tear of retina Status post correction of deviated nasal septum Family History Mother Diabetes Heart disease Peripheral vascular disease Colorectal cancer Hypertension Stroke Cancer Father Diabetes Congestive heart failure (CHF) Myocardial infarction Hypertension Stroke Heart disease Aunt Breast cancer Sister Lung cancer 2 sisters Other Nephrolithiasis No family history of adverse response to anesthesia Pure hypercholesterolemia Denies family history of Asthma Social History Smoking Status: Never smoker Second Hand Exposure: Yes; Hx Alcohol Use: No Hx Substance Use: No Preferred Language: Icelandic Communication Ability: Effective Visual Impairment: Partially Limited Hearing Ability: Normal Gas Meter Prover Required: No Beliefs That Will Affect Care: None marital status: / Current Living Situation: Family Current Living Situation Comment: Lives with her son Edward current occupational status: retired How many Children do You have: 2 Feels Safe at Home: Yes Childhood Exposure to Second-Hand Smoke: Yes Diet Comment: avoids seeds/nuts caffeine: Yes (coffee) Dental Care, Regularly: Yes Physical Activity Frequency: Does not Exercise Seatbelt Use: always Sunscreen Use: Yes Do you think of yourself as: straight/heterosexual Assistive Devices: Glasses Allergies Allergies Allergy/AdvReac Type Severity Reaction Status Date / Time adhesive Allergy Intermediate BLISTERING Verified 03/27/22 08:15 cephalexin Allergy Intermediate diarrhea,vomiting, Verified 03/27/22 08:15 nausea fenoprofen Allergy Intermediate MUSCLE Verified 03/27/22 08:15 WEAKNESS, PAIN, HIVES ibuprofen Allergy Intermediate RELATED TO Verified 03/27/22 08:15 FENOPROFEN metformin AdvReac Severe diarrhea Verified 03/27/22 08:15 Home Meds Home Medications Medication Instructions Recorded Confirmed letrozole 2.5 mg tablet 2.5 mg PO QAM 08/15/18 03/27/22 acetaminophen 500 mg tablet 1,000 mg PO TID 09/18/20 03/27/22 (Tylenol Extra Strength) calcium citrate 315 mg 2 tab PO QAM 09/18/20 03/27/22 calcium-vitamin D3 6.25 mcg (250 unit) tablet (Citracal + Vitamin D Maximum) calcium carb-mag hydrox-simeth 280 1 tab PO DAILY PRN Indigestion 10/31/20 03/27/22 mg-128 mg-20 mg chewable tablet fluticasone propionate 50 2 spray intranasal QAM 10/31/20 03/27/22 mcg/actuation nasal spray,suspension (Allergy Relief (fluticasone)) omeprazole 20 mg capsule,delayed 20 mg PO QAM 03/23/22 03/27/22 release diclofenac sodium 1 % topical gel 2 g topical QID 03/26/22 03/27/22 (Voltaren Arthritis Pain) rosuvastatin 20 mg tablet 20 mg PO HS 03/27/22 03/27/22 spironolactone 25 mg tablet 25 mg PO QPM 03/27/22 03/27/22 Previous Rx's Medication Instructions Recorded cholecalciferol (vitamin D3) 25 25 mcg PO QAM #90 caps 02/17/21 mcg (1,000 unit) capsule apixaban 5 mg tablet (Eliquis) 5 mg PO BID #180 tabs 06/02/21 metoprolol succinate 50 mg See Rx Instructions PO DAILY #270 06/16/21 tablet,extended release 24 hr tabs primidone 50 mg tablet 100 mg PO BID 90 days #360 tabs 07/14/21 sacubitril 97 mg-valsartan 103 mg 1 tab PO BID #180 tabs 11/03/21 tablet (Entresto) zonisamide 50 mg capsule 50 mg PO QAM #90 caps 11/11/21 levothyroxine 75 mcg tablet 75 mcg PO QAM #90 tabs 11/16/21 Wheelchair (Manual) (Manual #1 ea 01/01/22 Wheelchair) potassium chloride 10 mEq 20 meq PO QID #240 caps 02/08/22 capsule,extended release amlodipine 10 mg tablet 10 mg PO HS #90 tabs 02/25/22 gabapentin 300 mg capsule 300 mg PO TID #90 caps 03/10/22 furosemide 80 mg tablet 80 mg PO BID #14 tabs 03/25/22 lidocaine 5 % topical patch 1 patch transdermal QAM 30 days 03/25/22 #30 ea peg 3350-electrolytes 236 240 ml PO Q10M #4,000 mL 03/26/22 gram-22.74 gram-6.74 gram-5.86 gram solution (GaviLyte-G) tramadol 50 mg tablet 50 mg PO TID PRN pain #90 tabs 03/27/22 fosfomycin tromethamine 3 gram 1 packet PO ONCE #1 ea 03/30/22 oral packet Results & Data (ED) Vital Signs Vital Signs - 24 hr 03/30/22 13:27 03/30/22 18:37 03/30/22 19:30 Temperature 36.5 C Temperature Source Temporal Artery Scan Pulse Rate 106 H Pulse Rate [Finger] 87 67 Respiratory Rate 18 20 20 Respiratory Effort / Characteristics Non-Labored Spontaneous Respiratory Depth Normal Blood Pressure 149/62 H Blood Pressure [Right Arm] 172/108 H 166/85 H Blood Pressure Mean 91 Blood Pressure Mean [Right Arm] 129 112 Pulse Oximetry 97 97 95 Oxygen Delivery Method Room Air Room Air Sepsis Recent Fever Within 48 Hours No Sepsis New/Unexplained Change in Mental Status No Sepsis Action Taken by Nursing No Action Required Home Medications Current Medication List: was personally reviewed by me Laboratory Data Attestation: I reviewed the patient's lab results. 03/30/22 17:41 03/30/22 17:41 Lab Results 03/30/22 03/30/22 03/30/22 Range/Units 16:59 17:08 17:41 WBC (4.8-10.8) K/ul RBC (3.93-5.22) M/uL Hgb (12.0-16.0) g/dl POC Hgb 15.0 (12.0-16.0) g/dl Hct (34.1-44.9) % POC Hct 44 (37-47) % MCV (80.0-100.0) fL MCH (25.0-34.0) pg MCHC (32.0-36.0) g/dL RDW Std Deviation (36.4-46.3) fL RDW Coeff of Jesse (11.5-14.5) % Plt Count (130-400) K/uL MPV (9.4-12.3) fL PT (9.0-12.0) Seconds INR (0.9-1.1) APTT (21.0-31.0) Seconds PTT Ratio POC Sodium 138 (135-144) mmol/L Sodium (136-145) mmol/L POC Potassium 5.9 H (3.3-5.0) mmol/L Potassium (3.5-5.1) mmol/L POC Chloride 104 (101-112) mmol/L Chloride (98-107) mmol/L Carbon Dioxide (21-32) mmol/L POC Total CO2 29 (24-31) mmol/L Anion Gap (3-11) POC Anion Gap 11.0 L (16-25) mmol/L POC BUN 30 H (7-18) mg/dl BUN (6-23) mg/dl Creatinine (0.6-1.2) mg/dl POC Creatinine 0.9 (0.6-1.3) mg/dl Est Cr Clr Drug Dosing ml/min Est GFR ( Amer) ml/min Est GFR (Non-Af Amer) ml/min BUN/Creatinine Ratio (10-20) Glucose (70-99(Fasting)) mg/dl POC Glucose (other) 102 H (70-99) mg/dl Calcium (8.5-10.1) mg/dl POC Ioniz Calcium Amy 1.17 (1.12-1.32) mmol/l Total Bilirubin (0.2-1.0) mg/dl AST (13-39) U/L ALT (7-52) U/L Alkaline Phosphatase (34-104) U/L Troponin I High Sens (0-14) pg/ml Total Protein (6.0-8.3) gm/dl Albumin (3.4-5.0) gm/dl Globulin (2.5-4.0) gm/dl Albumin/Globulin Ratio (0.9-2) POC Stool Occult Blood Cancelled Blood Type A Positive Antibody Screen NEGATIVE 03/30/22 03/30/22 03/30/22 Range/Units 17:41 17:41 17:41 WBC 7.96 (4.8-10.8) K/ul RBC 4.50 (3.93-5.22) M/uL Hgb 13.5 (12.0-16.0) g/dl POC Hgb (12.0-16.0) g/dl Hct 41.7 (34.1-44.9) % POC Hct (37-47) % MCV 92.7 (80.0-100.0) fL MCH 30.0 (25.0-34.0) pg MCHC 32.4 (32.0-36.0) g/dL RDW Std Deviation 46.6 H (36.4-46.3) fL RDW Coeff of Jesse 13.8 (11.5-14.5) % Plt Count 295 (130-400) K/uL MPV 11.0 (9.4-12.3) fL PT 10.6 (9.0-12.0) Seconds INR 1.0 (0.9-1.1) APTT 23.9 (21.0-31.0) Seconds PTT Ratio 0.9 POC Sodium (135-144) mmol/L Sodium 142 (136-145) mmol/L POC Potassium (3.3-5.0) mmol/L Potassium 3.9 (3.5-5.1) mmol/L POC Chloride (101-112) mmol/L Chloride 103 (98-107) mmol/L Carbon Dioxide 28 (21-32) mmol/L POC Total CO2 (24-31) mmol/L Anion Gap 11 (3-11) POC Anion Gap (16-25) mmol/L POC BUN (7-18) mg/dl BUN 21 (6-23) mg/dl Creatinine 1.00 (0.6-1.2) mg/dl POC Creatinine (0.6-1.3) mg/dl Est Cr Clr Drug Dosing 64.3 ml/min Est GFR ( Amer) 63.4 ml/min Est GFR (Non-Af Amer) 54.7 ml/min BUN/Creatinine Ratio 21.0 H (10-20) Glucose 104 H (70-99(Fasting)) mg/dl POC Glucose (other) (70-99) mg/dl Calcium 10.1 (8.5-10.1) mg/dl POC Ioniz Calcium Amy (1.12-1.32) mmol/l Total Bilirubin 0.4 (0.2-1.0) mg/dl AST 15 (13-39) U/L ALT 11 (7-52) U/L Alkaline Phosphatase 88 (34-104) U/L Troponin I High Sens 9.3 (0-14) pg/ml Total Protein 7.0 (6.0-8.3) gm/dl Albumin 4.3 (3.4-5.0) gm/dl Globulin 2.7 (2.5-4.0) gm/dl Albumin/Globulin Ratio 1.6 (0.9-2) POC Stool Occult Blood Blood Type Antibody Screen Administered Medications Morphine Sulfate (Morphine Sulfate 4 Mg/Ml 1 Ml Carp\\Vial) 4 mg IV Q30M PRN PRN Reason: Pain Stop: 04/13/22 15:58 Last Admin: 03/30/22 17:43 Dose: 4 mg Documented By: FRANCESCO Discontinued Medications Ioversol (Optiray 320 500ml) 110 ml IV ONCE ONE Stop: 03/30/22 18:02 Last Admin: 03/30/22 18:01 Dose: 110 ml Documented By: [facility] Ondansetron HCl (Ondansetron Inj 2 Mg/Ml 2 Ml Vial) 4 mg IV NOW STA Stop: 03/30/22 16:00 Last Admin: 03/30/22 17:43 Dose: 4 mg Documented By: FRANCESCO Imaging Data Radiologist's Impression: Abdomen/Pelvis CT 03/30/22 15:55 CT OF THE ABDOMEN AND PELVIS WITH CONTRAST CLINICAL HISTORY: Left upper quadrant abdominal pain. COMPARISON STUDY: CT of the abdomen pelvis September 18, 2020. TECHNIQUE: Following IV administration of 110 mL of Optiray, axial images of the abdomen and pelvis were obtained from the lung bases to the proximal femurs. Images were reviewed in the axial, sagittal, and coronal planes. IV contrast was administered without complication. Automated exposure control was utilized for the study. A dose lowering technique was utilized adhering to the principles of ALARA. CT DOSE: 1721.81 mGy.cm FINDINGS: Post therapy changes within the left breast are unchanged. No pneumatosis, free air or portal venous gas is present. Liver surface is lobulated. This is unchanged. There are no hepatic lesions. There is no biliary or pancreatic ductal dilatation. No peripancreatic or pericholecystic stranding is present. Spleen, adrenal glands and pancreas are unremarkable. There is moderate bilateral renal cortical thinning. A few right renal lesions are too small to characterize. There is no hydronephrosis. There is no evidence for a bowel obstruction. Images of the pelvis are degraded by streak artifact from bilateral hip arthroplasties. There is extensive colonic diverticulosis without evidence for acute diverticulitis. There is no evidence for a bowel obstruction. No bowel wall thickening is identified. No ascites is present. There is no lymphadenopathy. No acute fractures within the visualized skeletal structures are present. IMPRESSION: 1. No acute process within the abdomen or pelvis. 2. Extensive colonic diverticulosis. No evidence for acute diverticulitis. Suboptimal evaluation of the sigmoid colon due to streak artifact from bilateral hip arthroplasties. 3. No bowel obstruction. No bowel wall thickening. ACT 112: Negative or not required by law. Electronically signed by: Az Boudreaux M.D. 03/30/2022 6:13 PM Discharge Plan Visit Data Chief Complaint: Diarrhea Stated Complaint: L UPPER QUAD PAIN, BLOODY DIARRHEA ED Provider: Nasir Zarco Discharge Problem: Acute lower GI bleeding, Left sided abdominal pain Patient Disposition: Being Evaluated by Hospitalist Forms Stand Alone Forms: My Workable Prescriptions Prescriptions: No Action fluticasone propionate [Allergy Relief (fluticasone)] 50 mcg/actuation spray,suspension 2 spray INTNAS QAM calcium carb-mag hydrox-simeth 280-128-20 mg Tablet,Chewable 1 tab PO DAILY PRN (Reason: Indigestion) cholecalciferol (vitamin D3) 25 mcg (1,000 unit) capsule 25 mcg PO QAM Qty: 90 3RF Eliquis 5 mg tablet 5 mg PO BID Qty: 180 3RF Entresto 97-103 mg tablet 1 tab PO BID Qty: 180 3RF zonisamide 50 mg capsule 50 mg PO QAM Qty: 90 1RF levothyroxine 75 mcg tablet 75 mcg PO QAM Qty: 90 3RF (DME) Manual Wheelchair Device See Rx Instructions .Route Qty: 1 0RF Rx Instructions: standard WC with cushion and foot plates potassium chloride 10 mEq capsule, extended release 20 meq PO QID Qty: 240 1RF amlodipine 10 mg tablet 10 mg PO HS Qty: 90 3RF gabapentin 300 mg capsule 300 mg PO TID Qty: 90 5RF diclofenac sodium [Voltaren Arthritis Pain] 1 % gel 2 g topical QID Rx Instructions: apply to single elbow, wrist or hand; for hand includes palm/fingers/back of hand peg 3350-electrolytes [GaviLyte-G] 236-22.74-6.74 -5.86 gram recon soln 240 ml PO Q10M Qty: 4000 0RF Rx Instructions: until fecal effluent is clear tramadol 50 mg tablet 50 mg PO TID PRN (Reason: pain) Qty: 90 0RF Rx Instructions: approved 07/11/20---10/09/21 fosfomycin tromethamine 3 gram packet 1 packet PO ONCE Qty: 1 0RF letrozole 2.5 mg tablet 2.5 mg PO QAM primidone 50 mg tablet 100 mg PO BID 90 Days Qty: 360 1RF metoprolol succinate 50 mg tablet extended release 24 hr See Rx Instructions PO DAILY Qty: 270 3RF Rx Instructions: take 2 tablets in the morning and 1 tablet at bedtime PO daily; acetaminophen [Tylenol Extra Strength] 500 mg Tablet 1,000 mg PO TID calcium citrate-vitamin D3 [Citracal + D Maximum] 315 mg-6.25 mcg (250 unit) Tablet 2 tab PO QAM spironolactone 25 mg tablet 25 mg PO QPM rosuvastatin 20 mg tablet 20 mg PO HS omeprazole 20 mg capsule,delayed release(DR/EC) 20 mg PO QAM furosemide 80 mg Tablet 80 mg PO BID Qty: 14 0RF lidocaine 5 % Adhesive Patch,Medicated 1 patch transdermal QAM 30 Days Qty: 30 0RF Referrals Referrals: Angeline Martinez MD [Primary Care Provider] -
[2022-03-30 17:11] LABS: iSTAT Creatinine 0.9 mg/dl (0.6-1.3); iSTAT Ionized Calcium 1.17 mmol/l (1.12-1.32); iSTAT Potassium 5.9 mmol/L (3.3-5.0)
[2022-03-30 17:54] LABS: Hematocrit (blood only) 41.7 % (34.1-44.9); Hemoglobin 13.5 g/dl (12.0-16.0); Mean Corpuscular Hgb Conc 32.4 g/dL (32.0-36.0); Mean Corpuscular Volume 92.7 fL (80.0-100.0); Platelet Count 295 K/uL (130-400); RDW Coefficient of Variation 13.8 % (11.5-14.5); RDW Standard Deviation 46.6 fL (36.4-46.3); White Blood Count 7.96 K/ul (4.8-10.8)
[2022-03-30] MEDS ORDERED: OPTIRAY 320 500ml IV ONE (18:01)
[2022-03-30 18:05] LABS: Partial Thromboplastin Ratio 0.9; Partial Thromboplastin Time 23.9 Seconds (21.0-31.0); Prothrombin Time 10.6 Seconds (9.0-12.0)
[2022-03-30 18:12] LABS: Albumin Level 4.3 gm/dl (3.4-5.0); Bilirubin,Total 0.4 mg/dl (0.2-1.0); Calcium 10.1 mg/dl (8.5-10.1); Potassium 3.9 mmol/L (3.5-5.1)
--- NOTE | 2022-03-30 18:16 | CT Scan Report ---
CT OF THE ABDOMEN AND PELVIS WITH CONTRAST CLINICAL HISTORY: Left upper quadrant abdominal pain. COMPARISON STUDY: CT of the abdomen pelvis September 18, 2020. TECHNIQUE: Following IV administration of 110 mL of Optiray, axial images of the abdomen and pelvis w ere obtained from the lung bases to the proximal femurs. Images were reviewed in the axial, sagittal, and coronal planes. IV contrast was administered without complication. Automated exposure control w as utilized for the study. A dose lowering technique was utilized adhering to the principles of ADEEL Carranza. CT DOSE: 1721.81 mGy.cm FINDINGS: Post therapy changes within the left breast are unchanged. No pneumatosis, free air or port al venous gas is present. Liver surface is lobulated. This is unchanged. There are no hepatic lesions . There is no biliary or pancreatic ductal dilatation. No peripancreatic or pericholecystic stranding is present. Spleen, adrenal glands and pancreas are unremarkable. There is moderate bilateral renal cortical thinning. A few right renal lesions are too small to characterize. There is no hydronephrosi s. There is no evidence for a bowel obstruction. Images of the pelvis are degraded by streak artifact from bilateral hip arthroplasties. There is extensive colonic diverticulosis without evidence for ac kake diverticulitis. There is no evidence for a bowel obstruction. No bowel wall thickening is identif ied. No ascites is present. There is no lymphadenopathy. No acute fractures within the visualized ske letal structures are present. IMPRESSION: 1. No acute process within the abdomen or pelvis. 2. Extensive colonic diverticulosis. No evidence for acute diverticulitis. Suboptimal evaluation of t he sigmoid colon due to streak artifact from bilateral hip arthroplasties. 3. No bowel obstruction. No bowel wall thickening. ACT 112: Negative or not required by law. Electronically signed by: Az Boudreaux M.D. 03/30/2022 6:13 PM
--- NOTE | 2022-03-30 18:30 | Electrocardiogram Report ---
Test Reason : Blood Pressure : / mmHG Vent. Rate : 088 BPM Atrial Rate : 340 BPM P-R Int : 000 ms QRS Dur : 092 ms QT Int : 306 ms P-R-T Axes : 000 -24 168 degrees QTc Int : 370 ms Poor data quality, interpretation may be adversely affected Atrial fibrillation with premature ventricular or aberrantly conducted complexes Inferior infarct (cited on or before 27-JUL-2016) Anterolateral infarct (cited on or before 26-JUN-2016) Abnormal ECG When compared with ECG of 23-MAR-2022 11:07, Non-specific change in ST segment in Anterior leads QT has shortened Confirmed by Edward Sneed ([id number]) on 03/30/2022 6:30:02 PM Referred By: REFERRED SELF Confirmed By:Anirudh Sneed
[2022-03-30 20:03] LABS: Albumin Globulin Ratio 1.6 (0.9-2); Creatinine Clr Calc Pharmacy 64.3 ml/min; Est GFR (African American) 63.4 ml/min; Est GFR (Non-African American) 54.7 ml/min; Globulin 2.7 gm/dl (2.5-4.0); Troponin I High Sensitivity 9.3 pg/ml (0-14)
[2022-03-30] MEDS ORDERED: MoRPHine SULFATE 2 MG/ML CARP IV PRN (23:35)
[2022-03-30] MEDS ORDERED: LACTATED RINGER'S 1,000 ML IV SCH (23:35)
--- NOTE | 2022-03-31 00:02 | History & Physical Report ---
Date of Service March 30, 2022 Assessment & Plan (1) Acute lower GI bleeding: Plan: 77yo female with diverticulosis, colon polyps and GERD presenting with LUQ pain, diarrhea with bright red blood. She is HD stable. Hgb/Hct near baseline. Suspect diverticular bleed. -Admit to medical with telemetry -Maintain 2 large PIVs -Monitor CBC -GI consultation appreciated - patient is scheduled to see Dr. Senior this week for colonoscopy - ?inpatient study? (2) Left sided abdominal pain: Plan: Possibly secondary to diverticulosis? CT remarks diverticulosis without acute diverticulitis. -Morphine PRN (3) Permanent atrial fibrillation: Plan: Rate controlled. On anticoagulation with Eliquis. -Hold Eliquis in setting of presumed active bleed. HD stable, no further bleeding appreciated -Hold Metoprolol for now (4) Benign essential tremor: Plan: Blood pressure presently 107/52 -Hold Amlodipine, Spironolactone, Entresto, Lasix (5) Hypothyroidism: Plan: Chronic -Continue Synthroid 75mcg po daily (6) Hyperlipidemia: Plan: Chronic. On Rosuvastatin -Continue Rosuvastatin 20mg po qHS (7) Controlled diabetes mellitus type II without complication: Plan: Diet controlled diabetes. Last HgbA1C on 08/29/21 = 6.9 -ISS as needed (8) Acid reflux disease: Plan: Chronic -Continue Pepcid (9) NYHA class 2 heart failure with preserved ejection fraction, with improvement of ejection fraction from prior measurement: Plan: Compensated. Patient recently admitted for chest pain and CHF exacerbation. -Hold Spironolactone, Entresto, Metoprolol for now -Gentle IVF in setting of diarrhea - LR x 1L -Careful monitoring of volume status Admission and Anticipated Discharge Date Admission Date: March 30, 2022 History of Present Illness Chief Complaint: diarrhea, bleeding Primary Care Provider: Angeline Martinez MD Edie Munoz is a pleasant 77yo female with history of GERD, DM, HTN, HLP, Hypothyroidism, AF on Apixaban anticoagulation, known diverticular disease and prior colon polyps presenting with bloody diarrhea. Patient ate a burger from [employer] then a piece of morris cheesecake for dessert. Shortly after she developed LUQ abdominal pain at the area of the splenic flexure followed by bloody diarrhea. She reports bright red blood filled the toilet bowl. She reports having diarrhea for approximately 2 hours. Last episode was 03/30/22 at 01:00. She took Immodium with resolution. She has been passing gas without difficulty. She reports having blood streaked stool in the past but no overt GI bleeding that filled the toilet bowl. Her last colonoscopy on record from 2016 with two 3-5 mm polyps int he mid-ascending colon, diverticulosis and non-bleeding internal hemorrhoids. She denies fever, chills, chest pain, cough, SOB. She had some nausea. Patient recently admitted to [facility] 03/23/22 - 03/25/22 for chest pain and CHF exacerbation. She was diuresed and discharged on an increased dose of Lasix 80mg po BID Allergies Allergy/AdvReac Type Severity Reaction Status Date / Time adhesive Allergy Intermediate BLISTERING Verified 03/30/22 22:35 cephalexin Allergy Intermediate diarrhea,vomiting, Verified 03/30/22 22:35 nausea fenoprofen Allergy Intermediate MUSCLE Verified 03/30/22 22:35 WEAKNESS, PAIN, HIVES ibuprofen Allergy Intermediate RELATED TO Verified 03/30/22 22:35 FENOPROFEN metformin AdvReac Severe diarrhea Verified 03/30/22 22:35 Home Medications Medication Instructions Recorded Confirmed Type letrozole 2.5 mg tablet 2.5 mg PO QAM 08/15/18 03/30/22 History acetaminophen 500 mg tablet 1,500 mg PO BID 09/18/20 03/30/22 History (Tylenol Extra Strength) calcium citrate 315 mg 2 tab PO QAM 09/18/20 03/30/22 History calcium-vitamin D3 6.25 mcg (250 unit) tablet (Citracal + Vitamin D Maximum) calcium carb-mag hydrox-simeth 280 1 tab PO DAILY PRN Indigestion 10/31/20 03/30/22 History mg-128 mg-20 mg chewable tablet fluticasone propionate 50 2 spray intranasal QAM 10/31/20 03/30/22 History mcg/actuation nasal spray,suspension (Allergy Relief (fluticasone)) cholecalciferol (vitamin D3) 25 25 mcg PO QAM #90 caps 02/17/21 03/30/22 Rx mcg (1,000 unit) capsule apixaban 5 mg tablet (Eliquis) 5 mg PO BID #180 tabs 06/02/21 03/30/22 Rx metoprolol succinate 50 mg See Rx Instructions PO DAILY #270 06/16/21 03/30/22 Rx tablet,extended release 24 hr tabs sacubitril 97 mg-valsartan 103 mg 1 tab PO BID #180 tabs 11/03/21 03/30/22 Rx tablet (Entresto) zonisamide 50 mg capsule 50 mg PO QAM #90 caps 11/11/21 03/30/22 Rx levothyroxine 75 mcg tablet 75 mcg PO QAM #90 tabs 11/16/21 03/30/22 Rx potassium chloride 10 mEq 20 meq PO QID #240 caps 02/08/22 03/30/22 Rx capsule,extended release amlodipine 10 mg tablet 10 mg PO HS #90 tabs 02/25/22 03/30/22 Rx gabapentin 300 mg capsule 300 mg PO TID #90 caps 03/10/22 03/30/22 Rx omeprazole 20 mg capsule,delayed 20 mg PO QAM 03/23/22 03/30/22 History release furosemide 80 mg tablet 80 mg PO BID #14 tabs 03/25/22 03/30/22 Rx lidocaine 5 % topical patch 1 patch transdermal QAM 30 days 03/25/22 03/30/22 Rx #30 ea diclofenac sodium 1 % topical gel 2 g topical QID PRN Pain 03/26/22 03/30/22 History (Voltaren Arthritis Pain) peg 3350-electrolytes 236 240 ml PO Q10M #4,000 mL 03/26/22 03/30/22 Rx gram-22.74 gram-6.74 gram-5.86 gram solution (GaviLyte-G) rosuvastatin 20 mg tablet 20 mg PO HS 03/27/22 03/30/22 History spironolactone 25 mg tablet 25 mg PO QPM 03/27/22 03/30/22 History tramadol 50 mg tablet 50 mg PO TID PRN pain #90 tabs 03/27/22 03/30/22 Rx fosfomycin tromethamine 3 gram 1 packet PO ONCE #1 ea 03/30/22 03/30/22 Rx oral packet latanoprost 0.005 % eye drops 1 drp OPB HS 03/30/22 03/30/22 History primidone 50 mg tablet 150 mg PO BID 03/30/22 03/30/22 History Past Med/Surg History Medical History Acid reflux disease Adenomatous colon polyp Benign essential tremor Carpal tunnel syndrome Chronic low back pain Controlled diabetes mellitus type II without complication Diarrhea ongoing for 1 yr per pt Diverticulitis Diverticulosis of colon PAYAN (dyspnea on exertion) only related to recent CHF visit, denies PAYAN currently 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 Received 5130 cGy utilizing hypo-fractionation." On 08/18/16 11:16 Willow Calero wrote "Abnormal left breast mammogram Status post stereotactic biopsy 06/09/2016 revealing DCIS grade 3 Estrogen receptor positive and progesterone receptor positive Status post needle localization left partial mastectomy with sentinel lymph node biopsy 07/27/2016 DCIS and LCIS Stage pTis pN0" Gait disturbance Generalized osteoarthritis of multiple sites Glaucoma Hyperlipidemia Hypertension Hypokalemia Hypothyroidism Irritable bowel syndrome with constipation Morbid obesity Morbid obesity with BMI of 50.0-59.9, adult NYHA class 2 heart failure with preserved ejection fraction, with improvement of ejection fraction from prior measurement VICKIE (obstructive sleep apnea) Permanent atrial fibrillation (09/2020) Recurrent UTI Retinal detachment Spondylisthesis Urge and stress incontinence Surgical History History of cataract surgery right History of colonoscopy 11/27/2016 History of conization of cervix History of cryosurgery cervical cancer- History of inguinal hernia repair bilt History of knee replacement left History of left breast biopsy malignant History of left hip replacement History of partial mastectomy of left breast left partial mastectomy with sentinel lymph node biopsy History of right breast biopsy benign History of right cataract surgery History of right hip replacement History of tooth extraction History of wisdom tooth extraction Hx of arthroscopic knee surgery left Retinal detachment of right eye due to tear of retina Status post correction of deviated nasal septum Family History Mother Diabetes Heart disease Peripheral vascular disease Colorectal cancer Hypertension Stroke Cancer Father Diabetes Congestive heart failure (CHF) Myocardial infarction Hypertension Stroke Heart disease Aunt Breast cancer Sister Lung cancer 2 sisters Other Nephrolithiasis No family history of adverse response to anesthesia Pure hypercholesterolemia Denies family history of Asthma Social History Smoking Status: Never smoker Second Hand Exposure: Yes; Hx Alcohol Use: No Hx Substance Use: No Preferred Language: Guatemalan Communication Ability: Effective Visual Impairment: Partially Limited Hearing Ability: Normal Retail Manager Required: No Beliefs That Will Affect Care: None marital status: / Current Living Situation: Family Current Living Situation Comment: Lives with her son Edward current occupational status: retired How many Children do You have: 2 Feels Safe at Home: Yes Childhood Exposure to Second-Hand Smoke: Yes Diet Comment: avoids seeds/nuts caffeine: Yes (coffee) Dental Care, Regularly: Yes Physical Activity Frequency: Does not Exercise Seatbelt Use: always Sunscreen Use: Yes Do you think of yourself as: straight/heterosexual Assistive Devices: Glasses Review of Systems Review of Systems: All systems reviewed & are unremarkable except as noted in HPI & below Physical Exam Physical Exam: General: patient resting comfortably, NAD, non-toxic in appearance, AA&O x 4 Skin: warm, dry, intact, no rashes or lesions HEENT: NC/AT, PERRL, EOMI, anicteric sclera, conjunctiva without injection, external ear normal to inspection and nontender, nares patent, moist mucus membranes, dentition intact, no oropharyngeal lesions, neck supple, trachea midline, no LAD, no thyromegaly, no JVD Heart: +S1/S2, irregularly irregular, no m/r/g Lungs: equal air entry bilaterally, no rales/rhonchi/wheezes Abd: +BS, soft, ND, LUQ tenderness without rebound/guarding/peritonitis, no masses/organomegaly/ascites Ext: warm, 2+ pulses in UE/LE bilaterally, no clubbing/cyanosis or edema Neuro: nonfocal, patient AA&O x 4, speech intact, no facial droop, moving all extremities on command with equal strength 5/5, +essential tremor Results & Data Results & Data ([facility]) Vital Signs (Past 12 Hours) Vital Signs Temp Pulse Pulse Resp BP BP Pulse Ox 03/30/22 22:48 80 20 127/83 95 03/30/22 19:30 67 20 166/85 H 95 03/30/22 18:37 87 20 172/108 H 97 03/30/22 13:27 36.5 C 106 H 18 149/62 H 97 O2 Del Method 03/30/22 22:48 Room Air 03/30/22 19:30 03/30/22 18:37 Room Air 03/30/22 13:27 Room Air Laboratory Results Laboratory Results WBC 7.96 K/ul (4.8-10.8) 03/30/22 17:41 RBC 4.50 M/uL (3.93-5.22) 03/30/22 17:41 Hgb 13.5 g/dl (12.0-16.0) 03/30/22 17:41 POC Hgb 15.0 g/dl (12.0-16.0) 03/30/22 16:59 Hct 41.7 % (34.1-44.9) 03/30/22 17:41 POC Hct 44 % (37-47) 03/30/22 16:59 MCV 92.7 fL (80.0-100.0) 03/30/22 17:41 MCH 30.0 pg (25.0-34.0) 03/30/22 17:41 MCHC 32.4 g/dL (32.0-36.0) 03/30/22 17:41 RDW Std Deviation 46.6 fL (36.4-46.3) H 03/30/22 17:41 RDW Coeff of Jesse 13.8 % (11.5-14.5) 03/30/22 17:41 Plt Count 295 K/uL (130-400) 03/30/22 17:41 MPV 11.0 fL (9.4-12.3) 03/30/22 17:41 PT 10.6 Seconds (9.0-12.0) 03/30/22 17:41 INR 1.0 (0.9-1.1) 03/30/22 17:41 APTT 23.9 Seconds (21.0-31.0) 03/30/22 17:41 PTT Ratio 0.9 03/30/22 17:41 POC Sodium 138 mmol/L (135-144) 03/30/22 16:59 Sodium 142 mmol/L (136-145) 03/30/22 17:41 POC Potassium 5.9 mmol/L (3.3-5.0) H 03/30/22 16:59 Potassium 3.9 mmol/L (3.5-5.1) 03/30/22 17:41 POC Chloride 104 mmol/L (101-112) 03/30/22 16:59 Chloride 103 mmol/L (98-107) 03/30/22 17:41 Carbon Dioxide 28 mmol/L (21-32) 03/30/22 17:41 POC Total CO2 29 mmol/L (24-31) 03/30/22 16:59 Anion Gap 11 (3-11) 03/30/22 17:41 POC Anion Gap 11.0 mmol/L (16-25) L 03/30/22 16:59 POC BUN 30 mg/dl (7-18) H 03/30/22 16:59 BUN 21 mg/dl (6-23) 03/30/22 17:41 Creatinine 1.00 mg/dl (0.6-1.2) 03/30/22 17:41 POC Creatinine 0.9 mg/dl (0.6-1.3) 03/30/22 16:59 Est Cr Clr Drug Dosing 64.3 ml/min 03/30/22 17:41 Est GFR ( Amer) 63.4 ml/min 03/30/22 17:41 Est GFR (Non-Af Amer) 54.7 ml/min 03/30/22 17:41 BUN/Creatinine Ratio 21.0 (10-20) H 03/30/22 17:41 Glucose 104 mg/dl (70-99(Fasting)) H 03/30/22 17:41 POC Glucose (other) 102 mg/dl (70-99) H 03/30/22 16:59 Calcium 10.1 mg/dl (8.5-10.1) 03/30/22 17:41 POC Ioniz Calcium Amy 1.17 mmol/l (1.12-1.32) 03/30/22 16:59 Total Bilirubin 0.4 mg/dl (0.2-1.0) 03/30/22 17:41 AST 15 U/L (13-39) 03/30/22 17:41 ALT 11 U/L (7-52) 03/30/22 17:41 Alkaline Phosphatase 88 U/L (34-104) 03/30/22 17:41 Troponin I High Sens 9.3 pg/ml (0-14) 03/30/22 17:41 Total Protein 7.0 gm/dl (6.0-8.3) 03/30/22 17:41 Albumin 4.3 gm/dl (3.4-5.0) 03/30/22 17:41 Globulin 2.7 gm/dl (2.5-4.0) 03/30/22 17:41 Albumin/Globulin Ratio 1.6 (0.9-2) 03/30/22 17:41 POC Stool Occult Blood Cancelled 03/30/22 17:08 SARS-CoV-2, RNA, NAAT NEGATIVE (NEGATIVE) 03/30/22 21:30 Blood Type A Positive 03/30/22 17:41 Antibody Screen NEGATIVE 03/30/22 17:41 Impressions Abdomen/Pelvis CT 03/30/22 15:55 CT OF THE ABDOMEN AND PELVIS WITH CONTRAST CLINICAL HISTORY: Left upper quadrant abdominal pain. COMPARISON STUDY: CT of the abdomen pelvis September 18, 2020. TECHNIQUE: Following IV administration of 110 mL of Optiray, axial images of the abdomen and pelvis were obtained from the lung bases to the proximal femurs. Images were reviewed in the axial, sagittal, and coronal planes. IV contrast was administered without complication. Automated exposure control was utilized for the study. A dose lowering technique was utilized adhering to the principles of ALARA. CT DOSE: 1721.81 mGy.cm FINDINGS: Post therapy changes within the left breast are unchanged. No pneumatosis, free air or portal venous gas is present. Liver surface is lobulated. This is unchanged. There are no hepatic lesions. There is no biliary or pancreatic ductal dilatation. No peripancreatic or pericholecystic stranding is present. Spleen, adrenal glands and pancreas are unremarkable. There is m oderate bilateral renal cortical thinning. A few right renal lesions are too small to characterize. There is no hydronephrosis. There is no evidence for a bowel obstruction. Images of the pelvis are degraded by streak artifact from bilateral hip arthroplasties. There is extensive colonic diverticulosis without evidence for acute diverticulitis. There is no evidence for a bowel obstruction. No bowel wall thickening is identified. No ascites is present. There is no lymphadenopathy. No acute fractures within the visualized skeletal structures are present. IMPRESSION: 1. No acute process within the abdomen or pelvis. 2. Extensive colonic diverticulosis. No evidence for acute diverticulitis. Suboptimal evaluation of the sigmoid colon due to streak artifact from bilateral hip arthroplasties. 3. No bowel obstruction. No bowel wall thickening. ACT 112: Negative or not required by law. Electronically signed by: Az Boudreaux M.D. 03/30/2022 6:13 PM Code Status & VTE Plan VTE Prophylaxis Plan VTE Prophylaxis will be ordered: Yes PG Care Time/CCT Total # of Minutes Spent Total Time Spent with Patient: Total time spent is greater than 50% in coordination of care (as documented) at patient's floor/unit and/or counseling patient: Coding Level of Care Code 20234 INT INP/OBS CARE 3/75MIN Diagnoses Acute lower GI bleeding K92.2 Left sided abdominal pain R10.9 Permanent atrial fibrillation I48.21 Benign essential tremor G25.0 Hypothyroidism E03.9 Hyperlipidemia E78.5 Controlled diabetes mellitus type II without complication E11.9 Acid reflux disease K21.9 NYHA class 2 heart failure with preserved ejection fraction, with improvement of ejection fraction from prior measurement I50.30
[2022-03-31] MEDS ORDERED: GLUCOSE 10 TAB/TUBE PO PRN (00:31)
[2022-03-31] MEDS ORDERED: GLUCAGON FOR INJ 1 MG VIAL SQ PRN (00:31)
[2022-03-31] MEDS ORDERED: GLUCOSE 40% GEL 15 GM TUBE PO PRN (00:31)
[2022-03-31] MEDS ORDERED: DEXTROSE 50% 50 ML SYRINGE IV PRN (00:31)
[2022-03-31] MEDS ORDERED: CARBOHYDRATES FOR HYPOGLYCEMIA PO PRN (00:31)
[2022-03-31] MEDS: LIDOCAINE 5% 1 PATCH TD SCH (04:11)
[2022-03-31] MEDS: LEVOTHYROXINE SODIUM 75 MCG TABLET PO SCH (05:37)
[2022-03-31 06:40] LABS: Hemoglobin 12.2 g/dl (12.0-16.0); Mean Corpuscular Hgb Conc 32.1 g/dL (32.0-36.0); Mean Corpuscular Volume 93.4 fL (80.0-100.0); Mean Platelet Volume 11.6 fL (9.4-12.3); Platelet Count 248 K/uL (130-400); RDW Coefficient of Variation 13.9 % (11.5-14.5); RDW Standard Deviation 48.2 fL (36.4-46.3); Red Blood Count 4.07 M/uL (3.93-5.22); White Blood Count 7.09 K/ul (4.8-10.8)
[2022-03-31 07:31] LABS: Anion Gap 8 (3-11); Blood Urea Nitrogen 18 mg/dl (6-23); Calcium 9.7 mg/dl (8.5-10.1); Carbon Dioxide 29 mmol/L (21-32); Chloride 103 mmol/L (98-107); Creatinine Clr Calc Pharmacy 67.8 ml/min; Est GFR (Non-African American) 62.1 ml/min; Glucose 135 mg/dl (70-99(Fasting)); Sodium 140 mmol/L (136-145)
[2022-03-31] MEDS: GABAPENTIN 300 MG CAP PO SCH ×3 (08:12→19:31)
[2022-03-31] MEDS: PRIMIDONE 50 MG TAB PO SCH ×2 (08:12→19:30)
[2022-03-31] MEDS: PANTOprazole 40 MG TAB PO SCH (08:12)
[2022-03-31] MEDS: LETROZOLE 2.5 MG TAB PO SCH (08:12)
[2022-03-31] MEDS: FLUTICASONE PROPIONATE NA SPR 16 GM BTL SCH (08:13)
[2022-03-31] MEDS: INSULIN ASPART PER UNIT SC SCH ×4 (08:17→20:59)
[2022-03-31] MEDS ORDERED: LIDOCAINE 5% 1 PATCH TD SCH (09:00)
--- NOTE | 2022-03-31 10:06 | Gastrointestinal Consultation ---
Date of Consultation March 31, 2022 Assessment & Plan (1) Acute lower GI bleeding: (2) Diarrhea: (3) Left sided abdominal pain: Plan Discussed case with Dr. Senior who helped advise on plan. - continue to monitor Hgb/hct. - will plan to prep patient today and proceed with colonoscopy tomorrow to evaluate symptoms. discussed with patient and she is agreeable to proceed. Supervising Physician Co-Signing Physician Notes Agree with MARTHA Vega as above Feeling much better since her admission Abd: Soft, NT, ND, +BS Continue current therapy and supportive care Bowel prep tonight Colonoscopy on 04/01/22 History of Present Illness Reason for Consultation: LGIB Requesting Physician: Dr. Katie Gong Attending Physician: Chelsey Handy MD History of Present Illness Patient is a 77 year old female with past medical history of GERD, DM, HTN, Hypothyroidism, A Fib on Apixaban anticoagulation (last dose 03/29/22 in the evening), known diverticular disease and prior colon polyps presented to ED yesterday with complaints of abdominal pain and bloody diarrhea that started after eating a burger from [employer] 2 days ago.She reports that she was having alot of diarrhea with bright red blood.She came to ED for evaluation and had CT showing no acute process, extensive diverticulosis but no diverticulitis (but there was suboptimal visualization of the sigmoid). Since admission she tell me that her abdominal pain has improved but is still present. she has had no further bleeding. she tells me the last bowel movement was 2 days ago, but she is passing gas. She tells me that stools are typically loose and have been that way for a year and a half since starting metmorfin and even continued despite stopping metfomrin. rest of GI ros are unremarkable. 03/31/22 hgb 12.2, wbc 7.09 Her last colonoscopy was 2017 with two colon polyps, diverticulosis and non- bleeding internal hemorrhoids. Allergies Allergy/AdvReac Type Severity Reaction Status Date / Time adhesive Allergy Intermediate BLISTERING Verified 03/30/22 22:35 cephalexin Allergy Intermediate diarrhea,vomiting, Verified 03/30/22 22:35 nausea fenoprofen Allergy Intermediate MUSCLE Verified 03/30/22 22:35 WEAKNESS, PAIN, HIVES ibuprofen Allergy Intermediate RELATED TO Verified 03/30/22 22:35 FENOPROFEN metformin AdvReac Severe diarrhea Verified 03/30/22 22:35 Home Medications Medication Instructions Recorded Confirmed Type letrozole 2.5 mg tablet 2.5 mg PO QAM 08/15/18 03/30/22 History acetaminophen 500 mg tablet 1,500 mg PO BID 09/18/20 03/30/22 History (Tylenol Extra Strength) calcium citrate 315 mg 2 tab PO QAM 09/18/20 03/30/22 History calcium-vitamin D3 6.25 mcg (250 unit) tablet (Citracal + Vitamin D Maximum) calcium carb-mag hydrox-simeth 280 1 tab PO DAILY PRN Indigestion 10/31/20 03/30/22 History mg-128 mg-20 mg chewable tablet fluticasone propionate 50 2 spray intranasal QAM 10/31/20 03/30/22 History mcg/actuation nasal spray,suspension (Allergy Relief (fluticasone)) cholecalciferol (vitamin D3) 25 25 mcg PO QAM #90 caps 02/17/21 03/30/22 Rx mcg (1,000 unit) capsule apixaban 5 mg tablet (Eliquis) 5 mg PO BID #180 tabs 06/02/21 03/30/22 Rx metoprolol succinate 50 mg See Rx Instructions PO DAILY #270 06/16/21 03/30/22 Rx tablet,extended release 24 hr tabs sacubitril 97 mg-valsartan 103 mg 1 tab PO BID #180 tabs 11/03/21 03/30/22 Rx tablet (Entresto) zonisamide 50 mg capsule 50 mg PO QAM #90 caps 11/11/21 03/30/22 Rx levothyroxine 75 mcg tablet 75 mcg PO QAM #90 tabs 11/16/21 03/30/22 Rx potassium chloride 10 mEq 20 meq PO QID #240 caps 02/08/22 03/30/22 Rx capsule,extended release amlodipine 10 mg tablet 10 mg PO HS #90 tabs 02/25/22 03/30/22 Rx gabapentin 300 mg capsule 300 mg PO TID #90 caps 03/10/22 03/30/22 Rx omeprazole 20 mg capsule,delayed 20 mg PO QAM 03/23/22 03/30/22 History release furosemide 80 mg tablet 80 mg PO BID #14 tabs 03/25/22 03/30/22 Rx lidocaine 5 % topical patch 1 patch transdermal QAM 30 days 03/25/22 03/30/22 Rx #30 ea diclofenac sodium 1 % topical gel 2 g topical QID PRN Pain 03/26/22 03/30/22 History (Voltaren Arthritis Pain) peg 3350-electrolytes 236 240 ml PO Q10M #4,000 mL 03/26/22 03/30/22 Rx gram-22.74 gram-6.74 gram-5.86 gram solution (GaviLyte-G) rosuvastatin 20 mg tablet 20 mg PO HS 03/27/22 03/30/22 History spironolactone 25 mg tablet 25 mg PO QPM 03/27/22 03/30/22 History tramadol 50 mg tablet 50 mg PO TID PRN pain #90 tabs 03/27/22 03/30/22 Rx fosfomycin tromethamine 3 gram 1 packet PO ONCE #1 ea 03/30/22 03/30/22 Rx oral packet latanoprost 0.005 % eye drops 1 drp OPB HS 03/30/22 03/30/22 History primidone 50 mg tablet 150 mg PO BID 03/30/22 03/30/22 History Patient History Medical History Acid reflux disease Adenomatous colon polyp Benign essential tremor Carpal tunnel syndrome Chronic low back pain Controlled diabetes mellitus type II without complication Diarrhea ongoing for 1 yr per pt Diverticulitis Diverticulosis of colon PAYAN (dyspnea on exertion) only related to recent CHF visit, denies PAYAN currently 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 Received 5130 cGy utilizing hypo-fractionation." On 08/18/16 11:16 Willow Calero wrote "Abnormal left breast mammogram Status post stereotactic biopsy 06/09/2016 revealing DCIS grade 3 Estrogen receptor positive and progesterone receptor positive Status post needle localization left partial mastectomy with sentinel lymph node biopsy 07/27/2016 DCIS and LCIS Stage pTis pN0" Gait disturbance Generalized osteoarthritis of multiple sites Glaucoma Hyperlipidemia Hypertension Hypokalemia Hypothyroidism Irritable bowel syndrome with constipation Morbid obesity Morbid obesity with BMI of 50.0-59.9, adult NYHA class 2 heart failure with preserved ejection fraction, with improvement of ejection fraction from prior measurement VICKIE (obstructive sleep apnea) Permanent atrial fibrillation (09/2020) Recurrent UTI Retinal detachment Spondylisthesis Urge and stress incontinence Surgical History History of cataract surgery right History of colonoscopy 11/27/2016 History of conization of cervix History of cryosurgery cervical cancer- History of inguinal hernia repair bilt History of knee replacement left History of left breast biopsy malignant History of left hip replacement History of partial mastectomy of left breast left partial mastectomy with sentinel lymph node biopsy History of right breast biopsy benign History of right cataract surgery History of right hip replacement History of tooth extraction History of wisdom tooth extraction Hx of arthroscopic knee surgery left Retinal detachment of right eye due to tear of retina Status post correction of deviated nasal septum Family History Mother Diabetes Heart disease Peripheral vascular disease Colorectal cancer Hypertension Stroke Cancer Father Diabetes Congestive heart failure (CHF) Myocardial infarction Hypertension Stroke Heart disease Aunt Breast cancer Sister Lung cancer 2 sisters Other Nephrolithiasis No family history of adverse response to anesthesia Pure hypercholesterolemia Denies family history of Asthma Social History Smoking Status: Never smoker Second Hand Exposure: Yes; Hx Alcohol Use: No Hx Substance Use: No Preferred Language: Vincentian Communication Ability: Effective Visual Impairment: Partially Limited Hearing Ability: Normal Park Warden Required: No Beliefs That Will Affect Care: None marital status: / Current Living Situation: Family Current Living Situation Comment: Lives with her son Edward current occupational status: retired How many Children do You have: 2 Feels Safe at Home: Yes Childhood Exposure to Second-Hand Smoke: Yes Diet Comment: avoids seeds/nuts caffeine: Yes (coffee) Dental Care, Regularly: Yes Physical Activity Frequency: Does not Exercise Seatbelt Use: always Sunscreen Use: Yes Do you think of yourself as: straight/heterosexual Assistive Devices: Cane and Walker Review of Systems Review of Systems: All systems reviewed & are unremarkable except as noted in HPI & below Physical Exam Constitutional: WD/WN, vitals as above Respiratory: normal respiratory effort, lungs clear to auscultation Cardiovascular: RRR, no murmur, no edema Gastrointestinal (Abdomen): LUQ tenderness, no guarding, soft, normal bowel sounds. Skin: no rashes, warm and dry Psychiatric: Orientation: alert and oriented x 3 Affect: euthymic affect Results & Data ([facility]) Vital Signs (Past 12 Hours) Vital Signs Temp Pulse Pulse Resp BP Pulse Ox O2 Del Method 03/31/22 09:13 Nasal Cannula 03/31/22 06:18 36.7 C 81 20 109/69 94 Nasal Cannula 03/31/22 01:43 86 98/59 L 94 Nasal Cannula 03/30/22 23:26 93 H 03/31/22 00:43 79 18 108/65 91 Room Air 03/30/22 23:25 36.7 C 85 20 107/52 L 90 Room Air 03/30/22 22:48 80 20 127/83 95 Room Air O2 Flow Rate 03/31/22 09:13 2 03/31/22 06:18 2 03/31/22 01:43 2 03/30/22 23:26 03/31/22 00:43 03/30/22 23:25 03/30/22 22:48 PG Care Time/CCT Total # of Minutes Spent Total Time Spent with Patient: Total time spent is greater than 50% in coordination of care (as documented) at patient's floor/unit and/or counseling patient: Coding Level of Care Code 60454 INT INP/OBS CARE 2/55MIN Diagnoses Acute lower GI bleeding K92.2 Diarrhea R19.7 Left sided abdominal pain R10.9
--- NOTE | 2022-03-31 18:37 | Hospitalist Progress Note ---
Date of Service March 31, 2022 Assessment & Plan (1) Acute lower GI bleeding: Plan: 77yo female with diverticulosis, colon polyps and GERD presenting with LUQ pain, diarrhea with bright red blood. She is HD stable. Hgb/Hct near baseline on admission. Suspect ischemic colitis vs infectious given onset after eating [employer] Hgb only slight drop today and may actually be hemodilutional , hgb 12.2 No further bleeding Mild abd pain persists -appreciate GI consult-plan for colonoscopy tomorrow -check Stool PCR -Maintain 2 large PIVs -Monitor CBC in AM -continue to hold home BPs meds and diuretics but restart metoprolol for Afib rate control -hold ELiquis (2) Left sided abdominal pain: Plan: CT remarks diverticulosis without acute diverticulitis. -Morphine PRN as above, possible ischemic colitis? (3) Permanent atrial fibrillation: Plan: Rates high now with holding Toprol -Hold Eliquis in setting of presumed active bleed. HD stable, no further bleeding appreciated -restart Toprol -monitor on tele (4) Benign essential tremor: Plan: continue primidone (5) Hypothyroidism: Plan: Chronic, TSH normal in 02/2022 -Continue Synthroid 75mcg po daily (6) Hyperlipidemia: Plan: -Continue Rosuvastatin 20mg po qHS (7) Controlled diabetes mellitus type II without complication: Plan: Diet controlled diabetes. Last HgbA1C on 08/29/21 = 6.9 -ISS as needed (8) Acid reflux disease: Plan: Chronic -Continue Pepcid (9) NYHA class 2 heart failure with preserved ejection fraction, with improvement of ejection fraction from prior measurement: Plan: Compensated. Patient recently admitted for chest pain and CHF exacerbation. -Hold Spironolactone, Entresto, lasix for now -Gentle IVF in setting of diarrhea - LR x 1L only -Careful monitoring of volume status -restart Toprol XL and then restart diuretics likely tomorrow after colonoscopy -follow BMP, Mag Plan DVT proph-holding ELiquis Dispo-continued stay on med-tele Admission and Anticipated Discharge Date Admission Date: March 30, 2022 Subjective Pt reports some ongoing mild LUQ abd pain but no further rectal bleeding. No BM at all but is passing gas. No nausea. Tele with Afib with rates 110s and up to 160s with walking to bathroom Review of Systems Review of Systems: All systems reviewed & are unremarkable except as noted in HPI & below Physical Exam Constitutional: WD/WN, vitals as above + morbidly obese Eyes: + anicteric sclerae Neck: trachea midline, no thyromegaly Respiratory: normal respiratory effort, lungs clear to auscultation Cardiovascular: Rate/Rhythm: regular rate and + irregularly irregular Heart Sounds: no murmur Extremities: no edema Chest (Breasts): Chest: normal inspection of chest Gastrointestinal (Abdomen): normal bowel sounds, soft, nontender, no hepatosplenomegaly Musculoskeletal: Extremities: extremities normal to inspection; no cyanosis and no clubbing Skin: no rashes, warm and dry Neurologic: moves all extremities and awake; no focal motor deficits Psychiatric: A+Ox3, euthymic affect Lymphatic: no lymphedema Results & Data Results & Data ([facility]) Vital Signs (Past 12 Hours) Vital Signs Temp Pulse Resp BP Pulse Ox O2 Del Method O2 Flow Rate 03/31/22 15:52 37.0 C 81 18 118/71 96 Nasal Cannula 2 03/31/22 10:51 36.9 C 90 18 110/60 97 Nasal Cannula 2 03/31/22 09:13 Nasal Cannula 2 Laboratory Results 03/31/22 05:23 03/31/22 07:52 PG Care Time/CCT Total # of Minutes Spent Total Time Spent with Patient: Total time spent is greater than 50% in coordination of care (as documented) at patient's floor/unit and/or counseling patient: Coding Level of Care Code 08152 SUB INP/OBS CARE 2/35MIN Diagnoses Acute lower GI bleeding K92.2 Left sided abdominal pain R10.9 Permanent atrial fibrillation I48.21 Benign essential tremor G25.0 Hypothyroidism E03.9 Hyperlipidemia E78.5 Controlled diabetes mellitus type II without complication E11.9 Acid reflux disease K21.9 NYHA class 2 heart failure with preserved ejection fraction, with improvement of ejection fraction from prior measurement I50.30
[2022-03-31] MEDS: LAVAGE SOLUTION 4000ML PO SCH (19:11)
[2022-03-31] MEDS ORDERED: METOPROLOL SUCC 50MG EXT REL TAB PO SCH (21:00)
[2022-03-31] MEDS ORDERED: LATANOPROST 0.005% OP SOLN 2.5 ML BTL OPB SCH (21:00)
[2022-03-31] MEDS ORDERED: ROSUVASTATIN CALCIUM 20 MG TAB PO SCH (21:00)
[2022-04-01 01:21] LABS: Adenovirus F 40/41 PCR Not Detected (NotDetected); Astrovirus PCR Not Detected (NotDetected); Campylobacter PCR Not Detected (NotDetected); Cryptosporidium PCR Not Detected (NotDetected); Cyclospora cayetanensis PCR Not Detected (NotDetected); Entamoeba histolytica PCR Not Detected (NotDetected); Enteroaggregative E.coli(EAEC) Not Detected (NotDetected); Enteropathogenic E.coli (EPEC) Not Detected (NotDetected); Enterotoxigenic E.coli (ETEC) Not Detected (NotDetected); Giardia lamblia PCR Not Detected (NotDetected); Norovirus GI/GII PCR Not Detected (NotDetected); Plesiomonas shigelloides PCR Not Detected (NotDetected); Rotavirus A PCR Not Detected (NotDetected); Salmonella PCR Not Detected (NotDetected); Sapovirus PCR Not Detected (NotDetected); Shiga-like Toxin E.coli (STEC) Not Detected (NotDetected); Shigella/Enteroinvasive E.coli Not Detected (NotDetected); Vibrio cholerae PCR Not Detected (NotDetected); Vibrio species PCR Not Detected (NotDetected); Yersinia enterocolitica PCR Not Detected (NotDetected)
[2022-04-01] MEDS: LAVAGE SOLUTION 4000ML PO SCH (03:12)
--- NOTE | 2022-04-01 05:32 | Communication Note ---
Date of Service: April 01, 2022 Notified by nursing regarding patient's burning with urination, urinary frequency, and left leg cramping. Ordered UA, then reviewed patient's chart, which showed a previous history of E. coli and Pseudomonas in urine culture. Gave 1 dose of Bactrim empirically, pending UA result. Resident Activity Tracking Resident Involvement: Financial Advocate Coverage Note Care Provided: Adult Hospital Medicine
[2022-04-01] MEDS ORDERED: SULFAMETHOXAZOLE/TRIMETHOPRIM DS 800/160MG TAB PO ONE (05:33)
[2022-04-01] MEDS: LEVOTHYROXINE SODIUM 75 MCG TABLET PO SCH (05:58)
--- NOTE | 2022-04-01 07:58 | Anesthesiology Consultation ---
Date of Service April 01, 2022 Assessment & Plan (1) Encounter for pre-operative examination: Chart Review Chart Review: Acceptable Risk for Surgery and Patient NOT seen in Pre Admission Testing Consults Requested none History Surgery Operation Date: 04/01/22 16:30 Proposed Procedures p Colonoscopy Dr. Parrish Moses Case, DO Height/Weight Height: 4 ft 11 in Weight: 137 kg Allergies Allergy/AdvReac Type Severity Reaction Status Date / Time adhesive Allergy Intermediate BLISTERING Verified 03/30/22 22:35 cephalexin Allergy Intermediate diarrhea,vomiting, Verified 03/30/22 22:35 nausea fenoprofen Allergy Intermediate MUSCLE Verified 03/30/22 22:35 WEAKNESS, PAIN, HIVES ibuprofen Allergy Intermediate RELATED TO Verified 03/30/22 22:35 FENOPROFEN metformin AdvReac Severe diarrhea Verified 03/30/22 22:35 Medications Home Medications Medication Instructions Recorded Confirmed Last Taken letrozole 2.5 mg tablet 2.5 mg PO QAM 08/15/18 03/30/22 05/17/21 acetaminophen 500 mg tablet 1,500 mg PO BID 09/18/20 03/30/22 05/17/21 (Tylenol Extra Strength) calcium citrate 315 mg 2 tab PO QAM 09/18/20 03/30/22 03/29/22 calcium-vitamin D3 6.25 mcg (250 unit) tablet (Citracal + Vitamin D Maximum) calcium carb-mag hydrox-simeth 280 1 tab PO DAILY PRN Indigestion 10/31/20 03/30/22 03/29/22 mg-128 mg-20 mg chewable tablet fluticasone propionate 50 2 spray intranasal QAM 10/31/20 03/30/22 03/29/22 mcg/actuation nasal spray,suspension (Allergy Relief (fluticasone)) cholecalciferol (vitamin D3) 25 25 mcg PO QAM #90 caps 02/17/21 03/30/22 03/29/22 mcg (1,000 unit) capsule apixaban 5 mg tablet (Eliquis) 5 mg PO BID #180 tabs 06/02/21 03/30/22 Unknown metoprolol succinate 50 mg See Rx Instructions PO DAILY #270 06/16/21 03/30/22 Unknown tablet,extended release 24 hr tabs sacubitril 97 mg-valsartan 103 mg 1 tab PO BID #180 tabs 11/03/21 03/30/22 Unknown tablet (Entresto) zonisamide 50 mg capsule 50 mg PO QAM #90 caps 11/11/21 03/30/22 Unknown levothyroxine 75 mcg tablet 75 mcg PO QAM #90 tabs 11/16/21 03/30/22 Unknown potassium chloride 10 mEq 20 meq PO QID #240 caps 02/08/22 03/30/22 Unknown capsule,extended release amlodipine 10 mg tablet 10 mg PO HS #90 tabs 02/25/22 03/30/22 Unknown gabapentin 300 mg capsule 300 mg PO TID #90 caps 03/10/22 03/30/22 Unknown omeprazole 20 mg capsule,delayed 20 mg PO QAM 03/23/22 03/30/22 Unknown release furosemide 80 mg tablet 80 mg PO BID #14 tabs 03/25/22 03/30/22 Unknown lidocaine 5 % topical patch 1 patch transdermal QAM 30 days 03/25/22 03/30/22 Unknown #30 ea diclofenac sodium 1 % topical gel 2 g topical QID PRN Pain 03/26/22 03/30/22 03/29/22 (Voltaren Arthritis Pain) peg 3350-electrolytes 236 240 ml PO Q10M #4,000 mL 03/26/22 03/30/22 Unknown gram-22.74 gram-6.74 gram-5.86 gram solution (GaviLyte-G) rosuvastatin 20 mg tablet 20 mg PO HS 03/27/22 03/30/22 Unknown spironolactone 25 mg tablet 25 mg PO QPM 03/27/22 03/30/22 Unknown tramadol 50 mg tablet 50 mg PO TID PRN pain #90 tabs 03/27/22 03/30/22 Unknown fosfomycin tromethamine 3 gram 1 packet PO ONCE #1 ea 03/30/22 03/30/22 03/29/22 oral packet latanoprost 0.005 % eye drops 1 drp OPB HS 03/30/22 03/30/22 Unknown primidone 50 mg tablet 150 mg PO BID 03/30/22 03/30/22 Unknown Active Medications Generic Name Dose Route Start Last Admin Trade Name Freq PRN Reason Stop Dose Admin Fluticasone Propionate 2 sprays 03/31/22 09:00 03/31/22 08:13 Fluticasone Propionate Na Spr 16 Gm Btl NA 04/30/22 08:59 2 sprays QAM SAL Administration Gabapentin 300 mg 03/31/22 09:00 03/31/22 19:31 Gabapentin 300 Mg Cap PO 04/30/22 08:59 300 mg TID SAL Administration Insulin Aspart 0 units 03/31/22 07:30 03/31/22 20:59 Insulin Aspart Per Unit SC 04/30/22 07:29 Not Given ACHS SAL Latanoprost 1 drops 03/31/22 21:00 03/31/22 20:59 Latanoprost 0.005% Op Soln 2.5 Ml Btl OPB 04/30/22 20:59 1 drops HS SAL Administration Letrozole 2.5 mg 03/31/22 09:00 03/31/22 08:12 Letrozole 2.5 Mg Tab PO 04/30/22 08:59 2.5 mg QAM SAL Administration Levothyroxine Sodium 75 mcg 03/31/22 06:30 04/01/22 05:58 Levothyroxine Sodium 75 Mcg Tablet PO 04/30/22 06:29 75 mcg DAILYBB SAL Administration Lidocaine 1 patch 03/31/22 04:00 03/31/22 04:11 Lidocaine 5% 1 Patch TD 04/30/22 03:59 1 patch QAM SAL Administration Metoprolol Succinate 50 mg 03/31/22 21:00 03/31/22 19:30 Metoprolol Succ 50mg Ext Rel Tab PO 04/30/22 20:59 50 mg HS SAL Administration Miscellaneous 1 each 03/31/22 16:00 03/31/22 17:55 Remove Lidoderm Patch N/A 04/30/22 15:59 1 each DAILY@2100 SAL Administration Morphine Sulfate 4 mg 03/30/22 23:35 03/31/22 05:31 Morphine Sulfate 4 Mg/Ml 1 Ml Carp\\Vial IV 04/13/22 23:34 4 mg Q3H PRN Administration Pain (6,7,8,9,10) Pantoprazole Sodium 40 mg 03/31/22 09:00 03/31/22 08:12 Pantoprazole 40 Mg Tab PO 04/30/22 08:59 40 mg QAM SAL Administration Primidone 150 mg 03/31/22 09:00 03/31/22 19:30 Primidone 50 Mg Tab PO 04/30/22 08:59 150 mg BID SAL Administration Rosuvastatin Calcium 20 mg 03/31/22 21:00 03/31/22 19:29 Rosuvastatin Calcium 20 Mg Tab PO 04/30/22 20:59 20 mg HS SAL Administration Past Medical History Medical History Acid reflux disease Adenomatous colon polyp Benign essential tremor Carpal tunnel syndrome Chronic low back pain Controlled diabetes mellitus type II without complication Diarrhea ongoing for 1 yr per pt Diverticulitis Diverticulosis of colon PAYAN (dyspnea on exertion) only related to recent CHF visit, denies PAYAN currently 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 Received 5130 cGy utilizing hypo-fractionation." On 08/18/16 11:16 Willow Calero wrote "Abnormal left breast mammogram Status post stereotactic biopsy 06/09/2016 revealing DCIS grade 3 Estrogen receptor positive and progesterone receptor positive Status post needle localization left partial mastectomy with sentinel lymph node biopsy 07/27/2016 DCIS and LCIS Stage pTis pN0" Gait disturbance Generalized osteoarthritis of multiple sites Glaucoma Hyperlipidemia Hypertension Hypokalemia Hypothyroidism Irritable bowel syndrome with constipation Morbid obesity Morbid obesity with BMI of 50.0-59.9, adult NYHA class 2 heart failure with preserved ejection fraction, with improvement of ejection fraction from prior measurement VICKIE (obstructive sleep apnea) Permanent atrial fibrillation (09/2020) Recurrent UTI Retinal detachment Spondylisthesis Urge and stress incontinence Past Family History Family History Mother Diabetes Heart disease Peripheral vascular disease Colorectal cancer Hypertension Stroke Cancer Father Diabetes Congestive heart failure (CHF) Myocardial infarction Hypertension Stroke Heart disease Aunt Breast cancer Sister Lung cancer 2 sisters Other Nephrolithiasis No family history of adverse response to anesthesia Pure hypercholesterolemia Denies family history of Asthma Past Surgical History Surgical History History of cataract surgery right History of colonoscopy 11/27/2016 History of conization of cervix History of cryosurgery cervical cancer- History of inguinal hernia repair bilt History of knee replacement left History of left breast biopsy malignant History of left hip replacement History of partial mastectomy of left breast left partial mastectomy with sentinel lymph node biopsy History of right breast biopsy benign History of right cataract surgery History of right hip replacement History of tooth extraction History of wisdom tooth extraction Hx of arthroscopic knee surgery left Retinal detachment of right eye due to tear of retina Status post correction of deviated nasal septum Social History Smoking Status: Never smoker Hx Alcohol Use: No Hx Substance Use: No substance use type: does not use Physical Exam Vital Signs Last Vital Signs Temp 97.5 F L 04/01/22 07:55 Pulse 79 04/01/22 07:55 Resp 18 04/01/22 07:55 BP 125/80 04/01/22 07:55 Pulse Ox 90 04/01/22 07:55 O2 Del Method 04/01/22 07:55 O2 Flow Rate 2 04/01/22 03:18 Testing Laboratory Results 03/31/22 05:23 03/31/22 07:52 PT 10.6 Seconds (9.0-12.0) 03/30/22 17:41 INR 1.0 (0.9-1.1) 03/30/22 17:41 APTT 23.9 Seconds (21.0-31.0) 03/30/22 17:41 Blood Type A Positive 03/30/22 17:41 Antibody Screen NEGATIVE 03/30/22 17:41 03/31/22 20:26 POC Glucose 96 Electrocardiogram Date: 03/30/22 Findings: + AFIB @ Atrial fibrillation with premature ventricular or aberrantly conducted complexes Inferior infarct (cited on or before 27-JUL-2016) Anterolateral infarct (cited on or before 26-JUN-2016) Abnormal ECG When compared with ECG of 23-MAR-2022 11:07, Non-specific change in ST segment in Anterior leads QT has shortened
[2022-04-01] MEDS ORDERED: METOPROLOL SUCC 50MG EXT REL TAB PO SCH (09:00)
[2022-04-01] MEDS: INSULIN ASPART PER UNIT SC SCH ×2 (11:17→13:58)
[2022-04-01] MEDS: FLUTICASONE PROPIONATE NA SPR 16 GM BTL SCH (11:18)
[2022-04-01] MEDS: PRIMIDONE 50 MG TAB PO SCH (11:18)
[2022-04-01] MEDS: GABAPENTIN 300 MG CAP PO SCH ×2 (11:18→17:20)
[2022-04-01] MEDS: PANTOprazole 40 MG TAB PO SCH (11:19)
[2022-04-01] MEDS: LETROZOLE 2.5 MG TAB PO SCH (11:19)
[2022-04-01 11:57] LABS: Basophils # (auto) 0.05 K/uL (0-0.2); Eosinophils # (auto) 0.19 K/uL (0-0.50); Eosinophils % (auto) 3.8 %; Hematocrit (blood only) 39.5 % (34.1-44.9); Hemoglobin 12.9 g/dl (12.0-16.0); Immature Granulocytes # (auto) 0.02 K/uL (0.00-0.02); Immature Granulocytes % (auto) 0.4 %; Lymphocytes # (auto) 1.44 K/uL (1.2-3.4); Lymphocytes % (auto) 28.7 %; Mean Corpuscular Hemoglobin 29.9 pg (25.0-34.0); Mean Corpuscular Hgb Conc 32.7 g/dL (32.0-36.0); Mean Corpuscular Volume 91.6 fL (80.0-100.0); Mean Platelet Volume 10.4 fL (9.4-12.3); Monocytes # (auto) 0.43 K/uL (0.24-0.82); Monocytes % (auto) 8.6 %; Neutrophils # (auto) 2.89 K/uL (1.4-6.5); Neutrophils % (auto) 57.5 %; Platelet Count 263 K/uL (130-400); RDW Coefficient of Variation 13.3 % (11.5-14.5); RDW Standard Deviation 45.2 fL (36.4-46.3); Red Blood Count 4.31 M/uL (3.93-5.22); White Blood Count 5.02 K/ul (4.8-10.8)
[2022-04-01 12:21] LABS: BUN Creatinine Ratio 18.8 (10-20); Calcium 9.3 mg/dl (8.5-10.1); Creatinine Clr Calc Pharmacy 76.2 ml/min; Est GFR (Non-African American) 71.6 ml/min; Magnesium 1.9 mg/dl (1.7-2.4); Potassium 3.1 mmol/L (3.5-5.1)
--- NOTE | 2022-04-01 12:33 | History & Physical Bridge Note ---
Date of Service April 01, 2022 History & Physical Bridge Note I have examined the patient, reviewed the History & Physical and in the interval since the performance of the History & Physical I have noted the following changes of clinical significance: no changes noted. she is planned for colonoscopy today. she has been drinking prep throughout the night. moving bowels throughout the night. no further bleeding. still some LUQ pain but better than previously. no chest pain, sob. Supervising Physician Co-Signing Physician Notes Agree with MARTHA Vega as above Abd: Soft, tender LUQ, ND, +BS Continue current therapy Proceed with colonoscopy today.
[2022-04-01] MEDS ORDERED: POTASSIUM CHLORIDE / WTR 10 MEQ/100 ML PLCT IV SCH (13:15)
[2022-04-01] MEDS: LIDOCAINE 5% 1 PATCH TD SCH (14:00)
[2022-04-01 14:29] VITALS: TEMP 96.4
[2022-04-01] MEDS ORDERED: PROPOFOL IV EMULSION 10 MG/ML 20 ML VIAL IV ONE (15:15)
[2022-04-01] MEDS ORDERED: LIDOCAINE 2% MPF LOCAL 5 ML VIAL INFIL ONE (15:15)
[2022-04-01] MEDS ORDERED: NYSTATIN POWDER 15GM BTL EXT PRN (15:40)
--- NOTE | 2022-04-01 16:21 | GI REPORT ---
Patient Name: Edie Munoz Procedure Date: 04/01/2022 3:07 PM Date of : 1945 Admit Type: Inpatient Age: 77 Gender: Female Attending MD: Jeb Senior DO, Procedure: Colonoscopy Providers: Jeb Senior DO Referring MD: Chelsey Handy Md Indications: Abdominal pain in the left upper quadrant, Hematochezia Medicines: Monitored Anesthesia Care Complications: No immediate complications. Estimated Blood Loss: Estimated blood loss: none. Procedure: Pre-Anesthesia Assessment: - Prior to the procedure, a History and Physical was performed, and patient medications and allergies were reviewed. The patient's tolerance of previous anesthesia was also reviewed. The risks and benefits of the procedure and the sedation options and risks were discussed with the patient. All questions were answered, and informed consent was obtained. Prior Anticoagulants: The patient has taken Eliquis (apixaban), last dose was 3 days prior to procedure. ASA Grade Assessment: III - A patient with severe systemic disease. After reviewing the risks and benefits, the patient was deemed in satisfactory condition to undergo the procedure. After I obtained informed consent, the scope was passed under direct vision. Throughout the procedure, the patient's blood pressure, pulse, and oxygen saturations were monitored continuously. The Colonoscope was introduced through the anus and advanced to the terminal ileum. The colonoscopy was performed without difficulty. The patient tolerated the procedure well. The quality of the bowel preparation was good. The terminal ileum, ileocecal valve, appendiceal orifice, and rectum were photographed. Findings: The perianal and digital rectal examinations were normal. Multiple small-mouthed diverticula were found in the sigmoid colon and descending colon. Non-bleeding internal hemorrhoids were found during retroflexion. The hemorrhoids were small. Impression: - Diverticulosis in the sigmoid colon and in the descending colon. - Non-bleeding internal hemorrhoids. - No specimens collected. Recommendation: - Return patient to [facility] for ongoing care. - Advance diet as tolerated. - Continue present medications. - Repeat colonoscopy in 5 years for surveillance. Jeb Senior DO 04/01/2022 4:21:42 PM This report has been signed electronically. Note Initiated On: 04/01/2022 3:07 PM Number of Addenda: 0 I attest to the content of the Intraoperative Record and orders documented therein, exceptions below {[id number]}
[2022-04-01 16:24] VITALS: BP 110/68; O2SAT 94
--- NOTE | 2022-04-01 16:29 | Anesthesiology Progress Note ---
Date of Service April 01, 2022 Anesthesia Post Procedure Vital Signs Vital Signs: Temp Pulse Resp BP Pulse Ox O2 Del Method O2 Flow Rate 04/01/22 16:22 83 16 110/68 94 Room Air 04/01/22 16:07 78 16 112/52 L 96 Room Air 04/01/22 14:10 96.4 F L 68 18 147/94 H 96 Room Air 04/01/22 11:24 98.6 F 70 16 135/85 94 Room Air 04/01/22 07:55 97.5 F L 79 18 125/80 90 Room Air 04/01/22 03:18 97.7 F 89 20 110/70 94 Nasal Cannula 2 03/31/22 22:44 97.7 F 77 20 108/53 L 92 Room Air 03/31/22 19:46 80 18 123/77 93 Room Air Transfer of Care Handoff Completed per policy Notes Mental Status: alert / awake / arousable and participated in evaluation Patient Amnestic to Procedure: Yes Nausea / Vomiting: adequately controlled Pain: adequately controlled Airway Patency, RR, SpO2: stable & adequate BP & HR: stable & adequate Hydration State: stable & adequate Anesthetic Complications: no major complications apparent and Pt Satisfied with anesthetic care
[2022-04-01] MEDS ORDERED: POTASSIUM CHLORIDE 20 MEQ/15 ML UDC PO STA (17:45)
--- NOTE | 2022-04-01 18:06 | Discharge Summary ---
Date of Service April 01, 2022 Admission HPI Per Admitting Provider Edie Munoz is a pleasant 77yo female with history of GERD, DM, HTN, HLP, Hypothyroidism, AF on Apixaban anticoagulation, known diverticular disease and prior colon polyps presenting with bloody diarrhea. Patient ate a burger from [employer] then a piece of morris cheesecake for dessert. Shortly after she developed LUQ abdominal pain at the area of the splenic flexure followed by bloody diarrhea. She reports bright red blood filled the toilet bowl. She reports having diarrhea for approximately 2 hours. Last episode was 03/30/22 at 01:00. She took Immodium with resolution. She has been passing gas without difficulty. She reports having blood streaked stool in the past but no overt GI bleeding that filled the toilet bowl. Her last colonoscopy on record from 2016 with two 3-5 mm polyps int he mid-ascending colon, diverticulosis and non-bleeding internal hemorrhoids. She denies fever, chills, chest pain, cough, SOB. She had some nausea. Patient recently admitted to [facility] 03/23/22 - 03/25/22 for chest pain and CHF exacerbation. She was diuresed and discharged on an increased dose of Lasix 80mg po BID Principal Diagnosis Lower GI bleeding Discharge Exam Constitutional WD/WN, vitals as above + morbidly obese Eyes + anicteric sclerae Neck trachea midline, no thyromegaly Respiratory normal respiratory effort, lungs clear to auscultation Cardiovascular Rate/Rhythm: regular rate and + irregularly irregular Heart Sounds: no murmur Extremities: + edema (trace edema legs and ankles bilat) Chest (Breasts) Chest: normal inspection of chest Gastrointestinal (Abdomen) normal bowel sounds, soft, nontender, no hepatosplenomegaly Musculoskeletal Extremities: extremities normal to inspection; no cyanosis and no clubbing Skin no rashes, warm and dry Neurologic moves all extremities and awake; no focal motor deficits Psychiatric A+Ox3, euthymic affect Lymphatic no lymphedema Discharge Data Allergies Allergy/AdvReac Type Severity Reaction Status Date / Time adhesive Allergy Intermediate BLISTERING Verified 04/01/22 14:10 cephalexin Allergy Intermediate diarrhea,vomiting, Verified 04/01/22 14:10 nausea fenoprofen Allergy Intermediate MUSCLE Verified 04/01/22 14:10 WEAKNESS, PAIN, HIVES ibuprofen Allergy Intermediate RELATED TO Verified 04/01/22 14:10 FENOPROFEN metformin AdvReac Severe diarrhea Verified 04/01/22 14:10 Consultations 03/30/22 21:20 ED Decision to Admit Stat 03/30/22 23:35 Consult Gastroenterology Routine Procedures Performed Operation Date: 04/01/22 16:30 Actual Procedures p Colonoscopy(Not Applicable) - Jeb RubenFritz Case, DO Ordered Studies 03/30/22 15:55 CT abd pelvis IV con only Stat Hospital Course (1) Acute lower GI bleedinyo female with diverticulosis, colon polyps and GERD presenting with LUQ pain, diarrhea with bright red blood. She is HD stable. Suspect ischemic colitis vs infectious given onset after eating [employer] although could have been rectal bleeding as well Hgb remained stable and actually went up to 12.9 on the day of discharge Eliquis was held during her stay No further bleeding throughout hospitalization and during bowel prep for colonoscopy Colonoscopy with: multiple small-mouthed diverticula were found in the sigmoid colon and descending colon. Non-bleeding internal hemorrhoids were found during retroflexion. The hemorrhoids were small. Stool PCR test negative Given no inflammation or active bleeding seen on colonoscopy, seems most likely was hemorrhoidal bleeding after having diarrhea related to food borne illness perhaps No antibiotics indicated Can restart Eliquis Stable for discharge to home on low fiber diet for a week and then return to high fiber diet For more chronic diarrhea, advised trial of stopping her PPI to see if helps (2) Left sided abdominal pain: CT remarks diverticulosis without acute diverticulitis. colonoscopy normal as above resolved (3) Permanent atrial fibrillation: Rates controlled on metoprolol ok to restart Elqiuis on discharge as bleeding stopped (4) Benign essential tremor: continue primidone (5) Hypothyroidism: Chronic, TSH normal in 02/2022 -Continue Synthroid 75mcg po daily (6) Hyperlipidemia: -Continue Rosuvastatin 20mg po qHS (7) Controlled diabetes mellitus type II without complication: Diet controlled diabetes. Last HgbA1C on 08/29/21 = 6.9 no meds at home (8) Acid reflux disease: Chronic -Continue prilosec but can trial being off to see if resolves her chronic diarrhea (9) NYHA class 2 heart failure with preserved ejection fraction, with improvement of ejection fraction from prior measurement: Compensated. Patient recently admitted for chest pain and CHF exacerbation. -held Spironolactone, Entresto, lasix during GI bleed and while NPO for procedu re but can restart on discharge continue toprol XL replaced potassium po on day of discharge Plan DVT proph-SCD Dispo-dc to home with home health Home Health Attestation I certify that this patient is under my care and that I, or a physicians special event assistant working with me, had a face to-face encounter that meets the home health [id number] encounter requirements with this patient. The encounter with the patient was in whole, or in part, for the following medical condition, which is the primary reason for home health care (list medical condition): GI Bleed, A-fib I certify that, based on my findings, the following services are medically necessary home health services: My clinical findings support the need for the above services because: Caregiver Instruct Med Mgmt, Safety, Disease Process, Signs to Report Home Safety Assessment Medication Compliance OT Assess ADL Status and Restore Function w ADLs PT Assessment for Endurance / Balance / Strength PT Eval for Safety and Mobility PT Eval for Safety, Gait Training, Assistive Devices PT Gait and Balance Training, Strengthening and Safety Skilled Nsg Assess Pt Illness, Disease and Sx Monitoring Further, I certify that my clinical findings support that this patient is homebound (i.e. absences from home require considerable and taxing effort and are for medical reasons or nondenominational services or infrequently or of short duration when for other reasons) because: Supportive Aid - Walker Transportation Assistance/Unable to Leave Home Unassisted Certification for Home Health Services: Based on the above findings, I certify that this patient is confined to the home and needs intermittent long-term care, physical therapy and/or speech therapy or continues to need occupational therapy. The patient is under my care, and I have initiated the establishment of the plan of care. This patient will be followed by a physician who will periodically review the plan of care. Total Time Total Time Spent Total Time Spent (In Minutes): 35 min Total Time Includes: Examination of the Patient, Discharge Planning, Medication Reconciliation and Communication With Other Providers (discussed with Dr. Field on day of discharge) Discharge Plan Discharge Items Patient Disposition: Home - Home Health Services Reason For Visit: LGIB Discharge Diagnosis: Lower GI bleeding Condition on Discharge: Good Activity: Resume your previous activity Non-emergency contact: Primary Care Provider Call non-emergency contact if: you have any medication questions and your symptoms worsen Follow-up/Referrals: Angeline Martinez MD [Primary Care Provider] - 04/08/22 11:30 am (Follow up within 1 week.) Diet: Low Fiber Diet Comment: low fiber x 1 week then advance to low sodium/heart healthy Addtl Attending Provider Instructions: You were admitted with rectal bleeding that self resolved. Your colonoscopy did not show anything significantly abnormal. Your blood count did not drop so you did not have a large blood loss. The stool studies to look for infectious causes were negative. It is safe to resume your Eliquis upon your return home. Pending Studies at Discharge: No Stand-Alone Forms: My [facility], Smoking Cessation Medications and DC Order Prescriptions: Continued fluticasone propionate [Allergy Relief (fluticasone)] 50 mcg/actuation spray,suspension 2 spray INTNAS QAM calcium carb-mag hydrox-simeth 280-128-20 mg Tablet,Chewable 1 tab PO DAILY PRN (Reason: Indigestion) cholecalciferol (vitamin D3) 25 mcg (1,000 unit) capsule 25 mcg PO QAM Qty: 90 3RF Eliquis 5 mg tablet 5 mg PO BID Qty: 180 3RF Entresto 97-103 mg tablet 1 tab PO BID Qty: 180 3RF zonisamide 50 mg capsule 50 mg PO QAM Qty: 90 1RF levothyroxine 75 mcg tablet 75 mcg PO QAM Qty: 90 3RF potassium chloride 10 mEq capsule, extended release 20 meq PO QID Qty: 240 1RF amlodipine 10 mg tablet 10 mg PO HS Qty: 90 3RF gabapentin 300 mg capsule 300 mg PO TID Qty: 90 5RF diclofenac sodium [Voltaren Arthritis Pain] 1 % gel 2 g topical QID PRN (Reason: Pain) tramadol 50 mg tablet 50 mg PO TID PRN (Reason: pain) Qty: 90 0RF Rx Instructions: approved 07/11/20---10/09/21 fosfomycin tromethamine 3 gram packet 1 packet PO ONCE Qty: 1 0RF letrozole 2.5 mg tablet 2.5 mg PO QAM metoprolol succinate 50 mg tablet extended release 24 hr See Rx Instructions PO DAILY Qty: 270 3RF Rx Instructions: take 2 tablets in the morning and 1 tablet at bedtime PO daily; acetaminophen [Tylenol Extra Strength] 500 mg Tablet 1,500 mg PO BID calcium citrate-vitamin D3 [Citracal + D Maximum] 315 mg-6.25 mcg (250 unit) Tablet 2 tab PO QAM spironolactone 25 mg tablet 25 mg PO QPM rosuvastatin 20 mg tablet 20 mg PO HS latanoprost 0.005 % drops 1 drp OPB HS primidone 50 mg tablet 150 mg PO BID omeprazole 20 mg capsule,delayed release(DR/EC) 20 mg PO QAM furosemide 80 mg Tablet 80 mg PO BID Qty: 14 0RF lidocaine 5 % Adhesive Patch,Medicated 1 patch transdermal QAM 30 Days Qty: 30 0RF Discontinued peg 3350-electrolytes [GaviLyte-G] 236-22.74-6.74 -5.86 gram recon soln 240 ml PO Q10M Qty: 4000 0RF Rx Instructions: until fecal effluent is clear, Prep for colonoscopy Admission Data Admit Date/Time: 03/30/22 21:18 Attending Provider: Chelsey Handy Admit Provider: Katie Gong Primary Care Provider: Angeline Martinez Other Providers: Katie Gong ; Jeb Senior ; [place] Other Interventions: Discharge Summary Assessment (RN) Last Done: 04/01/22 19:17 Coding Level of Care Code HOSP INP/OBS DISCH >30 MIN Diagnoses Acute lower GI bleeding K92.2 Left sided abdominal pain R10.9 Permanent atrial fibrillation I48.21 Benign essential tremor G25.0 Hypothyroidism E03.9 Hyperlipidemia E78.5 Controlled diabetes mellitus type II without complication E11.9 Acid reflux disease K21.9 NYHA class 2 heart failure with preserved ejection fraction, with improvement of ejection fraction from prior measurement I50.30
[2022-04-01 19:48] VITALS: PULSE 82
[2022-04-02] MEDS ORDERED: LIDOCAINE 5% 1 PATCH TD SCH (09:00)
== END 2022-04-01 19:48 | disposition home health service (06) ==
LOC: ED 13:15 → 2N 13:15 → SUATTDRO 21:18 → 2N 23:08

== ENCOUNTER 2024-01-25 16:02 | Inpatient (IN) ==
--- NOTE | 2024-01-25 16:28 | Emergency Department Note ---
Impression & Plan Acute dyspnea, Acute exacerbation of CHF (congestive heart failure), Elevated brain natriuretic peptide (BNP) level, Acute hypoxic respiratory failure, Pain of right heel ED Provider Note HISTORY OF PRESENT ILLNESS: Patient is a 78-year-old female presenting with right foot pain and shortness of breath. Patient reports that she made an appointment at her primary care provider's clinic today for her right heel pain which has been ongoing for the last 4 to 5 days. She states that she was seen by her PCP and was referred to the emergency department due to her leg swelling and shortness of breath. Patient reports she is on Lasix 40 mg daily but has not taken any extra doses of this. She states it feels like her lower legs are swollen today secondary to not being able to elevate them secondary to coming to appointments and sitting down most of the day. Denies any chest pain. Reports feeling short of breath over the last 4 to 5 days with minimal amounts of exertion. ROS: as above PHYSICAL EXAM: Constitutional: Patient appears in no acute distress. Morbidly obese HENT: Head: Normocephalic and atraumatic. Eyes: EOMI, PERRL Mouth/Throat: Mucous membranes moist. Neck: Trachea midline. Neck supple. Cardiovascular: Irregular rhythm. No murmurs, rubs or gallops. Intact distal pulses. Pulmonary/Chest: No respiratory distress. Breath sounds clear and equal bilaterally. No wheezes or rales. Abdominal: Abdomen soft, no tenderness, rebound or guarding. Musculoskeletal: No tenderness or deformity noted. Lymphedema of bilateral lower extremities. No appreciable open wounds on RLE foot. Patient has notable dry, cracked skin on the plantar surface of the right heel. Skin: Warm and dry. No rash, erythema, pallor or cyanosis Psychiatric: Appropriate mood and affect for situation. Neurological: Alert and keenly responsive. CN II-XII grossly intact, moving all extremities equally and fully. MDM: - Vitals signs showed hypertension. - History obtained via patient. History as above. - Chronic conditions affecting care: HTN; CHF; DM-2; morbid obesity; bladder cancer - Differential diagnoses include, but are not limited to: Congestive heart failure; acute coronary syndrome; COPD/asthma exacerbation; pulmonary edema; pulmonary embolism; pneumonia; pneumothorax; viral syndrome - Order placed for continuous cardiac monitoring. At this time, monitor showed rate of 84 bpm with irregular rhythm, per my interpretation. - External medical records reviewed. Primary care visit note dated today was reviewed. Patient was sent to the ER due to conversational dyspnea, progressive weakness and left-sided chest pain. - EKG interpreted by myself showed atrial fibrillation. Rate 95 bpm. QT 390. No acute ischemic changes. - Laboratory workup interpreted by myself showed normal WBC; normal PT/INR; stable electrolytes; normal troponin; elevated BNP (212) - UA negative for infection - Viral respiratory panel negative - CXR negative for pneumonia, per my interpretation. - Xray right foot showed calcaneal spurring and osteoarthritic changes at the ankle, per radiology. - Patient was insistent about being ambulated to the bathroom, even though she has significant difficulty in getting out of the wheelchair and to the examination bed from triage. She was ambulated to the bathroom by ER techs and saturations were initially appropriate on arrival back to bed, but patient then proceeded to desaturate down into the mid 80s. She was started on supplemental oxygen. Initially placed on 3 L nasal cannula, but was titrated down to 1.5L. - Discussion was had with case advocate about patient's case and need for admission - Hospitalist consulted for admission - Patient admitted to [facility] service for further evaluation and management. ASSESSMENT AND PLAN: Diagnosis: acute dyspnea; acute CHF exacerbation; acute hypoxia; elevated BNP; right heel pain Plan: admit Past Med/Surg History Problem List (Updated 01/25/24 @ 18:19 by Deidre Saavedra MD) Pain of right heel (Acute) Acute hypoxic respiratory failure (Acute) Elevated brain natriuretic peptide (BNP) level (Acute) Acute exacerbation of CHF (congestive heart failure) (Acute) Acute dyspnea (Acute) Diverticulosis Right maxillary sinusitis Dysuria Diabetes mellitus Right renal mass Needs F/U w Urology and MRI UTI (urinary tract infection) Maxillary sinusitis Plantar fasciitis Coronary artery calcification of coquille artery Pneumonia of left lower lobe due to Streptococcus pneumoniae Vulvovaginitis devin albicans Hypokalemia Glaucoma Steroid induced per patient Coccydynia Chronic SI joint pain Degenerative spondylolisthesis Heart failure with ejection fraction improved from reduced range to mildly reduced range Essential tremor Hematuria Recurrent UTI Stress incontinence Cystitis Bladder pain 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 Received 5130 cGy utilizing hypo-fractionation." On 08/18/16 11:16 Willow M Calero wrote "Abnormal left breast mammogram Status post stereotactic biopsy 06/09/2016 revealing DCIS grade 3 Estrogen receptor positive and progesterone receptor positive Status post needle localization left partial mastectomy with sentinel lymph node biopsy 07/27/2016 DCIS and LCIS Stage pTis pN0" Urge and stress incontinence (Chronic) Morbid obesity Hypothyroidism Hypertension Hyperlipidemia Generalized osteoarthritis of multiple sites (Chronic) Diverticulosis of colon (Chronic) Controlled diabetes mellitus type II without complication Carpal tunnel syndrome (Chronic) Benign essential tremor Acid reflux disease (Chronic) History of cryosurgery cervical cancer- Chronic low back pain Cardiomyopathy Hypokalemia VICKIE (obstructive sleep apnea) Chronic rhinitis Nasal septal deviation Hypertrophy of both inferior nasal turbinates Incontinence Acute on chronic HFrEF (heart failure with reduced ejection fraction) Permanent atrial fibrillation (09/2020) Recurrent UTI Adenomatous colon polyp Diarrhea ongoing for 1 yr per pt Gait disturbance NYHA class 2 heart failure with preserved ejection fraction, with improvement of ejection fraction from prior measurement Lumbar pain Acute lower GI bleeding (Acute) Left sided abdominal pain (Acute) Congestive heart failure with cardiomyopathy Medical History Acute on chronic heart failure with normal ejection fraction Abnormal EKG DVT prophylaxis Morbid obesity with BMI of 50.0-59.9, adult Spondylisthesis Irritable bowel syndrome with constipation Left paraspinal back pain Acute systolic CHF (congestive heart failure) Atrial fibrillation with R[place] Lumbar stenosis with neurogenic claudication Diverticulitis Left lumbar radiculopathy Retinal detachment Surgical History History of right breast biopsy History of left breast biopsy History of right hip replacement History of left hip replacement History of tooth extraction History of wisdom tooth extraction Status post correction of deviated nasal septum History of right cataract surgery History of conization of cervix Retinal detachment of right eye due to tear of retina History of cataract surgery History of partial mastectomy of left breast History of knee replacement Hx of arthroscopic knee surgery History of inguinal hernia repair History of colonoscopy Family History Mother Diabetes Heart disease Peripheral vascular disease Colorectal cancer Hypertension Stroke Cancer Father Diabetes Congestive heart failure (CHF) Myocardial infarction Hypertension Stroke Heart disease Aunt Breast cancer Sister Lung cancer Other Nephrolithiasis No family history of adverse response to anesthesia Pure hypercholesterolemia Denies family history of Asthma Social History Smoking Status: Never smoker Second Hand Exposure: Yes; Do You Dip or Chew Tobacco: No; Hx Alcohol Use: No Hx Substance Use: No Preferred Language: Cameroonian Communication Ability: Effective Visual Impairment: Partially Limited Hearing Ability: Normal Custodial Worker Required: No Beliefs That Will Affect Care: None marital status: / Current Living Situation: Family Current Living Situation Comment: Lives with her son Edward current occupational status: retired How many Children do You have: 2 Feels Safe at Home: Yes Childhood Exposure to Second-Hand Smoke: Yes Diet Comment: avoids seeds/nuts caffeine: Yes (coffee) Dental Care, Regularly: Yes Physical Activity Frequency: Does not Exercise Seatbelt Use: always Sunscreen Use: Yes Do you think of yourself as: straight/heterosexual Assistive Devices: Cane and Walker Allergies Allergies Allergy/AdvReac Type Severity Reaction Status Date / Time adhesive Allergy Intermediate BLISTERING Verified 01/07/24 11:36 cephalexin Allergy Intermediate diarrhea,vomiting, Verified 01/07/24 11:36 nausea fenoprofen Allergy Intermediate MUSCLE Verified 01/07/24 11:36 WEAKNESS, PAIN, HIVES ibuprofen Allergy Intermediate RELATED TO Verified 01/07/24 11:36 FENOPROFEN metformin AdvReac Severe diarrhea Verified 01/07/24 11:36 torsemide AdvReac severe Uncoded 01/07/24 11:36 polyuria Home Meds Home Medications Medication Instructions Recorded Confirmed calcium carb-mag hydrox-simeth 280 1 tab PO DAILY PRN Indigestion 10/31/20 01/25/24 mg-128 mg-20 mg chewable tablet latanoprost 0.005 % eye drops 1 drp OPB HS 03/30/22 01/25/24 calcium 315 mg (as 1 tab PO QAM 04/02/22 01/25/24 citrate)-vitamin D3 6.25 mcg (250 unit) tablet (Citracal + Vitamin D Maximum) acetaminophen 500 mg tablet 1,000 mg PO TID 08/14/22 01/25/24 (Tylenol Extra Strength) Previous Rx's Medication Instructions Recorded cholecalciferol (vitamin D3) 25 25 mcg PO QAM #90 caps 04/14/22 mcg (1,000 unit) capsule rosuvastatin 20 mg tablet 20 mg PO HS #90 tabs 06/18/23 sacubitril 97 mg-valsartan 103 mg 1 tab PO BID #180 tabs 06/18/23 tablet (Entresto) sodium chloride, sodium 1 ea .Route BID #50 ea 06/18/23 bicarb-nasal rinse squeeze bottle with packet (Neilmed Sinus Rinse Complete with packet) metoprolol succinate 50 mg See Rx Instructions PO DAILY #270 07/14/23 tablet,extended release 24 hr tabs apixaban 5 mg tablet (Eliquis) 5 mg PO BID #180 tabs 07/26/23 magnesium oxide 500 mg PO HS #30 tabs 07/26/23 primidone 50 mg tablet 150 mg (3 x 50 mg) PO .COMPLEX 90 09/13/23 days #540 tabs gabapentin 100 mg capsule 100 mg PO TID #180 caps 09/14/23 tramadol 50 mg tablet 50 mg PO TID PRN pain #90 tabs 09/15/23 amlodipine 5 mg tablet 5 mg PO DAILY #30 tabs 10/11/23 fluticasone propionate 50 See Rx Instructions .Route 11/01/23 mcg/actuation nasal .COMPLEX #9.9 grams spray,suspension (Allergy Relief (fluticasone)) spironolactone 25 mg tablet 25 mg PO DAILY #45 tabs 11/03/23 furosemide 40 mg tablet 40 mg PO DAILY #30 tabs 11/29/23 metformin 500 mg tablet,extended 500 mg PO DAILY #30 tabs 12/08/23 release 24 hr azelastine 137 mcg (0.1 %) nasal 2 spray intranasal BID #30 mL 01/04/24 spray cetirizine 10 mg tablet 10 mg PO DAILY #30 tabs 01/04/24 fluticasone propionate 50 2 spray intranasal HS #9.9 grams 01/04/24 mcg/actuation nasal spray,suspension (Allergy Relief (fluticasone)) Bifidobacterium infantis 4 mg 4 mg PO BID #60 caps 01/07/24 capsule (Align) tizanidine 4 mg tablet 4 mg PO HS PRN muscle spasticity 01/07/24 #30 tabs levothyroxine 75 mcg tablet See Rx Instructions .Route 01/10/24 .COMPLEX #30 tabs Results & Data (ED) Vital Signs Vital Signs - 24 hr 01/25/24 16:09 01/25/24 16:30 01/25/24 16:30 Temperature 36.8 C Temperature Source Temporal Artery Scan Pulse Rate 82 Pulse Rate [Left Finger] Pulse Rhythm Respiratory Rate 14 Respiratory Effort / Characteristics Non-Labored Labored Respiratory Depth Normal Normal Respiratory Pattern Irregular Blood Pressure 190/130 H Blood Pressure [Right Arm] Blood Pressure Mean 150 Blood Pressure Mean [Right Arm] Pulse Oximetry 95 94 Oxygen Delivery Method Room Air Room Air Room Air Sepsis Recent Fever Within 48 Hours No Sepsis New/Unexplained Change in Mental Status N/A Sepsis Action Taken by Nursing No Action Required Oxygen Flow Rate - Titration Pulse Oximetry Post Tiitration 01/25/24 16:30 01/25/24 16:35 01/25/24 17:30 Temperature Temperature Source Pulse Rate 86 84 Pulse Rate [Left Finger] 85 Pulse Rhythm Regular Respiratory Rate 28 H 22 Respiratory Effort / Characteristics Respiratory Depth Respiratory Pattern Blood Pressure Blood Pressure [Right Arm] 193/124 H Blood Pressure Mean Blood Pressure Mean [Right Arm] 147 Pulse Oximetry 94 96 Oxygen Delivery Method Room Air Sepsis Recent Fever Within 48 Hours Sepsis New/Unexplained Change in Mental Status Sepsis Action Taken by Nursing Oxygen Flow Rate - Titration Pulse Oximetry Post Tiitration 01/25/24 17:43 01/25/24 17:44 Temperature Temperature Source Pulse Rate Pulse Rate [Left Finger] Pulse Rhythm Respiratory Rate Respiratory Effort / Characteristics Respiratory Depth Respiratory Pattern Blood Pressure Blood Pressure [Right Arm] Blood Pressure Mean Blood Pressure Mean [Right Arm] Pulse Oximetry 87 L 87 L Oxygen Delivery Method Room Air Room Air Sepsis Recent Fever Within 48 Hours Sepsis New/Unexplained Change in Mental Status Sepsis Action Taken by Nursing Oxygen Flow Rate - Titration 1.5 Pulse Oximetry Post Tiitration 95 Laboratory Data 01/25/24 16:33 01/25/24 16:33 Lab Results 01/25/24 Range/Units 16:33 WBC 7.92 (4.8-10.8) K/ul RBC 4.67 (4.20-5.40) M/uL Hgb 12.7 (12.0-16.0) g/dl Hct 41.5 (37.0-47.0) % MCV 88.9 (80.0-100.0) fL MCH 27.2 (25.0-34.0) pg MCHC 30.6 L (32.0-36.0) g/dL RDW Std Deviation 48.2 H (36.4-46.3) fL RDW Coeff of Jesse 14.8 H (11.5-14.5) % Plt Count 235 (130-400) K/uL MPV 10.8 (9.4-12.4) fL Immature Gran % (Auto) 0.3 % Neut % (Auto) 67.5 % Lymph % (Auto) 22.0 % Potter % (Auto) 7.3 % Eos % (Auto) 2.0 % Baso % (Auto) 0.9 % Neut # (Auto) 5.35 (1.40-6.50) K/uL Lymph # (Auto) 1.74 (1.20-3.40) K/uL Potter # (Auto) 0.58 (0.11-0.59) K/uL Eos # (Auto) 0.16 (0.00-0.50) K/uL Baso # (Auto) 0.07 (0.00-0.20) K/uL Immature Gran # (Auto) 0.02 (0.01-0.20) K/uL PT 11.0 (9.0-12.0) Seconds INR 1.0 (0.9-1.1) Sodium 140 (136-145) mmol/L Potassium 3.7 (3.5-5.1) mmol/L Chloride 101 (98-107) mmol/L Carbon Dioxide 29 (21-32) mmol/L Anion Gap 10 (3-11) BUN 14 (6-23) mg/dl Creatinine 0.75 (0.6-1.2) mg/dl Est Cr Clr Drug Dosing Not Reportable eGFR 81.95 BUN/Creatinine Ratio 18.7 (10-20) Glucose 102 H (70-99(Fasting)) mg/dl Calcium 9.7 (8.6-10.3) mg/dl Magnesium 2.3 (1.7-2.4) mg/dl Total Bilirubin 0.3 (0.2-1.0) mg/dl AST 12 L (13-39) U/L ALT 10 (7-52) U/L Alkaline Phosphatase 99 (34-104) U/L Troponin I High Sens 11.5 (0-14) pg/ml B-Natriuretic Peptide 212 H (0-100) pg/ml Total Protein 7.4 (6.0-8.3) gm/dl Albumin 4.0 (3.4-5.0) gm/dl Globulin 3.4 (2.5-4.0) gm/dl Albumin/Globulin Ratio 1.2 (0.9-2) Urine Color Dark Yellow Urine Appearance Clear (Clear) Urine pH 7.5 (4.5-7.5) Ur Specific [place] 1.005 (1.000-1.030) Urine Protein Negative (Negative) Urine Glucose (UA) Negative (Negative) Urine Ketones Negative (Negative) Urine Blood Negative (Negative) Urine Nitrite Positive A (Negative) Urine Bilirubin Negative (Negative) Urine Urobilinogen Negative (Negative) Ur Leukocyte Esterase Negative (Negative) Urine WBC (Auto) 0-5 (0-5) /hpf Urine RBC (Auto) 0-2 (0-2) /hpf U Hyaline Cast (Auto) 0-2 (0-2) /lpf U Epithel Cells (Auto) 0-2 (0-2) /hpf Urine Bacteria (Auto) None Seen (None Seen) Adenovirus (PCR) Not Detected (NotDetected) B. pertussis DNA (PCR) Not Detected (NotDetected) B.parapertussis DNA PCR Not Detected (NotDetected) C. pneumoniae DNA (PCR) Not Detected (NotDetected) Coronavirus OC43 (PCR) Not Detected (NotDetected) Coronavirus HKU1 (PCR) Not Detected (NotDetected) Coronavirus 229E (PCR) Not Detected (NotDetected) SARS-CoV-2 (PCR) Not Detected (NotDetected) Coronavirus NL63 (PCR) Not Detected (NotDetected) Human Metapneumovir PCR Not Detected (NotDetected) Influenza Type A (PCR) Not Detected (NotDetected) Influenza Type B (PCR) Not Detected (NotDetected) M. pneumoniae (PCR) Not Detected (NotDetected) Parainfluenza 1 (PCR) Not Detected (NotDetected) Parainfluenza 2 (PCR) Not Detected (NotDetected) Parainfluenza 3 (PCR) Not Detected (NotDetected) Parainfluenza 4 (PCR) Not Detected (NotDetected) RSV (PCR) Not Detected (NotDetected) Entero/Rhino (PCR) Not Detected (NotDetected) Imaging Data Radiologist's Impression: Chest X-Ray 01/25/24 16:14 EXAM: Radiograph of the Chest 1 View INDICATION: Dyspnea. TECHNIQUE: Frontal view of the chest. COMPARISON: 03/23/2022 FINDINGS: Lungs and pleural spaces: Stable right diaphragmatic elevation/eventration. Mild right basilar atelectasis. No consolidation or pulmonary edema. No pleural effusion or pneumothorax. Heart: Stable enlarged cardiac shadow. Mediastinum: Normal contour. Bones/joints: Degenerative changes noted throughout the spine and both shoulders. No lytic or blastic lesions noted. Soft tissues: No abnormality noted. No radiopaque foreign body noted. Upper abdomen: No abnormality noted. IMPRESSION: Minimal right base atelectasis. ACT 112: Negative or not required by law. Electronically signed by Hali Hawk 01-25-2024 5:27 PM Foot X-Ray 01/25/24 16:14 EXAM: Radiographs of the Right Foot 2 Views INDICATION: Heel pain. TECHNIQUE: Frontal and lateral views of the right foot. COMPARISON: No relevant prior studies available. FINDINGS: Bones/joints: The bones are demineralized. There is mild plantar and Achilles surface calcaneal spurring. There is moderate arthritic spurring and narrowing of the tibiotalar joint and mild flattening of the talar dome. Limited assessment of the toes due to positioning in flexion. No gross abnormality. Soft tissues: Mild diffuse soft tissue swelling noted. No soft tissue gas collection or radiopaque foreign body. IMPRESSION: Limited assessment of the toes. There is mild calcaneal spurring and moderate primary osteoarthritic change at the ankle. ACT 112: Negative or not required by law. Electronically signed by Hali Hawk 01-25-2024 5:30 PM Discharge Plan Visit Data Chief Complaint: Shortness of Breath/Dyspnea Stated Complaint: SOB, HEART CHECK, BONE SPUR, FOOT PAIN ED Provider: Deidre Saavedra Discharge Problem: Acute dyspnea, Acute exacerbation of CHF (congestive heart failure), Elevated brain natriuretic peptide (BNP) level, Acute hypoxic respiratory failure, Pain of right heel Forms Stand Alone Forms: My [facility] Prescriptions Prescriptions: No Action calcium carb-mag hydrox-simeth 280-128-20 mg Tablet,Chewable 1 tab PO DAILY PRN (Reason: Indigestion) calcium citrate-vitamin D3 [Citracal + D Maximum] 315 mg-6.25 mcg (250 unit) tablet 1 tab PO QAM cholecalciferol (vitamin D3) 25 mcg (1,000 unit) capsule 25 mcg PO QAM Qty: 90 3RF metoprolol succinate 50 mg tablet extended release 24 hr See Rx Instructions PO DAILY Qty: 270 3RF Rx Instructions: take 2 tablets in the morning and 2 tablet at bedtime PO daily; Eliquis 5 mg tablet 5 mg PO BID Qty: 180 3RF magnesium oxide 500 mg magnesium tablet 500 mg PO HS Qty: 30 5RF primidone 50 mg tablet 150 mg PO .COMPLEX 90 Days Qty: 540 1RF Rx Instructions: 150 mg orally take 150 (3 tabs) in the morning then take 100 mg (2 tabs) in the PM; gabapentin 100 mg capsule 100 mg PO TID Qty: 180 2RF tramadol 50 mg tablet 50 mg PO TID PRN (Reason: pain) Qty: 90 2RF Rx Instructions: approved 07/11/20---10/09/21 amlodipine 5 mg tablet 5 mg PO DAILY Qty: 30 5RF Hold Instructions: hypotension spironolactone 25 mg tablet 25 mg PO DAILY Qty: 45 3RF Hold Instructions: hyperkalemia metformin 500 mg tablet extended release 24 hr 500 mg PO DAILY Qty: 30 5RF tizanidine 4 mg tablet 4 mg PO HS PRN (Reason: muscle spasticity) Qty: 30 0RF levothyroxine 75 mcg tablet See Rx Instructions .ROUTE .COMPLEX Qty: 30 0RF Dose Instruction: TAKE ONE TABLET BY MOUTH EVERY MORNING, TSH LAB DRAWN WHICH WAS ORDERD Rx Instructions: TAKE ONE TABLET BY MOUTH EVERY MORNING, TSH LAB DRAWN WHICH WAS ORDERD Neilmed Sinus Rinse Complete Packet With Rinse Device 1 ea .Route BID Qty: 50 2RF Rx Instructions: 1 wash intranasally BID x 7 days then lower to once a day rosuvastatin 20 mg tablet 20 mg PO HS Qty: 90 3RF Entresto 97-103 mg tablet 1 tab PO BID Qty: 180 3RF Align 4 mg capsule 4 mg PO BID Qty: 60 0RF fluticasone propionate [Allergy Relief (fluticasone)] 50 mcg/actuation spray,suspension See Rx Instructions .Route .COMPLEX Qty: 9.9 2RF Rx Instructions: administer into each nostril 2 sprays BID x 3 days then 2 sprays each nostril at Bedtime thereafter furosemide 40 mg tablet 40 mg PO DAILY Qty: 30 2RF azelastine 137 mcg (0.1 %) spray,non-aerosol 2 spray intranasal BID Qty: 30 5RF Rx Instructions: administer into each nostril fluticasone propionate [Allergy Relief (fluticasone)] 50 mcg/actuation spray,suspension 2 spray intranasal HS Qty: 9.9 2RF Rx Instructions: administer into each nostril BID x 3 days then 2 sprays each nostril at HS thereafter cetirizine 10 mg tablet 10 mg PO DAILY Qty: 30 5RF acetaminophen [Tylenol Extra Strength] 500 mg tablet 1,000 mg PO TID latanoprost 0.005 % drops 1 drp OPB HS Referrals Referrals: Kael Duncan MD [Primary Care Provider] -
[2024-01-25 17:05] LABS: Basophils # (auto) 0.07 K/uL (0.00-0.20); Basophils % (auto) 0.9 %; Eosinophils # (auto) 0.16 K/uL (0.00-0.50); Hematocrit (blood only) 41.5 % (37.0-47.0); Hemoglobin 12.7 g/dl (12.0-16.0); Immature Granulocytes # (auto) 0.02 K/uL (0.01-0.20); Immature Granulocytes % (auto) 0.3 %; Lymphocytes # (auto) 1.74 K/uL (1.20-3.40); Mean Corpuscular Hemoglobin 27.2 pg (25.0-34.0); Mean Corpuscular Hgb Conc 30.6 g/dL (32.0-36.0); Mean Corpuscular Volume 88.9 fL (80.0-100.0); Mean Platelet Volume 10.8 fL (9.4-12.4); Monocytes # (auto) 0.58 K/uL (0.11-0.59); Monocytes % (auto) 7.3 %; Neutrophils # (auto) 5.35 K/uL (1.40-6.50); Neutrophils % (auto) 67.5 %; Platelet Count 235 K/uL (130-400); RDW Coefficient of Variation 14.8 % (11.5-14.5); RDW Standard Deviation 48.2 fL (36.4-46.3); Red Blood Count 4.67 M/uL (4.20-5.40); White Blood Count 7.92 K/ul (4.8-10.8)
[2024-01-25 17:19] LABS: Alanine Aminotransferase 10 U/L (7-52); Albumin Globulin Ratio 1.2 (0.9-2); Alkaline Phosphatase 99 U/L (34-104); Anion Gap 10 (3-11); Aspartate Aminotransferase 12 U/L (13-39); BUN Creatinine Ratio 18.7 (10-20); Bilirubin,Total 0.3 mg/dl (0.2-1.0); Blood Urea Nitrogen 14 mg/dl (6-23); Calcium 9.7 mg/dl (8.6-10.3); Carbon Dioxide 29 mmol/L (21-32); Chloride 101 mmol/L (98-107); Globulin 3.4 gm/dl (2.5-4.0); Glucose 102 mg/dl (70-99(Fasting)); Magnesium 2.3 mg/dl (1.7-2.4); Potassium 3.7 mmol/L (3.5-5.1); Sodium 140 mmol/L (136-145); Total Protein 7.4 gm/dl (6.0-8.3)
[2024-01-25 17:22] LABS: Troponin I High Sensitivity 11.5 pg/ml (0-14)
[2024-01-25 17:28] LABS: Appearance Urine Clear (Clear); Bacteria Urine Automated None Seen (None Seen); Bilirubin Urine Negative (Negative); Blood Urine Negative (Negative); Cast Urine Automated 0-2 /lpf (0-2); Color Urine Dark Yellow; Epithelial Cell Urine Auto 0-2 /hpf (0-2); Glucose Urine UA Negative (Negative); Ketones Urine Negative (Negative); Leukocyte Esterase Urine Negative (Negative); Nitrite Urine Positive (Negative); Protein Urine Negative (Negative); RBC Urine Automated 0-2 /hpf (0-2); Specific Gravity Urine 1.005 (1.000-1.030); Urobilinogen Urine Negative (Negative); WBC Urine Automated 0-5 /hpf (0-5); pH Urine 7.5 (4.5-7.5)
--- NOTE | 2024-01-25 17:28 | XRay Report ---
EXAM: Radiograph of the Chest 1 View INDICATION: Dyspnea. TECHNIQUE: Frontal view of the chest. COMPARISON: 03/23/2022 FINDINGS: Lungs and pleural spaces: Stable right diaphragmatic elevation/eventration. Mild right basilar atelectasis. No consolidation or pulmonary edema. No pleural effusion or pneumothorax. Heart: Stable enlarged cardiac shadow. Mediastinum: Normal contour. Bones/joints: Degenerative changes noted throughout the spine and both shoulders. No lytic or blastic lesions noted. Soft tissues: No abnormality noted. No radiopaque foreign body noted. Upper abdomen: No abnormality noted. IMPRESSION: Minimal right base atelectasis. ACT 112: Negative or not required by law. Electronically signed by Hali Hawk 01-25-2024 5:27 PM
--- NOTE | 2024-01-25 17:30 | XRay Report ---
EXAM: Radiographs of the Right Foot 2 Views INDICATION: Heel pain. TECHNIQUE: Frontal and lateral views of the right foot. COMPARISON: No relevant prior studies available. FINDINGS: Bones/joints: The bones are demineralized. There is mild plantar and Achilles surface calcaneal spurring. There is moderate arthritic spurring and narrowing of the tibiotalar joint and mild flattening of the talar dome. Limited assessment of the toes due to positioning in flexion. No gross abnormality. Soft tissues: Mild diffuse soft tissue swelling noted. No soft tissue gas collection or radiopaque foreign body. IMPRESSION: Limited assessment of the toes. There is mild calcaneal spurring and moderate primary osteoarthritic change at the ankle. ACT 112: Negative or not required by law. Electronically signed by Hali Hawk 01-25-2024 5:30 PM
[2024-01-25 17:46] LABS: Adenovirus PCR Not Detected (NotDetected); Bordetella parapertussis PCR Not Detected (NotDetected); Bordetella pertussis PCR Not Detected (NotDetected); Chlamydia pneumoniae PCR Not Detected (NotDetected); Coronavirus 229E PCR Not Detected (NotDetected); Coronavirus CoV-2 (COVID19)PCR Not Detected (NotDetected); Coronavirus HKU1 PCR Not Detected (NotDetected); Coronavirus NL63 PCR Not Detected (NotDetected); Coronavirus OC43PCR Not Detected (NotDetected); Human Metapneumovirus PCR Not Detected (NotDetected); Influenza A PCR Not Detected (NotDetected); Influenza B PCR Not Detected (NotDetected); Mycoplasma pneumoniae PCR Not Detected (NotDetected); Parainfluenza Virus 1 PCR Not Detected (NotDetected); Parainfluenza Virus 2 PCR Not Detected (NotDetected); Parainfluenza Virus 3 PCR Not Detected (NotDetected); Parainfluenza Virus 4 PCR Not Detected (NotDetected); Respiratory Syncytial VirusPCR Not Detected (NotDetected); Rhinovirus/Enterovirus PCR Not Detected (NotDetected)
--- NOTE | 2024-01-25 19:19 | History & Physical Report ---
Date of Service January 25, 2024 Assessment & Plan (1) Acute hypoxic respiratory failure: Plan: Patient with increased with shortness of breath and conversational dyspnea and increased edema Patient unsure of taking spironolactone (last prescription filled on 10/2023). Hx of CHF with preserved EF CXR: negative for pneumonia, pulmonary edema. Mild atelectasis. No oxygen at home BNP 212 CTA ordered due to left chest pain with cough and increased oxygen requirement to rule out pneumonia/ PE Lasix 20 mg IV now BNP am (2) Acute on chronic heart failure with normal ejection fraction: Plan: Concern or right sided hear exacerbation Unsire of patient currently taking her spirinolactone Bilateral worsening edema If CTA negative, will do a trail of IV Lasix BNP 212 Continue Lasix PO, Entresto, spironolactone (3) UTI (urinary tract infection): Plan: Recently treated with Augmentin (finished on ) UA: Positive with nitrates Frequency, no urgency or dysuria Urine culture pending, consider treating if positive (4) Diabetes mellitus: Plan: Hold Metformin Novalog Scale ordered HgbA1C am (5) Atrial fibrillation with RVR: Plan: Rate control Continue metoprolol Continue Eliquis 5 mg BID (6) Hypothyroidism: Plan: Continue Synthroid 75 mcg (7) Hypertension: Plan: Continue Metoprolol, amlodipine (8) Hyperlipidemia: Plan: Continue Rosuvastatin (9) Pain of right heel: Plan: Hx of OA Right heel XR: here is mild calcaneal spurring and moderate primary osteoarthritic change at the ankle. Continue Tramadol Plan FEN: Heart Healthy Code status: full code DVT ppx: Eliquis 5 mg BID Dispo: med/surg with telemetry History of Present Illness Primary Care Provider: Kael Duncan MD 78 y/o female with PMH of CHF with preserved EF, Cardiomegaly, OA, Afib on Eliquis, obesity, DM2. She was sent from her PCP today due to conversational dyspnea, progressive weakness and SOB. She presented to her PCP due to right heel pain. She states that she has left sided chest pain with cough. On the ED she was found with hypoxia of 87, needing 2 L of Oxygen on nasal cannula. She refers progressive frequency since last week. She was recently teated for UTI with Augmentin (finished on 01/16), currently taking Azo. Denied any dysuria or urgency. She refers she is take her Eliquis, Entresto, metoprolol daily. She is unsure about currently taking spironolactone. She denied any runny nose, palpitation, headaches, abdominal pain, diarrhea, vomiting or any other symptoms. Ed course: CXR: negative for pneumonia, pulmonary edema. Mild atelectasis. Heel XR:mild calcaneal spurring and moderate primary osteoarthritic change at the ankle. Labs remarkable for BNP 212. UA positive for nitrites only. No Leukocytosis, Cr 0.75. Hgb 12.7. Allergies Allergy/AdvReac Type Severity Reaction Status Date / Time adhesive Allergy Intermediate BLISTERING Verified 01/25/24 18:43 cephalexin Allergy Intermediate diarrhea,vomiting, Verified 01/25/24 18:43 nausea fenoprofen Allergy Intermediate MUSCLE Verified 01/25/24 18:43 WEAKNESS, PAIN, HIVES ibuprofen Allergy Intermediate RELATED TO Verified 01/25/24 18:43 FENOPROFEN metformin AdvReac Severe diarrhea Verified 01/25/24 19:09 torsemide AdvReac Severe Severe Unverified 01/25/24 19:09 Polyuria Home Medications Medication Instructions Recorded Confirmed Type calcium carb-mag hydrox-simeth 280 1 tab PO DAILY PRN Indigestion 10/31/20 01/25/24 History mg-128 mg-20 mg chewable tablet calcium 315 mg (as 1 tab PO QAM 04/02/22 01/25/24 History citrate)-vitamin D3 6.25 mcg (250 unit) tablet (Citracal + Vitamin D Maximum) cholecalciferol (vitamin D3) 25 25 mcg PO QAM #90 caps 04/14/22 01/25/24 Rx mcg (1,000 unit) capsule acetaminophen 500 mg tablet 1,000 mg PO TID 08/14/22 01/25/24 History (Tylenol Extra Strength) rosuvastatin 20 mg tablet 20 mg PO HS #90 tabs 06/18/23 01/25/24 Rx sacubitril 97 mg-valsartan 103 mg 1 tab PO BID #180 tabs 06/18/23 01/25/24 Rx tablet (Entresto) apixaban 5 mg tablet (Eliquis) 5 mg PO BID #180 tabs 07/26/23 01/25/24 Rx magnesium oxide 500 mg PO HS #30 tabs 07/26/23 01/25/24 Rx gabapentin 100 mg capsule 100 mg PO TID #180 caps 09/14/23 01/25/24 Rx amlodipine 5 mg tablet 5 mg PO DAILY #30 tabs 10/11/23 01/25/24 Rx spironolactone 25 mg tablet 25 mg PO DAILY #45 tabs 11/03/23 01/25/24 Rx furosemide 40 mg tablet 40 mg PO DAILY #30 tabs 11/29/23 01/25/24 Rx metformin 500 mg tablet,extended 500 mg PO DAILY #30 tabs 12/08/23 01/25/24 Rx release 24 hr azelastine 137 mcg (0.1 %) nasal 2 spray intranasal BID #30 mL 01/04/24 01/25/24 Rx spray cetirizine 10 mg tablet 10 mg PO DAILY #30 tabs 01/04/24 01/25/24 Rx fluticasone propionate 50 2 spray intranasal HS #9.9 grams 01/04/24 01/25/24 Rx mcg/actuation nasal spray,suspension (Allergy Relief (fluticasone)) Bifidobacterium infantis 4 mg 4 mg PO BID #60 caps 01/07/24 01/25/24 Rx capsule (Align) tizanidine 4 mg tablet 4 mg PO HS PRN muscle spasticity 01/07/24 01/25/24 Rx #30 tabs levothyroxine 75 mcg tablet 75 mcg PO DAILYBB 01/25/24 01/25/24 History metoprolol succinate 50 mg 100 mg PO BID 01/25/24 01/25/24 History tablet,extended release 24 hr primidone 50 mg tablet 100 - 150 mg PO UD 01/25/24 01/25/24 History sodium chloride, sodium See Rx Instructions .Route .COMPLEX 01/25/24 01/25/24 History bicarb-nasal rinse squeeze bottle with packet (Neilmed Sinus Rinse Complete with packet) tamsulosin 0.4 mg capsule 0.4 mg PO QAM 01/25/24 01/25/24 History Past Med/Surg History Problem List (Updated 01/25/24 @ 18:19 by Deidre Saavedra MD) Pain of right heel (Acute) Acute hypoxic respiratory failure (Acute) Elevated brain natriuretic peptide (BNP) level (Acute) Acute exacerbation of CHF (congestive heart failure) (Acute) Acute dyspnea (Acute) Diverticulosis Right maxillary sinusitis Dysuria Diabetes mellitus Right renal mass Needs F/U w Urology and MRI UTI (urinary tract infection) Maxillary sinusitis Plantar fasciitis Coronary artery calcification of [place] artery Pneumonia of left lower lobe due to Streptococcus pneumoniae Vulvovaginitis devin albicans Hypokalemia Glaucoma Steroid induced per patient Coccydynia Chronic SI joint pain Degenerative spondylolisthesis Heart failure with ejection fraction improved from reduced range to mildly reduced range Essential tremor Hematuria Recurrent UTI Stress incontinence Cystitis Bladder pain 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 Received 5130 cGy utilizing hypo-fractionation." On 08/18/16 11:16 Willow Calero wrote "Abnormal left breast mammogram Status post stereotactic biopsy 06/09/2016 revealing DCIS grade 3 Estrogen receptor positive and progesterone receptor positive Status post needle localization left partial mastectomy with sentinel lymph node biopsy 07/27/2016 DCIS and LCIS Stage pTis pN0" Urge and stress incontinence (Chronic) Morbid obesity Hypothyroidism Hypertension Hyperlipidemia Generalized osteoarthritis of multiple sites (Chronic) Diverticulosis of colon (Chronic) Controlled diabetes mellitus type II without complication Carpal tunnel syndrome (Chronic) Benign essential tremor Acid reflux disease (Chronic) History of cryosurgery cervical cancer- Chronic low back pain Cardiomyopathy Hypokalemia VICKIE (obstructive sleep apnea) Chronic rhinitis Nasal septal deviation Hypertrophy of both inferior nasal turbinates Incontinence Acute on chronic HFrEF (heart failure with reduced ejection fraction) Permanent atrial fibrillation (09/2020) Recurrent UTI Adenomatous colon polyp Diarrhea ongoing for 1 yr per pt Gait disturbance NYHA class 2 heart failure with preserved ejection fraction, with improvement of ejection fraction from prior measurement Lumbar pain Acute lower GI bleeding (Acute) Left sided abdominal pain (Acute) Congestive heart failure with cardiomyopathy Medical History Acute on chronic heart failure with normal ejection fraction Abnormal EKG DVT prophylaxis Morbid obesity with BMI of 50.0-59.9, adult Spondylisthesis Irritable bowel syndrome with constipation Left paraspinal back pain Acute systolic CHF (congestive heart failure) Atrial fibrillation with RVR [place] Lumbar stenosis with neurogenic claudication Diverticulitis Left lumbar radiculopathy Retinal detachment Surgical History History of right breast biopsy History of left breast biopsy History of right hip replacement History of left hip replacement History of tooth extraction History of wisdom tooth extraction Status post correction of deviated nasal septum History of right cataract surgery History of conization of cervix Retinal detachment of right eye due to tear of retina History of cataract surgery History of partial mastectomy of left breast History of knee replacement Hx of arthroscopic knee surgery History of inguinal hernia repair History of colonoscopy Family History Mother Diabetes Heart disease Peripheral vascular disease Colorectal cancer Hypertension Stroke Cancer Father Diabetes Congestive heart failure (CHF) Myocardial infarction Hypertension Stroke Heart disease Aunt Breast cancer Sister Lung cancer Other Nephrolithiasis No family history of adverse response to anesthesia Pure hypercholesterolemia Denies family history of Asthma Social History Smoking Status: Never smoker Second Hand Exposure: Yes (30 years); Do You Dip or Chew Tobacco: No; Hx Alcohol Use: No Hx Substance Use: No Preferred Language: Chinese Communication Ability: Effective Visual Impairment: Partially Limited Hearing Ability: Normal [place] Or Nursery Transplanter Required: No Beliefs That Will Affect Care: None marital status: / Current Living Situation: Family Current Living Situation Comment: lives with son at home current occupational status: retired How many Children do You have: 2 Feels Safe at Home: Yes Childhood Exposure to Second-Hand Smoke: Yes Diet Comment: avoids seeds/nuts caffeine: Yes (coffee) Dental Care, Regularly: Yes Physical Activity Frequency: Does not Exercise Seatbelt Use: always Sunscreen Use: Yes Do you think of yourself as: straight/heterosexual Assistive Devices: Walker Review of Systems Review of Systems: as per HPI Physical Exam Constitutional: WD/WN, vitals as above Respiratory: normal respiratory effort, lungs clear to auscultation Cardiovascular: Rate/Rhythm: + irregularly irregular Heart Sounds: normal S1 and normal S2 Extremities: + edema (Lymphadenoma bilateral, no open wounds, no erythema) Gastrointestinal (Abdomen): normal bowel sounds, soft, nontender, no hepatosp lenomegaly Skin: no rashes, warm and dry Results & Data Results & Data Vital Signs (Past 12 Hours) Vital Signs Temp Pulse Pulse Resp BP BP Pulse Ox 01/25/24 18:22 69 20 126/96 96 01/25/24 17:44 87 L 01/25/24 17:43 87 L 01/25/24 17:30 85 22 193/124 H 96 01/25/24 16:35 84 01/25/24 16:30 86 28 H 94 01/25/24 16:30 94 01/25/24 16:30 01/25/24 16:09 36.8 C 82 14 190/130 H 95 O2 Del Method O2 Flow Rate 01/25/24 18:22 Nasal Cannula 1.5 01/25/24 17:44 Room Air 01/25/24 17:43 Room Air 01/25/24 17:30 01/25/24 16:35 01/25/24 16:30 Room Air 01/25/24 16:30 Room Air 01/25/24 16:30 Room Air 01/25/24 16:09 Room Air Code Status & VTE Plan VTE Prophylaxis Plan VTE Prophylaxis will be ordered: Yes Supervising Physician Co-Signing Physician Notes I personally saw and examined the patient. I independently reviewed the labs, EKG, imaging, problem list, medication list, past medical history and family history. I verified all maldonado points and agree with resident physician Dr Kae Ledezma PA-C with the following exceptions and/or additions: 78 year old female presents to the ER due to hypoxia and shortness of breath although the patient is unsure whether she is much off her baseline. No weight gain. Legs more swollen just because she has been on them all day. No cough, fever or chills. O/E HS RRR, no murmurs, Chest reduced breath sounds bibasal, Abdo distended, soft, non tender, pedal edema 1+ equal b/l A/P Acute respiratory failure with hypoxia / Acute HFpEF - not overly convincing of heart failure as BNP actually improved and no weight gain. I suspect she may have a mainly right sided heart failure however and may benefit from some diuresis. She does not appear to be clear about her diuretic regimen and may not be taking as prescribed. Will start with Lasix 40mg IV and assess response. May consider outpatient sleep apnea testing. Resident Activity Tracking Resident Involvement: Resident Care Provided Care Provided: Adult Hospital Medicine (3) UTI (urinary tract infection) Hematuria presence: without hematuria Urinary tract infection type: acute cystitis Qualified Code(s): N30.00 - Acute cystitis without hematuria
[2024-01-25] MEDS: OPTIRAY 320 125ml IV ONE (19:30)
[2024-01-25 20:26] LABS: Thyroid Stimulating Hormone 7.454 uIu/ml (0.300-4.500)
[2024-01-25 21:09] LABS: T4 Free Thyroxine 0.82 ng/dl (0.61-1.60)
--- NOTE | 2024-01-25 21:31 | CT Scan Report ---
Exam(s): CTA CHEST IV Amt: 119ml optiray 320 EXAM: CT Angiography Chest With Intravenous Contrast CLINICAL HISTORY: PE. TECHNIQUE: Axial computed tomographic angiography images of the chest with intravenous contrast. CTDI is 85 mGy and DLP is 1074.92 mGy-cm. Automated exposure control was utilized for the study. A dose lowering technique was utilized adhering to the principles of ALARA. 3D and MIP reconstructed images were created and reviewed. COMPARISON: 09/18/2020 FINDINGS: Pulmonary arteries: No pulmonary embolism. Aorta: No thoracic aortic aneurysm or dissection. Atherosclerotic vascular calcifications. Lungs: Elevated right hemidiaphragm with overlying right lower lobe and middle lobe atelectasis. Scattered left upper lobe platelike atelectasis or scarring. No focal lobar pneumonia. Pleural space: No pleural effusion. No pneumothorax. Heart: Moderate four-chamber cardiomegaly. No pericardial effusion. No evidence of RV dysfunction. Coronary artery calcifications. Bones/joints: No acute fracture. Degenerative changes of the spine. Soft tissues: Asymmetric left breast parenchyma with multiple calcifications. Lymph nodes: Unremarkable. No enlarged lymph nodes. IMPRESSION: No pulmonary embolism. Elevated right hemidiaphragm with overlying atelectasis. Left upper lobe atelectasis. No focal pneumonia. Cardiomegaly with panchamber enlargement. Atherosclerotic vascular calcifications. Electronically signed by: Kael Grijalva M.D. 01/25/24 21:30 PM
[2024-01-25] MEDS ORDERED: GLUCAGON FOR INJ 1 MG VIAL SQ PRN (21:44)
[2024-01-25] MEDS ORDERED: ONDANSETRON INJ 2 MG/ML 2 ML VIAL IV PRN (21:44)
[2024-01-25] MEDS ORDERED: CARBOHYDRATES FOR HYPOGLYCEMIA PO PRN (21:44)
[2024-01-25] MEDS ORDERED: POLYETHYLENE (MIRALAX) 17 GM PACK PO PRN (21:44)
[2024-01-25] MEDS ORDERED: ACETAMINOPHEN 325 MG TAB PO PRN (21:44)
[2024-01-25] MEDS ORDERED: DEXTROSE 50% 50 ML SYRINGE IV PRN (21:44)
[2024-01-25] MEDS ORDERED: GLUCOSE 40% GEL 15 GM TUBE PO PRN (21:44)
[2024-01-25] MEDS ORDERED: GLUCOSE 10 TAB/TUBE PO PRN (21:44)
[2024-01-25] MEDS ORDERED: Patient's HEIGHT &/or WEIGHT Needed SCH (22:00)
[2024-01-25] MEDS: INSULIN ASPART PER UNIT CHARGE SC SCH (22:21)
[2024-01-25] MEDS: FUROSEMIDE INJ 20 MG/2 ML VIAL IV ONE (23:10)
[2024-01-25] MEDS: AZELASTINE HCL 0.1% NASAL 200 SPRAYS/27,400 MCG BTL NS SCH (23:14)
[2024-01-25] MEDS: PRIMIDONE 50 MG TAB PO SCH (23:40)
[2024-01-25] MEDS: VALSARTAN/SACUBITRIL 103/97MG TAB PO SCH (23:41)
[2024-01-25] MEDS: GABAPENTIN 100 MG CAP PO SCH (23:41)
[2024-01-25] MEDS: METOPROLOL SUCC 50MG EXT REL TAB PO SCH (23:42)
[2024-01-25] MEDS: ROSUVASTATIN CALCIUM 20 MG TAB PO SCH (23:43)
[2024-01-25] MEDS: APIXABAN 5 MG TABLET PO SCH (23:43)
[2024-01-26] MEDS: MAGNESIUM PO SCH (01:03)
[2024-01-26] MEDS: MAGNESIUM OXIDE 500 MG PO SCH (01:03)
[2024-01-26] MEDS: LEVOTHYROXINE SODIUM 75 MCG TABLET PO SCH (05:42)
--- NOTE | 2024-01-26 07:38 | Electrocardiogram Report ---
Test Reason : Blood Pressure : */* mmHG Vent. Rate : 95 BPM Atrial Rate : * BPM P-R Int : * ms QRS Dur : 94 ms QT Int : 390 ms P-R-T Axes : * 20 49 degrees QTcB Int : 490 ms Atrial fibrillation with premature ventricular or aberrantly conducted complexes Anterior infarct (cited on or before 26-Jun-2016) Abnormal ECG When compared with ECG of 30-Mar-2022 16:09, Questionable change in initial forces of Lateral leads Nonspecific T wave abnormality, improved in Anterolateral leads Confirmed by Janusz Faria ([id number]) on 01/26/2024 7:37:32 AM Referred By: Confirmed By: Janusz Faria
[2024-01-26 09:11] LABS: Basophils # (auto) 0.08 K/uL (0.00-0.20); Basophils % (auto) 1.3 %; Eosinophils # (auto) 0.21 K/uL (0.00-0.50); Eosinophils % (auto) 3.3 %; Hematocrit (blood only) 43.4 % (37.0-47.0); Hemoglobin 13.9 g/dl (12.0-16.0); Immature Granulocytes # (auto) 0.01 K/uL (0.01-0.20); Immature Granulocytes % (auto) 0.2 %; Lymphocytes # (auto) 1.23 K/uL (1.20-3.40); Lymphocytes % (auto) 19.4 %; Mean Corpuscular Hemoglobin 28.5 pg (25.0-34.0); Mean Corpuscular Volume 88.9 fL (80.0-100.0); Mean Platelet Volume 10.8 fL (9.4-12.4); Monocytes # (auto) 0.51 K/uL (0.11-0.59); Neutrophils # (auto) 4.31 K/uL (1.40-6.50); Neutrophils % (auto) 67.8 %; Platelet Count 253 K/uL (130-400); RDW Coefficient of Variation 15.1 % (11.5-14.5); RDW Standard Deviation 48.6 fL (36.4-46.3); Red Blood Count 4.88 M/uL (4.20-5.40); White Blood Count 6.35 K/ul (4.8-10.8)
[2024-01-26 09:32] LABS: Albumin Globulin Ratio 1.2 (0.9-2); Albumin Level 4.1 gm/dl (3.4-5.0); BUN Creatinine Ratio 14.1 (10-20); Bilirubin,Total 0.5 mg/dl (0.2-1.0); Calcium 9.7 mg/dl (8.6-10.3); Globulin 3.5 gm/dl (2.5-4.0); Potassium 3.5 mmol/L (3.5-5.1); Total Protein 7.6 gm/dl (6.0-8.3)
[2024-01-26] MEDS: CHOLECALCIFEROL 25 MCG (1000 UNITS) TAB PO SCH (09:32)
[2024-01-26] MEDS: FUROSEMIDE 40 MG TAB PO SCH (09:32)
[2024-01-26] MEDS: CETIRIZINE HCL 10 MG TABLET PO SCH (09:32)
[2024-01-26] MEDS: ADVANCED PROBIOTIC 625 MG CAPSULE PO SCH (09:33)
[2024-01-26] MEDS: TAMSULOSIN HCL 0.4 MG CAP PO SCH (09:34)
[2024-01-26 10:39] LABS: Estimated Average Glucose 154 mg/dl
[2024-01-26] MEDS: PRIMIDONE 50 MG TAB PO SCH (10:53)
--- NOTE | 2024-01-26 12:31 | Hospitalist Progress Note ---
Date of Service January 26, 2024 Assessment & Plan (1) Acute hypoxic respiratory failure: Plan: Patient with increased with shortness of breath and conversational dyspnea and increased edema Patient unsure of taking spironolactone (last prescription filled on 10/2023). Hx of CHF with preserved EF CXR: negative for pneumonia, pulmonary edema. Mild atelectasis. Not on any oxygen at home but on initial presentation she was 87% on room air. BNP 212 CTA ruled out PE/pneumonia. Showed some atelectasis She diuresed in response to Lasix BMP today stable Will give her another dose of 20 mg of IV Lasix today. She is being continued on her 40 mg p.o. Lasix home dose. (2) Acute on chronic heart failure with normal ejection fraction: Plan: Unsire of patient currently taking her spirinolactone Bilateral worsening edema Patient had good cardiac response to IV Lasix BNP 212 Continue Lasix PO, Entresto, spironolactone Give another dose of IV Lasix (3) UTI (urinary tract infection): Plan: Recently treated with Augmentin (finished on 11) UA: Positive with nitrates Frequency, no urgency or dysuria Urine culture pending, consider treating if positive (4) Diabetes mellitus: Plan: Hold Metformin Novalog Scale ordered HgbA1C am (5) Atrial fibrillation with RVR: Plan: Rate control Continue metoprolol Continue Eliquis 5 mg BID (6) Hypothyroidism: Plan: Continue Synthroid 75 mcg (7) Hypertension: Plan: Continue Metoprolol, amlodipine (8) Hyperlipidemia: Plan: Continue Rosuvastatin (9) Pain of right heel: Plan: Hx of OA Right heel XR: here is mild calcaneal spurring and moderate primary osteoarthritic change at the ankle. Continue Tramadol Outpatient management Plan FEN: Heart Healthy Code status: full code DVT ppx: Eliquis 5 mg BID Dispo: med/surg with telemetry Admission and Anticipated Discharge Date Admission Date: January 25, 2024 Subjective Patient was seen and examined at 10:30 AM. Stated that she got the IV Lasix at midnight and was up all night urinating. From a breathing standpoint, she says that she was never short of breath at rest. She feels well overall. Denies chest pain. Review of Systems Review of Systems: All systems reviewed & are unremarkable except as noted in Subjective Physical Exam Physical Exam: General: Awake, conversant. Morbidly obese Heart: S1, S2/regular rate and rhythm, no murmur rubs or gallops Lungs: Diminished breath sounds with mild bibasilar crackles. Normal effort Abdomen: Soft/nontender/nondistended. No hepatosplenomegaly Extremities: No clubbing/cyanosis. 2+ pitting bilateral edema Behavior: Appropriate, cooperative Results & Data Results & Data Vital Signs (Past 12 Hours) Vital Signs Temp Pulse Pulse Resp BP Pulse Ox O2 Del Method 01/26/24 11:22 36.5 C 79 18 148/83 H 91 Room Air 01/26/24 08:00 86 01/26/24 07:57 36.6 C 84 18 157/104 H 98 Room Air 01/26/24 02:51 36.5 C 76 18 143/84 H 96 Nasal Cannula O2 Flow Rate 01/26/24 11:22 01/26/24 08:00 01/26/24 07:57 01/26/24 02:51 2 Laboratory Results Abnormal lab results 01/25/24 01/25/24 01/26/24 Range/Units 16:33 22:04 08:14 MCHC 30.6 L (32.0-36.0) g/dL RDW Std Deviation 48.2 H 48.6 H (36.4-46.3) fL RDW Coeff of Jesse 14.8 H 15.1 H (11.5-14.5) % Glucose 102 H 111 H (70-99(Fasting)) mg/dl POC Glucose 143 H (70-99) mg/dl Hemoglobin A1c 7.0 H (4.5-5.6) % AST 12 L 12 L (13-39) U/L B-Natriuretic Peptide 212 H (0-100) pg/ml TSH 7.454 H (0.300-4.500) uIu/ml Urine Nitrite Positive A (Negative) 01/26/24 Range/Units 08:28 MCHC (32.0-36.0) g/dL RDW Std Deviation (36.4-46.3) fL RDW Coeff of Jesse (11.5-14.5) % Glucose (70-99(Fasting)) mg/dl POC Glucose 119 H (70-99) mg/dl Hemoglobin A1c (4.5-5.6) % AST (13-39) U/L B-Natriuretic Peptide (0-100) pg/ml TSH (0.300-4.500) uIu/ml Urine Nitrite (Negative) PG Care Time/CCT Total # of Minutes Spent Total Time Spent with Patient: Total time spent is greater than 50% in coordination of care (as documented) at patient's floor/unit and/or counseling patient: Coding Level of Care Code 52725 SUB INP/OBS CARE 2/35MIN Diagnoses Acute hypoxic respiratory failure J96.01 Acute on chronic heart failure with normal ejection fraction I50.33 Acute cystitis without hematuria N30.00 Urinary tract infection type: acute cystitis Hematuria presence: without hematuria Diabetes mellitus E11.9 Atrial fibrillation with RVR I48.91 Hypothyroidism E03.9 Hypertension I10 Hyperlipidemia E78.5 Pain of right heel M79.671 (3) UTI (urinary tract infection) Urinary tract infection type: acute cystitis Hematuria presence: without hematuria Qualified Code(s): N30.00 - Acute cystitis without hematuria
[2024-01-26] MEDS: FUROSEMIDE INJ 20 MG/2 ML VIAL IV ONE (13:41)
--- NOTE | 2024-01-26 19:02 | Billing Data ---
Date of Service January 25, 2024 Coding Level of Care Code 74220 INT INP/OBS CARE
[2024-01-26] MEDS: MAGNESIUM OXIDE 400 MG TAB PO SCH (20:53)
[2024-01-26] MEDS: MICONAZOLE NITRATE POWDER 85 GM EXT PRN (20:54)
[2024-01-26] MEDS ORDERED: PRIMIDONE 50 MG TAB PO SCH (21:00)
[2024-01-27] MEDS: traMADol HCL 50 MG TABLET PO PRN (00:49)
[2024-01-27] MEDS: MICONAZOLE NITRATE 2% VAG CR 45 GM TUBE PV SCH (01:44)
[2024-01-27] MEDS: DICLOFENAC SOD 1% GEL 100 GM TUBE EXT SCH (02:45)
[2024-01-27 08:21] LABS: BUN Creatinine Ratio 22.5 (10-20); Calcium 8.9 mg/dl (8.6-10.3); Creatinine Clr Calc Pharmacy 82.7 ml/min; Potassium 3.9 mmol/L (3.5-5.1)
[2024-01-27] MEDS: tiZANidine HCL 4 MG TABLET PO PRN (08:33)
[2024-01-27] MEDS ORDERED: DICLOFENAC SOD 1% GEL 100 GM TUBE EXT SCH (09:00)
--- NOTE | 2024-01-27 14:00 | Hospitalist Progress Note ---
Date of Service January 27, 2024 Assessment & Plan (1) Acute hypoxic respiratory failure: Plan: Patient with increased with shortness of breath and conversational dyspnea and increased edema Patient unsure of taking spironolactone (last prescription filled on 10/2023). Hx of CHF with preserved EF CXR: negative for pneumonia, pulmonary edema. Mild atelectasis. No oxygen at home BNP 212 CTA ordered due to left chest pain with cough and increased oxygen requirement to rule out pneumonia/ PE Patient got an IV Lasix dose yesterday Will hold off on further dosing today Patient had a two-step done today that prove that she is requiring 2 L of oxygen (2) Acute on chronic heart failure with normal ejection fraction: Plan: Improved with IV Lasix Bilateral worsening edema IV Lasix yesterday Will continue p.o. Lasix BNP 212 Continue Lasix PO, Entresto, spironolactone (3) Symptomatic bradycardia: Plan: Patient had an episode of heart rate in the 20s with a 2.6-second pause associated with an episode of unresponsiveness? Currently back to her baseline mental status Noted that the patient received metoprolol this morning. Held. Patient has a history of atrial fibrillation on metoprolol and Eliquis Consult cardiology (4) UTI (urinary tract infection): Plan: Recently treated with Augmentin (finished on 11) UA: Positive with nitrates Frequency, no urgency or dysuria Urine culture negative (5) Diabetes mellitus: Plan: Hold Metformin Novalog Scale ordered HgbA1C am (6) Atrial fibrillation with RVR: Plan: Hold metoprolol due to bradycardia Cardiology consulted Continue Eliquis 5 mg BID (7) Hypothyroidism: Plan: Continue Synthroid 75 mcg (8) Hypertension: Plan: Continue Metoprolol, amlodipine (9) Hyperlipidemia: Plan: Continue Rosuvastatin (10) Pain of right heel: Plan: Hx of OA Right heel XR: here is mild calcaneal spurring and moderate primary osteoarthritic change at the ankle. Continue Tramadol Defer to outpatient management Plan FEN: Heart Healthy Code status: full code DVT ppx: Eliquis 5 mg BID Dispo: med/surg with telemetry Admission and Anticipated Discharge Date Admission Date: January 25, 2024 Subjective Patient was seen and examined at 10:30 AM. She had just had an episode of symptomatic bradycardia. Her heart rate had gone down to the 20s and she had a 2.6-second pause on the monitor. She had received her morning metoprolol. Per nurse, she was sitting on the recliner and appeared to be unresponsive. The patient is very upset that she is not able to go home today. She is yelling at the hospital staff and being hostile/uncooperative. Review of Systems Review of Systems: All systems reviewed & are unremarkable except as noted in Subjective Physical Exam Physical Exam: General: Awake, conversant. Morbidly obese Heart: S1, S2/slow rate and regular rhythm, no murmur rubs or gallops Lungs: Diminished breath sounds with mild bibasilar crackles. Normal effort Abdomen: Soft/nontender/nondistended. No hepatosplenomegaly Extremities: No clubbing/cyanosis. 2+ pitting bilateral edema Behavior: Appropriate, cooperative Results & Data Results & Data Vital Signs (Past 12 Hours) Vital Signs Temp Pulse Pulse Pulse Pulse Pulse Resp 01/27/24 11:40 36.3 C L 64 17 01/27/24 09:07 77 94 H 75 82 01/27/24 07:47 36.3 C L 82 18 01/27/24 02:40 36.3 C L 75 18 Resp Resp Resp Resp BP Pulse Ox Pulse Ox 01/27/24 11:40 86/52 L 96 01/27/24 09:07 20 16 18 16 92 01/27/24 07:47 125/74 97 01/27/24 02:40 122/80 95 Pulse Ox Pulse Ox Pulse Ox O2 Del Method O2 Flow Rate O2 Flow Rate O2 Flow Rate 01/27/24 11:40 Nasal Cannula 2 01/27/24 09:07 95 95 84 L 2 2 01/27/24 07:47 Nasal Cannula 2 01/27/24 02:40 Nasal Cannula 2 O2 Flow Rate 01/27/24 11:40 01/27/24 09:07 2 01/27/24 07:47 01/27/24 02:40 Laboratory Results Abnormal lab results 01/26/24 01/26/24 01/27/24 Range/Units 17:05 20:08 07:42 Carbon Dioxide 33 H (21-32) mmol/L BUN/Creatinine Ratio 22.5 H (10-20) Glucose 105 H (70-99(Fasting)) mg/dl POC Glucose 115 H 119 H (70-99) mg/dl 01/27/24 01/27/24 Range/Units 08:09 12:24 Carbon Dioxide (21-32) mmol/L BUN/Creatinine Ratio (10-20) Glucose (70-99(Fasting)) mg/dl POC Glucose 101 H 132 H (70-99) mg/dl PG Care Time/CCT Total # of Minutes Spent Total Time Spent with Patient: Total time spent is greater than 50% in coordination of care (as documented) at patient's floor/unit and/or counseling patient: Coding Level of Care Code 74708 SUB INP/OBS CARE 2/35MIN Diagnoses Acute hypoxic respiratory failure J96.01 Acute on chronic heart failure with normal ejection fraction I50.33 Symptomatic bradycardia R00.1 Acute cystitis without hematuria N30.00 Urinary tract infection type: acute cystitis Hematuria presence: without hematuria Diabetes mellitus E11.9 Atrial fibrillation with RVR I48.91 Hypothyroidism E03.9 Hypertension I10 Hyperlipidemia E78.5 Pain of right heel M79.671 (4) UTI (urinary tract infection) Urinary tract infection type: acute cystitis Hematuria presence: without hematuria Qualified Code(s): N30.00 - Acute cystitis without hematuria
--- NOTE | 2024-01-27 14:41 | Cardiology Consultation ---
Date of Consultation January 27, 2024 Assessment & Plan (1) Permanent atrial fibrillation: (2) Heart failure with improved ejection fraction (HFimpEF): Plan ASSESSMENT/PLAN: 1. Permanent atrial fibrillation: No significant or prolonged bradycardia to account for symptoms. She has done well on her outpatient dose of metoprolol and would continue for now. If she was truly sleeping or dozing, more significant bradycardia could occur with sleep apnea. Recommend outpatient sleep study if not already done and treatment as appropriate. Continue anticoagulation for stroke risk reduction. Monitor CBC in the outpatient setting. 2. Shortness of breath: She denies shortness of breath but is requiring supplemental oxygen. Body habitus extremely difficult to assess volume status. Continue diuresis. Will try to maintain net negative fluid balance. 3. Chronic heart failure with improved EF: Likely hypervolemic but difficult to assess. Can continue diuresis. Continue Entresto, spironolactone, metoprolol succinate. SGLT2 inhibitor has not been used in the outpatient setting due to financial concerns but could be revisited and if affordable, initiated if no contraindication. Low-sodium diet, less than 2000 mg daily. Strict I's and O's. Daily weights. 4. Bradycardia: As above. No significant bradycardia to account for unresponsiveness. Can continue beta-tayla which has effectively managed her atrial fibrillation in the outpatient setting chronically. 5. Disposition: Please call with any further questions or concerns. Patient care communicated with primary hospitalist, Dr. Rogers. Follow-up with Dr. Sneed on discharge. Can be reassessed in the heart failure program as well given diuresis while here. Thank you for allowing me to participate in the care of your patient. Please call for any other questions or concerns. Sincerely, Chavo Faria M.D. History of Present Illness Reason for Consultation: "Symptomatic bradycardia with 2.6-second pause" Requesting Physician: Nicolás Rogers MD Attending Physician: Nicolás Rogers MD History of Present Illness Ms. 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 Her primary escrow secretary is Dr. Sneed. She was admitted on 01/25/2024. She states that she went to her PCPs office for right heel pain. She was noted by her provider to have conversational dyspnea and was sent to the ER. She denies chest pain. She denies feeling short of breath unless she does more strenuous activity for which she has chronic dyspnea on exertion. She wants to go home and ask several times to be discharged. She states that she has increased swelling in her legs due to "dependent edema" because she has not been elevating her legs. She denies syncope, near syncope lightheadedness, melena, hematochezia, hematuria, or palpitations. She apparently was resting in her chair and nursing staff had a difficulty time arousing her. They noted on telemetry heart rates in the upper 20s. Patient states that she was sleeping. She has been receiving diuretic therapy by the primary hospitalist service, oral Lasix today but otherwise intravenous Lasix previously. Review of systems: As above. Family history: Father had diabetes and [place]. Mother had PVD and diabetes. Social history: She denies tobacco, alcohol, or drug abuse. She lives with her son, Edward. She has another son who is not part of her life. She is and her ex- has since . She worked on a [employer], [employer], and then got a degree in [employer]. She was unaccompanied. Allergies Allergy/AdvReac Type Severity Reaction Status Date / Time adhesive Allergy Intermediate BLISTERING Verified 01/25/24 18:43 cephalexin Allergy Intermediate diarrhea,vomiting, Verified 01/25/24 18:43 nausea fenoprofen Allergy Intermediate MUSCLE Verified 01/25/24 18:43 WEAKNESS, PAIN, HIVES ibuprofen Allergy Intermediate RELATED TO Verified 01/25/24 18:43 FENOPROFEN metformin AdvReac Severe diarrhea Verified 01/25/24 19:09 torsemide AdvReac Severe Severe Unverified 01/25/24 19:09 Polyuria Home Medications Medication Instructions Recorded Confirmed Type calcium carb-mag hydrox-simeth 280 1 tab PO DAILY PRN Indigestion 10/31/20 01/25/24 History mg-128 mg-20 mg chewable tablet calcium 315 mg (as 1 tab PO QAM 04/02/22 01/25/24 History citrate)-vitamin D3 6.25 mcg (250 unit) tablet (Citracal + Vitamin D Maximum) cholecalciferol (vitamin D3) 25 25 mcg PO QAM #90 caps 04/14/22 01/25/24 Rx mcg (1,000 unit) capsule acetaminophen 500 mg tablet 1,000 mg PO TID 08/14/22 01/25/24 History (Tylenol Extra Strength) rosuvastatin 20 mg tablet 20 mg PO HS #90 tabs 06/18/23 01/25/24 Rx sacubitril 97 mg-valsartan 103 mg 1 tab PO BID #180 tabs 06/18/23 01/25/24 Rx tablet (Entresto) apixaban 5 mg tablet (Eliquis) 5 mg PO BID #180 tabs 07/26/23 01/25/24 Rx magnesium oxide 500 mg PO HS #30 tabs 07/26/23 01/25/24 Rx gabapentin 100 mg capsule 100 mg PO TID #180 caps 09/14/23 01/25/24 Rx amlodipine 5 mg tablet 5 mg PO DAILY #30 tabs 10/11/23 01/25/24 Rx spironolactone 25 mg tablet 25 mg PO DAILY #45 tabs 11/03/23 01/25/24 Rx furosemide 40 mg tablet 40 mg PO DAILY #30 tabs 11/29/23 01/25/24 Rx metformin 500 mg tablet,extended 500 mg PO DAILY #30 tabs 12/08/23 01/25/24 Rx release 24 hr azelastine 137 mcg (0.1 %) nasal 2 spray intranasal BID #30 mL 01/04/24 01/25/24 Rx spray cetirizine 10 mg tablet 10 mg PO DAILY #30 tabs 01/04/24 01/25/24 Rx fluticasone propionate 50 2 spray intranasal HS #9.9 grams 01/04/24 01/25/24 Rx mcg/actuation nasal spray,suspension (Allergy Relief (fluticasone)) Bifidobacterium infantis 4 mg 4 mg PO BID #60 caps 01/07/24 01/25/24 Rx capsule (Align) tizanidine 4 mg tablet 4 mg PO HS PRN muscle spasticity 01/07/24 01/25/24 Rx #30 tabs levothyroxine 75 mcg tablet 75 mcg PO DAILYBB 01/25/24 01/25/24 History metoprolol succinate 50 mg 100 mg PO BID 01/25/24 01/25/24 History tablet,extended release 24 hr primidone 50 mg tablet 100 - 150 mg PO UD 01/25/24 01/25/24 History sodium chloride, sodium See Rx Instructions .Route .COMPLEX 01/25/24 01/25/24 History bicarb-nasal rinse squeeze bottle with packet (Neilmed Sinus Rinse Complete with packet) tamsulosin 0.4 mg capsule 0.4 mg PO QAM 01/25/24 01/25/24 History Problem List (Updated 01/27/24 @ 16:52 by Janusz Faria MD) Heart failure with improved ejection fraction (HFimpEF) Symptomatic bradycardia Pain of right heel (Acute) Acute hypoxic respiratory failure (Acute) Elevated brain natriuretic peptide (BNP) level (Acute) Acute exacerbation of CHF (congestive heart failure) (Acute) Acute dyspnea (Acute) Diverticulosis Right maxillary sinusitis Dysuria Diabetes mellitus Right renal mass Needs F/U w Urology and MRI UTI (urinary tract infection) Maxillary sinusitis Plantar fasciitis Coronary artery calcification of [place] artery Pneumonia of left lower lobe due to Streptococcus pneumoniae Vulvovaginitis devin albicans Hypokalemia Glaucoma Steroid induced per patient Coccydynia Chronic SI joint pain Degenerative spondylolisthesis Heart failure with ejection fraction improved from reduced range to mildly reduced range Essential tremor Hematuria Recurrent UTI Stress incontinence Cystitis Bladder pain 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 Received 5130 cGy utilizing hypo-fractionation." On 08/18/16 11:16 Willow Calero wrote "Abnormal left breast mammogram Status post stereotactic biopsy 06/09/2016 revealing DCIS grade 3 Estrogen receptor positive and progesterone receptor positive Status post needle localization left partial mastectomy with sentinel lymph node biopsy 07/27/2016 DCIS and LCIS Stage pTis pN0" Urge and stress incontinence (Chronic) Morbid obesity Hypothyroidism Hypertension Hyperlipidemia Generalized osteoarthritis of multiple sites (Chronic) Diverticulosis of colon (Chronic) Controlled diabetes mellitus type II without complication Carpal tunnel syndrome (Chronic) Benign essential tremor Acid reflux disease (Chronic) History of cryosurgery cervical cancer- Chronic low back pain Cardiomyopathy Hypokalemia VICKIE (obstructive sleep apnea) Chronic rhinitis Nasal septal deviation Hypertrophy of both inferior nasal turbinates Incontinence Acute on chronic HFrEF (heart failure with reduced ejection fraction) Permanent atrial fibrillation (09/2020) Recurrent UTI Adenomatous colon polyp Diarrhea ongoing for 1 yr per pt Gait disturbance NYHA class 2 heart failure with preserved ejection fraction, with improvement of ejection fraction from prior measurement Lumbar pain Acute lower GI bleeding (Acute) Left sided abdominal pain (Acute) Congestive heart failure with cardiomyopathy Patient History Medical History Acute on chronic heart failure with normal ejection fraction Abnormal EKG DVT prophylaxis Morbid obesity with BMI of 50.0-59.9, adult Spondylisthesis Irritable bowel syndrome with constipation Left paraspinal back pain Acute systolic CHF (congestive heart failure) Atrial fibrillation with RVR [place] Lumbar stenosis with neurogenic claudication Diverticulitis Left lumbar radiculopathy Retinal detachment Surgical History History of right breast biopsy History of left breast biopsy History of right hip replacement History of left hip replacement History of tooth extraction History of wisdom tooth extraction Status post correction of deviated nasal septum History of right cataract surgery History of conization of cervix Retinal detachment of right eye due to tear of retina History of cataract surgery History of partial mastectomy of left breast History of knee replacement Hx of arthroscopic knee surgery History of inguinal hernia repair History of colonoscopy Family History Mother Diabetes Heart disease Peripheral vascular disease Colorectal cancer Hypertension Stroke Cancer Father Diabetes Congestive heart failure (CHF) Myocardial infarction Hypertension Stroke Heart disease Aunt Breast cancer Sister Lung cancer Other Nephrolithiasis No family history of adverse response to anesthesia Pure hypercholesterolemia Denies family history of Asthma Social History Smoking Status: Never smoker Second Hand Exposure: Yes (30 years); Do You Dip or Chew Tobacco: No; Hx Alcohol Use: No Hx Substance Use: No Preferred Language: Frisian Communication Ability: Effective Visual Impairment: Partially Limited Hearing Ability: Normal Head Of [employer] Required: No Beliefs That Will Affect Care: None marital status: / Current Living Situation: Family Current Living Situation Comment: lives with son at home current occupational status: retired How many Children do You have: 2 Feels Safe at Home: Yes Childhood Exposure to Second-Hand Smoke: Yes Diet Comment: avoids seeds/nuts caffeine: Yes (coffee) Dental Care, Regularly: Yes Physical Activity Frequency: Does not Exercise Seatbelt Use: always Sunscreen Use: Yes Do you think of yourself as: straight/heterosexual Assistive Devices: Walker Physical Exam Physical Exam: Gen.: No acute distress. Alert and oriented. HEENT: Anicteric sclera. Neck: Thick neck. No bruits. Normal carotid upstrokes bilaterally. Cardiac: Irregularly irregular. Normal heart rate. Normal S1-S2. No murmurs, rubs, or gallops. Pulmonary: Clear to auscultation bilaterally without wheezes, rales, or rhonchi. Abdomen: Soft, nontender, nondistended, with normoactive bowel sounds. No bruits noted. Extremities: 2+ radial pulses bilaterally. 2+ posterior tibialis pulses bilaterally. Trace bilateral lower extremity pitting edema. Lower extremities otherwise with nonpitting edema. No cyanosis. Results & Data Vital Signs (Past 12 Hours) Vital Signs Temp Pulse Pulse Pulse Pulse Pulse Resp 01/27/24 11:40 36.3 C L 64 17 01/27/24 09:07 77 94 H 75 82 01/27/24 07:47 36.3 C L 82 18 01/27/24 02:40 36.3 C L 75 18 Resp Resp Resp Resp BP Pulse Ox Pulse Ox 01/27/24 11:40 86/52 L 96 01/27/24 09:07 20 16 18 16 92 01/27/24 07:47 125/74 97 01/27/24 02:40 122/80 95 Pulse Ox Pulse Ox Pulse Ox O2 Del Method O2 Flow Rate O2 Flow Rate O2 Flow Rate 01/27/24 11:40 Nasal Cannula 2 01/27/24 09:07 95 95 84 L 2 2 01/27/24 07:47 Nasal Cannula 2 01/27/24 02:40 Nasal Cannula 2 O2 Flow Rate 01/27/24 11:40 01/27/24 09:07 2 01/27/24 07:47 01/27/24 02:40 Intake & Output 01/25/24 01/26/24 01/27/24 01/28/24 06:59 06:59 06:59 06:59 Intake Total 100 / 100 440 / 440 Balance 100 / 100 440 / 440 Weight 317 lb 14.505 oz 317 lb 3.923 oz Laboratory Results Laboratory Results - last 24 hr 01/26/24 01/26/24 01/27/24 17:05 20:08 07:42 Sodium 141 Potassium 3.9 Chloride 102 Carbon Dioxide 33 H Anion Gap 6 BUN 18 Creatinine 0.80 Est Cr Clr Drug Dosing 82.7 eGFR 75.84 BUN/Creatinine Ratio 22.5 H Glucose 105 H POC Glucose 115 H 119 H Calcium 8.9 01/27/24 01/27/24 08:09 12:24 Sodium Potassium Chloride Carbon Dioxide Anion Gap BUN Creatinine Est Cr Clr Drug Dosing eGFR BUN/Creatinine Ratio Glucose POC Glucose 101 H 132 H Calcium Diagnostic Findings CTA chest report reviewed from 01/25/2024: No pulmonary embolism. Elevated right hemidiaphragm. No focal pneumonia. Coronary artery calcifications. Right foot x-ray 01/25/2024: Mild calcaneal spurring and moderate primary osteoarthritic change at the ankle. Chest x-ray report reviewed from 01/25/2024: Minimal right base atelectasis per radiology. Telemetry personally reviewed: Atrial fibrillation with reasonably controlled heart rates. There was a reported 2.6-second pause near 10:10 AM this morning. When reviewing, there was no pause of 3 or more seconds. There was no prolonged profound bradycardia. When the telemetry indicated heart rates in the upper 20s or 30s, the overall heart rate was in the 50s but very brief slowing lasting a few seconds. ECG personally reviewed 01/25/2024 at 1624: A-fib 95 bpm. PVC versus aberrantly conducted complexes. Possible anterior infarct. Echo 03/24/2022: Normal LV size, wall motion, systolic function. EF 55-60%. Moderate LVH. Mildly dilated RV with normal systolic function. Moderate biatrial dilation. Sclerotic aortic valve. Normal RVSP. Dobutamine stress echo 08/23/2023: Resting LV systolic function normal with EF 55 to 60%. Negative dobutamine stress echo 98% MPHR. No significant valvular abnormalities were reported. Labs reviewed and notable for minimally elevated BNP, normal high-sensitivity troponin, normal potassium, stable renal function, normal blood counts. Medications Administered Current Inpatient Medications Acetaminophen (Acetaminophen 325 Mg Tab) 650 mg PO Q4H PRN PRN Reason: Pain or Fever Stop: 02/24/24 21:43 Apixaban (Apixaban 5 Mg Tablet) 5 mg PO BID [facility] Stop: 02/24/24 22:14 Last Admin: 01/27/24 08:29 Dose: 5 mg Azelastine HCl (Azelastine Hcl 0.1% Nasal 200 Sprays/27,400 Mcg Btl) 2 sprays NS BID SAL Stop: 02/24/24 21:59 Last Admin: 01/27/24 08:29 Dose: 2 sprays Cetirizine HCl (Cetirizine Hcl 10 Mg Tablet) 10 mg PO DAILY SAL Stop: 02/25/24 08:59 Last Admin: 01/27/24 08:29 Dose: 10 mg Dextrose (Dextrose 50% 50 Ml Syringe) 25 - 50 ml IV UD PRN; Protocol PRN Reason: Hypoglycemia Protocol Stop: 02/24/24 21:43 Diclofenac Sodium (Diclofenac Sod 1% Gel 100 Gm Tube) 2 gm EXT QID SAL; Protocol Stop: 02/26/24 02:29 Last Admin: 01/27/24 13:00 Dose: Not Given Furosemide (Furosemide 40 Mg Tab) 40 mg PO DAILY SAL Stop: 02/25/24 08:59 Last Admin: 01/27/24 08:30 Dose: 40 mg Gabapentin (Gabapentin 100 Mg Cap) 100 mg PO TID SAL Stop: 02/24/24 21:43 Last Admin: 01/27/24 08:30 Dose: 100 mg Glucagon (Glucagon For Inj 1 Mg Vial) 1 mg SQ UD PRN; Protocol PRN Reason: Hypoglycemia Protocol Stop: 02/24/24 21:43 Glucose (Glucose 40% Gel 15 Gm Tube) 15 - 30 gm PO UD PRN; Protocol PRN Reason: Hypoglycemia Protocol Stop: 02/24/24 21:43 Glucose (Glucose 10 Tab/Tube) 4 - 8 tab PO UD PRN; Protocol PRN Reason: Hypoglycemia Protocol Stop: 02/24/24 21:43 Insulin Aspart (Insulin Aspart Per Unit Charge) 0 units SC ACHS SAL Stop: 02/24/24 21:43 Last Admin: 01/27/24 14:26 Dose: Not Given Lactobacillus Acidophilus (Advanced Probiotic 625 Mg Capsule) 1,250 mg PO BID SAL Stop: 02/25/24 08:59 Last Admin: 01/27/24 08:30 Dose: 1,250 mg Levothyroxine Sodium (Levothyroxine Sodium 75 Mcg Tablet) 75 mcg PO DAILYBB [facility] Stop: 02/25/24 06:29 Last Admin: 01/27/24 06:01 Dose: 75 mcg Magnesium Oxide (Magnesium Oxide 400 Mg Tab) 400 mg PO HS [facility] Stop: 02/25/24 20:59 Last Admin: 01/26/24 20:53 Dose: 400 mg Metoprolol Succinate (Metoprolol Succ 50mg Ext Rel Tab) 100 mg PO BID [facility] Stop: 02/26/24 20:59 Miconazole Nitrate (Miconazole Nitrate Powder 85 Gm) 1 appln EXT PRN PRN PRN Reason: Itching Stop: 02/25/24 03:17 Last Admin: 01/26/24 20:54 Dose: 1 appln Miconazole Nitrate (Miconazole Nitrate 2% Vag Cr 45 Gm Tube) 1 appln PV HS [facility] Stop: 02/03/24 01:09 Last Admin: 01/27/24 01:44 Dose: 1 appln Miscellaneous (Carbohydrates For Hypoglycemia ) 15 - 30 gm PO UD PRN PRN Reason: Hypoglycemia Protocol Stop: 02/24/24 21:43 Ondansetron HCl (Ondansetron Inj 2 Mg/Ml 2 Ml Vial) 4 mg IV Q6H PRN PRN Reason: Nausea Stop: 02/24/24 21:43 Polyethylene Glycol (Polyethylene (Miralax) 17 Gm Pack) 17 gm PO DAILY PRN PRN Reason: Constipation Stop: 02/24/24 21:43 Primidone (Primidone 50 Mg Tab) 100 mg PO QPM [facility] Stop: 02/24/24 21:59 Last Admin: 01/26/24 20:53 Dose: 100 mg Primidone (Primidone 50 Mg Tab) 150 mg PO QAM SAL Stop: 02/24/24 21:59 Last Admin: 01/27/24 08:31 Dose: 150 mg Rosuvastatin Calcium (Rosuvastatin Calcium 20 Mg Tab) 20 mg PO HS [facility] Stop: 02/24/24 21:59 Last Admin: 01/26/24 20:52 Dose: 20 mg Sacubitril/Valsartan (Valsartan/Sacubitril 103/97mg Tab) 1 tab PO BID [facility] Stop: 02/24/24 21:43 Last Admin: 01/27/24 08:32 Dose: 1 tab Tamsulosin HCl (Tamsulosin Hcl 0.4 Mg Cap) 0.4 mg PO QAM SAL Stop: 02/25/24 08:59 Last Admin: 01/27/24 08:32 Dose: 0.4 mg Tizanidine HCl (Tizanidine Hcl 4 Mg Tablet) 4 mg PO HS PRN PRN Reason: muscle spasticity Stop: 02/24/24 21:43 Last Admin: 01/27/24 08:33 Dose: 4 mg Tramadol HCl (Tramadol Hcl 50 Mg Tablet) 50 mg PO TID PRN PRN Reason: pain Stop: 02/24/24 21:43 Last Admin: 01/27/24 00:49 Dose: 50 mg Vitamin D (Cholecalciferol 25 Mcg (1000 Units) Tab) 25 mcg PO QAM SAL Stop: 02/25/24 08:59 Last Admin: 01/27/24 08:30 Dose: 25 mcg PG Care Time/CCT Total # of Minutes Spent Total Time Spent with Patient: Total time spent is greater than 50% in coordination of care (as documented) at patient's floor/unit and/or counseling patient: Coding Level of Care Code 33332 INT INP/OBS CARE 3/75MIN Diagnoses Permanent atrial fibrillation I48.21 Heart failure with improved ejection fraction (HFimpEF) I50.32
[2024-01-27] MEDS: METOPROLOL SUCC 50MG EXT REL TAB PO SCH (20:50)
[2024-01-27] MEDS: hydrOXYzine HCl 10 MG TAB PO PRN (23:40)
[2024-01-28 06:16] LABS: Appearance Urine Turbid (Clear); Bacteria Urine Automated None Seen (None Seen); Bilirubin Urine Negative (Negative); Blood Urine Negative (Negative); Color Urine Yellow; Glucose Urine UA Negative (Negative); Ketones Urine Negative (Negative); Leukocyte Esterase Urine Trace (Negative); Nitrite Urine Negative (Negative); Protein Urine Trace (Negative); RBC Urine Automated >20 /hpf (0-2); Specific Gravity Urine 1.024 (1.000-1.030); Urobilinogen Urine Negative (Negative); WBC Urine Automated 0-5 /hpf (0-5); pH Urine 5.5 (4.5-7.5)
[2024-01-28 09:21] LABS: Calcium 8.9 mg/dl (8.6-10.3); Potassium 4.1 mmol/L (3.5-5.1)
[2024-01-28 09:27] LABS: BUN Creatinine Ratio 26.4 (10-20); Creatinine Clr Calc Pharmacy 91.5 ml/min
[2024-01-28] MEDS: FUROSEMIDE 40 MG/4 ML VIAL IV ONE (11:20)
--- NOTE | 2024-01-28 13:11 | Hospitalist Progress Note ---
Date of Service January 28, 2024 Assessment & Plan (1) Acute hypoxic respiratory failure: Plan: Patient with increased with shortness of breath and conversational dyspnea and increased edema Most likely due to acute CHF exacerbation Patient unsure of taking spironolactone (last prescription filled on 10/2023). Hx of CHF with preserved EF CXR: negative for pneumonia, pulmonary edema. Mild atelectasis. No oxygen at home BNP 212 CTA ordered due to left chest pain with cough and increased oxygen requirement to rule out pneumonia/ PE Patient got IV Lasix on 01/25. IV Lasix was held 01/26 due to low blood pressure Decided to give her another dose of IV Lasix today (2) Acute on chronic heart failure with normal ejection fraction: Plan: Improving with Lasix Still fluid overloaded with lower extremity edema and bibasilar crackles Will give another dose of IV Lasix today Continue Entresto, spironolactone (3) Symptomatic bradycardia: Plan: Jig Builder Helper consulted They think the patient fell asleep and she probably has undiagnosed sleep apnea that led to bradycardia They recommended putting her back on her metoprolol. Metoprolol resumed Heart rate stable today on metoprolol (4) UTI (urinary tract infection): Plan: Recently treated with Augmentin (finished on ) UA: Positive with nitrates Frequency, no urgency or dysuria Urine culture negative (5) Diabetes mellitus: Plan: Hold Metformin Novalog Scale ordered HgbA1C 7 on 01/25 (6) Atrial fibrillation with RVR: Plan: Resume metoprolol per cardiology recommendation Continue Eliquis 5 mg BID (7) Hypothyroidism: Plan: Continue Synthroid 75 mcg (8) Hypertension: Plan: Continue Metoprolol, amlodipine (9) Hyperlipidemia: Plan: Continue Rosuvastatin (10) Pain of right heel: Plan: Hx of OA Right heel XR: here is mild calcaneal spurring and moderate primary osteoarthritic change at the ankle. Continue Tramadol Defer to outpatient management Plan FEN: Heart Healthy Code status: full code DVT ppx: Eliquis 5 mg BID Dispo: med/surg with telemetry Admission and Anticipated Discharge Date Admission Date: January 25, 2024 Subjective Patient was seen and examined at 10:40 AM. When I walked into the room, she was sleeping on the recliner with her head down. She woke up when I called her n anabelle. She is not happy about the fact that she was to stay in the hospital tonight for further diuresis. Review of Systems Review of Systems: All systems reviewed & are unremarkable except as noted in Subjective Physical Exam Physical Exam: General: Awake, conversant. Morbidly obese Heart: S1, S2/slow rate and regular rhythm, no murmur rubs or gallops Lungs: Diminished breath sounds with mild bibasilar crackles. Normal effort Abdomen: Soft/nontender/nondistended. No hepatosplenomegaly Extremities: No clubbing/cyanosis. 2+ pitting bilateral edema Behavior: Appropriate, cooperative Results & Data Results & Data Vital Signs (Past 12 Hours) Vital Signs Temp Pulse Pulse Resp BP Pulse Ox O2 Del Method 01/28/24 11:39 36.7 C 98 H 18 125/75 96 Nasal Cannula 01/28/24 08:15 Nasal Cannula 01/28/24 07:40 36.6 C 78 18 109/65 99 Nasal Cannula 01/28/24 07:00 68 01/28/24 02:47 36.6 C 83 18 138/85 96 Nasal Cannula O2 Flow Rate 01/28/24 11:39 2 01/28/24 08:15 2 01/28/24 07:40 2 01/28/24 07:00 01/28/24 02:47 2 Laboratory Results Abnormal lab results 01/27/24 01/27/24 01/28/24 Range/Units 17:15 20:03 05:00 BUN/Creatinine Ratio (10-20) Glucose (70-99(Fasting)) mg/dl POC Glucose 108 H 112 H (70-99) mg/dl Urine Appearance Turbid A (Clear) Urine Protein Trace H (Negative) Ur Leukocyte Esterase Trace H (Negative) Urine RBC (Auto) >20 H (0-2) /hpf U Hyaline Cast (Auto) 3-5 H (0-2) /lpf U Epithel Cells (Auto) 6-10 H (0-2) /hpf 01/28/24 01/28/24 01/28/24 Range/Units 08:11 08:15 12:11 BUN/Creatinine Ratio 26.4 H (10-20) Glucose 106 H (70-99(Fasting)) mg/dl POC Glucose 109 H 118 H (70-99) mg/dl Urine Appearance (Clear) Urine Protein (Negative) Ur Leukocyte Esterase (Negative) Urine RBC (Auto) (0-2) /hpf U Hyaline Cast (Auto) (0-2) /lpf U Epithel Cells (Auto) (0-2) /hpf PG Care Time/CCT Total # of Minutes Spent Total Time Spent with Patient: Total time spent is greater than 50% in coordination of care (as documented) at patient's floor/unit and/or counseling patient: Coding Level of Care Code 11580 SUB INP/OBS CARE 2/35MIN Diagnoses Acute hypoxic respiratory failure J96.01 Acute on chronic heart failure with normal ejection fraction I50.33 Symptomatic bradycardia R00.1 Acute cystitis without hematuria N30.00 Urinary tract infection type: acute cystitis Hematuria presence: without hematuria Diabetes mellitus E11.9 Atrial fibrillation with RVR I48.91 Hypothyroidism E03.9 Hypertension I10 Hyperlipidemia E78.5 Pain of right heel M79.671 (4) UTI (urinary tract infection) Urinary tract infection type: acute cystitis Hematuria presence: without hematuria Qualified Code(s): N30.00 - Acute cystitis without hematuria
[2024-01-29 08:25] LABS: BUN Creatinine Ratio 28.2 (10-20); Calcium 9.2 mg/dl (8.6-10.3); Creatinine Clr Calc Pharmacy 93.1 ml/min; Potassium 4.1 mmol/L (3.5-5.1)
[2024-01-29 11:12] VITALS: TEMP 98.1
[2024-01-29 15:06] VITALS: BP 107/68; PULSE 82; RESP 20; O2SAT 94
--- NOTE | 2024-01-29 15:39 | Discharge Summary ---
Date of Service January 29, 2024 Admission HPI Per Admitting Provider 78 y/o female with PMH of CHF with preserved EF, Cardiomegaly, OA, Afib on Eliquis, obesity, DM2. She was sent from her PCP today due to conversational dyspnea, progressive weakness and SOB. She presented to her PCP due to right heel pain. She states that she has left sided chest pain with cough. On the ED she was found with hypoxia of 87, needing 2 L of Oxygen on nasal cannula. She refers progressive frequency since last week. She was recently teated for UTI with Augmentin (finished on 01/16), currently taking Azo. Denied any dysuria or urgency. She refers she is take her Eliquis, Entresto, metoprolol daily. She is unsure about currently taking spironolactone. She denied any runny nose, palpitation, headaches, abdominal pain, diarrhea, vomiting or any other symptoms. Ed course: CXR: negative for pneumonia, pulmonary edema. Mild atelectasis. Heel XR:mild calcaneal spurring and moderate primary osteoarthritic change at the ankle. Labs remarkable for BNP 212. UA positive for nitrites only. No Leukocytosis, Cr 0.75. Hgb 12.7. Admission Exam Per Admitting Provider Constitutional: WD/WN, vitals as above Respiratory: normal respiratory effort, lungs clear to auscultation Cardiovascular: Rate/Rhythm: + irregularly irregular Heart Sounds: normal S1 and normal S2 Extremities: + edema (Lymphadenoma bilateral, no open wounds, no erythema) Gastrointestinal (Abdomen): normal bowel sounds, soft, nontender, no hepatosplenomegaly Skin: no rashes, warm and dry Principal Diagnosis Acute hypoxic respiratory failure due to mild CHF exacerbation Acute diastolic congestive heart failure Discharge Exam General: Awake, conversant. Morbidly obese Heart: S1, S2/slow rate and regular rhythm, no murmur rubs or gallops Lungs: Diminished breath sounds with mild bibasilar crackles. Normal effort Abdomen: Soft/nontender/nondistended. No hepatosplenomegaly Extremities: No clubbing/cyanosis. 2+ pitting bilateral edema Behavior: Appropriate, cooperative Discharge Data Allergies Allergy/AdvReac Type Severity Reaction Status Date / Time adhesive Allergy Intermediate BLISTERING Verified 01/25/24 18:43 cephalexin Allergy Intermediate diarrhea,vomiting, Verified 01/25/24 18:43 nausea fenoprofen Allergy Intermediate MUSCLE Verified 01/25/24 18:43 WEAKNESS, PAIN, HIVES ibuprofen Allergy Intermediate RELATED TO Verified 01/25/24 18:43 FENOPROFEN metformin AdvReac Severe diarrhea Verified 01/25/24 19:09 torsemide AdvReac Severe Severe Unverified 01/25/24 19:09 Polyuria Consultations 01/25/24 18:06 ED Decision to Admit Stat 01/27/24 10:33 Consult Cardiology Routine 01/27/24 16:53 [facility] [place] Routine Ordered Studies 01/25/24 19:07 CT angio chest PE protocol Stat Hospital Course (1) Acute hypoxic respiratory failure: Patient with increased with shortness of breath and conversational dyspnea and increased edema Most likely due to acute CHF exacerbation Patient unsure of taking spironolactone (last prescription filled on 10/2023). Hx of CHF with preserved EF CXR: negative for pneumonia, pulmonary edema. Mild atelectasis. No oxygen at home BNP 212 CTA ordered due to left chest pain with cough and increased oxygen requirement to rule out pneumonia/ PE She was diuresed with IV Lasix with improvement in her hypoxia She is being discharged on 2 L of oxygen upon exertion per two-step test She is being discharged on her home dose of Lasix (2) Acute on chronic heart failure with normal ejection fraction: Improved with IV diuretics Being discharged on her home dose of p.o. Lasix 40 mg Continue Entresto, spironolactone Follow-up with CHF clinic (3) Symptomatic bradycardia: Treatment Technician consulted They think the patient fell asleep and she probably has undiagnosed sleep apnea that led to bradycardia They recommended putting her back on her metoprolol. Metoprolol resumed Heart rate stable today on metoprolol Patient should have sleep study done outpatient to formally diagnose sleep apnea (4) UTI (urinary tract infection): Recently treated with Augmentin (finished on ) UA: Positive with nitrates Frequency, no urgency or dysuria Urine culture negative (5) Diabetes mellitus: Hold Metformin Novalog Scale ordered HgbA1C 7 on 01/25 (6) Atrial fibrillation with RVR: Resume metoprolol per cardiology recommendation Continue Eliquis 5 mg BID There is a drug interaction between primidone and Eliquis which needs to be looked into by her PCP in near future (7) Hypothyroidism: Continue Synthroid 75 mcg (8) Hypertension: Continue Metoprolol, amlodipine (9) Hyperlipidemia: Continue Rosuvastatin (10) Pain of right heel: Hx of OA Right heel XR: here is mild calcaneal spurring and moderate primary osteoarthritic change at the ankle. Continue Tramadol Defer to outpatient management Plan FEN: Heart Healthy Code status: full code DVT ppx: Eliquis 5 mg BID Dispo: med/surg with telemetry Total Time Total Time Spent Total Time Spent (In Minutes): 35 Discharge Plan Discharge Items Patient Disposition: Home - Self-Care Reason For Visit: CHF, HYPOXIA Discharge Diagnosis: Acute hypoxic respiratory failure due to mild CHF exacerbation Acute diastolic congestive heart failure Activity: Resume your previous activity Non-emergency contact: Primary Care Provider Call non-emergency contact if: you have any medication questions and your symptoms worsen Follow-up/Referrals: Kael Duncan MD [Primary Care Provider] - Sylwia Hernandez PA-C [Physician Construction Coordinator] - 01/31/24 10:30 am (Congestive Heart Failure Program Appointment Information Early follow up is essential to managing your heart failure. An appointment has been scheduled for you with the [facility] Heart [facility] Program within 7 days of discharge. Anticipate this visit to be 30-60 minutes long. Please expect a health sanitarian phone call from one of our nurses approximately 48 hours from discharge. They will also be placing an order for lab work to be completed 1-2 days prior to your heart failure follow up appointment. Please be sure to have this done so we can go over the results when you come in. Office Location The cardiology office building is located in front of the hospital at [address] [facility]. Bring the following with you to your follow-up doctor appointments: Please bring your daily weight log any discharge paperwork all of your medication bottles with you to this visit. ) Diet: Carb Consistent or DM2 and Heart Healthy Addtl Attending Provider Instructions: Advised to follow-up with PCP in 1 week Advised to talk to her PCP about the drug interaction between primidone and Eliquis Advised to talk to PCP about getting a sleep study done outpatient Pending Studies at Discharge: No Stand-Alone Forms: My [facility] Medications and DC Order Prescriptions: Continued calcium carb-mag hydrox-simeth 280-128-20 mg Tablet,Chewable 1 tab PO DAILY PRN (Reason: Indigestion) calcium citrate-vitamin D3 [Citracal + D Maximum] 315 mg-6.25 mcg (250 unit) tablet 1 tab PO QAM cholecalciferol (vitamin D3) 25 mcg (1,000 unit) capsule 25 mcg PO QAM Qty: 90 3RF Eliquis 5 mg tablet 5 mg PO BID Qty: 180 3RF magnesium oxide 500 mg magnesium tablet 500 mg PO HS Qty: 30 5RF gabapentin 100 mg capsule 100 mg PO TID Qty: 180 2RF amlodipine 5 mg tablet 5 mg PO DAILY Qty: 30 5RF Hold Instructions: hypotension spironolactone 25 mg tablet 25 mg PO DAILY Qty: 45 3RF Hold Instructions: hyperkalemia metformin 500 mg tablet extended release 24 hr 500 mg PO DAILY Qty: 30 5RF tizanidine 4 mg tablet 4 mg PO HS PRN (Reason: muscle spasticity) Qty: 30 0RF rosuvastatin 20 mg tablet 20 mg PO HS Qty: 90 3RF Entresto 97-103 mg tablet 1 tab PO BID Qty: 180 3RF Align 4 mg capsule 4 mg PO BID Qty: 60 0RF furosemide 40 mg tablet 40 mg PO DAILY Qty: 30 2RF azelastine 137 mcg (0.1 %) spray,non-aerosol 2 spray intranasal BID Qty: 30 5RF Rx Instructions: administer into each nostril fluticasone propionate [Allergy Relief (fluticasone)] 50 mcg/actuation spray,suspension 2 spray intranasal HS Qty: 9.9 2RF Rx Instructions: administer into each nostril BID x 3 days then 2 sprays each nostril at HS thereafter cetirizine 10 mg tablet 10 mg PO DAILY Qty: 30 5RF acetaminophen [Tylenol Extra Strength] 500 mg tablet 1,000 mg PO TID tamsulosin 0.4 mg capsule 0.4 mg PO QAM primidone 50 mg tablet 100 - 150 mg PO UD Rx Instructions: 150 mg orally take 150 (3 tabs) in the morning then take 100 mg (2 tabs) in the PM; metoprolol succinate 50 mg tablet extended release 24 hr 100 mg PO BID Rx Instructions: take 2 tablets in the morning and 2 tablet at bedtime PO daily; levothyroxine 75 mcg tablet 75 mcg PO DAILYBB Rx Instructions: TAKE ONE TABLET BY MOUTH EVERY MORNING, TSH LAB DRAWN WHICH WAS ORDERD [facility] Sinus Rinse Complete Packet With Rinse Device See Rx Instructions .ROUTE .COMPLEX Rx Instructions: Use to irrigate nostrils once daily Discharge Orders: Discharge Order (Routine); Ordered 01/29/24 Ordered By: Nicolás England/Other Patient Handouts: Managing Type 2 Diabetes Admission Data Admit Date/Time: 01/25/24 18:53 Attending Provider: Nicolás Rogers Admit Provider: Kea Lim Primary Care Provider: Kael Duncan Other Providers: Calvin Headley; [facility]; Janusz Faria; Sylwia Hernandez Other Interventions: Discharge Summary Assessment (RN) Last Done: 01/29/24 15:15
[2024-01-29] MEDS ORDERED: APIXABAN 2.5 MG TAB PO SCH (21:00)
[2024-01-29] MEDS ORDERED: APIXABAN 5 MG TABLET PO SCH (21:00)
== END 2024-01-29 16:52 | disposition home or self-care (01) | DRG 291 ==
LOC: ED 16:02 → 2N 18:53 → SUATTDRO 18:53 → 2N 20:53